=== PATIENT | male | born 1980 | race Hispanic/Latino ===

== ENCOUNTER 2017-02-02 11:21 | Observation (INO) | payer MEDICARE, MEDICAID ==
[2017-02-02] MEDS ORDERED: Fentanyl 100 MCG/2 ML VIAL ONE ×5 (12:06→16:16)
[2017-02-02] MEDS ORDERED: Midazolam HCl 2 mg/2 ml Vial ONE (12:06)
[2017-02-02] MEDS ORDERED: Ropivacaine 0.2% HCl/PF 20 ML ONE (12:06)
[2017-02-02] MEDS ORDERED: traMADol HCl 50 MG TAB PO PRN ×2 (12:30)
[2017-02-02] MEDS ORDERED: Zolpidem Tartrate 5 MG TAB PO PRN (12:30)
[2017-02-02] MEDS ORDERED: Ropivacaine 0.2% 550 ML 550 ML NERVE BLCK SCH (12:30)
[2017-02-02] MEDS ORDERED: HYDROcodone/Acetaminophen 5/325 mg Tablet PO PRN ×2 (12:30)
[2017-02-02] MEDS ORDERED: Ketorolac Tromethamine 30 MG/ML VIAL IVP PRN (12:30)
[2017-02-02] MEDS ORDERED: Glycopyrrolate 0.2 MG/ML 5 ML SYRINGE ONE (13:10)
[2017-02-02] MEDS ORDERED: ePHEDrine/0.9% NaCl/PF SYRINGE 50 mg/10 ml ONE (13:10)
[2017-02-02] MEDS ORDERED: Propofol 200 MG/20 ML VIAL ONE (13:10)
[2017-02-02] MEDS ORDERED: PHENYLEPHRINE-NS 100 MCG/ML 10 ML SYRINGE ONE (13:10)
[2017-02-02] MEDS ORDERED: HYDROcodone/Acetaminophen 10/325 mg Tablet PO PRN (15:12)
--- NOTE | 2017-02-02 15:27 | OP ---
DATE OF PROCEDURE: 02/02/2017 OPERATIONS: 1. Right shoulder rotator cuff repair, arthroscopic. 2. Subacromial decompression. 3. Resection of acromioclavicular joint, Godfrey procedure. 4. Biceps tenotomy. PREOPERATIVE DIAGNOSES: Right shoulder full thickness rotator cuff tear, advanced biceps tendonopat hy, subacromial impingement and acromioclavicular arthritis. POSTOPERATIVE DIAGNOSES: Right shoulder full thickness rotator cuff tear, advanced biceps tendonopa thy, subacromial impingement and acromioclavicular arthritis. COMPLICATIONS: None. ESTIMATED BLOOD LOSS: Minimal. SURGEON: Joni Dowell M.D. ANESTHESIA: General plus regional block. INDICATIONS: Mr. Chandra is a 36-year-old male who has advanced right shoulder pain and has failed conservative treatment. He has been found to have a rotator cuff tear, biceps tendinopathy, subacro mial impingement and AC joint arthritis. He has been indicated for the above procedures to hopefull y restore function and relief pain. Risks have been reviewed in detail. DESCRIPTION OF PROCEDURE: Mr. Chandra was identified in the preoperative holding area. His correct extremity was marked. He was carried to the operating room. He was positioned supine. General an esthesia was induced. A multidisciplinary timeout was performed. The right upper extremity was pre pped and draped in sterile fashion. We began the procedure with diagnostic arthroscopy. A small incision was made posteriorly. We inse rted the arthroscope appropriately into the glenohumeral joint. The patient had severe tearing and fraying of his biceps tendon at the insertion on the scapula. We then inserted a shaver from the an terior portal. We then debrided the biceps tendon. Next, we performed a tenotomy with our cautery device. Next, we inserted the shaver again. We gently debrided the soft tissue structures of the s houlder debriding synovitis, which was extensive in the shoulder. We evaluated the rotator cuff. T he patient had a small full thickness tear as well as thinning of the articular surface of the supra spinatus tendon. At this point, we moved to the subacromial space. We performed a thorough subacromial decompression with bursectomy using our shaver and cautery device. We exposed the underlying rotator cuff. We e xposed the acromial bone. We worked medially back to the acromioclavicular joint. At this point, marisol wills used the high speed shantal to perform an acromioplasty with cutting block technique from anterior to posterior. We then worked medially. We resected 8 mm of distal clavicle bone using a high speed b urr. We worked superiorly through the distal clavicle. We took all overhanging osteophytes away. Finally, we evaluated the rotator cuff from the bursal surface. We debrided the footprint and ident ified the rotator cuff tear. I then placed a medial row anchor and passed to fiber tape sutures thr ough the rotator cuff. These were brought down into a lateral row anchor completing a double row re pair of the rotator cuff. Again, we irrigated and debrided the subacromial space. We then closed t he wounds with 3-0 nylon suture followed by a sterile dressing and a sling. The patient was taken t o recovery room in good condition without complication.
[2017-02-02] MEDS ORDERED: Promethazine HCl 25 MG/ML VIAL ONE (15:46)
[2017-02-02] MEDS ORDERED: [UNRECOGNIZED DRUG - REMARK] PO PRN (15:49)
[2017-02-02] MEDS ORDERED: Promethazine HCl 25 MG/ML VIAL IM/IV PRN (15:49)
[2017-02-02 18:05] VITALS: BMI 29.7
[2017-02-02] MEDS: Fentanyl 100 MCG/2 ML VIAL SLOW IVP PRN (22:26)
[2017-02-02] MEDS: Promethazine HCl 25 MG/ML VIAL IM PRN (23:22)
[2017-02-03] MEDS: Fentanyl 100 MCG/2 ML VIAL SLOW IVP PRN ×4 (01:05→09:26)
[2017-02-03] MEDS: Promethazine HCl 25 MG/ML VIAL IM PRN ×3 (04:12→14:53)
[2017-02-03] MEDS ORDERED: HYDROcodone/Acetaminophen 10/325 mg Tablet PO PRN (09:35)
[2017-02-03] MEDS: HYDROcodone/Acetaminophen 10/325 mg Tablet PO PRN ×2 (10:02→14:35)
[2017-02-03] MEDS ORDERED: Ondansetron HCl/PF 4 MG/2 ML Vial SLOW IVP PRN (12:13)
[2017-02-03] MEDS: clonazePAM 0.5 MG TAB PO SCH ×2 (12:41→14:35)
[2017-02-03] MEDS ORDERED: clonazePAM 0.5 MG TAB PO SCH (12:45)
--- NOTE | 2017-02-03 12:58 | PDOC.EVN ---
Event Note - Event Note Event Note: The Patient's chart was reviewed for the purpose of Utilization Review. The patient's acuity of care does not meet the threshold of acuity to justify inpatient status. Therefore under the Medicare Provision Code 44, the patient's status will be changed to Observation. The patient's Attending Physician has been contacted and agrees.
[2017-02-03] MEDS ORDERED: Baclofen 10 MG TAB PO SCH (14:00)
[2017-02-03 14:20] VITALS: BP 153/103; TEMP 99.1
[2017-02-03] MEDS ORDERED: Gabapentin 300 MG CAP PO SCH (15:00)
--- NOTE | 2017-02-04 12:46 | DIS ---
DATE OF ADMISSION: 02/02/2017 DATE OF DISCHARGE: 02/03/2017 PROCEDURES: 1. The patient underwent a right shoulder rotator cuff repair arthroscopically. 2. Subacromial decompression. 3. Resection of acromioclavicular joint/Godfrey procedure. 4. Biceps tenotomy PREOPERATIVE DIAGNOSES: Right shoulder full thickness rotator cuff tear, advance bicep tendonopathy , subacromial impingement and acromioclavicular arthritis. DISCHARGE DIAGNOSES: Right shoulder full thickness rotator cuff tear, advance bicep tendonopathy, s ubacromial impingement and acromioclavicular arthritis. HOSPITAL COURSE: Hospital stay was unremarkable. The patient did well. He did have some pain post operatively, but this was better with medication and PT. DISCHARGE CONDITION: Stable. DISPOSITION: To swing bed facility. FOLLOWUP: Followup would be in 10-14 days, sooner if there are problems or concerns. DISCHARGE MEDICATIONS: Given with usage instructions. This is Kenny Yañez PA-C dictating for Dr. Joni Dowell.
== END 2017-02-03 17:51 | disposition swing bed (61) ==
LOC: SDC 11:21 → T4-B 15:12 → INTOOBSV 15:12
PROVIDERS: ADMIT Orthopaedic Surgery; ATTEND Orthopaedic Surgery
PROC: 0LQ14ZZ Repair Right Shoulder Tendon, Percutaneous Endoscopic Approach (ICD-10-PCS; principal; 2017-02-02)
PROC: 0LS14ZZ Reposition Right Shoulder Tendon, Percutaneous Endoscopic Approach (ICD-10-PCS; 2017-02-02)
PROC: 0RNJ4ZZ Release Right Shoulder Joint, Percutaneous Endoscopic Approach (ICD-10-PCS; 2017-02-02)
PROC: 0PB94ZZ Excision of Right Clavicle, Percutaneous Endoscopic Approach (ICD-10-PCS; 2017-02-02)
DX: M75.121 Complete rotator cuff tear or rupture of right shoulder, not specified as traumatic (principal); D64.9 Anemia, unspecified; F17.200 Nicotine dependence, unspecified, uncomplicated; I10 Essential (primary) hypertension; Z98.1 Arthrodesis status; N31.9 Neuromuscular dysfunction of bladder, unspecified; E66.9 Obesity, unspecified; Z68.29 Body mass index [BMI] 29.0-29.9, adult; B19.20 Unspecified viral hepatitis C without hepatic coma; Z88.8 Allergy status to other drugs, medicaments and biological substances; Z90.49 Acquired absence of other specified parts of digestive tract; Z90.5 Acquired absence of kidney; Z90.81 Acquired absence of spleen; Z87.440 Personal history of urinary (tract) infections
CPT/HCPCS: 29824; 29826; 29827; 29828; 96374; 96375 ×2; 96376; 97139; A4306; C1713; G0378; G8987; G8988; J2250; J2270; J2550; J2704; J2795; J3010

== ENCOUNTER 2017-11-07 05:13 | Inpatient (IN) | payer MEDICARE, MEDICAID ==
[2017-11-07] MEDS ORDERED: cefTRIAXone\\ROCEPHIN 1 GM VIAL ONE (06:26)
[2017-11-07] MEDS ORDERED: Ondansetron HCl/PF 4 MG/2 ML Vial IVP PRN (09:42)
[2017-11-07] MEDS ORDERED: Ondansetron ODT 4 MG TAB SL PRN (09:42)
[2017-11-07] MEDS ORDERED: Sodium Chloride 0.9% 1,000 ML IV SCH (09:42)
[2017-11-07] MEDS ORDERED: Acetaminophen 325 MG TAB PO PRN (11:07)
[2017-11-07] MEDS ORDERED: Guaifenesin DM 100-10/5 ML UDCUP PO PRN (11:07)
[2017-11-07] MEDS: Sodium Chloride 0.9% 1,000 ML IV SCH (12:07)
[2017-11-07] MEDS: HYDROcodone/Acetaminophen 10/325 mg Tablet PO PRN ×2 (12:09→21:10)
[2017-11-07] MEDS: clonazePAM 0.5 MG TAB PO SCH ×2 (15:56→23:34)
[2017-11-07] MEDS: Gabapentin 300 MG CAP PO SCH ×2 (15:56→21:07)
[2017-11-07] MEDS: Baclofen 10 MG TAB PO SCH ×2 (15:56→21:10)
[2017-11-07 17:22] VITALS: BMI 30.2
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
[2017-11-07] MEDS: Docusate 100 MG CAP PO SCH (21:06)
[2017-11-07] MEDS: TROSPIUM 20 MG TABLET PO SCH (21:07)
[2017-11-07] MEDS: Famotidine 20 MG TAB PO SCH (21:08)
[2017-11-08] MEDS: Sodium Chloride 0.9% 1,000 ML IV SCH (01:30)
[2017-11-08 05:02] LABS: #Basophils 0.1 thou/uL (0.0-0.2); #Eosinphils 0.3 thou/uL (0.0-0.7); #Lymphocytes 3.3 thou/uL (1.20-3.40); #Monocytes 0.4 thou/uL (0.11-0.59); #Neutrophils 3.5 thou/uL (1.40-6.50); %Basophils 0.8 % (0.0-1.0); %Eosinophils 4.2 % (0.0-10.0); %Lymphocytes 43.8 % (21.0-51.0); %Monocytes 5.4 % (0.0-10.0); %Neutrophils 45.8 % (42.0-75.0); Hemoglobin 14.5 g/dL (14.0-18.0); Mean Corpuscular HGB CONC 33.9 g/dL (32.0-36.0); Mean Corpuscular Hemoglobin 32.6 pg (27.0-31.0); Mean Corpuscular Volume 96.1 fL (78.0-98.0); Mean Platelet Volume 6.8 fL (7.4-10.4); Platelet Count 233 thou/uL (130-400); RBC Distribution Width 11.9 % (11.5-14.5); Red Blood Cell (RBC) Count 4.46 mill/uL (4.70-6.10); White Blood Cell (WBC) Count 7.5 thou/uL (4.8-10.8)
[2017-11-08 05:20] LABS: ALT (SGPT) 35 U/L (8-55); AST (SGOT) 40 U/L (5-34); Alkaline Phosphatase 95 U/L (40-150); Anion Gap 10 mmol/L (10-20); BUN (Urea Nitrogen) 14 mg/dL (8.9-20.6); Bilirubin, Total 0.6 mg/dL (0.2-1.2); Calc. Creatinine Clearance 184 mL/min (70-130); Calcium 8.1 mg/dL (7.8-10.44); Carbon Dioxide 25 mmol/L (22-29); Chloride 107 mmol/L (98-107); Estimated GFR-MDRD Greater than 90; Globulin 3.6 g/dL (2.4-3.5); Glucose 119 mg/dL (70-105); Potassium 3.9 mmol/L (3.5-5.1); Protein, Total 6.6 g/dL (6.0-8.3); Sodium 138 mmol/L (136-145)
[2017-11-08] MEDS: cefTRIAXone\\ROCEPHIN 1 GM in Sodium Chloride 0.9% 100 ML IVPB SCH (06:08)
[2017-11-08] MEDS: Baclofen 10 MG TAB PO SCH ×4 (06:11→22:31)
[2017-11-08] MEDS: Gabapentin 300 MG CAP PO SCH ×3 (08:56→22:31)
[2017-11-08] MEDS: Famotidine 20 MG TAB PO SCH ×2 (08:56→22:31)
[2017-11-08] MEDS: clonazePAM 0.5 MG TAB PO SCH ×3 (08:56→22:37)
[2017-11-08] MEDS: Enoxaparin Sodium 40 MG/0.4 ML SYRINGE SC SCH (08:57)
[2017-11-08] MEDS: Polyethylene Glycol 3350 17 GM Packet PO SCH (08:57)
[2017-11-08] MEDS: Docusate 100 MG CAP PO SCH ×2 (08:58→22:32)
[2017-11-08] MEDS: TROSPIUM 20 MG TABLET PO SCH ×2 (08:58→22:31)
[2017-11-08] MEDS ORDERED: hydrALAZINE 20 MG/ML VIAL SLOW IVP PRN (09:01)
[2017-11-08] MEDS ORDERED: Artificial Tears 18 DROP/0.9 ML EA EYE PRN (09:01)
[2017-11-08] MEDS ORDERED: Milk Of Magnesia 30 ML UDCUP PO PRN (09:01)
[2017-11-08] MEDS ORDERED: Temazepam 15 MG CAP PO PRN (09:01)
[2017-11-08] MEDS ORDERED: Sodium Chloride 0.65% Nasal 44 ML BOT EA NARE PRN (09:01)
[2017-11-08] MEDS ORDERED: Loratadine 10 MG TAB PO PRN (09:01)
[2017-11-08] MEDS ORDERED: Chloraseptic Spray 180 ml Bottle PO PRN (09:01)
[2017-11-08] MEDS ORDERED: Mag-Al 1200 mg/1200 mg/30 ML UDCUP PO PRN (09:01)
[2017-11-08] MEDS ORDERED: Loperamide HCl 2 MG CAP PO PRN (09:01)
[2017-11-08] MEDS ORDERED: Eucerin (Mineral Oil/Petrolatum,White) 30 gm Jar TOP PRN (09:01)
[2017-11-08] MEDS ORDERED: Diabetic Tussin 200 MG/10 ML UDCUP PO PRN (09:01)
[2017-11-08] MEDS: HYDROcodone/Acetaminophen 10/325 mg Tablet PO PRN (09:51)
--- NOTE | 2017-11-08 11:58 | PDOC.PN ---
- Subjective Encounter Start Date: 11/08/17 Encounter Start Time: 08:50 -: old records requested/rev Patient seen and examined for UTI. No new complaints. No overnight events - Objective Resuscitation Status: Resuscitation Status FULL:Full Resuscitation MAR Reviewed: Yes Vital Signs & Weight: Vital Signs (12 hours) Temp Pulse Resp BP Pulse Ox 11/08/17 08:00 98.5 F 65 18 135/87 97 I&O: 11/07/17 11/08/17 11/09/17 06:59 06:59 06:59 Intake Total 1700 Output Total 1650 Balance 50 Result Diagrams: 11/08/17 04:33 11/08/17 04:33 Phys Exam - Physical Examination Constitutional: NAD HEENT: PERRLA, moist MMs, sclera anicteric Neck: no JVD, supple Respiratory: no wheezing, no rales, no rhonchi Cardiovascular: RRR, no significant murmur, no rub Gastrointestinal: soft, non-tender, no distention, positive bowel sounds Musculoskeletal: no edema, pulses present paraplegia Lymphatic: no nodes Psychiatric: normal affect, A&O x 3 Skin: no rash, normal turgor Dx/Plan (1) Sepsis Code(s): A41.9 - SEPSIS, UNSPECIFIED ORGANISM Status: Acute (2) UTI (urinary tract infection) due to urinary indwelling catheter Code(s): T83.51XA - ; N39.0 - URINARY TRACT INFECTION, SITE NOT SPECIFIED Status: Acute Comment: intermittent self catheterization (3) Chronic hepatitis C Code(s): B18.2 - CHRONIC VIRAL HEPATITIS C Status: Chronic Qualifiers: (4) Chronic pain syndrome Code(s): G89.4 - CHRONIC PAIN SYNDROME Status: Chronic (5) HTN (hypertension) Code(s): I10 - ESSENTIAL (PRIMARY) HYPERTENSION Status: Chronic Qualifiers: (6) Neurogenic bladder Code(s): N31.9 - NEUROMUSCULAR DYSFUNCTION OF BLADDER, UNSPECIFIED Status: Chronic (7) Obesity (BMI 30.0-34.9) Code(s): E66.9 - OBESITY, UNSPECIFIED Status: Chronic (8) Paraplegia Code(s): G82.20 - PARAPLEGIA, UNSPECIFIED Status: Chronic (9) Rotator cuff tear arthropathy of right shoulder Code(s): M12.811 - OTH SPECIFIC ARTHROPATHIES, NEC, RIGHT SHOULDER Status: Chronic - Plan cont current plan of care, continue antibiotics * continue intermittent self catheterization for neurogenic bladder * ID consulted * continue rocephin * doubt real infection may be colonization * medication reviewed as below * symptomatic treatment * follow culture * continue his home meds. Review of Systems - Review of Systems Eyes: negative: Pain, Vision Change, Conjunctivae Inflammation, Eyelid Inflammation, Redness, Other ENT: negative: Ear Pain, Ear Discharge, Nose Pain, Nose Discharge, Nose Congestion, Mouth Pain, Mouth Swelling, Throat Pain, Throat Swelling, Other Respiratory: negative: Cough, Dry, Shortness of Breath, Hemoptysis, SOB with Excertion, Pleuritic Pain, Sputum, Wheezing Cardiovascular: negative: chest pain, palpitations, orthopnea, paroxysmal nocturnal dyspnea, edema, light headedness, other Gastrointestinal: negative: Nausea, Vomiting, Abdominal Pain, Diarrhea, Constipation, Melena, Hematochezia, Other Genitourinary: negative: Dysuria, Frequency, Incontinence, Hematuria, Retention , Other Musculoskeletal: negative: Neck Pain, Shoulder Pain, Arm Pain, Back Pain, Hand Pain, Leg Pain, Foot Pain, Other Skin: negative: Rash, Lesions, Frederic, Bruising, Other - Medications/Allergies Allergies/Adverse Reactions: Allergies Allergy/AdvReac Type Severity Reaction Status Date / Time ciprofloxacin [From Cipro] Allergy Verified 12/16/16 14:37 ciprofloxacin HCl Allergy Verified 12/16/16 14:37 [From Cipro] fluconazole Allergy Verified 12/16/16 14:37 levofloxacin [From Levaquin] Allergy Verified 12/16/16 14:37 linezolid [From Zyvox] Allergy Verified 12/16/16 14:37 metoclopramide HCl Allergy Verified 12/16/16 14:37 [From Reglan] ondansetron HCl Allergy Short of Verified 12/16/16 14:37 [From Zofran (as Breath hydrochloride)] pregabalin [From Lyrica] Allergy Verified 12/16/16 14:37 Medications: Current Medications Acetaminophen (Tylenol) 650 mg PO Q4H PRN PRN Reason: Headache/Fever or Pain Hydrocodone Bitart/Acetaminophen ([place] 10/325) 1 tab PO Q8H PRN PRN Reason: Severe Pain (7-10) Last Admin: 11/08/17 09:51 Dose: 1 tab Hydrocodone Bitart/Acetaminophen ([place] 5/325) 1 tab PO Q4H PRN PRN Reason: Moderate Pain (4-6) Al Hydroxide/Mg Hydroxide (Maalox) 15 ml PO Q4H PRN PRN Reason: Heartburn or Indigestion Artificial Tears (Tears Naturale) 0 drop EA EYE PRN PRN PRN Reason: Dry Eyes Baclofen (Lioresal) 10 mg PO TID [facility] Last Admin: 11/08/17 09:53 Dose: 10 mg Clonazepam (Klonopin) 0.5 mg PO 0900,1500,2300 [facility] Last Admin: 11/08/17 08:56 Dose: 0.5 mg Docusate Sodium (Colace) 100 mg PO BID [facility] Last Admin: 11/08/17 08:58 Dose: Not Given Enoxaparin Sodium (Lovenox) 40 mg SC 0900 [facility] Last Admin: 11/08/17 08:57 Dose: 40 mg Famotidine (Pepcid) 20 mg PO BID [facility] Last Admin: 11/08/17 08:56 Dose: 20 mg Gabapentin (Neurontin) 300 mg PO TID [facility] Last Admin: 11/08/17 08:56 Dose: 300 mg Guaifenesin (Robitussin Sf) 200 mg PO Q4H PRN PRN Reason: Cough Guaifenesin/Dextromethorphan (Robitussin Dm) 15 ml PO Q4H PRN PRN Reason: Cough Hydralazine HCl (Apresoline) 10 mg SLOW IVP Q4H PRN PRN Reason: Systolic BP > 180 Ceftriaxone Sodium 1 gm/ (Sodium Chloride) 100 mls @ 200 mls/hr IVPB Q24HR [facility] Last Admin: 11/08/17 06:08 Dose: 100 mls Sodium Chloride (Normal Saline 0.9%) 1,000 mls @ 70 mls/hr IV .[id number] [facility] Stop: 11/08/17 15:49 Last Admin: 11/08/17 01:30 Dose: 1,000 mls Loperamide HCl (Imodium) 2 mg PO PRN PRN PRN Reason: Diarrhea/Loose Stools Loratadine (Claritin) 10 mg PO DAILYPRN PRN PRN Reason: Sinus Symptoms Magnesium Hydroxide (Milk Of Magnesium) 30 ml PO DAILYPRN PRN PRN Reason: Constipation Mineral Oil/White Petrolatum (Eucerin Cream) 0 gm TOP BIDPRN PRN PRN Reason: Dry Skin Phenol (Chloraseptic [place] 180 Ml Bot) 0 ml PO PRN PRN PRN Reason: Sore Throat Polyethylene Glycol (Miralax) 17 gm PO DAILY [facility] Last Admin: 11/08/17 08:57 Dose: Not Given Saccharomyces Boulardii (Florastor) 250 mg PO DAILY [facility] Sodium Chloride ([place] Nasal [place] 0.65%) 0 ml EA NARE QIDPRN PRN PRN Reason: Nasal Congestion Temazepam (Restoril) 15 mg PO HSPRN PRN PRN Reason: Insomnia Trospium (Trospium) 20 mg PO BID [facility] Last Admin: 11/08/17 08:58 Dose: Not Given
[2017-11-08] MEDS ORDERED: Baclofen 10 MG TAB PO SCH (16:00)
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
--- NOTE | 2017-11-09 00:02 | ULT ---
ABDOMEN ULTRASOUND: HISTORY: Paraplegia. Fever. Suprapubic pain. COMPARISON: None. CORRELATION: CT abdomen from 09/14/2017. Chest CT from 09/18/2017. TECHNIQUE: Utilizing a Multi-Hertz transducer, sonographic imaging of the right upper quadrant is performed in t he longitudinal and transverse planes. FINDINGS: Limited evaluation of the pancreas due to bowel gas. The left hepatic lobe is obscured. There is increased echogenicity of the right hepatic lobe, which may be due to technical limitations. The possibility of hepatic stenosis or hepatocellular disease i s also raised. Of note, due to the increased echogenicity, evaluation for hepatic masses and intrahe patic biliary dilatation is limited. Increased echogenicity may represent a calculus in the common bile duct, measuring 1.2 cm. The commo n bile duct is prominent, measuring 0.8 cm in dimension. Suboptimal evaluation of the IVC and aorta due to midline bowel gas. A spleen is not appreciated. The gallbladder is reported to be surgically absent. IMPRESSION: Possible choledocholithiasis. Prominence of the common bile duct is noted. Prominence of the common bile duct may be due to reservoir effect from the previous cholecystectomy. If there is concern for choledocholithiasis, consider endoscope retrograde cholangiopancreatography or magnetic resonance ch olangiopancreatography. Correlation made with CT from September 2017 does not demonstrate any obvious chol edocholith. POS: JEANNINE
[2017-11-09] MEDS: cefTRIAXone\\ROCEPHIN 1 GM in Sodium Chloride 0.9% 100 ML IVPB SCH (05:48)
[2017-11-09] MEDS: Famotidine 20 MG TAB PO SCH ×2 (08:38→20:21)
[2017-11-09] MEDS: Saccharomyces boulardii 250 MG CAP PO SCH (08:39)
[2017-11-09] MEDS: Baclofen 10 MG TAB PO SCH ×3 (08:39→20:21)
[2017-11-09] MEDS: clonazePAM 0.5 MG TAB PO SCH ×3 (08:39→23:59)
[2017-11-09] MEDS: Enoxaparin Sodium 40 MG/0.4 ML SYRINGE SC SCH (08:39)
[2017-11-09] MEDS: Polyethylene Glycol 3350 17 GM Packet PO SCH (08:39)
[2017-11-09] MEDS: Docusate 100 MG CAP PO SCH ×2 (08:39→20:20)
[2017-11-09] MEDS: Gabapentin 300 MG CAP PO SCH ×3 (08:39→20:21)
[2017-11-09] MEDS: TROSPIUM 20 MG TABLET PO SCH ×2 (08:40→20:21)
[2017-11-09] MEDS: HYDROcodone/Acetaminophen 10/325 mg Tablet PO PRN (08:49)
--- NOTE | 2017-11-09 10:38 | PDOC.PN ---
- Subjective Encounter Start Date: 11/09/17 Encounter Start Time: 08:40 Patient seen and examined for UTI. No new complaints. No overnight events - Objective Resuscitation Status: Resuscitation Status FULL:Full Resuscitation MAR Reviewed: Yes Vital Signs & Weight: Vital Signs (12 hours) Temp Pulse Resp BP Pulse Ox 11/09/17 07:22 98.5 F 74 18 142/90 H 98 I&O: 11/08/17 11/09/17 11/10/17 06:59 06:59 06:59 Intake Total 1700 980 Output Total 7993 445 8454 Balance 50 600 -1505 Result Diagrams: 11/08/17 04:33 11/08/17 04:33 Radiology Reviewed by me: Yes (US abdomen) Phys Exam - Physical Examination Constitutional: NAD HEENT: PERRLA, moist MMs, sclera anicteric Neck: no JVD, supple Respiratory: no wheezing, no rales, no rhonchi Cardiovascular: RRR, no significant murmur, no rub Gastrointestinal: soft, non-tender, no distention, positive bowel sounds Musculoskeletal: no edema, pulses present paraplegia Lymphatic: no nodes Psychiatric: normal affect Skin: no rash, normal turgor Dx/Plan (1) Sepsis Code(s): A41.9 - SEPSIS, UNSPECIFIED ORGANISM Status: Acute (2) UTI (urinary tract infection) due to urinary indwelling catheter Code(s): T83.51XA - ; N39.0 - URINARY TRACT INFECTION, SITE NOT SPECIFIED Status: Acute Comment: intermittent self catheterization (3) Chronic hepatitis C Code(s): B18.2 - CHRONIC VIRAL HEPATITIS C Status: Chronic Qualifiers: (4) Chronic pain syndrome Code(s): G89.4 - CHRONIC PAIN SYNDROME Status: Chronic (5) HTN (hypertension) Code(s): I10 - ESSENTIAL (PRIMARY) HYPERTENSION Status: Chronic Qualifiers: (6) Neurogenic bladder Code(s): N31.9 - NEUROMUSCULAR DYSFUNCTION OF BLADDER, UNSPECIFIED Status: Chronic (7) Obesity (BMI 30.0-34.9) Code(s): E66.9 - OBESITY, UNSPECIFIED Status: Chronic (8) Paraplegia Code(s): G82.20 - PARAPLEGIA, UNSPECIFIED Status: Chronic (9) Rotator cuff tear arthropathy of right shoulder Code(s): M12.811 - OTH SPECIFIC ARTHROPATHIES, NEC, RIGHT SHOULDER Status: Chronic - Plan cont current plan of care, continue antibiotics * US suspected prominence of bile duct but doubt any clinical significance * medication reviewed as below * symptomatic treatment. * continue follow up on culture result Review of Systems - Review of Systems ENT: negative: Ear Pain, Ear Discharge, Nose Pain, Nose Discharge, Nose Congestion, Mouth Pain, Mouth Swelling, Throat Pain, Throat Swelling, Other Respiratory: negative: Cough, Dry, Shortness of Breath, Hemoptysis, SOB with Excertion, Pleuritic Pain, Sputum, Wheezing Cardiovascular: negative: chest pain, palpitations, orthopnea, paroxysmal nocturnal dyspnea, edema, light headedness, other Gastrointestinal: negative: Nausea, Vomiting, Abdominal Pain, Diarrhea, Constipation, Melena, Hematochezia, Other Genitourinary: negative: Dysuria, Frequency, Incontinence, Hematuria, Retention , Other Musculoskeletal: negative: Neck Pain, Shoulder Pain, Arm Pain, Back Pain, Hand Pain, Leg Pain, Foot Pain, Other - Medications/Allergies Allergies/Adverse Reactions: Allergies Allergy/AdvReac Type Severity Reaction Status Date / Time ciprofloxacin [From Cipro] Allergy Verified 12/16/16 14:37 ciprofloxacin HCl Allergy Verified 12/16/16 14:37 [From Cipro] fluconazole Allergy Verified 12/16/16 14:37 levofloxacin [From Levaquin] Allergy Verified 12/16/16 14:37 linezolid [From Zyvox] Allergy Verified 12/16/16 14:37 metoclopramide HCl Allergy Verified 12/16/16 14:37 [From Reglan] ondansetron HCl Allergy Short of Verified 12/16/16 14:37 [From Zofran (as Breath hydrochloride)] pregabalin [From Lyrica] Allergy Verified 12/16/16 14:37 Medications: Current Medications Acetaminophen (Tylenol) 650 mg PO Q4H PRN PRN Reason: Headache/Fever or Pain Hydrocodone Bitart/Acetaminophen ([place] 10/325) 1 tab PO Q8H PRN PRN Reason: Severe Pain (7-10) Last Admin: 11/09/17 08:49 Dose: 1 tab Hydrocodone Bitart/Acetaminophen ([place] 5/325) 1 tab PO Q4H PRN PRN Reason: Moderate Pain (4-6) Al Hydroxide/Mg Hydroxide (Maalox) 15 ml PO Q4H PRN PRN Reason: Heartburn or Indigestion Artificial Tears (Tears Naturale) 0 drop EA EYE PRN PRN PRN Reason: Dry Eyes Baclofen (Lioresal) 10 mg PO TID [facility] Last Admin: 11/09/17 08:39 Dose: 10 mg Clonazepam (Klonopin) 0.5 mg PO 0900,1500,2300 [facility] Last Admin: 11/09/17 08:39 Dose: 0.5 mg Docusate Sodium (Colace) 100 mg PO BID [facility] Last Admin: 11/09/17 08:39 Dose: Not Given Enoxaparin Sodium (Lovenox) 40 mg SC 0900 [facility] Last Admin: 11/09/17 08:39 Dose: 40 mg Famotidine (Pepcid) 20 mg PO BID [facility] Last Admin: 11/09/17 08:38 Dose: 20 mg Gabapentin (Neurontin) 300 mg PO TID [facility] Last Admin: 11/09/17 08:39 Dose: 300 mg Guaifenesin (Robitussin Sf) 200 mg PO Q4H PRN PRN Reason: Cough Guaifenesin/Dextromethorphan (Robitussin Dm) 15 ml PO Q4H PRN PRN Reason: Cough Hydralazine HCl (Apresoline) 10 mg SLOW IVP Q4H PRN PRN Reason: Systolic BP > 180 Ceftriaxone Sodium 1 gm/ (Sodium Chloride) 100 mls @ 200 mls/hr IVPB Q24HR [facility] Last Admin: 11/09/17 05:48 Dose: 100 mls Loperamide HCl (Imodium) 2 mg PO PRN PRN PRN Reason: Diarrhea/Loose Stools Loratadine (Claritin) 10 mg PO DAILYPRN PRN PRN Reason: Sinus Symptoms Magnesium Hydroxide (Milk Of Magnesium) 30 ml PO DAILYPRN PRN PRN Reason: Constipation Mineral Oil/White Petrolatum (Eucerin Cream) 0 gm TOP BIDPRN PRN PRN Reason: Dry Skin Phenol (Chloraseptic [place] 180 Ml Bot) 0 ml PO PRN PRN PRN Reason: Sore Throat Polyethylene Glycol (Miralax) 17 gm PO DAILY [facility] Last Admin: 11/09/17 08:39 Dose: Not Given Saccharomyces Boulardii (Florastor) 250 mg PO DAILY [facility] Last Admin: 11/09/17 08:39 Dose: 250 mg Sodium Chloride ([place] Nasal [place] 0.65%) 0 ml EA NARE QIDPRN PRN PRN Reason: Nasal Congestion Temazepam (Restoril) 15 mg PO HSPRN PRN PRN Reason: Insomnia Trospium (Trospium) 20 mg PO BID [facility] Last Admin: 11/09/17 08:40 Dose: Not Given
[2017-11-09] MEDS: HYDROcodone/Acetaminophen 5/325 mg Tablet PO PRN ×2 (14:19→20:23)
[2017-11-10] MEDS: cefTRIAXone\\ROCEPHIN 1 GM in Sodium Chloride 0.9% 100 ML IVPB SCH (06:26)
[2017-11-10] MEDS: TROSPIUM 20 MG TABLET PO SCH ×2 (08:24→20:01)
[2017-11-10] MEDS: Polyethylene Glycol 3350 17 GM Packet PO SCH (08:24)
[2017-11-10] MEDS: Docusate 100 MG CAP PO SCH ×2 (08:25→20:02)
[2017-11-10] MEDS: Enoxaparin Sodium 40 MG/0.4 ML SYRINGE SC SCH (08:26)
[2017-11-10] MEDS: Gabapentin 300 MG CAP PO SCH ×3 (08:26→19:59)
[2017-11-10] MEDS: Saccharomyces boulardii 250 MG CAP PO SCH (08:26)
[2017-11-10] MEDS: Famotidine 20 MG TAB PO SCH ×2 (08:26→19:59)
[2017-11-10] MEDS: clonazePAM 0.5 MG TAB PO SCH ×2 (08:26→14:13)
[2017-11-10] MEDS: Baclofen 10 MG TAB PO SCH ×3 (08:26→19:59)
[2017-11-10] MEDS: HYDROcodone/Acetaminophen 5/325 mg Tablet PO PRN ×3 (08:32→16:14)
--- NOTE | 2017-11-10 11:39 | RAD ---
TWO VIEWS LEFT CLAVICLE: DATE: 11/10/17. HISTORY: Left clavicular bone pain. FINDINGS: There is no evidence of a fracture. The coracoclavicular and acromioclavicular distances are within normal limits. A left subclavian MediPort catheter is noted in place. There is a curvilinear calcif ication overlying the region of the aortic arch and descending thoracic aorta that was shown to repre sent a thrombosed sacular-type aneurysm on prior CTA of the chest on 09/18/17. No other findings. IMPRESSION: No acute osseous abnormality involving the left clavicle. POS: [facility]
--- NOTE | 2017-11-10 12:26 | DIS ---
DATE OF ADMISSION: 11/07/2017 DATE OF DISCHARGE: 11/10/2017 PRIMARY CARE PHYSICIAN: Arnold Navarro M.D. DISCHARGE DISPOSITION: Home. PRIMARY DISCHARGE DIAGNOSES: 1. Sepsis. 2. Urinary tract infection due to self-intermittent catheterization. SECONDARY DISCHARGE DIAGNOSES: Chronic hepatitis C, chronic pain disorder, neurogenic bladder, chron ic paraplegia, hypertension, obesity with BMI 30, chronic rotator cuff tear with the right shoulder p ain. PRIMARY PROCEDURE/OPERATION: None. RADIOLOGICAL INVESTIGATION: Abdomen ultrasound showed bile duct prominence, but clinically this corin ent does not have any Taylor sign or no abdominal pain and no abnormal LFT. Chest clavicular x-ray w as normal. SIGNIFICANT LABORATORY DATA: WBC 7.5, hemoglobin 14.5, platelet 233. Sodium 138, potassium 3.9, BUN 14, creatinine 0.68, AST 40, ALT 35, alkaline phosphatase 95, albumin 3.0. Urine culture grew E. co li and Enterococcus, but quantity was insufficient but based on previous culture, he was on Macrobid sensitive. DISCHARGE MEDICATIONS: Baclofen one tablet q.i.d., Klonopin 0.5 mg p.o. daily, gabapentin 300 mg p.o . t.i.d., [place] 10 one tablet q.8 hourly p.r.n., Florastor 250 mg p.o. daily, Macrobid 100 mg p.o. b. i.d. for 10 days. CONTRAINDICATIONS: None. CODE STATUS: FULL CODE. INPATIENT CONSULTANTS: Dr. Edwards. TEST RESULTS PENDING ON DISCHARGE: None. ALLERGIES: CIPROFLOXACIN, FLUCONAZOLE. DISCHARGE PLAN: Post hospital, the patient is instructed to follow with primary care physician and Gerry Edwards as instructed. HOSPITAL COURSE: A 37-year-old male who has chronic paraplegia, neurogenic bladder, and he does self -intermittent catheterization. He was evaluated at [facility] and subsequently he w as transferred to our emergency room. He was having UTI symptoms. He was admitted by Dr. Layne parrish. Please see his H&P for further details. His urinalysis was consistent with UTI. His urine cultu re grew E. coli, Proteus mirabilis, and Enterococcus. Based on culture and sensitivity result, we de cided to change to Macrobid upon discharge. While in hospital, he was treated with Rocephin. He had significant clinical improvement. We are continuing all above-mentioned medication upon discharge. The patient was complaining of left clavicular bone pain and that is why we did x-ray left clavicle w hich was normal. Abdominal ultrasound showed bile duct prominence, but he does not have any right up per quadrant pain and we do not suspect any choledocholithiasis and that is why we did not consult an y GI based on clinical evaluation. Dr. Edwards recommended to continue antibiotic therapy based on cul ture result. Overall, this patient is completely asymptomatic. He is afebrile and hemodynamically s table. As long as Dr. Edwards is okay, then we will consider discharging him home later on today. PHYSICAL EXAMINATION: The patient is seen and examined at bedside today. VITAL SIGNS: Currently, temperature 98.4, pulse 87, respiratory rate 18, saturation 98% on room air, blood pressure 141/92, weight 193 pounds. GENERAL: The patient is currently alert, awake, no obvious acute distress. HEAD: Normocephalic, atraumatic. EYES: Pupils round, reactive to light. Extraocular muscle intact. ENT: Oropharynx within normal limits. Moist mucous membranes, no oral lesion, no pharyngeal erythem a, no exudate. NECK: Supple, no JVD, no thyromegaly, no carotid bruit. LUNGS: Clear to auscultation without any rhonchi or rales. CARDIAC: S1, S2 regular without any murmur. ABDOMEN: Soft and benign without any tenderness. EXTREMITIES: No edema. NEUROLOGIC: Nonfocal examination. This patient was evaluated by Dr. Edwards later on and he recommended to continue Rocephin 2 gram IV da jeimy until 11/17/2017. This patient has MediPort and he will get IV antibiotic therapy at the [facility]. With help of shoe caser, we arranged a swing bed today. [facility] 2 gram IV daily. Paperwork for discharge done. Discharge medication reconciliation done. Total time spent on discharge day 31 minutes.
[2017-11-10] MEDS ORDERED: Promethazine HCl 25 MG/ML VIAL SLOW IVP SCH (17:45)
[2017-11-10 19:54] VITALS: BP 144/90; TEMP 97.6
[2017-11-10] MEDS: HYDROcodone/Acetaminophen 10/325 mg Tablet PO PRN (19:59)
== END 2017-11-10 21:03 | DRG 698 ==
LOC: ERS 05:13 → T4-B 08:00
PROVIDERS: ADMIT Internal Medicine; ATTEND Internal Medicine
DX: T83.518A Infection and inflammatory reaction due to other urinary catheter, initial encounter (principal); A41.51 Sepsis due to Escherichia coli [E. coli]; A41.81 Sepsis due to Enterococcus; N39.0 Urinary tract infection, site not specified; G82.20 Paraplegia, unspecified; B96.4 Proteus (mirabilis) (morganii) as the cause of diseases classified elsewhere; B18.2 Chronic viral hepatitis C; G89.29 Other chronic pain; N31.9 Neuromuscular dysfunction of bladder, unspecified; I10 Essential (primary) hypertension; E66.9 Obesity, unspecified; Z68.30 Body mass index [BMI] 30.0-30.9, adult; M12.811 Other specific arthropathies, not elsewhere classified, right shoulder; F17.210 Nicotine dependence, cigarettes, uncomplicated; Z99.3 Dependence on wheelchair
CPT/HCPCS: 36415; 51701; 76700; 80053; 85025; 87086; 96365; 96367; 96375; J0696; J1580; J1650; J2270; J2550; J7050

== ENCOUNTER 2017-12-29 05:47 | Inpatient (IN) | payer MEDICARE, MEDICAID ==
[2017-12-29] MEDS ORDERED: Morphine 4 MG/ML VIAL ONE (06:28)
[2017-12-29] MEDS ORDERED: Promethazine HCl 25 MG/ML VIAL ONE ×2 (06:28→10:51)
--- NOTE | 2017-12-29 08:02 | CT ---
CT OF THE ABDOMEN AND PELVIS WITHOUT CONTRAST: COMPARISON: 12/12/16. HISTORY: Right flank pain. TECHNIQUE: Multiple contiguous axial images were obtained in a CT of the abdomen and pelvis without contrast. C oronal reformats were performed. FINDINGS: The left kidney is absent. No hydronephrosis or calculi are seen in the right kidney. The liver, ga llbladder, adrenal glands, spleen, and pancreas are unremarkable, although evaluation is limited on t his noncontrast examination. Postsurgical changes are seen in the spine. Shrapnel is seen in the lower retroperitoneum. The larg e and small bowel are unremarkable. There is an artificial urinary sphincter with a reservoir adjace nt to the urinary bladder. No abdominal or pelvic lymphadenopathy are seen. Destructive changes are seen in both femoral heads, unchanged. There is a left hip effusion. The vi sualized inferior thorax and abdominal wall soft tissues are unremarkable. IMPRESSION: 1. No evidence of acute intraabdominal/pelvic abnormality. 2. Chronic changes of the spine and both hips. POS: [facility]
[2017-12-29] MEDS ORDERED: cefTRIAXone\\ROCEPHIN 2 GM VIAL ONE (10:30)
[2017-12-29] MEDS ORDERED: Ketorolac Tromethamine 30 MG/ML VIAL ONE (10:51)
[2017-12-29] MEDS ORDERED: Senokot 8.6 MG TAB PO PRN (13:32)
[2017-12-29] MEDS ORDERED: Acetaminophen 325 MG TAB PO PRN (13:32)
[2017-12-29] MEDS ORDERED: Bisacodyl 5 MG TAB PO PRN (13:32)
[2017-12-29] MEDS: Ketorolac Tromethamine 30 MG/ML VIAL IVP PRN (17:22)
[2017-12-29] MEDS: Promethazine HCl 25 MG/ML VIAL IM/IV PRN (17:23)
[2017-12-29] MEDS: Docusate 100 MG CAP PO SCH (20:59)
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
[2017-12-30] MEDS: Ketorolac Tromethamine 30 MG/ML VIAL IVP PRN ×2 (03:49→10:40)
[2017-12-30] MEDS: Promethazine HCl 25 MG/ML VIAL IM/IV PRN ×3 (03:49→18:33)
[2017-12-30 04:44] LABS: #Basophils 0.1 thou/uL (0.0-0.2); #Eosinphils 0.3 thou/uL (0.0-0.7); #Lymphocytes 2.7 thou/uL (1.20-3.40); #Monocytes 0.6 thou/uL (0.11-0.59); #Neutrophils 4.5 thou/uL (1.40-6.50); %Basophils 1.2 % (0.0-1.0); %Eosinophils 3.4 % (0.0-10.0); %Lymphocytes 33.1 % (21.0-51.0); %Monocytes 7.7 % (0.0-10.0); %Neutrophils 54.6 % (42.0-75.0); Hemoglobin 14.7 g/dL (14.0-18.0); Mean Corpuscular HGB CONC 33.6 g/dL (32.0-36.0); Mean Corpuscular Hemoglobin 32.7 pg (27.0-31.0); Mean Corpuscular Volume 97.2 fL (78.0-98.0); Mean Platelet Volume 6.9 fL (7.4-10.4); Platelet Count 213 thou/uL (130-400); RBC Distribution Width 12.6 % (11.5-14.5); Red Blood Cell (RBC) Count 4.49 mill/uL (4.70-6.10); White Blood Cell (WBC) Count 8.2 thou/uL (4.8-10.8)
[2017-12-30 05:02] LABS: ALT (SGPT) 39 U/L (8-55); AST (SGOT) 45 U/L (5-34); Albumin 3.2 g/dL (3.5-5.0); Alkaline Phosphatase 94 U/L (40-150); Anion Gap 10 mmol/L (10-20); BUN (Urea Nitrogen) 13 mg/dL (8.9-20.6); Bilirubin, Total 0.6 mg/dL (0.2-1.2); Calc. Creatinine Clearance 192 mL/min (70-130); Calcium 8.4 mg/dL (7.8-10.44); Carbon Dioxide 24 mmol/L (22-29); Chloride 110 mmol/L (98-107); Estimated GFR-MDRD Greater than 90; Globulin 3.7 g/dL (2.4-3.5); Glucose 97 mg/dL (70-105); Potassium 4.3 mmol/L (3.5-5.1); Protein, Total 6.9 g/dL (6.0-8.3); Sodium 140 mmol/L (136-145)
[2017-12-30] MEDS: Enoxaparin Sodium 30 MG/0.3 ML SYRINGE SC SCH (07:43)
[2017-12-30] MEDS: Docusate 100 MG CAP PO SCH ×2 (07:44→19:35)
[2017-12-30] MEDS: cefTRIAXone\\ROCEPHIN 2 GM in Sodium Chloride 0.9% 100 ML IVPB SCH (09:22)
--- NOTE | 2017-12-30 12:38 | PDOC.PN ---
- Subjective Encounter Start Date: 12/30/17 Encounter Start Time: 12:37 Patient was seen and examined by me this morning. States that his pain is improving compared to yesterday. States that he has not had any diarrhea. Denies any acute distress at the time. - Objective MAR Reviewed: Yes Vital Signs & Weight: Vital Signs (12 hours) Temp Pulse Resp BP Pulse Ox 12/30/17 11:38 98.3 F 86 18 133/92 H 98 12/30/17 08:00 98.1 F 75 18 120/75 96 12/30/17 04:29 98.4 F 76 18 120/74 97 Weight Weight 207 lb I&O: 12/29/17 12/30/17 12/31/17 06:59 06:59 06:59 Output Total 300 Balance -300 Result Diagrams: 12/30/17 04:07 12/30/17 04:07 Phys Exam - Physical Examination Constitutional: NAD HEENT: PERRLA, moist MMs Neck: no JVD, supple Respiratory: no wheezing, no rales, no rhonchi, wheezing present Cardiovascular: RRR, no significant murmur, no rub Gastrointestinal: soft, non-tender, no distention Musculoskeletal: no edema, pulses present paraplegic; tenderness in the Right flank paraplegic Psychiatric: normal affect, A&O x 3 Dx/Plan (1) Pyelonephritis Code(s): N12 - TUBULO-INTERSTITIAL NEPHRITIS, NOT SPCF ACUTE OR CHRONIC Status: Acute Comment: morphine prn for pain. IV rocephin. Will await culture and sensitive. Likely discharge patient tomorrow on PO antibiotics. (2) UTI (urinary tract infection) due to urinary indwelling catheter Code(s): T83.51XA - ; N39.0 - URINARY TRACT INFECTION, SITE NOT SPECIFIED Status: Acute Comment: intermittent self catheterization. Will continue patient on IV rocephin (3) Chronic hepatitis C Code(s): B18.2 - CHRONIC VIRAL HEPATITIS C Status: Chronic Qualifiers: Qualified Code(s): B18.2 - Chronic viral hepatitis C Comment: patient refused to be treated. Will continue to monitor . (4) Chronic pain syndrome Code(s): G89.4 - CHRONIC PAIN SYNDROME Status: Chronic (5) HTN (hypertension) Code(s): I10 - ESSENTIAL (PRIMARY) HYPERTENSION Status: Chronic Qualifiers: (6) Neurogenic bladder Code(s): N31.9 - NEUROMUSCULAR DYSFUNCTION OF BLADDER, UNSPECIFIED Status: Chronic (7) Paraplegia Code(s): G82.20 - PARAPLEGIA, UNSPECIFIED Status: Chronic - Plan * . Review of Systems - Review of Systems Constitutional: negative: fever, chills, sweats, weakness, malaise, other Eyes: negative: Pain, Vision Change, Conjunctivae Inflammation, Eyelid Inflammation, Redness, Other ENT: negative: Ear Pain, Ear Discharge, Nose Pain, Nose Discharge, Nose Congestion, Mouth Pain, Mouth Swelling, Throat Pain, Throat Swelling, Other Respiratory: negative: Cough, Dry, Shortness of Breath, Hemoptysis, SOB with Excertion, Pleuritic Pain, Sputum, Wheezing Cardiovascular: negative: chest pain, palpitations, orthopnea, paroxysmal nocturnal dyspnea, edema, light headedness, other Gastrointestinal: negative: Nausea, Vomiting, Abdominal Pain, Diarrhea, Constipation, Melena, Hematochezia, Other Genitourinary: negative: Dysuria, Frequency, Incontinence, Hematuria, Retention , Other Musculoskeletal: Back Pain. negative: Neck Pain, Shoulder Pain, Arm Pain, Hand Pain, Leg Pain, Foot Pain, Other Skin: negative: Rash, Lesions, Frederic, Bruising, Other Neurological: negative: Weakness, Numbness, Incoordination, Change in Speech, Confusion, Seizures, Other - Medications/Allergies Allergies/Adverse Reactions: Allergies Allergy/AdvReac Type Severity Reaction Status Date / Time ciprofloxacin [From Cipro] Allergy Verified 12/16/16 14:37 ciprofloxacin HCl Allergy Verified 12/16/16 14:37 [From Cipro] fluconazole Allergy Verified 12/16/16 14:37 levofloxacin [From Levaquin] Allergy Verified 12/16/16 14:37 linezolid [From Zyvox] Allergy Verified 12/16/16 14:37 metoclopramide HCl Allergy Verified 12/16/16 14:37 [From Reglan] ondansetron HCl Allergy Short of Verified 12/16/16 14:37 [From Zofran (as Breath hydrochloride)] pregabalin [From Lyrica] Allergy Verified 12/16/16 14:37 Medications: Current Medications Acetaminophen (Tylenol) 650 mg PO Q4H PRN PRN Reason: Headache/Fever or Pain Bisacodyl (Dulcolax) 10 mg PO DAILYPRN PRN PRN Reason: Constipation Docusate Sodium (Colace) 100 mg PO BID [facility] Last Admin: 12/30/17 07:44 Dose: Not Given Enoxaparin Sodium (Lovenox) 30 mg SC 0900 [facility] Last Admin: 12/30/17 07:43 Dose: 30 mg Ceftriaxone Sodium 2 gm/ (Sodium Chloride) 100 mls @ 200 mls/hr IVPB 1100 [facility] Last Admin: 12/30/17 09:22 Dose: 100 mls Morphine Sulfate (Morphine) 2 mg SLOW IVP Q4H PRN PRN Reason: Moderate Pain (4-6) Promethazine HCl (Phenergan) 25 mg IM/IV Q6H PRN PRN Reason: Nausea/Vomiting Last Admin: 12/30/17 10:39 Dose: 25 mg Senna (Senokot) 2 tab PO HSPRN PRN PRN Reason: Constipation
[2017-12-31] MEDS: Promethazine HCl 25 MG/ML VIAL IM/IV PRN ×3 (01:25→14:28)
[2017-12-31 07:17] VITALS: BP 136/85; TEMP 98.2
--- NOTE | 2017-12-31 07:51 | PDOC.PN ---
- Subjective Encounter Start Date: 12/31/17 Encounter Start Time: 07:48 - Objective MAR Reviewed: Yes Vital Signs & Weight: Vital Signs (12 hours) Temp Pulse Resp BP Pulse Ox 12/31/17 07:15 98.2 F 75 16 136/85 98 12/30/17 20:00 98.4 F 95 18 135/89 97 Weight Weight 207 lb I&O: 12/30/17 12/31/17 01/01/18 06:59 06:59 06:59 Intake Total 2780 Output Total 300 2100 Balance -300 680 Result Diagrams: 12/30/17 04:07 12/30/17 04:07 Dx/Plan (1) Pyelonephritis Code(s): N12 - TUBULO-INTERSTITIAL NEPHRITIS, NOT SPCF ACUTE OR CHRONIC Status: Acute Comment: morphine prn for pain. IV rocephin. Will await culture and sensitive. Likely discharge patient tomorrow on PO antibiotics. (2) UTI (urinary tract infection) due to urinary indwelling catheter Code(s): T83.51XA - ; N39.0 - URINARY TRACT INFECTION, SITE NOT SPECIFIED Status: Acute Comment: intermittent self catheterization. Will continue patient on IV rocephin (3) Chronic hepatitis C Code(s): B18.2 - CHRONIC VIRAL HEPATITIS C Status: Chronic Qualifiers: Qualified Code(s): B18.2 - Chronic viral hepatitis C Comment: patient refused to be treated. Will continue to monitor . (4) Chronic pain syndrome Code(s): G89.4 - CHRONIC PAIN SYNDROME Status: Chronic (5) HTN (hypertension) Code(s): I10 - ESSENTIAL (PRIMARY) HYPERTENSION Status: Chronic Qualifiers: (6) Neurogenic bladder Code(s): N31.9 - NEUROMUSCULAR DYSFUNCTION OF BLADDER, UNSPECIFIED Status: Chronic (7) Paraplegia Code(s): G82.20 - PARAPLEGIA, UNSPECIFIED Status: Chronic - Plan * . Review of Systems - Medications/Allergies Allergies/Adverse Reactions: Allergies Allergy/AdvReac Type Severity Reaction Status Date / Time ciprofloxacin [From Cipro] Allergy Verified 12/16/16 14:37 ciprofloxacin HCl Allergy Verified 12/16/16 14:37 [From Cipro] fluconazole Allergy Verified 12/16/16 14:37 levofloxacin [From Levaquin] Allergy Verified 12/16/16 14:37 linezolid [From Zyvox] Allergy Verified 12/16/16 14:37 metoclopramide HCl Allergy Verified 12/16/16 14:37 [From Reglan] ondansetron HCl Allergy Short of Verified 12/16/16 14:37 [From Zofran (as Breath hydrochloride)] pregabalin [From Lyrica] Allergy Verified 12/16/16 14:37 Medications: Current Medications Acetaminophen (Tylenol) 650 mg PO Q4H PRN PRN Reason: Headache/Fever or Pain Bisacodyl (Dulcolax) 10 mg PO DAILYPRN PRN PRN Reason: Constipation Docusate Sodium (Colace) 100 mg PO BID REPLACED BY [facility] Last Admin: 12/30/17 19:35 Dose: Not Given Enoxaparin Sodium (Lovenox) 30 mg SC 0900 REPLACED BY [facility] Last Admin: 12/30/17 07:43 Dose: 30 mg Ceftriaxone Sodium 2 gm/ (Sodium Chloride) 100 mls @ 200 mls/hr IVPB 1100 REPLACED BY [facility] Last Admin: 12/30/17 09:22 Dose: 100 mls Morphine Sulfate (Morphine) 2 mg SLOW IVP Q4H PRN PRN Reason: Moderate Pain (4-6) Last Admin: 12/31/17 05:59 Dose: 2 mg Promethazine HCl (Phenergan) 25 mg IM/IV Q6H PRN PRN Reason: Nausea/Vomiting Last Admin: 12/31/17 01:25 Dose: 25 mg Senna (Senokot) 2 tab PO HSPRN PRN PRN Reason: Constipation
[2017-12-31] MEDS: Docusate 100 MG CAP PO SCH (08:13)
[2017-12-31] MEDS: Enoxaparin Sodium 30 MG/0.3 ML SYRINGE SC SCH (08:13)
[2017-12-31] MEDS: cefTRIAXone\\ROCEPHIN 2 GM in Sodium Chloride 0.9% 100 ML IVPB SCH (10:19)
--- NOTE | 2017-12-31 18:59 | DIS ---
The patient was seen this morning and examined by me. The patient does not have any issues this morn ing, progressing well. Denies any pain. We are going to discharge the patient in a good and stable condition this morning. The patient was seen face to face and examined by me. DISCHARGE DIAGNOSES: 1. Pyelonephritis. 2. Urinary tract infection secondary to self-catheterization. 3. Chronic hepatitis C. 4. Chronic pain syndrome. 5. Hypertension. HOSPITAL COURSE: This is a 37-year-old male, who came in for pyelonephritis. The patient h as had history of recurrent UTIs and patient states that because he has only one kidney left which is the right kidney, he wanted to come in so that he can be able to receive treatment before it gets wo rse. The patient was started on Rocephin, continue the course of Rocephin. Cultures that were order ed were all negative. The patient did well, tolerated antibiotics very well. The patient is now sta ble and ready to be discharged. Labs and imaging that was done when patient was in the hospital. CT of the abdomen and pelvis showed no acute intra-abdominal process. CBC that was done, WBC was 7.4, hemoglobin was 14.2, hematocrit was 41.7, platelets of 225. Electrolytes: Sodium was 137, potassium 3.3, creatinine was 0.67, glucose 134. Urinalysis showed positive nitrite and moderate leukoesteras e. DISCHARGE MEDICATIONS: Kindly refer to the electronic medical record for discharge medications. DISPOSITION: The patient is being discharged in a good and stable condition. The patient does not h ave any complaints at this time. DISCHARGE ENCOUNTER: This encounter lasted about 31 minutes.
== END 2017-12-31 15:12 | disposition home or self-care (01) | DRG 699 ==
LOC: ERS 05:47 → ERHOLD 09:36 → T4-A 15:19 → OBSVTOIN 12-30 12:35
PROVIDERS: ADMIT Internal Medicine; ATTEND Internal Medicine
DX: T83.511A Infection and inflammatory reaction due to indwelling urethral catheter, initial encounter (principal); G82.20 Paraplegia, unspecified; N12 Tubulo-interstitial nephritis, not specified as acute or chronic; B18.2 Chronic viral hepatitis C; G89.4 Chronic pain syndrome; I10 Essential (primary) hypertension; N31.9 Neuromuscular dysfunction of bladder, unspecified; F41.9 Anxiety disorder, unspecified; F32.9 Major depressive disorder, single episode, unspecified
CPT/HCPCS: 36415; 74176; 80053; 85025; 87040; 96365; 96375; 96376; J0696; J1642; J1650; J1885; J2270; J2550; J7050

== ENCOUNTER 2018-01-14 02:59 | Inpatient (IN) | payer MEDICARE, MEDICAID ==
[2018-01-14] MEDS ORDERED: Promethazine HCl 25 MG/ML VIAL ONE (03:43)
[2018-01-14] MEDS ORDERED: Ketorolac Tromethamine 30 MG/ML VIAL ONE (04:11)
[2018-01-14] MEDS ORDERED: cefTRIAXone\\ROCEPHIN 1 GM VIAL ONE (04:11)
[2018-01-14 07:55] VITALS: BMI 31.6
[2018-01-14] MEDS ORDERED: Acetaminophen 325 MG TAB PO PRN (08:47)
[2018-01-14] MEDS ORDERED: hydrALAZINE 20 MG/ML VIAL SLOW IVP PRN (09:01)
[2018-01-14] MEDS ORDERED: cloNIDine 0.1 MG TAB PO PRN (09:01)
[2018-01-14] MEDS ORDERED: Acetaminophen 500 MG TAB PO PRN (09:01)
[2018-01-14] MEDS: Sodium Chloride 0.9% 1,000 ML IV SCH ×2 (09:57→17:55)
[2018-01-14] MEDS: Promethazine HCl 25 MG/ML VIAL IM/IV PRN ×2 (10:00→16:04)
[2018-01-14] MEDS: Famotidine 20 MG TAB PO SCH ×2 (10:41→20:19)
[2018-01-14] MEDS: Gabapentin 300 MG CAP PO SCH ×3 (10:41→20:19)
[2018-01-14] MEDS: HYDROcodone/Acetaminophen 10/325 mg Tablet PO SCH ×2 (10:41→20:18)
[2018-01-14] MEDS: clonazePAM 0.5 MG TAB PO SCH ×2 (10:41→14:37)
[2018-01-14] MEDS: Baclofen 10 MG TAB PO SCH ×3 (10:41→20:18)
--- NOTE | 2018-01-14 11:06 | HP ---
DATE OF ADMISSION: 01/14/2018 PRIMARY CARE PHYSICIAN: Dr. Arnold Navarro. CHIEF COMPLAINT: Fever and abdominal pain. HISTORY OF PRESENT ILLNESS: This is a 37-year-old male with significant history of T12 para plegia with recurrent urinary tract infections presenting with fever up to 101 degrees Fahrenheit wit h general malaise and body aches. Patient states he took a home remedy of aspirin with some improvem ent in the overall fever; however, noted increased over 102 degrees Fahrenheit, prompting him to seek medical attention. The patient was notably admitted recently to [facility] on 12/29/2017 [facility] 12/31/2017 for suspected urinary tract infection, placed on Bactrim for home therapy after dis charge. The patient does continue intermittent bladder self catheterization through the urethra afte r a spinal cord injury as a child. The patient admits to general body aches, fever, and chills as st ated previously. In the emergency room, patient underwent general evaluation including CT of the abd omen and pelvis showing present right kidney in addition to the previous left nephrectomy. The patie nt received IV Rocephin 2 grams in addition to Toradol, Phenergan, and intravenous normal saline. PAST MEDICAL HISTORY: 1. T12 paraplegia. 2. Recurrent urinary tract infections. 3. Thoracic abdominal aneurysm. 4. Right hip osteomyelitis. 5. Hepatitis C. PAST SURGICAL HISTORY: 1. Status post MediPort placement in 2017. 2. Status post right hip surgery. 3. Status post cholecystectomy. 4. Status post left nephrectomy. 5. Status post splenectomy. 6. Status post bladder augmentation. 7. Artificial sphincter. 8. Amputation of the toes of the right foot and two on the left foot. 9. Status post right shoulder rotator cuff repair. CURRENT MEDICATIONS: 1. Baclofen 25 mg p.o. t.i.d. 2. Neurontin 300 mg p.o. t.i.d. 3. [place] 10/325 mg 1 tab p.o. b.i.d. 4. Klonopin 0.5 mg p.o. t.i.d. ALLERGIES: QUINOLONES, LYRICA, ZOFRAN, REGLAN, ZYVOX. FAMILY HISTORY: No inheritable diseases per patient report. SOCIAL HISTORY: Patient with occasional tobacco use. No alcohol or illicit drug use. Mobilizes wit h use of a motorized wheelchair. REVIEW OF SYSTEMS: The following complete review of systems was negative, unless otherwise mentioned in the HPI or below: Constitutional: Weight loss or gain, ability to conduct usual activities. Skin: Rash, itching. Eyes: Double vision, pain. ENT/Mouth: Nose bleeding, neck stiffness, pain, tenderness. Cardiovascular: Palpitations, dyspnea on exertion, orthopnea. Respiratory: Shortness of breath, wheezing, cough, hemoptysis, fever or night sweats. Gastrointestinal: Poor appetite, abdominal pain, heartburn, nausea, vomiting, constipation, or diarr hea. Genitourinary: Urgency, frequency, dysuria, nocturia. Musculoskeletal: Pain, swelling. Neurologic/Psychiatric: Anxiety, depression. Allergy/Immunologic: Skin rash, bleeding tendency. Otherwise negative except as stated per HPI. PHYSICAL EXAMINATION: VITAL SIGNS: Currently, blood pressure 150/84, pulse 76, respiratory rate 20, temperature 97.7 degre es Fahrenheit, O2 saturation 97% on room air. GENERAL APPEARANCE: This is a 37-year-old male, alert and oriented x3, pleasant, conversant , in no acute distress. HEENT: Pupils are equal, round, and reactive to light and accommodation. Extraocular muscles are in tact. No scleral icterus, no conjunctival injection. Nares patent. OP is clear. Teeth in fair rep air. NECK: Supple, no cervical adenopathy, no thyromegaly, no carotid bruits, no JVD appreciated. Cervic al spine with full active and passive range of motion. No meningeal signs appreciated. CHEST: Lungs are clear to auscultation bilaterally. CARDIOVASCULAR: S1, S2, without noted murmur, rub or gallop. ABDOMEN: Rounded, soft, nontender, nondistended. No rebound or guarding noted. EXTREMITIES: Bilateral lower extremity atrophy noted due to paraplegia. No motor movement in the lo wer extremities. Upper extremities with full active and passive range of motion. No asymmetric flaco a appreciated. Post-surgical changes of the right forefoot and left foot noted. NEUROLOGIC: Cranial nerves II-XII are grossly intact. T12 paraplegia, chronic. PERTINENT LABORATORY AND X-RAY FINDINGS: Basic metabolic profile within normal limits. Lactic acid level 1.3, total bilirubin 1.7, AST 55, ALT of 51, alkaline phosphatase 108. CBC showed white blood cell count of 17.8, hemoglobin 14.7, hematocrit 43, platelet count 226 with 72% neutrophils. Urinaly sis positive for protein, nitrites, trace leukocyte esterase with 11-20 RBCs per high powered field a nd 21-50 WBCs per high powered field. CT of the abdomen and pelvis dated 01/14/2018 showed no inflam matory changes of the bladder. No evidence of bowel obstruction. ASSESSMENT AND PLAN: 1. Recurrent urinary tract infections. Suspect secondarily to intermittent bladder self catheteriza tion. We will continue Rocephin 2 grams IV q.24 hours. Await final urine culture results. Continue intravenous normal saline at 125 mL per hour. 2. T12 paraplegia, chronic. Continue general supportive management. Pain control as clinically ind icated. 3. Febrile episode secondary to #1. We will continue Tylenol 1000 mg q.6 hours. Add Toradol 30 mg IV every 6 hours p.r.n. 4. Chronic pain syndrome. We will resume home regimen to include [place] 10/325 mg p.o. b.i.d. 5. Neurogenic bladder secondary to T12 paraplegia. We will continue intermittent bladder self abdirashid terizations. See treatment as outlined in #1. 6. Prophylaxis. Sequential compression devices while in bed. Pepcid 20 mg p.o. b.i.d. 7. Code status is FULL. Surrogate medical decision maker is the patient's mother.
[2018-01-14] MEDS: Ketorolac Tromethamine 30 MG/ML VIAL IVP SCH ×2 (12:13→17:57)
--- NOTE | 2018-01-14 12:17 | CT ---
PRELIMINARY REPORT/[facility]/EMERGENTY AFTER-HOURS PROCEDURE CT Abdomen and Pelvis Without Intravenous Contrast EXAM DATE/TIME: 01/14/2018 3:26 AM CLINICAL HISTORY: 37 years old, male; Pain; Abdominal pain; Generalized; Patient HX: Additional history obtained from e ms, maria c presents to ed as a transfer from [place] for urosepsis. PT reports that he had a low gr [place] fever yesterday (100.4) and took aspirin, fever broke. He took a nap after the fever broke and wh en he woke up his fever was 102. PT only has 1 kidney. PT is a t12 parapalegic. Ems reports frequent ed visits for sepsis. TECHNIQUE: Axial computed tomography images of the abdomen and pelvis without intravenous contrast. Coronal reformatted images were created and reviewed. COMPARISON: [facility] Protocol 12/29/2017 6:32 AM FINDINGS: Tubes, catheters and devices: Lobulated contour of bladder with catheter and bulb in lumen. Lower thorax: No acute findings. ABDOMEN: Liver: Normal. No mass. Gallbladder and bile ducts: Gallbladder not identified. Pancreas: Normal. No ductal dilation. Spleen: Residual enlarged splenule. Adrenals: Normal. No mass. Kidneys and ureters: Left kidney absent. Stomach and bowel: No evidence of bowel obstruction. Sutures involving bowel in lower pelvis. Appendix: Visualized portions of appendix appear normal. PELVIS: Bladder: Unremarkable as visualized. Reproductive: Unremarkable as visualized. ABDOMEN and PELVIS: Intraperitoneal space: Normal. No free air. No significant fluid collection. Bones/joints: Moderate dextroscoliotic curvature thoracolumbar spine. Metallic hardware and surgical changes involving upper lumbar spine. Chronic appearing resorption of bilateral femoral heads and dys plastic changes of bilateral hips. Dysplastic changes of the pelvic bones. Soft tissues: Unremarkable. Vasculature: Normal. No abdominal aortic aneurysm. Lymph nodes: Normal. No enlarged lymph nodes. IMPRESSION: 1. No definite inflammatory changes surrounding or involving bladder. -- Please correlate with patien ts clinical exam. 2. No evidence of bowel obstruction. Thank you for allowing us to participate in the care of your patient. Dictated and Authenticated by: Rowdy Mederos MD 01/14/2018 4:13 AM Central Time ([place] & [place]) FINAL REPORT CT ABDOMEN AND PELVIS NONCONTRAST: DATE: 01/14/18. TIME: Performed on an emergency basis at 0327 hours. HISTORY: Urosepsis. COMPARISON: 12/29/17. FINDINGS: Agree with the preliminary report by Dr. Mederos from [facility]. No CT evidence of urinary tr act obstruction or calcification. Lack of contrast limits evaluation for other abnormalities. Chron ic-type findings are stable. POS: JEANNINE
[2018-01-15] MEDS: clonazePAM 0.5 MG TAB PO SCH ×4 (00:10→22:16)
[2018-01-15] MEDS: Ketorolac Tromethamine 30 MG/ML VIAL IVP SCH (00:10)
[2018-01-15] MEDS: Promethazine HCl 25 MG/ML VIAL IM/IV PRN ×3 (00:48→20:00)
[2018-01-15] MEDS: Sodium Chloride 0.9% 1,000 ML IV SCH ×4 (02:26→13:50)
[2018-01-15] MEDS: cefTRIAXone\\ROCEPHIN 2 GM in Sodium Chloride 0.9% 100 ML IVPB SCH (04:48)
[2018-01-15] MEDS: Ketorolac Tromethamine 30 MG/ML VIAL IVP PRN ×2 (05:41→12:03)
[2018-01-15 05:42] LABS: ALT (SGPT) 43 U/L (8-55); AST (SGOT) 53 U/L (5-34); Albumin 2.9 g/dL (3.5-5.0); Alkaline Phosphatase 88 U/L (40-150); Anion Gap 10 mmol/L (10-20); BUN (Urea Nitrogen) 12 mg/dL (8.9-20.6); Bilirubin, Total 0.7 mg/dL (0.2-1.2); Calc. Creatinine Clearance 185 mL/min (70-130); Calcium 8.1 mg/dL (7.8-10.44); Carbon Dioxide 22 mmol/L (22-29); Chloride 113 mmol/L (98-107); Estimated GFR-MDRD Greater than 90; Globulin 3.6 g/dL (2.4-3.5); Glucose 135 mg/dL (70-105); Potassium 3.8 mmol/L (3.5-5.1); Protein, Total 6.5 g/dL (6.0-8.3); Sodium 141 mmol/L (136-145)
[2018-01-15 05:44] LABS: Hemoglobin 14.3 g/dL (14.0-18.0); Lymphocytes 28 % (21-51); MDiff Complete? YES; Mean Corpuscular HGB CONC 32.5 g/dL (32.0-36.0); Mean Corpuscular Hemoglobin 32.1 pg (27.0-31.0); Mean Corpuscular Volume 98.7 fL (78.0-98.0); Mean Platelet Volume 7.2 fL (7.4-10.4); Neutrophil 72 % (42-75); PLT Morphology Comment Appears Adequate; Platelet Count 215 thou/uL (130-400); RBC Distribution Width 12.7 % (11.5-14.5); RBC Morphology Normal; Red Blood Cell (RBC) Count 4.44 mill/uL (4.70-6.10); White Blood Cell (WBC) Count 9.1 thou/uL (4.8-10.8)
[2018-01-15] MEDS: Baclofen 10 MG TAB PO SCH ×3 (08:26→22:16)
[2018-01-15] MEDS: Gabapentin 300 MG CAP PO SCH ×3 (08:26→22:16)
[2018-01-15] MEDS: HYDROcodone/Acetaminophen 10/325 mg Tablet PO SCH ×2 (08:26→22:17)
[2018-01-15] MEDS: Famotidine 20 MG TAB PO SCH ×2 (08:27→22:18)
--- NOTE | 2018-01-15 12:43 | PDOC.PN ---
- Subjective Encounter Start Date: 01/15/18 Encounter Start Time: 12:40 Subjective: f/u for recurrent UTI initially showing Enterococcus and Pseudomonas -: spp. Feels weak and sweaty. - Objective Resuscitation Status: Resuscitation Status FULL:Full Resuscitation MAR Reviewed: Yes Vital Signs & Weight: Vital Signs (12 hours) Temp Pulse Resp BP Pulse Ox 01/15/18 12:00 97.6 F 84 16 145/92 H 97 01/15/18 08:16 97.7 F 66 18 99 01/15/18 08:00 97.7 F 66 18 138/76 99 01/15/18 04:00 97.6 F 73 16 158/79 H 99 Weight Weight 202 lb 2 oz I&O: 01/14/18 01/15/18 01/16/18 06:59 06:59 06:59 Intake Total 3713 Output Total 3800 Balance -87 Result Diagrams: 01/15/18 05:12 01/15/18 05:12 Additional Labs: Microbiology 01/14/18 01:00 Urine Straight Catheter Urine Culture - Preliminary Presumptive Pseudo aeruginosa Presumptive Enterococcus sp. 01/14/18 00:50 Venous blood - Left Arm Blood Culture - Preliminary Specimen has been received and culture in progress. No Growth to date. 01/14/18 00:50 Venous blood - Left Arm Blood Culture - Preliminary Specimen has been received and culture in progress. No Growth to date. EKG Reviewed by me: Yes (Tele - Sinus rere) Phys Exam - Physical Examination Constitutional: NAD HEENT: PERRLA, sclera anicteric, oral pharynx no lesions Neck: no nodes, no JVD, supple, full ROM Respiratory: no wheezing, no rales, no rhonchi, clear to auscultation bilateral S1, S2 Cardiovascular: RRR, no significant murmur, no rub, gallop Gastrointestinal: soft, non-tender, no distention, positive bowel sounds Musculoskeletal: no edema, pulses present moves UE's, chronic paraplegia Psychiatric: normal affect, A&O x 3 Skin: no rash, normal turgor, cap refill <2 seconds Dx/Plan (1) UTI (urinary tract infection) due to urinary indwelling catheter Code(s): T83.51XA - ; N39.0 - URINARY TRACT INFECTION, SITE NOT SPECIFIED Status: Acute Comment: intermittent self catheterization. Continue Rocephin and add Zosyn with initial Ucx showing enterococcus and pseudomonas spp (2) Chronic pain syndrome Code(s): G89.4 - CHRONIC PAIN SYNDROME Status: Chronic Comment: Continue home [place] regimen, Toradol prn, continue Baclofen, Gabapentin and Klonopin (3) Neurogenic bladder Code(s): N31.9 - NEUROMUSCULAR DYSFUNCTION OF BLADDER, UNSPECIFIED Status: Chronic Comment: Intermittent bladder catheterizations (4) Paraplegia Code(s): G82.20 - PARAPLEGIA, UNSPECIFIED Status: Chronic Comment: Supportive mgmt - Plan continue antibiotics, social service worker, DVT proph w/SCDs Stable overall -: Continue Rocephin 2gm IV daily -: Add Zosyn 3.375gm IV q6h pending final Ucx sensitivities -: Continue Phenergan and [place] -: Decrease IVF 75ml/h * .
[2018-01-15] MEDS: Piperacillin/Tazobactam 3.375 GM in Sodium Chloride 0.9% 100 ML IVPB SCH ×2 (13:50→19:32)
[2018-01-16] MEDS ORDERED: Sodium Chloride 0.9% 10 ML ONE (01:04)
[2018-01-16] MEDS: Piperacillin/Tazobactam 3.375 GM in Sodium Chloride 0.9% 100 ML IVPB SCH ×4 (01:41→20:24)
[2018-01-16] MEDS: Sodium Chloride 0.9% 1,000 ML IV SCH (03:20)
[2018-01-16] MEDS: Promethazine HCl 25 MG/ML VIAL IM/IV PRN ×3 (03:20→20:25)
[2018-01-16] MEDS: cefTRIAXone\\ROCEPHIN 2 GM in Sodium Chloride 0.9% 100 ML IVPB SCH (05:59)
[2018-01-16] MEDS: HYDROcodone/Acetaminophen 10/325 mg Tablet PO SCH ×2 (09:21→20:24)
[2018-01-16] MEDS: Baclofen 10 MG TAB PO SCH ×3 (09:23→20:25)
[2018-01-16] MEDS: Famotidine 20 MG TAB PO SCH ×2 (09:24→20:25)
[2018-01-16] MEDS: Gabapentin 300 MG CAP PO SCH ×3 (09:24→20:25)
[2018-01-16] MEDS: clonazePAM 0.5 MG TAB PO SCH ×3 (09:24→23:21)
--- NOTE | 2018-01-16 13:34 | PDOC.PN ---
- Subjective Encounter Start Date: 01/16/18 Encounter Start Time: 13:33 Mr. Chandra was seen today in follow-up of UTI. He says he feels about the same today as yesterday, but admits overall he feels better. - Objective Resuscitation Status: Resuscitation Status FULL:Full Resuscitation MAR Reviewed: Yes Vital Signs & Weight: Vital Signs (12 hours) Temp Pulse Resp BP Pulse Ox 01/16/18 11:38 98.4 F 74 20 166/83 H 99 01/16/18 08:05 98.1 F 71 20 98 01/16/18 07:36 98.1 F 71 20 175/88 H 98 01/16/18 03:28 97.6 F 73 16 177/95 H 99 Weight Weight 202 lb 2 oz I&O: 01/15/18 01/16/18 01/17/18 06:59 06:59 06:59 Intake Total 3713 1745 Output Total 3800 2825 800 Balance -87 -1080 -800 Result Diagrams: 01/15/18 05:12 01/15/18 05:12 Phys Exam - Physical Examination HEENT: PERRLA, sclera anicteric Respiratory: no wheezing, no rales, no rhonchi, clear to auscultation bilateral Cardiovascular: RRR, no significant murmur, no rub no gallop Gastrointestinal: soft, non-tender, no distention, positive bowel sounds Musculoskeletal: no edema Dx/Plan (1) UTI (urinary tract infection) due to urinary indwelling catheter Code(s): T83.51XA - ; N39.0 - URINARY TRACT INFECTION, SITE NOT SPECIFIED Status: Acute Comment: intermittent self catheterization. Continue Rocephin and add Zosyn with initial Ucx showing enterococcus and pseudomonas spp (2) HTN (hypertension) Code(s): I10 - ESSENTIAL (PRIMARY) HYPERTENSION Status: Chronic Qualifiers: (3) Chronic hepatitis C Code(s): B18.2 - CHRONIC VIRAL HEPATITIS C Status: Chronic Qualifiers: Qualified Code(s): B18.2 - Chronic viral hepatitis C Comment: patient refused to be treated. Will continue to monitor . (4) Neurogenic bladder Code(s): N31.9 - NEUROMUSCULAR DYSFUNCTION OF BLADDER, UNSPECIFIED Status: Chronic Comment: Intermittent bladder catheterizations - Plan * UTI- complicated due to neurogenic bladder- Urine culture is growing Pseudomonas and Enterococcus- they are sensitive both to Zosyn. * Will consult ID due to the complicated nature of the UTI, and allergies to Quinolones to help with discharge planning * HTN- blood pressure has been elevated- will start Amlodipine * Will consult case management for discharge planning- the patient says he would like to go to a swing bed in [place] if possible.
[2018-01-16] MEDS: Ketorolac Tromethamine 30 MG/ML VIAL IVP PRN (15:51)
[2018-01-17] MEDS: Piperacillin/Tazobactam 3.375 GM in Sodium Chloride 0.9% 100 ML IVPB SCH ×3 (02:13→12:55)
[2018-01-17 05:23] LABS: Anion Gap 12 mmol/L (10-20); BUN (Urea Nitrogen) 8 mg/dL (8.9-20.6); Calc. Creatinine Clearance 185 mL/min (70-130); Calcium 8.5 mg/dL (7.8-10.44); Carbon Dioxide 19 mmol/L (22-29); Chloride 114 mmol/L (98-107); Estimated GFR-MDRD Greater than 90; Glucose 144 mg/dL (70-105); Potassium 3.8 mmol/L (3.5-5.1); Sodium 141 mmol/L (136-145)
[2018-01-17 05:27] LABS: #Basophils 0.1 thou/uL (0.0-0.2); #Eosinphils 0.3 thou/uL (0.0-0.7); #Lymphocytes 3.2 thou/uL (1.20-3.40); #Monocytes 0.5 thou/uL (0.11-0.59); #Neutrophils 3.2 thou/uL (1.40-6.50); %Basophils 1.1 % (0.0-1.0); %Eosinophils 4.1 % (0.0-10.0); %Lymphocytes 43.7 % (21.0-51.0); %Monocytes 7.3 % (0.0-10.0); %Neutrophils 43.7 % (42.0-75.0); Hemoglobin 14.1 g/dL (14.0-18.0); Mean Corpuscular HGB CONC 33.4 g/dL (32.0-36.0); Mean Corpuscular Hemoglobin 32.9 pg (27.0-31.0); Mean Corpuscular Volume 98.7 fL (78.0-98.0); Mean Platelet Volume 6.9 fL (7.4-10.4); Platelet Count 225 thou/uL (130-400); RBC Distribution Width 12.9 % (11.5-14.5); Red Blood Cell (RBC) Count 4.27 mill/uL (4.70-6.10); White Blood Cell (WBC) Count 7.3 thou/uL (4.8-10.8)
[2018-01-17] MEDS: clonazePAM 0.5 MG TAB PO SCH ×3 (08:04→23:56)
[2018-01-17] MEDS: Famotidine 20 MG TAB PO SCH ×2 (08:05→21:07)
[2018-01-17] MEDS: Baclofen 10 MG TAB PO SCH ×3 (08:05→21:08)
[2018-01-17] MEDS: HYDROcodone/Acetaminophen 10/325 mg Tablet PO SCH ×2 (08:06→21:08)
[2018-01-17] MEDS: Gabapentin 300 MG CAP PO SCH ×3 (08:18→21:07)
[2018-01-17] MEDS: Amlodipine 5 MG TAB PO SCH (08:18)
--- NOTE | 2018-01-17 12:16 | PDOC.PN ---
- Subjective Encounter Start Date: 01/17/18 Encounter Start Time: 12:14 Mr. Chandra was seen today in follow-up of UTI. He says he feels about the same. He has some nausea, but it is controlled with phenergan. - Objective Resuscitation Status: Resuscitation Status FULL:Full Resuscitation MAR Reviewed: Yes Vital Signs & Weight: Vital Signs (12 hours) Temp Pulse Resp BP BP Pulse Ox 01/17/18 11:30 98 F 98 18 176/98 H 95 01/17/18 08:18 69 170/84 H 01/17/18 07:59 98.5 F 69 18 100 01/17/18 07:15 98.5 F 69 18 170/84 H 100 01/17/18 04:00 97.3 F L 78 18 161/92 H 97 Weight Weight 202 lb 2 oz I&O: 01/16/18 01/17/18 01/18/18 06:59 06:59 06:59 Intake Total 1745 1708 Output Total 2825 3144 700 Balance -1080 -1002 -700 Result Diagrams: 01/17/18 04:58 01/17/18 04:58 Phys Exam - Physical Examination HEENT: PERRLA Respiratory: no wheezing, no rales, no rhonchi, clear to auscultation bilateral Cardiovascular: RRR, no significant murmur, no rub Gastrointestinal: soft, non-tender, no distention, positive bowel sounds Musculoskeletal: no edema + muscle atrophy in both lower extremities Dx/Plan (1) UTI (urinary tract infection) due to urinary indwelling catheter Code(s): T83.51XA - ; N39.0 - URINARY TRACT INFECTION, SITE NOT SPECIFIED Status: Acute Comment: intermittent self catheterization. Continue Rocephin and add Zosyn with initial Ucx showing enterococcus and pseudomonas spp (2) HTN (hypertension) Code(s): I10 - ESSENTIAL (PRIMARY) HYPERTENSION Status: Chronic Qualifiers: (3) Chronic hepatitis C Code(s): B18.2 - CHRONIC VIRAL HEPATITIS C Status: Chronic Qualifiers: Qualified Code(s): B18.2 - Chronic viral hepatitis C Comment: patient refused to be treated. Will continue to monitor . (4) Neurogenic bladder Code(s): N31.9 - NEUROMUSCULAR DYSFUNCTION OF BLADDER, UNSPECIFIED Status: Chronic Comment: Intermittent bladder catheterizations - Plan * Complicated UTI- he is growing E. Coli and Enterococcus- both sensitive to Zosyn and Levaquin, but he has a quinolone allergy * Awaiting recommendation from ID * HTN- blood pressure us elevated- Amlodipine was just started today * Neurogenic bladder- discussed with his nurse- she noted, that he does not follow a very aseptic approach to his in and out self catheterization. She has attempted to instruct him on a better method .
[2018-01-17] MEDS: Promethazine HCl 25 MG/ML VIAL IM/IV PRN ×2 (12:32→21:07)
[2018-01-17] MEDS ORDERED: Meropenem 1 GM in Sodium Chloride 0.9% 100 ML IVPB SCH (14:00)
[2018-01-17] MEDS: MEROPENEM 1 GM/50 ML 1 GM in Premix Bag 1 BAG IVPB SCH ×2 (14:44→23:51)
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
[2018-01-18] MEDS: Promethazine HCl 25 MG/ML VIAL IM/IV PRN ×3 (04:58→15:56)
[2018-01-18] MEDS: MEROPENEM 1 GM/50 ML 1 GM in Premix Bag 1 BAG IVPB SCH ×2 (06:24→14:17)
[2018-01-18] MEDS: Ketorolac Tromethamine 30 MG/ML VIAL IVP PRN ×2 (06:29→13:55)
[2018-01-18] MEDS: Baclofen 10 MG TAB PO SCH ×2 (10:03→13:54)
[2018-01-18] MEDS: Amlodipine 5 MG TAB PO SCH (10:04)
[2018-01-18] MEDS: HYDROcodone/Acetaminophen 10/325 mg Tablet PO SCH (10:07)
[2018-01-18] MEDS: Gabapentin 300 MG CAP PO SCH ×2 (10:07→13:55)
[2018-01-18] MEDS: Famotidine 20 MG TAB PO SCH (10:09)
[2018-01-18] MEDS: clonazePAM 0.5 MG TAB PO SCH ×2 (10:09→13:54)
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
--- NOTE | 2018-01-18 14:05 | PDOC.PN ---
- Subjective Encounter Start Date: 01/18/18 Encounter Start Time: 14:03 Mr. Chandra was seen today in follow-up of UTI with sepsis. He does not have any complaints. - Objective Resuscitation Status: Resuscitation Status FULL:Full Resuscitation MAR Reviewed: Yes Vital Signs & Weight: Vital Signs (12 hours) Temp Pulse Resp BP BP Pulse Ox 01/18/18 12:00 99.0 F 98 14 131/82 97 01/18/18 10:04 105 H 139/88 01/18/18 08:10 99.0 F 99 18 97 01/18/18 08:00 99.0 F 99 18 162/95 H 99 01/18/18 04:51 99.3 F 92 20 158/91 H 98 Weight Weight 202 lb 2 oz I&O: 01/17/18 01/18/18 01/19/18 06:59 06:59 06:59 Intake Total 1708 780 600 Output Total 2710 1890 Balance -1002 -1110 600 Result Diagrams: 01/17/18 04:58 01/17/18 04:58 Phys Exam - Physical Examination HEENT: PERRLA Respiratory: no wheezing, no rales, no rhonchi, clear to auscultation bilateral Cardiovascular: RRR, no significant murmur, no rub Gastrointestinal: soft, non-tender, no distention, positive bowel sounds Musculoskeletal: no edema Dx/Plan (1) UTI (urinary tract infection) due to urinary indwelling catheter Code(s): T83.51XA - ; N39.0 - URINARY TRACT INFECTION, SITE NOT SPECIFIED Status: Acute Comment: intermittent self catheterization. Continue Rocephin and add Zosyn with initial Ucx showing enterococcus and pseudomonas spp (2) HTN (hypertension) Code(s): I10 - ESSENTIAL (PRIMARY) HYPERTENSION Status: Chronic Qualifiers: (3) Chronic hepatitis C Code(s): B18.2 - CHRONIC VIRAL HEPATITIS C Status: Chronic Qualifiers: Qualified Code(s): B18.2 - Chronic viral hepatitis C Comment: patient refused to be treated. Will continue to monitor . (4) Neurogenic bladder Code(s): N31.9 - NEUROMUSCULAR DYSFUNCTION OF BLADDER, UNSPECIFIED Status: Chronic Comment: Intermittent bladder catheterizations - Plan * UTI with sepsis- improved * Recommendations from ID are noted, and he has been approved for transfer to the alf facility * He is stable for discharge.
[2018-01-18 15:54] VITALS: BP 152/88; TEMP 98.1
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
== END 2018-01-18 16:39 | DRG 698 ==
LOC: ERS 02:59 → 2SE 07:41
PROVIDERS: ADMIT Internal Medicine; ATTEND Internal Medicine
DX: T83.511A Infection and inflammatory reaction due to indwelling urethral catheter, initial encounter (principal); A41.9 Sepsis, unspecified organism; G82.20 Paraplegia, unspecified; N39.0 Urinary tract infection, site not specified; G89.4 Chronic pain syndrome; N31.9 Neuromuscular dysfunction of bladder, unspecified; B96.20 Unspecified Escherichia coli [E. coli] as the cause of diseases classified elsewhere; I10 Essential (primary) hypertension; B18.2 Chronic viral hepatitis C
CPT/HCPCS: 36415; 74176; 80048; 80053; 85007; 85025; 85027; 96365; 96368; 96375; A4216; J0696; J1885; J2185; J2543; J2550; J7050

== ENCOUNTER 2018-02-21 17:38 | Inpatient (IN) | payer MEDICARE, MEDICAID ==
[2018-02-21 18:58] LABS: Bilirubin Negative (Negative); Blood, Urine Negative (Negative); Clarity CLEAR (Clear); Glucose, Urine (Dipstick) Negative (Negative); Leukocyte Negative (Negative); Nitrite Negative (Negative); Protein, Urine (Dipstick) Negative (Neg-Trace); Specific Gravity, Urine 1.008 (1.002-1.036)
[2018-02-21 19:11] LABS: Amphetamine Not Detected (NotDetected); Barbiturates Screen Not Detected (NotDetected); Benzodiazepine Screen Not Detected (NotDetected); Cocaine Metabolite Screen Not Detected (NotDetected); Medtox Control Line Valid? VALID (VALID); Medtox Reader # READER 4; Methadone Not Detected (NotDetected); Methamphetamine Not Detected (NotDetected); Opiate Screen Detected (NotDetected); Oxycodone Screen Not Detected (NotDetected); Phencyclidine (PCP) Not Detected (NotDetected); THC/Cannabinoid Screen Not Detected (NotDetected); Tricyclic Screen Not Detected (NotDetected)
[2018-02-21] MEDS ORDERED: Cefepime 2 GM in Sodium Chloride 0.9% 100 ML IVPB SCH (22:00)
[2018-02-21] MEDS: Morphine 2 MG/ML SYRINGE SLOW IVP PRN (22:19)
[2018-02-21] MEDS ORDERED: Acetaminophen 325 MG TAB PO PRN (23:14)
[2018-02-22] MEDS: Promethazine HCl 12.5 MG in Sodium Chloride 0.9% 50 ML IVPB PRN ×4 (00:18→21:51)
[2018-02-22] MEDS: Piperacillin/Tazobactam 3.375 GM in Sodium Chloride 0.9% 100 ML IVPB SCH ×5 (00:45→23:54)
[2018-02-22] MEDS: Morphine 2 MG/ML SYRINGE SLOW IVP PRN ×4 (02:46→20:15)
[2018-02-22] MEDS: Sodium Chloride 0.9% 1,000 ML IV SCH ×3 (05:11→22:30)
[2018-02-22 05:43] LABS: #Eosinphils 0.3 thou/uL (0.0-0.7); #Lymphocytes 2.6 thou/uL (1.20-3.40); #Monocytes 0.7 thou/uL (0.11-0.59); #Neutrophils 3.3 thou/uL (1.40-6.50); %Basophils 0.7 % (0.0-1.0); %Eosinophils 4.6 % (0.0-10.0); %Monocytes 9.5 % (0.0-10.0); %Neutrophils 47.3 % (42.0-75.0); Hemoglobin 13.2 g/dL (14.0-18.0); Mean Corpuscular HGB CONC 32.9 g/dL (32.0-36.0); Mean Corpuscular Hemoglobin 32.1 pg (27.0-31.0); Mean Corpuscular Volume 97.4 fL (78.0-98.0); Mean Platelet Volume 6.7 fL (7.4-10.4); Platelet Count 203 thou/uL (130-400); RBC Distribution Width 11.9 % (11.5-14.5); Red Blood Cell (RBC) Count 4.12 mill/uL (4.70-6.10); White Blood Cell (WBC) Count 6.9 thou/uL (4.8-10.8)
[2018-02-22 05:58] LABS: Anion Gap 10 mmol/L (10-20); BUN (Urea Nitrogen) 11 mg/dL (8.9-20.6); Calc. Creatinine Clearance 185 mL/min (70-130); Calcium 8.3 mg/dL (7.8-10.44); Carbon Dioxide 24 mmol/L (22-29); Chloride 108 mmol/L (98-107); Estimated GFR-MDRD Greater than 90; Glucose 131 mg/dL (70-105); Potassium 3.5 mmol/L (3.5-5.1); Sodium 138 mmol/L (136-145)
[2018-02-22] MEDS: Enoxaparin Sodium 40 MG/0.4 ML SYRINGE SC SCH (09:24)
[2018-02-22] MEDS: Gabapentin 300 MG CAP PO SCH ×3 (09:25→20:29)
[2018-02-22] MEDS: clonazePAM 0.5 MG TAB PO SCH ×3 (09:25→23:54)
[2018-02-22] MEDS: HYDROcodone/Acetaminophen 10/325 mg Tablet PO SCH ×2 (09:25→20:29)
[2018-02-22] MEDS: Baclofen 10 MG TAB PO SCH ×3 (09:25→20:29)
--- NOTE | 2018-02-22 13:47 | PDOC.PN ---
- Subjective Encounter Start Date: 02/22/18 Encounter Start Time: 13:45 Subjective: flank pain persists - Objective Resuscitation Status: Resuscitation Status FULL:Full Resuscitation MAR Reviewed: Yes Vital Signs & Weight: Vital Signs (12 hours) Temp Pulse Resp BP Pulse Ox 02/22/18 11:52 98.2 F 72 16 146/92 H 98 02/22/18 07:49 97.5 F L 77 16 121/82 97 02/22/18 04:00 98.1 F 81 20 129/82 98 Weight Weight 205 lb 0.478 oz I&O: 02/21/18 02/22/18 02/23/18 06:59 06:59 06:59 Intake Total 1820 Output Total 1375 1675 Balance 445 -1675 Result Diagrams: 02/22/18 05:31 02/22/18 05:31 Phys Exam - Physical Examination Neck: no JVD Respiratory: clear to auscultation bilateral Cardiovascular: RRR, no significant murmur Gastrointestinal: soft, positive bowel sounds Musculoskeletal: edema present Dx/Plan (1) Pyelonephritis Code(s): N12 - TUBULO-INTERSTITIAL NEPHRITIS, NOT SPCF ACUTE OR CHRONIC Status: Acute Comment: morphine prn for pain. IV rocephin. Will await culture and sensitive. Likely discharge patient tomorrow on PO antibiotics. (2) Chronic hepatitis C Code(s): B18.2 - CHRONIC VIRAL HEPATITIS C Status: Chronic Qualifiers: Comment: patient refused to be treated. Will continue to monitor . (3) HTN (hypertension) Code(s): I10 - ESSENTIAL (PRIMARY) HYPERTENSION Status: Chronic Qualifiers: (4) Neurogenic bladder Code(s): N31.9 - NEUROMUSCULAR DYSFUNCTION OF BLADDER, UNSPECIFIED Status: Chronic Comment: Intermittent bladder catheterizations (5) Paraplegia Code(s): G82.20 - PARAPLEGIA, UNSPECIFIED Status: Chronic Comment: Supportive mgmt - Plan await C&S, cont iv antibx -: MS for pain * .
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
[2018-02-23] MEDS: Morphine 2 MG/ML SYRINGE SLOW IVP PRN ×2 (02:11→08:50)
[2018-02-23] MEDS: Piperacillin/Tazobactam 3.375 GM in Sodium Chloride 0.9% 100 ML IVPB SCH ×4 (06:09→23:57)
[2018-02-23] MEDS: clonazePAM 0.5 MG TAB PO SCH ×3 (08:34→23:56)
[2018-02-23] MEDS: HYDROcodone/Acetaminophen 10/325 mg Tablet PO SCH ×2 (08:34→20:16)
[2018-02-23] MEDS: Baclofen 10 MG TAB PO SCH ×3 (08:34→20:15)
[2018-02-23] MEDS: Gabapentin 300 MG CAP PO SCH ×3 (08:35→20:15)
[2018-02-23] MEDS: Enoxaparin Sodium 40 MG/0.4 ML SYRINGE SC SCH (08:35)
[2018-02-23] MEDS: Promethazine HCl 12.5 MG in Sodium Chloride 0.9% 50 ML IVPB PRN ×2 (09:23→17:36)
--- NOTE | 2018-02-23 11:25 | PDOC.PN ---
- Subjective Encounter Start Date: 02/23/18 Encounter Start Time: 11:23 Subjective: cont to CO back/flank pain - Objective Resuscitation Status: Resuscitation Status FULL:Full Resuscitation MAR Reviewed: Yes Vital Signs & Weight: Vital Signs (12 hours) Temp Pulse Resp BP Pulse Ox 02/23/18 08:34 99 02/23/18 08:00 97.5 F L 65 12 116/77 99 02/23/18 05:07 97.7 F 78 19 103/68 96 02/23/18 01:04 97.7 F 80 18 148/89 H 98 Weight Weight 205 lb 0.478 oz I&O: 02/22/18 02/23/18 02/24/18 06:59 06:59 06:59 Intake Total 1820 1620 Output Total 1375 3325 Balance 445 -1705 Result Diagrams: 02/22/18 05:31 02/22/18 05:31 Phys Exam - Physical Examination Neck: no JVD Respiratory: clear to auscultation bilateral Cardiovascular: RRR, no significant murmur Gastrointestinal: soft, non-tender, positive bowel sounds Musculoskeletal: no edema Dx/Plan (1) Pyelonephritis Code(s): N12 - TUBULO-INTERSTITIAL NEPHRITIS, NOT SPCF ACUTE OR CHRONIC Status: Acute Comment: morphine prn for pain. IV rocephin. Will await culture and sensitive. Likely discharge patient tomorrow on PO antibiotics. (2) Chronic hepatitis C Code(s): B18.2 - CHRONIC VIRAL HEPATITIS C Status: Chronic Qualifiers: Comment: patient refused to be treated. Will continue to monitor . (3) HTN (hypertension) Code(s): I10 - ESSENTIAL (PRIMARY) HYPERTENSION Status: Chronic Qualifiers: (4) Neurogenic bladder Code(s): N31.9 - NEUROMUSCULAR DYSFUNCTION OF BLADDER, UNSPECIFIED Status: Chronic Comment: Intermittent bladder catheterizations (5) Paraplegia Code(s): G82.20 - PARAPLEGIA, UNSPECIFIED Status: Chronic Comment: Supportive mgmt - Plan no Urine C7s obtained at either ED on 02/21. C&S obtained on 02/19 -: to contaminated, 3 micobes. UA done on 02/21 revealed no evidense of -: infection. at this point consider pain to be musculo-skeletal. will give 1 -: more day of iv antibx and DC on omnicef * .
[2018-02-23] MEDS: Sodium Chloride 0.9% 1,000 ML IV SCH (14:36)
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
[2018-02-23] MEDS ORDERED: HYDROcodone/Acetaminophen 10/325 mg Tablet PO PRN (18:43)
[2018-02-24] MEDS: Promethazine HCl 12.5 MG in Sodium Chloride 0.9% 50 ML IVPB PRN ×2 (00:40→10:21)
[2018-02-24] MEDS: Sodium Chloride 0.9% 1,000 ML IV SCH ×2 (02:17→02:56)
[2018-02-24] MEDS: Piperacillin/Tazobactam 3.375 GM in Sodium Chloride 0.9% 100 ML IVPB SCH (06:17)
[2018-02-24] MEDS: Baclofen 10 MG TAB PO SCH (08:33)
[2018-02-24] MEDS: clonazePAM 0.5 MG TAB PO SCH (08:33)
[2018-02-24] MEDS: HYDROcodone/Acetaminophen 10/325 mg Tablet PO SCH (08:33)
[2018-02-24] MEDS: Gabapentin 300 MG CAP PO SCH (08:34)
[2018-02-24] MEDS: Enoxaparin Sodium 40 MG/0.4 ML SYRINGE SC SCH (08:34)
--- NOTE | 2018-02-24 08:47 | DIS ---
TRANSFER OF CARE NOTE DATE OF ADMISSION: 02/21/2018 DATE OF DISCHARGE: 02/24/2018 DISPOSITION: Discharged home. PRIMARY CARE PROVIDER: Dr. Arnold Navarro FINAL DIAGNOSES: 1. Recurrent urinary tract infections. 2. Paraplegia. 3. Hepatitis C. 4. Chronic pain syndrome. DISCHARGE MEDICATIONS: Omnicef 300 mg p.o. b.i.d. for 7 days, clonazepam 0.5 mg p.o. t.i.d., hydroco done 1 p.o. b.i.d., Neurontin 300 mg p.o. t.i.d., Baclofen 10 mg p.o. t.i.d., Omnicef 300 mg p .o. b.i.d. for 7 days. ALLERGIES: CIPROFLOXACIN, FLUCONAZOLE, LEVOFLOXACIN, ZYVOX, REGLAN, ZOFRAN, PREGABALIN. DIET: Regular. CODE STATUS: FULL. PENDING AT THE TIME OF DISCHARGE: Nothing. HOSPITAL COURSE: The patient referred from [facility] to [place] [facility], [facility]. He was placed in the hospital on Zosyn due to previous frequent urinary tract infections. He has been afebrile during his stay. He has complaine d of flank pain which has not changed. His CBC done here on 02/22/2018 shows 6.9 white count, hemogl obin 13.2, platelet count 203,000. Basic metabolic profile was normal except for a minimally elevate d chloride of 108 and a blood sugar 131. His urine was actually clear. In review of his studies [facility] in [place] on 02/19/2018 he had a normal CBC. On 02/21/2018 he had a normal CBC. On 02/20/20 18 basic metabolic profile is similar to the one done here. His urine did show negative nitrite, tra ce esterase and some white counts. The patient does self-cath. The only culture done was on 018 which showed 25-50,000 presumptive Proteus, less than 5000 presumptive Enterococcus, less than 10 ,000 Pseudomonas species and was considered contaminated and recommended a follow up which was not do ne either in the [facility] emergency room or ours. The patient has been on afebrile. His physical ex am has been unremarkable with reference to fever, evidence of infection, flank tenderness. This has been discussed with the patient. He is being discharged on Omnicef because I cannot be sure he did n ot have some infection; however, he is afebrile. White cell count normal all the time. It is appare nt that he does not have a resistant infection if he has an infection at all and so he has been disch arged on Omnicef for 7 days to follow up with his PCP, Dr. Anrold Navarro. CONSULTATION: No consultations were obtained. PROCEDURES: No procedures were done.
[2018-02-24 11:36] VITALS: BP 130/85; TEMP 97.6
== END 2018-02-24 12:04 | disposition home or self-care (01) | DRG 556 ==
LOC: ERS 17:38 → SURG A 18:25
PROVIDERS: ADMIT Internal Medicine; ATTEND Internal Medicine
DX: M79.18 Myalgia, other site (principal); G82.20 Paraplegia, unspecified; Z74.01 Bed confinement status; E66.9 Obesity, unspecified; Z68.32 Body mass index [BMI] 32.0-32.9, adult; F41.9 Anxiety disorder, unspecified; F32.9 Major depressive disorder, single episode, unspecified; F17.210 Nicotine dependence, cigarettes, uncomplicated; E87.6 Hypokalemia; G89.4 Chronic pain syndrome; L89.319 Pressure ulcer of right buttock, unspecified stage; B18.2 Chronic viral hepatitis C; N31.9 Neuromuscular dysfunction of bladder, unspecified
CPT/HCPCS: 36415; 80048; 80306; 81003; 85025; 96365; J0692; J1642; J1650; J2270; J2543; J2550; J3370; J7050

== ENCOUNTER 2018-04-20 02:04 | Inpatient (IN) | payer MEDICARE, MEDICAID ==
[2018-04-20] MEDS ORDERED: Promethazine 25 MG TAB ONE ×2 (03:36→04:16)
[2018-04-20] MEDS ORDERED: Acetaminophen 500 MG TAB ONE ×2 (03:36→04:16)
[2018-04-20] MEDS ORDERED: Morphine 4 MG/ML VIAL ONE (04:51)
[2018-04-20] MEDS ORDERED: Acetaminophen 325 MG TAB PO PRN (05:26)
[2018-04-20] MEDS ORDERED: Sodium Chloride 0.9% 1,000 ML IV SCH (05:30)
[2018-04-20 06:10] VITALS: BMI 31.2
[2018-04-20] MEDS ORDERED: Acetaminophen 650 MG Suppository PR PRN (07:29)
[2018-04-20] MEDS ORDERED: Zolpidem Tartrate 5 MG TAB PO PRN (07:29)
[2018-04-20] MEDS ORDERED: Promethazine HCl 25 MG/ML VIAL IM/IV PRN (07:31)
[2018-04-20] MEDS: Promethazine HCl 25 MG in Sodium Chloride 0.9% 50 ML IVPB PRN ×2 (08:41→17:18)
[2018-04-20] MEDS: Ketorolac Tromethamine 30 MG/ML VIAL IVP PRN ×2 (08:43→20:51)
[2018-04-20] MEDS: Sodium Chloride 0.9% 1,000 ML IV SCH ×2 (08:46→16:10)
[2018-04-20] MEDS: Cefepime 1 GM in Sodium Chloride 0.9% 100 ML IVPB SCH ×2 (08:46→20:48)
[2018-04-20] MEDS: Enoxaparin Sodium 40 MG/0.4 ML SYRINGE SC SCH (08:47)
--- NOTE | 2018-04-20 09:53 | HP ---
PRIMARY CARE PROVIDER: Dr. Arnodl Navarro. [facility] after transferred from [place] [facility]. HISTORY OF PRESENT ILLNESS: Yesterday developed nausea and vomiting, which is persisted. The patient is paraplegic, self-cath. He noticed his urine had become dark with a foul odor and cloudy. He felt bladder pain. He felt fevers and had some night sweats. He presented to the emergency room, was referred here and accepted by [facility]. PAST MEDICAL HISTORY: 1. Recurrent urinary tract infections. 2. T12 paraplegia. 3. Obesity. 4. Right hip osteomyelitis. 5. Chronic pain syndrome. PAST SURGICAL HISTORY: 1. Right hip surgery. 2. Cholecystectomy. 3. Laparotomy. 4. Nephrectomy. 5. Splenectomy. 6. Right shoulder rotator cuff repair. FAMILY HISTORY: No inheritable diseases. SOCIAL HISTORY: Lives at home. Very occasional alcohol. No drugs. Smokes 1 pack cigarettes a day. Full code status. No surrogate decision maker. ALLERGIES: CIPRO, LEVAQUIN, LYRICA, REGLAN, ZOFRAN, AND ZYVOX. CURRENT MEDICATIONS: 1. Baclofen 20 mg t.i.d. 2. Clonazepam 0.5 mg t.i.d. 3. Gabapentin 300 mg t.i.d. 4. Hydrocodone 10/325 one t.i.d. REVIEW OF SYSTEMS: HEAD: Occasional dizziness. No fainting. No headaches. EYES: No double vision, blurred vision, or flashing lights. EARS, NOSE, AND THROAT: No ear pain or drainage. No nasal bleeding. No trouble swallowing. CARDIAC: No chest pain, orthopnea, or paroxysmal nocturnal dyspnea. RESPIRATION: No cough, wheezing, or asthma. GASTROINTESTINAL: Nausea and vomiting with present illness. No abdominal pain. No constipation or diarrhea. GENITOURINARY: See present illness. Self-cath. MUSCULOSKELETAL: Generalized pain, chronic, some worsening right flank pain at the present time. NEUROLOGIC: Paraplegic. No history of strokes or seizures. PSYCHIATRIC: Chronic pain syndrome. No anxiety or depression noted. SKIN: No bruising, bleeding, or rash. HEME/LYMPH: No tender or swollen lymph nodes in axilla, inguinal, or cervical area. PHYSICAL EXAMINATION: GENERAL: He is alert, appropriate and cooperative. VITAL SIGNS: Blood pressure 138/84, pulse 70, respirations 16, and temperature 98.3. HEAD, EYES, EARS, NOSE, AND THROAT: Revealed pupils equal, round, reactive to light. Extraocular movements are intact. Sclerae are white. Tympanic membranes clear. Nose is clear. Oral mucous membranes are wet. Dental hygiene is good. NECK: Supple without jugular venous distention, adenopathy, or thyromegaly. CHEST: Clear to auscultation and percussion. HEART: Regular rate and rhythm. First and second heart sounds are clear. There are no murmurs or gallops. ABDOMEN: He had some very minimal right lower quadrant tenderness. No guarding. No rebound. Bowel sounds normal. No bruits. EXTREMITIES: Lower extremities, flaccid. No sensation below the T12 level. SKIN: Warm and dry without bruises or rash. HEME/LYMPH: No tender or swollen lymph nodes in axilla, inguinal, or cervical area. PULSES: Carotid, radial, femoral, and dorsalis pedis pulses intact and symmetric. NEUROLOGIC: Cranial nerves 2 through 12 are intact. Flaccid lower extremities, absence of sensation below T12. LABORATORY DATA: Done in [place]. White count 7.8, hemoglobin 15.6, and platelet count 199,000. Comprehensive metabolic profile, he has a mildly abnormal bilirubin 1.3, AST and ALT 72 and 61, and CO2 of 21, remainder of his comprehensive metabolic profile is normal. Lactic acid is normal. Urinalysis; positive nitrite, positive leukocyte esterase, and too many to count white cells and red cells. ADMITTING DIAGNOSES: 1. Nausea and vomiting. 2. Complicated urinary tract infection. 3. Elevated liver function tests. 4. Paraplegia T12 level. 5. Tobacco abuse. PLAN: Phenergan for nausea and vomiting IV. IV fluids. Ceftin IV. Pending urine culture which has been drawn. Selected home medicines. Job ID: [id number]
[2018-04-20] MEDS: clonazePAM 0.5 MG TAB PO SCH ×3 (11:18→20:49)
[2018-04-20] MEDS: Baclofen 10 MG TAB PO SCH ×3 (11:19→20:48)
[2018-04-20] MEDS: Gabapentin 300 MG CAP PO SCH ×3 (11:19→20:48)
[2018-04-20] MEDS: HYDROcodone/Acetaminophen 10/325 mg Tablet PO PRN (14:41)
[2018-04-21] MEDS: Sodium Chloride 0.9% 1,000 ML IV SCH ×4 (02:00→19:47)
[2018-04-21 05:27] LABS: #Eosinphils 0.3 thou/uL (0.0-0.7); #Lymphocytes 2.4 thou/uL (1.20-3.40); #Monocytes 0.6 thou/uL (0.11-0.59); #Neutrophils 2.5 thou/uL (1.40-6.50); %Basophils 0.6 % (0.0-1.0); %Eosinophils 5.4 % (0.0-10.0); %Lymphocytes 40.8 % (21.0-51.0); %Monocytes 10.2 % (0.0-10.0); Hemoglobin 14.2 g/dL (14.0-18.0); Mean Corpuscular HGB CONC 32.7 g/dL (32.0-36.0); Mean Corpuscular Hemoglobin 32.8 pg (27.0-31.0); Mean Platelet Volume 7.5 fL (7.4-10.4); Platelet Count 197 thou/uL (130-400); RBC Distribution Width 12.2 % (11.5-14.5); Red Blood Cell (RBC) Count 4.33 mill/uL (4.70-6.10); White Blood Cell (WBC) Count 5.8 thou/uL (4.8-10.8)
[2018-04-21 05:38] LABS: Anion Gap 10 mmol/L (10-20); BUN (Urea Nitrogen) 18 mg/dL (8.9-20.6); Calc. Creatinine Clearance 212 mL/min (70-130); Calcium 8.1 mg/dL (7.8-10.44); Carbon Dioxide 20 mmol/L (22-29); Chloride 115 mmol/L (98-107); Estimated GFR-MDRD Greater than 90; Glucose 105 mg/dL (70-105); Potassium 4.8 mmol/L (3.5-5.1); Sodium 140 mmol/L (136-145)
[2018-04-21] MEDS: Cefepime 1 GM in Sodium Chloride 0.9% 100 ML IVPB SCH ×2 (09:09→20:02)
[2018-04-21] MEDS: Ketorolac Tromethamine 30 MG/ML VIAL IVP PRN ×2 (09:11→17:13)
[2018-04-21] MEDS: Enoxaparin Sodium 40 MG/0.4 ML SYRINGE SC SCH (09:14)
[2018-04-21] MEDS: Promethazine HCl 25 MG in Sodium Chloride 0.9% 50 ML IVPB PRN ×2 (10:45→17:59)
[2018-04-21] MEDS: Baclofen 10 MG TAB PO SCH ×3 (11:21→20:02)
[2018-04-21] MEDS: Gabapentin 300 MG CAP PO SCH ×3 (11:21→20:02)
[2018-04-21] MEDS: clonazePAM 0.5 MG TAB PO SCH ×3 (11:21→20:02)
--- NOTE | 2018-04-21 12:16 | PDOC.PN ---
- Subjective Encounter Start Date: 04/21/18 Encounter Start Time: 12:15 Subjective: no fever, chills, etc - Objective Resuscitation Status - Order Detail: 04/20/18 07:26 Resuscitation Status Routine Resuscitation Status: FULL: Full Resuscitation MAR Reviewed: Yes Vital Signs & Weight: Vital Signs (12 hours) Temp Pulse Resp BP Pulse Ox 04/21/18 08:00 98 04/21/18 07:26 97.5 F L 75 18 122/80 98 04/21/18 04:46 97.2 F L 62 16 122/80 96 Weight Admit Weight 199 lb 11.821 oz Weight 199 lb 11.821 oz I&O: 04/20/18 04/21/18 04/22/18 06:59 06:59 06:59 Intake Total 3503 Output Total 550 650 Balance -550 2853 Result Diagrams: 04/21/18 04:58 04/21/18 04:58 Phys Exam - Physical Examination Neck: no JVD Respiratory: clear to auscultation bilateral Cardiovascular: RRR, no significant murmur Gastrointestinal: soft, non-tender, positive bowel sounds Musculoskeletal: edema present Dx/Plan (1) Complicated UTI (urinary tract infection) Code(s): N39.0 - URINARY TRACT INFECTION, SITE NOT SPECIFIED Status: Acute (2) Chronic hepatitis C Code(s): B18.2 - CHRONIC VIRAL HEPATITIS C Status: Chronic Qualifiers: Comment: patient refused to be treated. Will continue to monitor . (3) Chronic pain syndrome Code(s): G89.4 - CHRONIC PAIN SYNDROME Status: Chronic Comment: Continue home [place] regimen, Toradol prn, continue Baclofen, Gabapentin and Klonopin (4) HTN (hypertension) Code(s): I10 - ESSENTIAL (PRIMARY) HYPERTENSION Status: Chronic Qualifiers: (5) Neurogenic bladder Code(s): N31.9 - NEUROMUSCULAR DYSFUNCTION OF BLADDER, UNSPECIFIED Status: Chronic Comment: Intermittent bladder catheterizations (6) Paraplegia Code(s): G82.20 - PARAPLEGIA, UNSPECIFIED Status: Chronic Comment: Supportive mgmt - Plan apparently no urine C&S obtained at either ER yesterday -: iv antibx started in outlying ER -: urine C&S ordered, cont antibx * .
--- NOTE | 2018-04-21 12:41 | PQF ---
VERO PEREZ, ROXY Montoya MD [id number] CLINICAL DOCUMENTATION IMPROVEMENT CLARIFICATION FORM: ICD-10 Updated PLEASE DO AN ADDENDUM TO THE PROGRESS NOTE WITH ANY DOCUMENTATION UPDATES OR ADDITIONS AND CARRY THROUGH TO DC SUMMARY. THANK YOU. DATE: 04/21 ATTN: DR. ROXY AGUILAR Please exercise your independent, professional judgment in responding to the clarification form. Clinical indicators are provided on the bottom of this form for your review. Please check appropriate box(s): [ x ] UTI please specify if due to or related to (as applicable): [x ] Self-catheterization [ ] Not D/T self- catheterization [ ] Contaminated urine specimen without UTI [ ] Other diagnosis [ ] Unable to determine For continuity of documentation, please document condition throughout progress notes and discharge summary. Thank You. CLINICAL INDICATORS - SIGNS / SYMPTOMS / LABS ER PRESENTATION 04/20 - TRANSFER FROM [place] FOR UTI; SELF-CATHS AT HOME H&P 04/20: HX OF PRESENT ILLNESS: THE PATIENT IS PARAPLEGIC, SELF-CATHS. HE NOTICED HIS URINE HAD BECOME DARK W/A FOUL ODOR & CLOUDY. LAB DATA: DONE IN [place]: URINALYSIS: POSITIVE NITRITE, POSITIVE LEUKOCYTE ESTERASE, AND TNTC WBC & RBC'S DIAGNOSES: 2) COMPLICATED UTI PN 04/21: DX/PLAN: 1) COMPLICATED UTI; 5) NEUROGENIC BLADDER, INTERMITTENT BLADDER CATHETERIZATIONS RISK FACTORS: T12 PARAPLEGIA NEUROGENIC BLADDER SELF-CATHS TREATMENT: IV ANTIBIOTIC (CEFEPIME 04/20 - PRESENT) IVF (NS 04/20 - PRESENT) THANK YOU! Vivian (This form is maintained as a part of the permanent medical record) 2014 [employer]. All Rights Reserved Vivian Pulido RN, BSN [email or web address] Office: [phone] [facility]
[2018-04-22] MEDS: Ketorolac Tromethamine 30 MG/ML VIAL IVP PRN ×2 (05:00→18:03)
[2018-04-22] MEDS: Promethazine HCl 25 MG in Sodium Chloride 0.9% 50 ML IVPB PRN ×2 (05:00→17:48)
[2018-04-22] MEDS: Sodium Chloride 0.9% 1,000 ML IV SCH ×3 (05:04→19:55)
[2018-04-22] MEDS: Baclofen 10 MG TAB PO SCH ×3 (08:57→19:57)
[2018-04-22] MEDS: clonazePAM 0.5 MG TAB PO SCH ×3 (08:57→19:59)
[2018-04-22] MEDS: Gabapentin 300 MG CAP PO SCH ×3 (08:57→19:59)
[2018-04-22] MEDS: Cefepime 1 GM in Sodium Chloride 0.9% 100 ML IVPB SCH ×2 (08:57→19:57)
[2018-04-22] MEDS: Enoxaparin Sodium 40 MG/0.4 ML SYRINGE SC SCH (08:57)
--- NOTE | 2018-04-22 09:58 | PDOC.PN ---
- Subjective Encounter Start Date: 04/22/18 Encounter Start Time: 09:56 Subjective: chronic edwige is only complaint - Objective Resuscitation Status - Order Detail: 04/20/18 07:26 Resuscitation Status Routine Resuscitation Status: FULL: Full Resuscitation MAR Reviewed: Yes Vital Signs & Weight: Vital Signs (12 hours) Temp Pulse Resp BP Pulse Ox 04/22/18 08:00 98.3 F 75 18 137/82 96 04/22/18 04:00 98.8 F 81 18 138/87 98 Weight Admit Weight 199 lb 11.821 oz Weight 199 lb 11.821 oz I&O: 04/21/18 04/22/18 04/23/18 06:59 06:59 06:59 Intake Total 3503 4068 Output Total 650 2075 Balance 2853 1992 Result Diagrams: 04/21/18 04:58 04/21/18 04:58 Phys Exam - Physical Examination Neck: no JVD Respiratory: clear to auscultation bilateral Cardiovascular: RRR, no significant murmur Gastrointestinal: soft, positive bowel sounds Musculoskeletal: edema present Dx/Plan (1) Complicated UTI (urinary tract infection) Code(s): N39.0 - URINARY TRACT INFECTION, SITE NOT SPECIFIED Status: Acute (2) Chronic hepatitis C Code(s): B18.2 - CHRONIC VIRAL HEPATITIS C Status: Chronic Qualifiers: Comment: patient refused to be treated. Will continue to monitor . (3) Chronic pain syndrome Code(s): G89.4 - CHRONIC PAIN SYNDROME Status: Chronic Comment: Continue home [place] regimen, Toradol prn, continue Baclofen, Gabapentin and Klonopin (4) HTN (hypertension) Code(s): I10 - ESSENTIAL (PRIMARY) HYPERTENSION Status: Chronic Qualifiers: (5) Neurogenic bladder Code(s): N31.9 - NEUROMUSCULAR DYSFUNCTION OF BLADDER, UNSPECIFIED Status: Chronic Comment: Intermittent bladder catheterizations (6) Paraplegia Code(s): G82.20 - PARAPLEGIA, UNSPECIFIED Status: Chronic Comment: Supportive mgmt - Plan DVT proph w/heparin awaiting urine C&S, cont iv antibx * .
[2018-04-23] MEDS: Ketorolac Tromethamine 30 MG/ML VIAL IVP PRN ×2 (01:26→23:55)
[2018-04-23] MEDS: Promethazine HCl 25 MG in Sodium Chloride 0.9% 50 ML IVPB PRN ×2 (03:29→20:06)
[2018-04-23] MEDS: Cefepime 1 GM in Sodium Chloride 0.9% 100 ML IVPB SCH ×2 (08:48→20:58)
[2018-04-23] MEDS: Gabapentin 300 MG CAP PO SCH ×3 (08:49→20:58)
[2018-04-23] MEDS: Baclofen 10 MG TAB PO SCH ×3 (08:49→20:58)
[2018-04-23] MEDS: Enoxaparin Sodium 40 MG/0.4 ML SYRINGE SC SCH (08:49)
[2018-04-23] MEDS: clonazePAM 0.5 MG TAB PO SCH ×3 (08:49→20:58)
--- NOTE | 2018-04-23 14:25 | PDOC.PN ---
- Subjective Encounter Start Date: 04/23/18 Encounter Start Time: 09:20 Pt seen for followup re: UTI. Denies chets pain, shortness of breath, fevers or chills. Did not sleep well. - Objective Resuscitation Status - Order Detail: 04/20/18 07:26 Resuscitation Status Routine Resuscitation Status: FULL: Full Resuscitation Vital Signs & Weight: Vital Signs (12 hours) Temp Pulse Resp BP Pulse Ox 04/23/18 11:10 98.1 F 80 18 135/83 97 04/23/18 08:00 94 L 04/23/18 07:37 98.2 F 80 16 130/84 94 L 04/23/18 04:00 98.6 F 85 16 136/86 96 Weight Admit Weight 199 lb 11.821 oz Weight 199 lb 11.821 oz I&O: 04/22/18 04/23/18 04/24/18 06:59 06:59 06:59 Intake Total 4068 1218 Output Total 2075 1250 Balance 1992 Result Diagrams: 04/21/18 04:58 04/21/18 04:58 Phys Exam - Physical Examination Obese HEENT: moist MMs Neck: supple Respiratory: clear to auscultation bilateral Cardiovascular: RRR Gastrointestinal: soft paraplegia Psychiatric: normal affect Dx/Plan (1) UTI (urinary tract infection) Status: Acute Comment: secondary to self-catheterization. Continue antibiotics as below, await urine culture. (2) HTN (hypertension) Code(s): I10 - ESSENTIAL (PRIMARY) HYPERTENSION Status: Chronic Qualifiers: Comment: controlled - Plan * . Review of Systems - Review of Systems Cardiovascular: negative: chest pain, palpitations, orthopnea, paroxysmal nocturnal dyspnea, edema, light headedness Gastrointestinal: negative: Nausea, Vomiting, Abdominal Pain, Diarrhea, Constipation, Melena, Hematochezia - Medications/Allergies Allergies/Adverse Reactions: Allergies Allergy/AdvReac Type Severity Reaction Status Date / Time ciprofloxacin [From Cipro] Allergy Severe Anaphylaxis Verified 04/20/18 06:28 levofloxacin [From Levaquin] Allergy Severe Anaphylaxis Verified 04/20/18 06:28 ondansetron HCl Allergy Severe Short of Verified 04/20/18 06:28 [From Zofran (as Breath hydrochloride)] fluconazole Allergy Rash Verified 04/20/18 06:28 linezolid [From Zyvox] Allergy Verified 04/20/18 06:28 metoclopramide HCl Allergy Hives Verified 04/20/18 06:28 [From Reglan] pregabalin [From Lyrica] Allergy Verified 04/20/18 06:28 Medications: Current Medications Acetaminophen (Tylenol) 650 mg NM Q4H PRN PRN Reason: Headache/Fever/Mild Pain (1-3) Hydrocodone Bitart/Acetaminophen ([place] 10/325) 1 tab PO TID PRN PRN Reason: Moderate to Severe Pain (6-10) Last Admin: 04/20/18 14:41 Dose: 1 tab Baclofen (Lioresal) 20 mg PO TID [facility] Last Admin: 04/23/18 08:49 Dose: 20 mg Clonazepam (Klonopin) 0.5 mg PO TID [facility] Last Admin: 04/23/18 08:49 Dose: 0.5 mg Enoxaparin Sodium (Lovenox) 40 mg SC 0900 [facility] Last Admin: 04/23/18 08:49 Dose: 40 mg Gabapentin (Neurontin) 300 mg PO TID [facility] Last Admin: 04/23/18 08:49 Dose: 300 mg Sodium Chloride (Normal Saline 0.9%) 1,000 mls @ 120 mls/hr IV .Q8H20M [facility] Last Admin: 04/22/18 19:55 Dose: 1,000 mls Cefepime HCl 1 gm/ Sodium (Chloride) 100 mls @ 200 mls/hr IVPB Q12HR [facility] Last Admin: 04/23/18 08:48 Dose: 100 mls Promethazine HCl 25 mg/ Sodium (Chloride) 51 mls @ 153 mls/hr IVPB Q6H PRN PRN Reason: Nausea/Vomiting Last Admin: 04/23/18 03:29 Dose: 51 mls Ketorolac Tromethamine (Toradol) 15 mg IVP Q6H PRN PRN Reason: Mild-Moderate Pain (1-5) Stop: 04/25/18 08:25 Last Admin: 04/23/18 01:26 Dose: 15 mg Promethazine HCl (Phenergan) 25 mg IM/IV Q6H PRN PRN Reason: Nausea/Vomiting Zolpidem Tartrate (Ambien) 5 mg PO HSPRN PRN PRN Reason: Insomnia
[2018-04-23] MEDS: Sodium Chloride 0.9% 1,000 ML IV SCH ×2 (15:16→23:58)
[2018-04-23] MEDS: HYDROcodone/Acetaminophen 10/325 mg Tablet PO PRN (19:38)
[2018-04-24] MEDS: Promethazine HCl 25 MG in Sodium Chloride 0.9% 50 ML IVPB PRN ×3 (02:08→18:59)
[2018-04-24] MEDS: Sodium Chloride 0.9% 1,000 ML IV SCH ×3 (02:13→18:28)
[2018-04-24] MEDS: Baclofen 10 MG TAB PO SCH ×3 (09:00→20:47)
[2018-04-24] MEDS: clonazePAM 0.5 MG TAB PO SCH ×3 (09:00→20:47)
[2018-04-24] MEDS: Gabapentin 300 MG CAP PO SCH ×3 (09:00→20:47)
[2018-04-24] MEDS: Enoxaparin Sodium 40 MG/0.4 ML SYRINGE SC SCH (09:01)
[2018-04-24] MEDS: Cefepime 1 GM in Sodium Chloride 0.9% 100 ML IVPB SCH (09:01)
[2018-04-24] MEDS ORDERED: Sulfameth/Trimethoprim DS 800-160mg TAB PO SCH ×2 (09:30→21:00)
[2018-04-24 10:05] LABS: #Basophils 0.1 thou/uL (0.0-0.2); #Eosinphils 0.4 thou/uL (0.0-0.7); #Lymphocytes 3.7 thou/uL (1.20-3.40); #Monocytes 0.6 thou/uL (0.11-0.59); #Neutrophils 2.9 thou/uL (1.40-6.50); %Basophils 0.8 % (0.0-1.0); %Eosinophils 5.4 % (0.0-10.0); %Lymphocytes 48.4 % (21.0-51.0); %Monocytes 7.4 % (0.0-10.0); %Neutrophils 37.9 % (42.0-75.0); Hemoglobin 13.9 g/dL (14.0-18.0); Mean Corpuscular HGB CONC 33.1 g/dL (32.0-36.0); Mean Corpuscular Hemoglobin 32.7 pg (27.0-31.0); Mean Corpuscular Volume 98.7 fL (78.0-98.0); Mean Platelet Volume 7.1 fL (7.4-10.4); Platelet Count 194 thou/uL (130-400); RBC Distribution Width 12.1 % (11.5-14.5); Red Blood Cell (RBC) Count 4.24 mill/uL (4.70-6.10); White Blood Cell (WBC) Count 7.6 thou/uL (4.8-10.8)
[2018-04-24 10:22] LABS: Anion Gap 8 mmol/L (10-20); BUN (Urea Nitrogen) 10 mg/dL (8.9-20.6); Calc. Creatinine Clearance 209 mL/min (70-130); Calcium 8.4 mg/dL (7.8-10.44); Carbon Dioxide 27 mmol/L (22-29); Chloride 110 mmol/L (98-107); Estimated GFR-MDRD Greater than 90; Glucose 120 mg/dL (70-105); Potassium 3.6 mmol/L (3.5-5.1); Sodium 141 mmol/L (136-145)
[2018-04-24] MEDS ORDERED: cefTRIAXone\\ROCEPHIN 1 GM in Sodium Chloride 0.9% 100 ML IVPB SCH ×2 (10:30→21:00)
--- NOTE | 2018-04-24 16:53 | PDOC.PN ---
- Subjective Encounter Start Date: 04/24/18 Encounter Start Time: 10:00 Pt seen for followup re: UTI. Denies chest pain, shortness of breath, fevers or chills. - Objective Resuscitation Status - Order Detail: 04/20/18 07:26 Resuscitation Status Routine Resuscitation Status: FULL: Full Resuscitation Vital Signs & Weight: Vital Signs (12 hours) Temp Pulse Resp BP Pulse Ox 04/24/18 16:02 97.4 F L 91 18 146/84 H 97 04/24/18 11:24 97.8 F 89 16 140/86 93 L 04/24/18 09:10 96 04/24/18 07:39 97.7 F 81 16 130/85 96 Weight Admit Weight 199 lb 11.821 oz Weight 199 lb 11.821 oz I&O: 04/23/18 04/24/18 04/25/18 06:59 06:59 06:59 Intake Total 1218 4422 Output Total 1250 4050 Balance -32 372 Result Diagrams: 04/24/18 09:54 04/24/18 09:54 Phys Exam - Physical Examination Obese HEENT: moist MMs Neck: supple Respiratory: clear to auscultation bilateral Cardiovascular: RRR Gastrointestinal: soft paraplegia Psychiatric: normal affect Dx/Plan (1) UTI (urinary tract infection) Status: Acute Comment: continue IV ceftriaxone (2) HTN (hypertension) Code(s): I10 - ESSENTIAL (PRIMARY) HYPERTENSION Status: Chronic Qualifiers: Comment: controlled - Plan continue antibiotics * . Review of Systems - Review of Systems Respiratory: negative: Cough, Shortness of Breath, SOB with Excertion, Pleuritic Pain, Wheezing Cardiovascular: negative: chest pain, palpitations, orthopnea, paroxysmal nocturnal dyspnea, edema, light headedness - Medications/Allergies Allergies/Adverse Reactions: Allergies Allergy/AdvReac Type Severity Reaction Status Date / Time ciprofloxacin [From Cipro] Allergy Severe Anaphylaxis Verified 04/20/18 06:28 levofloxacin [From Levaquin] Allergy Severe Anaphylaxis Verified 04/20/18 06:28 ondansetron HCl Allergy Severe Short of Verified 04/20/18 06:28 [From Zofran (as Breath hydrochloride)] fluconazole Allergy Rash Verified 04/20/18 06:28 linezolid [From Zyvox] Allergy Verified 04/20/18 06:28 metoclopramide HCl Allergy Hives Verified 04/20/18 06:28 [From Reglan] pregabalin [From Lyrica] Allergy Verified 04/20/18 06:28 Medications: Current Medications Acetaminophen (Tylenol) 650 mg LA Q4H PRN PRN Reason: Headache/Fever/Mild Pain (1-3) Hydrocodone Bitart/Acetaminophen ([place] 10/325) 1 tab PO TID PRN PRN Reason: Moderate to Severe Pain (6-10) Last Admin: 04/23/18 19:38 Dose: 1 tab Baclofen (Lioresal) 20 mg PO TID [facility] Last Admin: 04/24/18 15:00 Dose: 20 mg Clonazepam (Klonopin) 0.5 mg PO TID [facility] Last Admin: 04/24/18 15:00 Dose: 0.5 mg Enoxaparin Sodium (Lovenox) 40 mg SC 0900 [facility] Last Admin: 04/24/18 09:01 Dose: 40 mg Gabapentin (Neurontin) 300 mg PO TID [facility] Last Admin: 04/24/18 15:00 Dose: 300 mg Sodium Chloride (Normal Saline 0.9%) 1,000 mls @ 120 mls/hr IV .Q8H20M [facility] Last Admin: 04/24/18 09:07 Dose: 1,000 mls Promethazine HCl 25 mg/ Sodium (Chloride) 51 mls @ 153 mls/hr IVPB Q6H PRN PRN Reason: Nausea/Vomiting Last Admin: 04/24/18 09:01 Dose: 51 mls Ceftriaxone Sodium 1 gm/ (Sodium Chloride) 100 mls @ 200 mls/hr IVPB 2100 [facility] Ketorolac Tromethamine (Toradol) 15 mg IVP Q6H PRN PRN Reason: Mild-Moderate Pain (1-5) Stop: 04/25/18 08:25 Last Admin: 04/23/18 23:55 Dose: 15 mg Promethazine HCl (Phenergan) 25 mg IM/IV Q6H PRN PRN Reason: Nausea/Vomiting Sodium Chloride (Flush - Normal Saline) 10 ml IVF PRN PRN PRN Reason: Saline Flush Zolpidem Tartrate (Ambien) 5 mg PO HSPRN PRN PRN Reason: Insomnia
[2018-04-24] MEDS: Ketorolac Tromethamine 30 MG/ML VIAL IVP PRN (18:28)
[2018-04-25] MEDS: Promethazine HCl 25 MG in Sodium Chloride 0.9% 50 ML IVPB PRN ×4 (03:31→20:55)
[2018-04-25] MEDS: Sodium Chloride 0.9% 1,000 ML IV SCH ×3 (03:31→20:54)
[2018-04-25] MEDS: Ketorolac Tromethamine 30 MG/ML VIAL IVP PRN (03:31)
[2018-04-25 06:52] LABS: #Basophils 0.1 thou/uL (0.0-0.2); #Eosinphils 0.3 thou/uL (0.0-0.7); #Lymphocytes 2.9 thou/uL (1.20-3.40); #Monocytes 0.7 thou/uL (0.11-0.59); #Neutrophils 4.3 thou/uL (1.40-6.50); %Eosinophils 4.2 % (0.0-10.0); %Lymphocytes 34.8 % (21.0-51.0); %Monocytes 8.5 % (0.0-10.0); %Neutrophils 51.5 % (42.0-75.0); Hemoglobin 13.9 g/dL (14.0-18.0); Mean Corpuscular HGB CONC 33.7 g/dL (32.0-36.0); Mean Corpuscular Hemoglobin 33.1 pg (27.0-31.0); Mean Corpuscular Volume 98.3 fL (78.0-98.0); Mean Platelet Volume 7.2 fL (7.4-10.4); Platelet Count 207 thou/uL (130-400); RBC Distribution Width 12.1 % (11.5-14.5); Red Blood Cell (RBC) Count 4.21 mill/uL (4.70-6.10); White Blood Cell (WBC) Count 8.3 thou/uL (4.8-10.8)
[2018-04-25 07:02] LABS: Anion Gap 9 mmol/L (10-20); BUN (Urea Nitrogen) 10 mg/dL (8.9-20.6); Calc. Creatinine Clearance 199 mL/min (70-130); Calcium 8.6 mg/dL (7.8-10.44); Carbon Dioxide 25 mmol/L (22-29); Chloride 111 mmol/L (98-107); Estimated GFR-MDRD Greater than 90; Glucose 111 mg/dL (70-105); Potassium 3.9 mmol/L (3.5-5.1); Sodium 141 mmol/L (136-145)
[2018-04-25] MEDS: Baclofen 10 MG TAB PO SCH ×3 (08:29→19:58)
[2018-04-25] MEDS: Gabapentin 300 MG CAP PO SCH ×3 (08:29→19:58)
[2018-04-25] MEDS: Enoxaparin Sodium 40 MG/0.4 ML SYRINGE SC SCH (08:29)
[2018-04-25] MEDS: clonazePAM 0.5 MG TAB PO SCH ×3 (08:29→19:58)
[2018-04-25] MEDS: HYDROcodone/Acetaminophen 10/325 mg Tablet PO PRN ×3 (08:36→20:53)
[2018-04-25] MEDS ORDERED: Sulfameth/Trimethoprim DS 800-160mg TAB PO SCH (10:15)
--- NOTE | 2018-04-25 17:34 | PDOC.PN ---
- Subjective Encounter Start Date: 04/25/18 Encounter Start Time: 10:20 Pt seen for followup re: UTI. Feels better. - Objective Resuscitation Status - Order Detail: 04/20/18 07:26 Resuscitation Status Routine Resuscitation Status: FULL: Full Resuscitation MAR Reviewed: Yes Vital Signs & Weight: Vital Signs (12 hours) Temp Pulse Resp BP Pulse Ox 04/25/18 11:00 98.2 F 92 18 145/90 H 97 04/25/18 08:40 97 04/25/18 07:41 98.0 F 77 16 155/95 H 97 Weight Admit Weight 199 lb 11.821 oz Weight 199 lb 11.821 oz I&O: 04/24/18 04/25/18 04/26/18 06:59 06:59 06:59 Intake Total 4422 3644.5 Output Total 4050 3710 Balance 372 -65.5 Result Diagrams: 04/26/18 07:25 04/26/18 07:25 Additional Labs: Labs reviewed by me Phys Exam - Physical Examination Constitutional: NAD HEENT: moist MMs Neck: supple Cardiovascular: RRR Gastrointestinal: soft Psychiatric: normal affect Dx/Plan (1) UTI (urinary tract infection) Status: Acute Comment: change antibiotic to oral, observe overnight (2) HTN (hypertension) Code(s): I10 - ESSENTIAL (PRIMARY) HYPERTENSION Status: Chronic Qualifiers: Comment: controlled - Plan * . Review of Systems - Review of Systems Cardiovascular: negative: chest pain, palpitations, orthopnea, paroxysmal nocturnal dyspnea, edema, light headedness Gastrointestinal: negative: Nausea, Vomiting, Abdominal Pain, Diarrhea, Constipation, Melena, Hematochezia - Medications/Allergies Allergies/Adverse Reactions: Allergies Allergy/AdvReac Type Severity Reaction Status Date / Time ciprofloxacin [From Cipro] Allergy Severe Anaphylaxis Verified 04/20/18 06:28 levofloxacin [From Levaquin] Allergy Severe Anaphylaxis Verified 04/20/18 06:28 ondansetron HCl Allergy Severe Short of Verified 04/20/18 06:28 [From Zofran (as Breath hydrochloride)] fluconazole Allergy Rash Verified 04/20/18 06:28 linezolid [From Zyvox] Allergy Verified 04/20/18 06:28 metoclopramide HCl Allergy Hives Verified 04/20/18 06:28 [From Reglan] pregabalin [From Lyrica] Allergy Verified 04/20/18 06:28 Medications: Current Medications Acetaminophen (Tylenol) 650 mg [place] Q4H PRN PRN Reason: Headache/Fever/Mild Pain (1-3) Hydrocodone Bitart/Acetaminophen ([place] 10/325) 1 tab PO TID PRN PRN Reason: Moderate to Severe Pain (6-10) Last Admin: 04/25/18 14:44 Dose: 1 tab Baclofen (Lioresal) 20 mg PO TID [facility] Last Admin: 04/25/18 14:44 Dose: 20 mg Clonazepam (Klonopin) 0.5 mg PO TID [facility] Last Admin: 04/25/18 14:44 Dose: 0.5 mg Enoxaparin Sodium (Lovenox) 40 mg SC 0900 [facility] Last Admin: 04/25/18 08:29 Dose: 40 mg Gabapentin (Neurontin) 300 mg PO TID [facility] Last Admin: 04/25/18 14:44 Dose: 300 mg Sodium Chloride (Normal Saline 0.9%) 1,000 mls @ 120 mls/hr IV .Q8H20M [facility] Last Admin: 04/25/18 12:00 Dose: 1,000 mls Promethazine HCl 25 mg/ Sodium (Chloride) 51 mls @ 153 mls/hr IVPB Q6H PRN PRN Reason: Nausea/Vomiting Last Admin: 04/25/18 15:18 Dose: 51 mls Promethazine HCl (Phenergan) 25 mg IM/IV Q6H PRN PRN Reason: Nausea/Vomiting Sodium Chloride (Flush - Normal Saline) 10 ml IVF PRN PRN PRN Reason: Saline Flush Trimethoprim/Sulfamethoxazole (Bactrim Ds) 1 tab PO BID [facility] Zolpidem Tartrate (Ambien) 5 mg PO HSPRN PRN PRN Reason: Insomnia
[2018-04-25] MEDS: Sulfameth/Trimethoprim DS 800-160mg TAB PO SCH (19:58)
[2018-04-26] MEDS: HYDROcodone/Acetaminophen 10/325 mg Tablet PO PRN (03:51)
[2018-04-26] MEDS: Promethazine HCl 25 MG in Sodium Chloride 0.9% 50 ML IVPB PRN ×3 (03:53→17:50)
[2018-04-26] MEDS: Sodium Chloride 0.9% 1,000 ML IV SCH ×3 (03:54→14:57)
[2018-04-26 07:40] LABS: #Basophils 0.1 thou/uL (0.0-0.2); #Eosinphils 0.4 thou/uL (0.0-0.7); #Lymphocytes 3.5 thou/uL (1.20-3.40); #Monocytes 0.8 thou/uL (0.11-0.59); #Neutrophils 2.8 thou/uL (1.40-6.50); %Basophils 1.1 % (0.0-1.0); %Eosinophils 5.4 % (0.0-10.0); %Lymphocytes 46.3 % (21.0-51.0); %Monocytes 10.1 % (0.0-10.0); %Neutrophils 37.1 % (42.0-75.0); Hemoglobin 13.9 g/dL (14.0-18.0); Mean Corpuscular HGB CONC 33.7 g/dL (32.0-36.0); Mean Corpuscular Hemoglobin 33.3 pg (27.0-31.0); Mean Corpuscular Volume 98.7 fL (78.0-98.0); Mean Platelet Volume 7.6 fL (7.4-10.4); Platelet Count 180 thou/uL (130-400); RBC Distribution Width 12.2 % (11.5-14.5); Red Blood Cell (RBC) Count 4.17 mill/uL (4.70-6.10); White Blood Cell (WBC) Count 7.6 thou/uL (4.8-10.8)
[2018-04-26 07:55] LABS: Anion Gap 8 mmol/L (10-20); BUN (Urea Nitrogen) 10 mg/dL (8.9-20.6); Calc. Creatinine Clearance 193 mL/min (70-130); Calcium 8.5 mg/dL (7.8-10.44); Carbon Dioxide 23 mmol/L (22-29); Chloride 111 mmol/L (98-107); Estimated GFR-MDRD Greater than 90; Glucose 94 mg/dL (70-105); Potassium 4.3 mmol/L (3.5-5.1); Sodium 138 mmol/L (136-145)
[2018-04-26] MEDS: Enoxaparin Sodium 40 MG/0.4 ML SYRINGE SC SCH (09:37)
[2018-04-26] MEDS: Sulfameth/Trimethoprim DS 800-160mg TAB PO SCH ×2 (09:38→20:08)
[2018-04-26] MEDS: Baclofen 10 MG TAB PO SCH ×3 (09:38→20:08)
[2018-04-26] MEDS: clonazePAM 0.5 MG TAB PO SCH ×3 (09:38→20:08)
[2018-04-26] MEDS: Gabapentin 300 MG CAP PO SCH ×3 (09:40→20:08)
--- NOTE | 2018-04-26 13:42 | DIS ---
DATE OF ADMISSION: 04/20/2018 DATE OF DISCHARGE: 04/26/2018 PRIMARY CARE PROVIDER: Arnold Navarro MD DISCHARGE DIAGNOSIS: Urinary tract infection secondary to self-catheterization. COMORBIDITIES: 1. T12 paraplegia. 2. Chronic pain syndrome. CONDITION: Condition of the patient on the day of discharge: Stable. I assessed Mr. Chandra on the day of discharge. He denies any chest pain or shortness of breath. Vital signs are stable. S1 and S2 are heard, regular. Lungs are clear to auscultation bilaterally. HOSPITAL COURSE: Mr. Chandra is a pleasant 37-year-old gentleman, who was admitted to [facility] on April 20, 2018, for complicated urinary tract infection in the context of self-catheterization. Please refer to Dr. Mchugh' history and physical note dated April 20, 2018, for further details. Urine cultures were unfortunately not sent until April 21, 2018, after he had received antibiotics. Final urine cultures did not grow any organism. He was treated with cefepime and ceftriaxone in the hospital and was transitioned to Bactrim DS prior to discharge. DISCHARGE MEDICATIONS: Bactrim DS 1 tablet p.o. b.i.d. for 4 more days. Otherwise, no change was made to his preadmission home medications as dictated in the history and physical note dated April 20, 2018, by Dr. Mchugh. On the day of discharge, he has white count of 7600, hemoglobin 13.9, and platelet count 180,000. Sodium 138, potassium 4.3, carbon dioxide 23, and creatinine 0.67. DISCHARGE DESTINATION: Home. TIME SPENT: Total amount of time spent in coordinating this discharge: 32 minutes. Job ID: [id number]
[2018-04-27] MEDS: Sodium Chloride 0.9% 1,000 ML IV SCH ×5 (00:01→21:14)
[2018-04-27] MEDS: Promethazine HCl 25 MG in Sodium Chloride 0.9% 50 ML IVPB PRN ×3 (06:01→21:13)
[2018-04-27] MEDS: Baclofen 10 MG TAB PO SCH ×3 (09:40→21:13)
[2018-04-27] MEDS: Enoxaparin Sodium 40 MG/0.4 ML SYRINGE SC SCH (09:40)
[2018-04-27] MEDS: Gabapentin 300 MG CAP PO SCH ×3 (09:40→21:13)
[2018-04-27] MEDS: clonazePAM 0.5 MG TAB PO SCH ×3 (09:40→21:13)
[2018-04-27] MEDS: Sulfameth/Trimethoprim DS 800-160mg TAB PO SCH ×2 (09:40→21:13)
[2018-04-27 09:46] LABS: #Basophils 0.1 thou/uL (0.0-0.2); #Eosinphils 0.4 thou/uL (0.0-0.7); #Lymphocytes 3.8 thou/uL (1.20-3.40); #Monocytes 0.8 thou/uL (0.11-0.59); #Neutrophils 4.6 thou/uL (1.40-6.50); %Eosinophils 3.8 % (0.0-10.0); %Lymphocytes 39.3 % (21.0-51.0); %Neutrophils 47.8 % (42.0-75.0); Hemoglobin 13.3 g/dL (14.0-18.0); Mean Corpuscular HGB CONC 32.3 g/dL (32.0-36.0); Mean Corpuscular Hemoglobin 31.9 pg (27.0-31.0); Mean Corpuscular Volume 98.7 fL (78.0-98.0); Platelet Count 204 thou/uL (130-400); RBC Distribution Width 12.2 % (11.5-14.5); Red Blood Cell (RBC) Count 4.18 mill/uL (4.70-6.10); White Blood Cell (WBC) Count 9.6 thou/uL (4.8-10.8)
[2018-04-27 10:15] LABS: Anion Gap 9 mmol/L (10-20); BUN (Urea Nitrogen) 9 mg/dL (8.9-20.6); Calc. Creatinine Clearance 199 mL/min (70-130); Calcium 8.6 mg/dL (7.8-10.44); Carbon Dioxide 24 mmol/L (22-29); Chloride 110 mmol/L (98-107); Estimated GFR-MDRD Greater than 90; Glucose 79 mg/dL (70-105); Potassium 4.5 mmol/L (3.5-5.1); Sodium 138 mmol/L (136-145)
[2018-04-27] MEDS: HYDROcodone/Acetaminophen 10/325 mg Tablet PO PRN (12:27)
--- NOTE | 2018-04-27 17:46 | PDOC.PN ---
- Subjective Encounter Start Date: 04/26/18 (Late entry) Encounter Start Time: 12:00 Pt seen for followup re: UTI. Feels better. - Objective Resuscitation Status - Order Detail: 04/20/18 07:26 Resuscitation Status Routine Resuscitation Status: FULL: Full Resuscitation Vital Signs & Weight: Vital Signs (12 hours) Temp Pulse Resp BP Pulse Ox 04/27/18 17:03 98.6 F 113 H 18 126/85 95 04/27/18 11:53 98.2 F 104 H 18 127/87 97 04/27/18 08:00 99.1 F 97 20 138/91 H 97 Weight Admit Weight 199 lb 11.821 oz Weight 199 lb 11.821 oz I&O: 04/26/18 04/27/18 04/28/18 06:59 06:59 06:59 Intake Total 3715 2390 240 Output Total 2530 3600 Balance 1185 -1210 240 Result Diagrams: 04/27/18 09:19 04/27/18 09:19 Phys Exam - Physical Examination Obese HEENT: moist MMs Neck: supple Respiratory: clear to auscultation bilateral Cardiovascular: RRR Gastrointestinal: soft Neurological: moves all 4 limbs Psychiatric: normal affect Dx/Plan (1) UTI (urinary tract infection) Status: Acute Comment: on oral antibiotics (2) HTN (hypertension) Code(s): I10 - ESSENTIAL (PRIMARY) HYPERTENSION Status: Chronic Qualifiers: Comment: controlled - Plan * . Review of Systems - Review of Systems Respiratory: negative: Cough, Shortness of Breath, SOB with Excertion, Pleuritic Pain, Wheezing Cardiovascular: negative: chest pain, palpitations, orthopnea, paroxysmal nocturnal dyspnea, edema, light headedness - Medications/Allergies Allergies/Adverse Reactions: Allergies Allergy/AdvReac Type Severity Reaction Status Date / Time ciprofloxacin [From Cipro] Allergy Severe Anaphylaxis Verified 04/20/18 06:28 levofloxacin [From Levaquin] Allergy Severe Anaphylaxis Verified 04/20/18 06:28 ondansetron HCl Allergy Severe Short of Verified 04/20/18 06:28 [From Zofran (as Breath hydrochloride)] fluconazole Allergy Rash Verified 04/20/18 06:28 linezolid [From Zyvox] Allergy Verified 04/20/18 06:28 metoclopramide HCl Allergy Hives Verified 04/20/18 06:28 [From Reglan] pregabalin [From Lyrica] Allergy Verified 04/20/18 06:28 Medications: Current Medications Acetaminophen (Tylenol) 650 mg [place] Q4H PRN PRN Reason: Headache/Fever/Mild Pain (1-3) Hydrocodone Bitart/Acetaminophen ([place] 10/325) 1 tab PO TID PRN PRN Reason: Moderate to Severe Pain (6-10) Last Admin: 04/27/18 12:27 Dose: 1 tab Baclofen (Lioresal) 20 mg PO TID [facility] Last Admin: 04/27/18 14:37 Dose: 20 mg Clonazepam (Klonopin) 0.5 mg PO TID [facility] Last Admin: 04/27/18 14:37 Dose: 0.5 mg Enoxaparin Sodium (Lovenox) 40 mg SC 0900 [facility] Last Admin: 04/27/18 09:40 Dose: 40 mg Gabapentin (Neurontin) 300 mg PO TID [facility] Last Admin: 04/27/18 14:38 Dose: 300 mg Sodium Chloride (Normal Saline 0.9%) 1,000 mls @ 120 mls/hr IV .Q8H20M [facility] Last Admin: 04/27/18 15:35 Dose: Not Given Promethazine HCl 25 mg/ Sodium (Chloride) 51 mls @ 153 mls/hr IVPB Q6H PRN PRN Reason: Nausea/Vomiting Last Admin: 04/27/18 14:37 Dose: 51 mls Promethazine HCl (Phenergan) 25 mg IM/IV Q6H PRN PRN Reason: Nausea/Vomiting Sodium Chloride (Flush - Normal Saline) 10 ml IVF PRN PRN PRN Reason: Saline Flush Trimethoprim/Sulfamethoxazole (Bactrim Ds) 1 tab PO BID [facility] Last Admin: 04/27/18 09:40 Dose: 1 tab Zolpidem Tartrate (Ambien) 5 mg PO HSPRN PRN PRN Reason: Insomnia
--- NOTE | 2018-04-27 17:51 | PDOC.PN ---
- Subjective Encounter Start Date: 04/27/18 Encounter Start Time: 11:20 Pt seen for followup re: UTI. Had a restless night, spiked low-grade fever. - Objective Resuscitation Status - Order Detail: 04/20/18 07:26 Resuscitation Status Routine Resuscitation Status: FULL: Full Resuscitation MAR Reviewed: Yes Vital Signs & Weight: Vital Signs (12 hours) Temp Pulse Resp BP Pulse Ox 04/27/18 17:03 98.6 F 113 H 18 126/85 95 04/27/18 11:53 98.2 F 104 H 18 127/87 97 04/27/18 08:00 99.1 F 97 20 138/91 H 97 Weight Admit Weight 199 lb 11.821 oz Weight 199 lb 11.821 oz I&O: 04/26/18 04/27/18 04/28/18 06:59 06:59 06:59 Intake Total 3715 2390 240 Output Total 2530 3600 Balance 1185 -1210 240 Result Diagrams: 04/27/18 09:19 04/27/18 09:19 Phys Exam - Physical Examination Obese HEENT: moist MMs Neck: supple Respiratory: clear to auscultation bilateral Cardiovascular: RRR Gastrointestinal: non-tender Musculoskeletal: no edema paraplegia Psychiatric: normal affect Dx/Plan (1) UTI (urinary tract infection) Status: Acute Comment: will continue oral antibiotics. Will also add nitrofurantoin based on old urine culture reports. (2) HTN (hypertension) Code(s): I10 - ESSENTIAL (PRIMARY) HYPERTENSION Status: Chronic Qualifiers: Comment: controlled - Plan * . Review of Systems - Review of Systems Constitutional: fever, weakness. negative: chills, sweats, malaise Cardiovascular: negative: chest pain, palpitations, orthopnea, paroxysmal nocturnal dyspnea, edema, light headedness - Medications/Allergies Allergies/Adverse Reactions: Allergies Allergy/AdvReac Type Severity Reaction Status Date / Time ciprofloxacin [From Cipro] Allergy Severe Anaphylaxis Verified 04/20/18 06:28 levofloxacin [From Levaquin] Allergy Severe Anaphylaxis Verified 04/20/18 06:28 ondansetron HCl Allergy Severe Short of Verified 04/20/18 06:28 [From Zofran (as Breath hydrochloride)] fluconazole Allergy Rash Verified 04/20/18 06:28 linezolid [From Zyvox] Allergy Verified 04/20/18 06:28 metoclopramide HCl Allergy Hives Verified 04/20/18 06:28 [From Reglan] pregabalin [From Lyrica] Allergy Verified 04/20/18 06:28 Medications: Current Medications Acetaminophen (Tylenol) 650 mg [place] Q4H PRN PRN Reason: Headache/Fever/Mild Pain (1-3) Hydrocodone Bitart/Acetaminophen ([place] 10/325) 1 tab PO TID PRN PRN Reason: Moderate to Severe Pain (6-10) Last Admin: 04/27/18 12:27 Dose: 1 tab Baclofen (Lioresal) 20 mg PO TID [facility] Last Admin: 04/27/18 14:37 Dose: 20 mg Clonazepam (Klonopin) 0.5 mg PO TID [facility] Last Admin: 04/27/18 14:37 Dose: 0.5 mg Enoxaparin Sodium (Lovenox) 40 mg SC 0900 [facility] Last Admin: 04/27/18 09:40 Dose: 40 mg Gabapentin (Neurontin) 300 mg PO TID [facility] Last Admin: 04/27/18 14:38 Dose: 300 mg Sodium Chloride (Normal Saline 0.9%) 1,000 mls @ 120 mls/hr IV .Q8H20M [facility] Last Admin: 04/27/18 15:35 Dose: Not Given Promethazine HCl 25 mg/ Sodium (Chloride) 51 mls @ 153 mls/hr IVPB Q6H PRN PRN Reason: Nausea/Vomiting Last Admin: 04/27/18 14:37 Dose: 51 mls Promethazine HCl (Phenergan) 25 mg IM/IV Q6H PRN PRN Reason: Nausea/Vomiting Sodium Chloride (Flush - Normal Saline) 10 ml IVF PRN PRN PRN Reason: Saline Flush Trimethoprim/Sulfamethoxazole (Bactrim Ds) 1 tab PO BID [facility] Last Admin: 04/27/18 09:40 Dose: 1 tab Zolpidem Tartrate (Ambien) 5 mg PO HSPRN PRN PRN Reason: Insomnia
[2018-04-27] MEDS: Nitrofurantoin Monohyd/M-Cryst 100 MG CAP PO SCH (21:13)
[2018-04-28] MEDS: HYDROcodone/Acetaminophen 10/325 mg Tablet PO PRN (03:43)
[2018-04-28] MEDS: Promethazine HCl 25 MG in Sodium Chloride 0.9% 50 ML IVPB PRN ×2 (04:34→10:51)
[2018-04-28] MEDS: Sodium Chloride 0.9% 1,000 ML IV SCH (07:39)
[2018-04-28] MEDS: clonazePAM 0.5 MG TAB PO SCH (08:28)
[2018-04-28] MEDS: Baclofen 10 MG TAB PO SCH (08:28)
[2018-04-28] MEDS: Gabapentin 300 MG CAP PO SCH (08:28)
[2018-04-28] MEDS: Sulfameth/Trimethoprim DS 800-160mg TAB PO SCH (08:28)
[2018-04-28] MEDS: Nitrofurantoin Monohyd/M-Cryst 100 MG CAP PO SCH (08:29)
[2018-04-28] MEDS: Enoxaparin Sodium 40 MG/0.4 ML SYRINGE SC SCH (08:29)
--- NOTE | 2018-04-28 13:59 | DIS ---
DATE OF ADMISSION: 04/20/2018 DATE OF DISCHARGE: 04/28/2018 PRIMARY CARE PROVIDER: Arnold Navarro MD Please note, I dictated a discharge summary on April 26, 2018. The patient could not go home that day. He is being discharged home on April 28, 2018. DISCHARGE DIAGNOSIS: Urinary tract infection, secondary to self-catheterization. COMORBIDITIES: T12 paraplegia and chronic pain syndrome. CONDITION: Condition of the patient on the day of discharge: Stable. I saw Mr. Chandra on the day of discharge. He denied any chest pain or shortness of breath. Vital signs are stable. Lungs are clear to auscultation bilaterally. HOSPITAL COURSE: As dictated on the previous discharge summary dated April 26, 2018, Mr. Chandra was not discharged home that day and he spiked a low-grade fever. He did not have any further fevers and is being discharged home on April 28, 2018. DISCHARGE MEDICATIONS: As dictated on discharge summary dated April 26, 2018. DISCHARGE DESTINATION: Home. TIME SPENT: Total amount of time spent in coordinating this discharge: 18 minutes. Job ID: [id number]
[2018-04-28 14:05] VITALS: BP 142/90; TEMP 98.4
== END 2018-04-28 14:14 | disposition home or self-care (01) | DRG 699 ==
LOC: ERS 02:04 → T4-B 03:51
PROVIDERS: ADMIT Internal Medicine; ATTEND Internal Medicine
DX: T83.511A Infection and inflammatory reaction due to indwelling urethral catheter, initial encounter (principal); G82.20 Paraplegia, unspecified; N39.0 Urinary tract infection, site not specified; E66.9 Obesity, unspecified; Z68.31 Body mass index [BMI] 31.0-31.9, adult; G89.4 Chronic pain syndrome; F17.210 Nicotine dependence, cigarettes, uncomplicated; B18.2 Chronic viral hepatitis C; I10 Essential (primary) hypertension; N31.9 Neuromuscular dysfunction of bladder, unspecified; Z90.49 Acquired absence of other specified parts of digestive tract
CPT/HCPCS: 36415; 80048; 85025; 87086; 96374; J0692; J0696; J1642; J1650; J1885; J2270; J2550; J7050

== ENCOUNTER 2018-06-05 23:50 | Inpatient (IN) | payer MEDICARE, MEDICAID ==
[2018-06-06 00:16] LABS: Actual Bicarbonate (HCO3a) 23.1 mEq/L (22-28); Analyzer IN Cardio ER; Base Excess (BEa) -0.1 mEq/L (-2.0 to +3.0); CO2 Tension 33.6 mmHg (35.0-45.0); Calcium, Ionized 1.12 mmol/L (1.12-1.30); Carboxyhemoglobin (COHb) 1.8 gm% (0.0-3.0); Hemoglobin (Hb) 15.4 g/dL (14.0-18.0); O2 Tension (PaO2) 69.5 mmHg (80.0-100.0); Potassium - ABG Lab 4.12 mmol/L (3.70-5.30); pH, Arterial 7.46 (7.35-7.45)
[2018-06-06 00:18] LABS: Puncture Site LRA
[2018-06-06 00:22] LABS: #Basophils 0.1 thou/uL (0.0-0.2); #Lymphocytes 2.2 thou/uL (1.20-3.40); #Monocytes 1.2 thou/uL (0.11-0.59); #Neutrophils 7.9 thou/uL (1.40-6.50); %Basophils 0.9 % (0.0-1.0); %Eosinophils 0.2 % (0.0-10.0); %Lymphocytes 19.2 % (21.0-51.0); %Monocytes 10.4 % (0.0-10.0); %Neutrophils 69.4 % (42.0-75.0); Hemoglobin 14.8 g/dL (14.0-18.0); Mean Corpuscular HGB CONC 31.8 g/dL (32.0-36.0); Mean Platelet Volume 7.5 fL (7.4-10.4); Platelet Count 201 thou/uL (130-400); RBC Distribution Width 12.1 % (11.5-14.5); Red Blood Cell (RBC) Count 4.62 mill/uL (4.70-6.10); White Blood Cell (WBC) Count 11.4 thou/uL (4.8-10.8)
[2018-06-06] MEDS ORDERED: Ketorolac Tromethamine 30 MG/ML VIAL ONE (00:24)
[2018-06-06] MEDS ORDERED: Promethazine HCl 25 MG/ML VIAL ONE ×2 (00:24→03:01)
[2018-06-06] MEDS ORDERED: Piperacillin/Tazobactam 4.5 GM VIAL ONE (00:42)
[2018-06-06 00:47] LABS: ALT (SGPT) 50 U/L (8-55); AST (SGOT) 64 U/L (5-34); Albumin 3.6 g/dL (3.5-5.0); Alkaline Phosphatase 105 U/L (40-150); Anion Gap 16 mmol/L (10-20); BUN (Urea Nitrogen) 14 mg/dL (8.9-20.6); Bilirubin, Total 0.8 mg/dL (0.2-1.2); Calc. Creatinine Clearance 0 mL/min (70-130); Calcium 8.8 mg/dL (7.8-10.44); Carbon Dioxide 19 mmol/L (22-29); Chloride 107 mmol/L (98-107); Estimated GFR-MDRD Greater than 90; Glucose 97 mg/dL (70-105); Potassium 4.3 mmol/L (3.5-5.1); Protein, Total 7.6 g/dL (6.0-8.3); Sodium 138 mmol/L (136-145)
[2018-06-06 01:14] LABS: Bilirubin Negative (Negative); Blood, Urine Moderate (Negative); Clarity CLOUDY (Clear); Glucose, Urine (Dipstick) Negative (Negative); Leukocyte Moderate (Negative); Nitrite Positive (Negative); Protein, Urine (Dipstick) Trace mg/dL (Neg-Trace); Specific Gravity, Urine 1.015 (1.002-1.036)
[2018-06-06 01:17] LABS: Bacteria/HPF 4+ HPF (None Seen); RBC/HPF 0-3 HPF (0-3); Squamous Epithelial None Seen HPF (0-3)
[2018-06-06 01:26] LABS: Pathc Cast-AUWi Flag 9.44 (0-2.49)
[2018-06-06] MEDS ORDERED: Morphine 4 MG/ML VIAL ONE ×2 (01:28→07:34)
[2018-06-06 01:36] LABS: Hyaline Casts/LPF 0-3 HYALINE CAST LPF (0-3 Hyaline); Other Casts/LPF None Seen LPF (0-3 Hyaline)
[2018-06-06] MEDS ORDERED: Morphine 4 MG/ML VIAL SLOW IVP SCH (04:30)
[2018-06-06] MEDS ORDERED: Acetaminophen 325 MG TAB PO PRN (08:00)
--- NOTE | 2018-06-06 08:22 | RAD ---
RADIOGRAPH CHEST 1 VIEW: HISTORY: A 37-year-old male with tachycardia, chest pain. FINDINGS: There are no air space densities, pulmonary edema, pneumothorax, or cardiomegaly. The lateral costop hrenic angles are sharp. IMPRESSION: 1. No acute cardiopulmonary findings. 2. Left-sided implantable vascular access port. 3. Deviation of the proximal descending thoracic aorta. See CT report. nico [] POS: [facility]
[2018-06-06] MEDS ORDERED: Vancomycin HCl 500 MG in Sodium Chloride 0.9% 100 ML IVPB SCH (09:15)
[2018-06-06] MEDS ORDERED: Enoxaparin Sodium 40 MG/0.4 ML SYRINGE ONE (09:31)
[2018-06-06] MEDS: Enoxaparin Sodium 40 MG/0.4 ML SYRINGE SC SCH (09:37)
[2018-06-06] MEDS: Piperacillin/Tazobactam 3.375 GM in Sodium Chloride 0.9% 100 ML IVPB SCH ×3 (09:37→20:58)
[2018-06-06] MEDS: Ibuprofen 600 MG TAB PO PRN ×2 (09:44→21:55)
[2018-06-06] MEDS: Sodium Chloride 0.9% 1,000 ML IV SCH ×2 (10:42→18:18)
[2018-06-06] MEDS ORDERED: Vancomycin HCl 1 GM in Premix Bag 1 BAG IVPB SCH (13:00)
[2018-06-06] MEDS ORDERED: ISOVUE-370 76%-LOCM 1 ML ONE (13:17)
[2018-06-06] MEDS: Morphine 4 MG/ML VIAL SLOW IVP PRN ×3 (13:26→21:54)
[2018-06-06] MEDS ORDERED: Gadobenate Dimeglumine 529 MG/1 ML (20ML VIAL) ONE (13:26)
--- NOTE | 2018-06-06 16:29 | CT ---
PRELIMINARY REPORT/[facility]/EMERGENTY AFTER-HOURS PROCEDURE CT Abdomen and Pelvis With Contrast EXAM DATE/TIME: 06/06/2018 1:15 AM CLINICAL HISTORY: 37 years old, male; Signs and symptoms; Nausea and vomiting; Prior surgery; Patient HX: Er 8; M37 w/ pmh of t12 paraplegia, chronic uti, MRSA, right hip osteomyelitis, chronic tachycardia, chronic pain, comes in by ems w/ acute onset of vomiting this evening. Associated with fever 102.5. 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 Surgical history of cholecystectomy, laparotomy, nephrectomy, on the left, surgical history of splenectomy, bladder augmentation, artificial sphincter. Small bowel r esection. Debridement of pressure sore on sacrum TECHNIQUE: Axial computed tomography images of the abdomen and pelvis with intravenous contrast. Coronal reformatted images were created and reviewed. COMPARISON: No relevant prior studies available. FINDINGS: Lower thorax: No acute findings. ABDOMEN: Liver: Normal. Gallbladder and bile ducts: Normal. Pancreas: Normal. Spleen: Normal. Adrenals: Normal. Kidneys and ureters: Left kidney is surgically absent. Stomach and bowel: Moderate amount of stool throughout the colon, without obstruction. Appendix: No evidence of appendicitis. PELVIS: Bladder: Artificial urinary bladder sphincter device. Reproductive: Unremarkable as visualized. ABDOMEN and PELVIS: Intraperitoneal space: Normal. No free air. No significant fluid collection. Bones/joints: Severe scoliosis of the lumbar spine. Surgical changes of prior upper lumbar spine post erior fusion. Soft tissues: Right posterior gluteal cellulitis or scarring. Abnormal soft tissue stranding and flui d within the regions of the hips bilaterally. Septic arthritis possible. Vasculature: Normal. No abdominal aortic aneurysm. Lymph nodes: Normal. No enlarged lymph nodes. IMPRESSION: 1. No acute intra-abdominal or intrapelvic abnormality. 2. Abnormal soft tissue stranding and fluid within the regions of the hips bilaterally. Septic arthri tis possible. Recommend further evaluation. Thank you for allowing us to participate in the care of your patient. Dictated and Authenticated by: Alfredo Angeles MD 06/06/2018 2:06 AM Central Time ([place] & [place]) FINAL REPORT CT ABDOMEN AND PELVIS WITH IV CONTRAST: I agree with the preliminary report given by Dr. Alfredo Angeles of [facility]. POS: [facility]
--- NOTE | 2018-06-06 17:50 | MRI ---
MRI PELVIS WITH AND WITHOUT GADOLINIUM CONTRAST: History: Fever. Paraplegia. MRSA. Right hip osteomyelitis. Abnormal CT scan with bilateral hip fluid. FINDINGS: Correlated with CT performed earlier on the same date. Absence of the right femoral head and distorti on of the acetabulum appear to be post-operative in nature. A pocket of fluid at the expected locatio n of the right hip joint capsule measures up to 4.6 cm. There is some thickened enhancement of the pe riphery of the fluid collection and edematous stranding and enhancement in the adjacent soft tissues. Adjacent bone marrow is preserved at this location. At the left hip, fluid distends the joint capsule with mildly thickened, enhancing synovium and mild to moderate stranding and enhancement in the adjacent soft tissues. Severe degenerative changes of th e left hip with lateral subluxation. There is extensive loss of T1 signal on the pre contrast images within the left femoral head and neck without significant enhancement or edema with the exception of a small focus at the base of the left femoral neck. IMPRESSION: Bilateral hip joint fluid with evidence of significant inflammation. IN the setting of a clinical his tory of fever and leukocytosis, septic arthritis is apparent. There are post-operative changes of the right hip without evidence of bone marrow involvement. Bone marrow abnormalities of the left hip sug gest early osteomyelitis involvement. POS: [facility]
[2018-06-06] MEDS: Vancomycin HCl 1.5 GM in Sodium Chloride 0.9% 250 ML 300 ML IVPB SCH (18:17)
[2018-06-06] MEDS: Promethazine HCl 6.25 MG/5 ML Syrup PO PRN (18:21)
[2018-06-07] MEDS: Piperacillin/Tazobactam 3.375 GM in Sodium Chloride 0.9% 100 ML IVPB SCH ×4 (02:44→21:14)
[2018-06-07] MEDS: Morphine 4 MG/ML VIAL SLOW IVP PRN ×5 (02:44→22:39)
[2018-06-07] MEDS: Sodium Chloride 0.9% 1,000 ML IV SCH (03:59)
[2018-06-07] MEDS: Vancomycin HCl 1.5 GM in Sodium Chloride 0.9% 250 ML 300 ML IVPB SCH ×2 (03:59→15:58)
[2018-06-07] MEDS: Promethazine HCl 6.25 MG/5 ML Syrup PO PRN (04:00)
[2018-06-07] MEDS ORDERED: Sodium Chloride 0.45% 1,000 ML IV SCH (07:15)
[2018-06-07 07:38] LABS: #Eosinphils 0.4 thou/uL (0.0-0.7); #Lymphocytes 2.9 thou/uL (1.20-3.40); #Monocytes 1.2 thou/uL (0.11-0.59); #Neutrophils 3.5 thou/uL (1.40-6.50); %Basophils 0.4 % (0.0-1.0); %Eosinophils 4.5 % (0.0-10.0); %Lymphocytes 36.5 % (21.0-51.0); %Monocytes 14.6 % (0.0-10.0); %Neutrophils 43.9 % (42.0-75.0); Hemoglobin 13.3 g/dL (14.0-18.0); Mean Corpuscular HGB CONC 32.1 g/dL (32.0-36.0); Mean Corpuscular Hemoglobin 31.9 pg (27.0-31.0); Mean Corpuscular Volume 99.5 fL (78.0-98.0); Mean Platelet Volume 8.2 fL (7.4-10.4); Platelet Count 181 thou/uL (130-400); RBC Distribution Width 12.2 % (11.5-14.5); Red Blood Cell (RBC) Count 4.16 mill/uL (4.70-6.10)
[2018-06-07 07:57] LABS: Anion Gap 12 mmol/L (10-20); BUN (Urea Nitrogen) 9 mg/dL (8.9-20.6); Calc. Creatinine Clearance 218 mL/min (70-130); Carbon Dioxide 20 mmol/L (22-29); Chloride 110 mmol/L (98-107); Estimated GFR-MDRD Greater than 90; Glucose 94 mg/dL (70-105); Potassium 3.8 mmol/L (3.5-5.1); Sodium 138 mmol/L (136-145)
[2018-06-07] MEDS: Enoxaparin Sodium 40 MG/0.4 ML SYRINGE SC SCH (08:04)
--- NOTE | 2018-06-07 09:06 | HP ---
CHIEF COMPLAINT: Fever and back pain. HISTORY OF PRESENT ILLNESS: The patient is a 37-year-old paraplegic, who was in his normal state of health until last night when he started having some vomiting. He vomited five times. He had some abdominal pain in the lower parts of the abdomen and pelvis in the center. He denied any diarrhea. He stated that he had fever, they checked, it was 101. He was brought to the emergency room for further evaluation by EMS and was found to have fever of 102.6. He had similar admissions before for urosepsis. He denied any shortness of breath, chest pain, or headache. No any other symptoms. PAST MEDICAL HISTORY: Positive for: 1. Recurrent urinary tract infection. 2. T12 paraplegia. 3. Obesity. 4. Right hip osteomyelitis. 5. Chronic pain syndrome. PAST SURGICAL HISTORY: 1. Right hip surgery. 2. Cholecystectomy. 3. Laparotomy. 4. Nephrectomy. 5. Splenectomy. 6. Right shoulder rotator cuff repair. FAMILY HISTORY: Both parents are alive and doing well, they do not have any medical problems. SOCIAL HISTORY: The patient lives alone. He does not take any illicit drugs. He drinks alcohol from time to time and smokes up to one pack of cigarettes per day. ALLERGIES: CIPRO, LEVAQUIN, LYRICA, REGLAN, ZOFRAN, AND ZYVOX. CURRENT MEDICATIONS: 1. Baclofen 10 mg three times a day. 2. [place] 10/325 mg one tablet three times a day. 3. Klonopin 0.5 mg three times a day. 4. Neurontin 300 mg three times a day. REVIEW OF SYSTEMS: CONSTITUTIONAL: Positive for fever and some chills. EYES: Negative for eye pain and eye discharge. ENT: Negative for nasal congestion or epistaxis. CARDIOVASCULAR: Negative for chest pain or palpitations. RESPIRATORY: Negative for shortness of breath or cough. GI: Positive for vomiting and abdominal/pelvic pain. : Negative for dysuria, but the patient has no feeling from T12 down. The patient does self catheterization. MUSCULOSKELETAL: Positive for pain in his both hips. HEMOLYMPHATIC: Negative for easy bruising or clotting abnormalities. PSYCHIATRIC: Negative for suicidal or homicidal ideations. PHYSICAL EXAMINATION: VITAL SIGNS: His blood pressure is , pulse is 100, respiratory rate is 20, his last temperature was 102.6, pulse oximetry is 100% on room air. HEENT: His head is atraumatic and normocephalic. Eyes, pupils are responding to light properly. Sclerae are nonicteric. Conjunctivae pinkish. Oral mucosa is somewhat dry. NECK: Supple, obese. Thyroid is not palpable. LUNGS: Clear. HEART: S1, S2 normal. No S3. No S4. ABDOMEN: Soft, somewhat tender in the midportion of the pelvic area. No guarding. No masses. EXTREMITIES: No clubbing, cyanosis, or edema. He has status post partial amputation of the right foot and partial amputation of the left foot. His pulses present on both tibialis posterior and dorsalis pedis arteries. They are somewhat diminished. NEUROLOGICAL: He is alert and oriented x4. There is no any cerebellar dysfunction. He has paralysis in both lower extremities. There is no any sensation below T12 and there is no motor function below T12. SKIN: No rash or erythema. LABORATORY DATA: Labs showed white count of 11.4, hemoglobin 14.8, hematocrit 46.4, platelet count is 201. ABGs showed pH of 7.46, pCO2 of 33.6, PO2 of 69.5, base excess -0.1. A-a gradient 38.2. Sodium of 138, potassium 4.3, chloride 106, CO2 of 19, BUN 14, and creatinine 0.69. AST 64. Urinalysis showed moderate of blood; positive nitrites; 2+ urobilinogen; moderate leukocyte esterases; WBCs greater than 52, too numerous to count; bacteria 4+; and 0-3 hyaline casts. Chest x-ray personally reviewed by me did not show any acute abnormalities. CT of the abdomen did not show any acute abnormalities. There is one kidney on the right side and there is some suspicion that he might have some osteomyelitis in both hips. There is some fat straining per radiologist. IMPRESSION: 1. Sepsis, most likely urinary tract infection is the source. This is recurrent problem since he has been a self-catheterizing himself. He is being at much higher risk for UTIs. 2. based on ABGs. Chest x-ray looks normal to me. This could be related to sepsis. 3. Chronic paraplegia at T12. 4. History of right hip osteomyelitis. 5. Suspicion of osteomyelitis of both hips based on the CT findings. 6. Recurrent urinary tract infections. 7. Obesity. PLAN: Full admission to the medical floor. Condition is fair. Activity is bedrest. IV fluids normal saline at 125 mL/h. Blood cultures, urine cultures. The patient was started on Zosyn and vancomycin. We will continue both of those antibiotics. Dr. Edwards was consulted per emergency room physician. We will use Tylenol and ibuprofen p.r.n. to control the temperature and morphine p.r.n. 4 mg every 4 hours as needed for the pain control and we will obtain MRI of both right and left hips. Job ID: [id number]
--- NOTE | 2018-06-07 12:14 | PDOC.PN ---
- Subjective Encounter Start Date: 06/07/18 Encounter Start Time: 10:20 Subjective: c/o pain right hip more than left -: no sob -: stays alone and mobilizes in wheel chair - Objective Resuscitation Status - Order Detail: 06/06/18 07:37 Resuscitation Status Routine Resuscitation Status: FULL: Full Resuscitation MAR Reviewed: Yes Vital Signs & Weight: Vital Signs (12 hours) Temp Pulse Resp BP Pulse Ox 06/07/18 10:41 98.5 F 88 18 144/72 H 96 06/07/18 08:00 97 06/07/18 07:09 98.4 F 76 18 145/87 H 97 06/07/18 04:00 99.6 F 98 18 155/89 H 97 Weight Weight 215 lb 2.738 oz I&O: 06/06/18 06/07/18 06/08/18 06:59 06:59 06:59 Intake Total 1450 2680 Output Total 1100 2675 Balance 350 5 Result Diagrams: 06/07/18 06:55 06/07/18 06:55 Phys Exam - Physical Examination HEENT: PERRLA, moist MMs Neck: no JVD, supple Respiratory: no wheezing, no rales Cardiovascular: RRR, no significant murmur Gastrointestinal: soft, non-tender, positive bowel sounds Musculoskeletal: pulses present, edema present left thigh bigger than right (chronic) Neurological: non-focal paraplegic, moves upper extr freely Psychiatric: A&O x 3 Dx/Plan (1) Osteomyelitis Code(s): M86.9 - OSTEOMYELITIS, UNSPECIFIED Status: Suspected Qualifiers: Osteomyelitis location: femur Laterality: left (2) Obesity Code(s): E66.9 - OBESITY, UNSPECIFIED Status: Chronic (3) Chronic pain syndrome Code(s): G89.4 - CHRONIC PAIN SYNDROME Status: Chronic Comment: Continue home [place] regimen, Baclofen, Gabapentin and Klonopin (4) HTN (hypertension) Code(s): I10 - ESSENTIAL (PRIMARY) HYPERTENSION Status: Chronic Qualifiers: Comment: controlled (5) Neurogenic bladder Code(s): N31.9 - NEUROMUSCULAR DYSFUNCTION OF BLADDER, UNSPECIFIED Status: Chronic Comment: Intermittent bladder catheterizations (6) Paraplegia Code(s): G82.20 - PARAPLEGIA, UNSPECIFIED Status: Chronic Comment: Supportive mgmt - Plan ?septic arthritis left hip, he has more pain in right hip -: ortho opinion -: is on vanc and zosyn -: watch for resp depression, pt on multiple meds which could potentially do * . Review of Systems - Medications/Allergies Allergies/Adverse Reactions: Allergies Allergy/AdvReac Type Severity Reaction Status Date / Time ciprofloxacin [From Cipro] Allergy Severe Anaphylaxis Verified 04/20/18 06:28 levofloxacin [From Levaquin] Allergy Severe Anaphylaxis Verified 04/20/18 06:28 ondansetron HCl Allergy Severe Short of Verified 04/20/18 06:28 [From Zofran (as Breath hydrochloride)] fluconazole Allergy Rash Verified 04/20/18 06:28 linezolid [From Zyvox] Allergy Verified 04/20/18 06:28 metoclopramide HCl Allergy Hives Verified 04/20/18 06:28 [From Reglan] pregabalin [From Lyrica] Allergy Verified 04/20/18 06:28 Medications: Current Medications Acetaminophen (Tylenol) 650 mg PO Q6H PRN PRN Reason: Fever > 101 Last Admin: 06/07/18 02:44 Dose: 650 mg Enoxaparin Sodium (Lovenox) 40 mg SC 0900 [facility] Last Admin: 06/07/18 08:04 Dose: 40 mg Piperacillin Sod/Tazobactam (Sod 3.375 gm/ Sodium Chloride) 100 mls @ 200 mls/ hr IVPB 0200,0800,1400,2000 [facility] Last Admin: 06/07/18 08:04 Dose: 100 mls Vancomycin HCl 1.5 gm/ Sodium (Chloride) 300 mls @ 200 mls/hr IVPB 0300,1500 [facility] Last Admin: 06/07/18 03:59 Dose: 300 mls Sodium Chloride (1/2 Normal Saline) 1,000 mls @ 125 mls/hr IV .Q8H [facility] Ibuprofen (Motrin) 600 mg PO Q6H PRN PRN Reason: Fever > 101 Last Admin: 06/06/18 21:55 Dose: 600 mg Morphine Sulfate (Morphine) 4 mg SLOW IVP Q4H PRN PRN Reason: Pain Last Admin: 06/07/18 08:01 Dose: 4 mg Promethazine HCl (Phenergan 6.25 Mg/5ml Syrup) 6.25 mg PO Q6H PRN PRN Reason: Nausea/Vomiting Last Admin: 06/07/18 04:00 Dose: 6.25 mg
[2018-06-07] MEDS: Baclofen 10 MG TAB PO SCH ×2 (14:25→21:14)
[2018-06-07] MEDS: Gabapentin 300 MG CAP PO SCH ×2 (14:25→21:14)
[2018-06-07] MEDS: clonazePAM 0.5 MG TAB PO PRN ×2 (14:35→22:41)
[2018-06-07 15:14] LABS: Vancomycin, Trough 21.8 ug/mL
[2018-06-07] MEDS: HYDROcodone/Acetaminophen 10/325 mg Tablet PO PRN (16:05)
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
[2018-06-07] MEDS: Ibuprofen 600 MG TAB PO PRN (22:41)
[2018-06-08] MEDS: Piperacillin/Tazobactam 3.375 GM in Sodium Chloride 0.9% 100 ML IVPB SCH ×4 (03:21→20:31)
[2018-06-08] MEDS: Vancomycin HCl 1.5 GM in Sodium Chloride 0.9% 250 ML 300 ML IVPB SCH ×2 (03:21→16:45)
[2018-06-08] MEDS: Morphine 4 MG/ML VIAL SLOW IVP PRN ×4 (03:26→20:33)
[2018-06-08 06:12] LABS: Anion Gap 11 mmol/L (10-20); BUN (Urea Nitrogen) 10 mg/dL (8.9-20.6); Calc. Creatinine Clearance 191 mL/min (70-130); Calcium 8.3 mg/dL (7.8-10.44); Carbon Dioxide 22 mmol/L (22-29); Chloride 109 mmol/L (98-107); Estimated GFR-MDRD Greater than 90; Glucose 126 mg/dL (70-105); Potassium 3.7 mmol/L (3.5-5.1); Sodium 138 mmol/L (136-145)
[2018-06-08 06:13] LABS: Hemoglobin 13.1 g/dL (14.0-18.0); Hypochromia SLIGHT = 6-15 cells (100X) (0-5/hpf); Lymphocytes 18 % (21-51); MDiff Complete? YES; Mean Corpuscular HGB CONC 32.6 g/dL (32.0-36.0); Mean Corpuscular Hemoglobin 32.5 pg (27.0-31.0); Mean Corpuscular Volume 99.7 fL (78.0-98.0); Mean Platelet Volume 7.5 fL (7.4-10.4); Monocytes 6 % (0-10); Neutrophil 70 % (42-75); Platelet Count 191 thou/uL (130-400); Platelet Morphology Comment Appears Adequate; Polychromasia SLIGHT = 2-3 cells (100X) (0-2/hpf); Reactive Lymphocytes 6 % (0-10); Red Blood Cell (RBC) Count 4.02 mill/uL (4.70-6.10); White Blood Cell (WBC) Count 9.2 thou/uL (4.8-10.8)
[2018-06-08] MEDS: Baclofen 10 MG TAB PO SCH ×3 (08:34→20:32)
[2018-06-08] MEDS: Gabapentin 300 MG CAP PO SCH ×3 (08:34→20:32)
[2018-06-08] MEDS: Enoxaparin Sodium 40 MG/0.4 ML SYRINGE SC SCH (08:37)
--- NOTE | 2018-06-08 10:51 | PDOC.PN ---
- Subjective Encounter Start Date: 06/08/18 Encounter Start Time: 07:45 Subjective: has pain in his hips but slightly better -: no sob - Objective Resuscitation Status - Order Detail: 06/06/18 07:37 Resuscitation Status Routine Resuscitation Status: FULL: Full Resuscitation MAR Reviewed: Yes Vital Signs & Weight: Vital Signs (12 hours) Temp Pulse Resp BP Pulse Ox 06/08/18 07:20 98.4 F 80 18 132/81 96 06/08/18 03:27 99.3 F 88 18 116/75 98 06/07/18 23:45 101 F H 100 20 136/85 99 Weight Weight 215 lb 2.738 oz I&O: 06/07/18 06/08/18 06/09/18 06:59 06:59 06:59 Intake Total 1450 5915 Output Total 1100 6325 Balance 350 -410 Result Diagrams: 06/08/18 05:36 06/08/18 05:36 Phys Exam - Physical Examination HEENT: PERRLA, moist MMs Neck: no JVD, supple Respiratory: no wheezing, no rales Cardiovascular: RRR, no significant murmur Gastrointestinal: soft, non-tender, positive bowel sounds Musculoskeletal: pulses present, edema present Neurological: non-focal paraplegia+ Psychiatric: normal affect, A&O x 3 Dx/Plan (1) Osteomyelitis Code(s): M86.9 - OSTEOMYELITIS, UNSPECIFIED Status: Suspected Qualifiers: Osteomyelitis location: femur Laterality: left (2) Obesity Code(s): E66.9 - OBESITY, UNSPECIFIED Status: Chronic (3) Chronic pain syndrome Code(s): G89.4 - CHRONIC PAIN SYNDROME Status: Chronic Comment: Continue home [place] regimen, Baclofen, Gabapentin and Klonopin (4) HTN (hypertension) Code(s): I10 - ESSENTIAL (PRIMARY) HYPERTENSION Status: Chronic Qualifiers: Comment: controlled (5) Neurogenic bladder Code(s): N31.9 - NEUROMUSCULAR DYSFUNCTION OF BLADDER, UNSPECIFIED Status: Chronic Comment: Intermittent bladder catheterizations (6) Paraplegia Code(s): G82.20 - PARAPLEGIA, UNSPECIFIED Status: Chronic Comment: Supportive mgmt (7) UTI (urinary tract infection) Status: Acute Qualifiers: Urinary tract infection type: acute cystitis Hematuria presence: without hematuria Qualified Code(s): N30.00 - Acute cystitis without hematuria - Plan is on vanc and zosyn -: for IR asp of hips for culture and microscopy -: is on baclofen, klonopin, gabapentin and morphine prn -: watch for resp depression * . Review of Systems - Medications/Allergies Allergies/Adverse Reactions: Allergies Allergy/AdvReac Type Severity Reaction Status Date / Time ciprofloxacin [From Cipro] Allergy Severe Anaphylaxis Verified 04/20/18 06:28 levofloxacin [From Levaquin] Allergy Severe Anaphylaxis Verified 04/20/18 06:28 ondansetron HCl Allergy Severe Short of Verified 04/20/18 06:28 [From Zofran (as Breath hydrochloride)] fluconazole Allergy Rash Verified 04/20/18 06:28 linezolid [From Zyvox] Allergy Verified 04/20/18 06:28 metoclopramide HCl Allergy Hives Verified 04/20/18 06:28 [From Reglan] pregabalin [From Lyrica] Allergy Verified 04/20/18 06:28 Medications: Current Medications Acetaminophen (Tylenol) 650 mg PO Q6H PRN PRN Reason: Fever > 101 Last Admin: 06/07/18 02:44 Dose: 650 mg Hydrocodone Bitart/Acetaminophen ([place] 10/325) 1 tab PO TID PRN PRN Reason: Pain Last Admin: 06/07/18 16:05 Dose: 1 tab Baclofen (Lioresal) 10 mg PO TID [facility] Last Admin: 06/08/18 08:34 Dose: 10 mg Clonazepam (Klonopin) 0.5 mg PO TID PRN PRN Reason: Anxiety/Agitation Last Admin: 06/07/18 22:41 Dose: 0.5 mg Enoxaparin Sodium (Lovenox) 40 mg SC 0900 [facility] Last Admin: 06/08/18 08:37 Dose: 40 mg Gabapentin (Neurontin) 300 mg PO TID [facility] Last Admin: 06/08/18 08:34 Dose: 300 mg Piperacillin Sod/Tazobactam (Sod 3.375 gm/ Sodium Chloride) 100 mls @ 200 mls/ hr IVPB 0200,0800,1400,2000 [facility] Last Admin: 06/08/18 08:35 Dose: 100 mls Vancomycin HCl 1.5 gm/ Sodium (Chloride) 300 mls @ 200 mls/hr IVPB 0300,1500 [facility] Last Admin: 06/08/18 03:21 Dose: 300 mls Ibuprofen (Motrin) 600 mg PO Q6H PRN PRN Reason: Fever > 101 Last Admin: 06/07/18 22:41 Dose: 600 mg Morphine Sulfate (Morphine) 2 mg SLOW IVP Q4H PRN PRN Reason: Pain Last Admin: 06/08/18 08:42 Dose: 2 mg
--- NOTE | 2018-06-08 13:59 | CT ---
CT GUIDED LEFT HIP ASPIRATION: Date: 06/08/18 HISTORY: Concern for septic hip. Large joint effusion noted on recent CT. FINDINGS: After informed consent was obtained, the patient was prepped and draped in the normal sterile fashion . Local anesthesia obtained with 1% Xylocaine. A 20 gauge spinal needle was used for the hip aspirati on. A total of 30 mL of blood-tinged fluid was obtained. The patient tolerated the procedure well. Th ere were no immediate complications. IMPRESSION: CT directed aspiration of 30 mL of mildly blood-tinged fluid obtained from the left hip. No immediate complications of the procedure. Specimen sent to lab for assessment. POS: JEANNINE
[2018-06-08] MEDS: Ibuprofen 600 MG TAB PO PRN (20:32)
[2018-06-08] MEDS: clonazePAM 0.5 MG TAB PO PRN (20:32)
[2018-06-09] MEDS: Vancomycin HCl 1.5 GM in Sodium Chloride 0.9% 250 ML 300 ML IVPB SCH (02:58)
[2018-06-09] MEDS: Piperacillin/Tazobactam 3.375 GM in Sodium Chloride 0.9% 100 ML IVPB SCH ×4 (02:58→20:34)
[2018-06-09] MEDS: Morphine 4 MG/ML VIAL SLOW IVP PRN ×3 (03:01→14:50)
[2018-06-09] MEDS: Enoxaparin Sodium 40 MG/0.4 ML SYRINGE SC SCH (09:21)
[2018-06-09] MEDS: Baclofen 10 MG TAB PO SCH ×3 (09:21→20:36)
[2018-06-09] MEDS: Gabapentin 300 MG CAP PO SCH ×3 (09:22→20:36)
--- NOTE | 2018-06-09 09:34 | CON ---
DATE OF CONSULTATION: 06/09/2018 CHIEF COMPLAINT: Right flank pain. HISTORY OF PRESENT ILLNESS: Mr. Chandra is a paraplegic male. He has a history of recurrent urinary tract infections. He has also had previous right hip infection. Ten years ago, he had resection of his right hip. Dr. Edwards knows the patient well and is seeing him. He presented two days ago with evidence of sepsis. He was having fevers and chills as well. He has been found to have a urinary tract infection with Citrobacter. MRI of the pelvis was obtained, which showed fluid on the left hip. This was aspirated yesterday. Serous fluid was obtained and sent for Gram stain and culture. The patient has been on intravenous antibiotics, broad spectrum. I know the patient from previous treatment as well. I repaired his rotator cuff several years ago. PAST MEDICAL HISTORY: Includes paraplegia from the age of [age], previous bladder surgery for neurogenic bladder. PAST SURGICAL HISTORY: Splenectomy, previous C2 fusion, previous bladder surgery, and port placement. FAMILY MEDICAL HISTORY: Negative. ALLERGIES: CIPRO, LEVOFLOXACIN, AND DIFLUCAN. SOCIAL HISTORY: The patient smokes cigarettes occasionally. He lives independently. PHYSICAL EXAMINATION: VITAL SIGNS: Temperature is 98.8, respiratory rate 18, pulse 90, 97% on room air, and blood pressure is 139/91. GENERAL: He is a lying supine. He is alert, no apparent distress. Breathing comfortably. ABDOMEN: Soft, nontender, and nondistended. MUSCULOSKELETAL: The patient's bilateral hips have no significant erythema. No obvious swelling or effusion. There is no significant increased warmth. Gentle hip motion bilaterally is intact passively. He has atrophy of bilateral lower extremities. Upper extremities are well developed. DIAGNOSTIC DATA: Pelvic MRI demonstrates previous resection of right hip with chronic destructive changes. Left hip demonstrates fluid collection, possible underlying osteomyelitis. IMPRESSION: A 37-year-old paraplegic male with urinary tract infection and longstanding destructive changes of hip. PLAN: At this point, the patient has had aspirate of the left hip fluid. This appears to be fairly benign. There is no organisms and no white blood cells on Gram-stain. We will follow cultures on this. Hopefully, this is an inflammatory fluid collection, but does not represent infection. His symptoms could be explained by his urinary tract infection. If the fluid does grow bacteria, we may need to consider irrigation of the left hip, although I think this would be unlikely. Hopefully, he can be treated with intravenous antibiotics. We will continue to follow until cultures are final. No plans for surgery for now. Job ID: [id number]
--- NOTE | 2018-06-09 10:33 | PDOC.PN ---
- Subjective Encounter Start Date: 06/09/18 Encounter Start Time: 09:00 Subjective: c/o off and on fever -: has right loin pain, no hip pain today - Objective Resuscitation Status - Order Detail: 06/06/18 07:37 Resuscitation Status Routine Resuscitation Status: FULL: Full Resuscitation MAR Reviewed: Yes Vital Signs & Weight: Vital Signs (12 hours) Temp Pulse Resp BP Pulse Ox 06/09/18 07:40 98.1 F 74 18 119/77 96 06/09/18 03:17 98.8 F 90 18 139/91 H 97 06/09/18 00:00 98.8 F 99 19 142/87 H 97 Weight Weight 215 lb 2.738 oz I&O: 06/08/18 06/09/18 06/10/18 06:59 06:59 06:59 Intake Total 5915 1260 Output Total 6325 1950 Balance -410 -690 Result Diagrams: 06/08/18 05:36 06/08/18 05:36 Phys Exam - Physical Examination HEENT: PERRLA, moist MMs Neck: no JVD, supple Respiratory: no wheezing, no rales Cardiovascular: RRR, no significant murmur Gastrointestinal: soft, non-tender, positive bowel sounds Musculoskeletal: no edema, pulses present Neurological: non-focal chronic paraplegia Psychiatric: normal affect, A&O x 3 Dx/Plan (1) Osteomyelitis Code(s): M86.9 - OSTEOMYELITIS, UNSPECIFIED Status: Suspected Qualifiers: Osteomyelitis location: femur Laterality: left Comment: await cultures, prelim gm stain from left hip asp is -ve (2) Obesity Code(s): E66.9 - OBESITY, UNSPECIFIED Status: Chronic (3) Chronic pain syndrome Code(s): G89.4 - CHRONIC PAIN SYNDROME Status: Chronic Comment: Continue home [place] regimen, Baclofen, Gabapentin and Klonopin (4) HTN (hypertension) Code(s): I10 - ESSENTIAL (PRIMARY) HYPERTENSION Status: Chronic Qualifiers: Comment: controlled (5) Neurogenic bladder Code(s): N31.9 - NEUROMUSCULAR DYSFUNCTION OF BLADDER, UNSPECIFIED Status: Chronic Comment: Intermittent bladder catheterizations (6) Paraplegia Code(s): G82.20 - PARAPLEGIA, UNSPECIFIED Status: Chronic Comment: Supportive mgmt (7) UTI (urinary tract infection) Status: Acute Qualifiers: Urinary tract infection type: acute cystitis Hematuria presence: without hematuria Qualified Code(s): N30.00 - Acute cystitis without hematuria - Plan is on vanc and zosyn -: baclofen, motrin and gabapentin -: straight cath by patient as before -: hemostable -: tmax 98 last 24hrs, although pt mentions he had 101 last night * . Review of Systems - Medications/Allergies Allergies/Adverse Reactions: Allergies Allergy/AdvReac Type Severity Reaction Status Date / Time ciprofloxacin [From Cipro] Allergy Severe Anaphylaxis Verified 04/20/18 06:28 levofloxacin [From Levaquin] Allergy Severe Anaphylaxis Verified 04/20/18 06:28 ondansetron HCl Allergy Severe Short of Verified 04/20/18 06:28 [From Zofran (as Breath hydrochloride)] fluconazole Allergy Rash Verified 04/20/18 06:28 linezolid [From Zyvox] Allergy Verified 04/20/18 06:28 metoclopramide HCl Allergy Hives Verified 04/20/18 06:28 [From Reglan] pregabalin [From Lyrica] Allergy Verified 04/20/18 06:28 Medications: Current Medications Acetaminophen (Tylenol) 650 mg PO Q6H PRN PRN Reason: Fever > 101 Last Admin: 06/07/18 02:44 Dose: 650 mg Hydrocodone Bitart/Acetaminophen ([place] 10/325) 1 tab PO TID PRN PRN Reason: Pain Last Admin: 06/07/18 16:05 Dose: 1 tab Baclofen (Lioresal) 10 mg PO TID [facility] Last Admin: 06/09/18 09:21 Dose: 10 mg Clonazepam (Klonopin) 0.5 mg PO TID PRN PRN Reason: Anxiety/Agitation Last Admin: 06/08/18 20:32 Dose: 0.5 mg Enoxaparin Sodium (Lovenox) 40 mg SC 0900 [facility] Last Admin: 06/09/18 09:21 Dose: 40 mg Gabapentin (Neurontin) 300 mg PO TID [facility] Last Admin: 06/09/18 09:22 Dose: 300 mg Piperacillin Sod/Tazobactam (Sod 3.375 gm/ Sodium Chloride) 100 mls @ 200 mls/ hr IVPB 0200,0800,1400,2000 [facility] Last Admin: 06/09/18 09:21 Dose: 100 mls Vancomycin HCl 1.5 gm/ Sodium (Chloride) 300 mls @ 200 mls/hr IVPB 0300,1500 [facility] Last Admin: 06/09/18 02:58 Dose: 300 mls Ibuprofen (Motrin) 600 mg PO Q6H PRN PRN Reason: Fever > 101 Last Admin: 06/08/18 20:32 Dose: 600 mg Morphine Sulfate (Morphine) 2 mg SLOW IVP Q4H PRN PRN Reason: Pain Last Admin: 06/09/18 09:24 Dose: 2 mg
[2018-06-09] MEDS ORDERED: Vancomycin HCl 1.5 GM in Sodium Chloride 0.9% 250 ML 300 ML IVPB SCH (15:00)
[2018-06-09 15:24] LABS: Vancomycin, Trough 30.8 ug/mL
[2018-06-09] MEDS ORDERED: Promethazine HCl 25 MG/ML VIAL IM SCH (19:45)
[2018-06-09] MEDS: clonazePAM 0.5 MG TAB PO PRN (20:36)
[2018-06-09] MEDS ORDERED: Promethazine 25 MG TAB PO PRN (20:36)
[2018-06-09] MEDS ORDERED: Morphine 4 MG/ML VIAL SLOW IVP SCH (21:00)
[2018-06-09] MEDS: HYDROcodone/Acetaminophen 10/325 mg Tablet PO PRN (22:00)
[2018-06-10] MEDS: Piperacillin/Tazobactam 3.375 GM in Sodium Chloride 0.9% 100 ML IVPB SCH ×4 (03:05→20:55)
[2018-06-10] MEDS: HYDROcodone/Acetaminophen 10/325 mg Tablet PO PRN (06:58)
[2018-06-10] MEDS: Gabapentin 300 MG CAP PO SCH ×3 (10:21→21:33)
[2018-06-10] MEDS: Promethazine HCl 25 MG/ML VIAL IM/IV PRN ×2 (10:22→16:08)
[2018-06-10] MEDS: Baclofen 10 MG TAB PO SCH ×3 (10:22→21:33)
[2018-06-10] MEDS: Enoxaparin Sodium 40 MG/0.4 ML SYRINGE SC SCH (10:22)
[2018-06-10] MEDS: Morphine 4 MG/ML VIAL SLOW IVP PRN ×2 (10:24→21:31)
--- NOTE | 2018-06-10 11:33 | PDOC.PN ---
- Subjective Encounter Start Date: 06/10/18 Encounter Start Time: 10:00 Subjective: c/o right lower back pain and wants morphine for relief -: has nausea and is allergic to zofran, wants phenergan - Objective Resuscitation Status - Order Detail: 06/06/18 07:37 Resuscitation Status Routine Resuscitation Status: FULL: Full Resuscitation MAR Reviewed: Yes Vital Signs & Weight: Vital Signs (12 hours) Temp Pulse Resp BP Pulse Ox 06/10/18 11:07 98 F 90 18 149/94 H 96 06/10/18 08:08 99.1 F 91 20 151/113 H 98 06/10/18 04:18 99.2 F 84 19 152/90 H 97 06/10/18 00:00 99.5 F 83 19 145/91 H 98 Weight Weight 215 lb 2.738 oz I&O: 06/09/18 06/10/18 06/11/18 06:59 06:59 06:59 Intake Total 1260 2160 Output Total 1950 0 Balance -690 110 Result Diagrams: 06/08/18 05:36 06/08/18 05:36 Phys Exam - Physical Examination HEENT: PERRLA, moist MMs Neck: no JVD, supple Respiratory: no wheezing, no rales Cardiovascular: RRR, no significant murmur Gastrointestinal: soft, non-tender, no distention, positive bowel sounds Musculoskeletal: no edema, pulses present Neurological: non-focal chronic paraplegia Psychiatric: A&O x 3 Dx/Plan (1) Osteomyelitis Code(s): M86.9 - OSTEOMYELITIS, UNSPECIFIED Status: Suspected Qualifiers: Osteomyelitis location: femur Laterality: left Comment: await cultures, prelim gm stain from left hip asp is -ve (2) Obesity Code(s): E66.9 - OBESITY, UNSPECIFIED Status: Chronic (3) Chronic pain syndrome Code(s): G89.4 - CHRONIC PAIN SYNDROME Status: Chronic Comment: Continue home [place] regimen, Baclofen, Gabapentin and Klonopin (4) HTN (hypertension) Code(s): I10 - ESSENTIAL (PRIMARY) HYPERTENSION Status: Chronic Qualifiers: Comment: controlled (5) Neurogenic bladder Code(s): N31.9 - NEUROMUSCULAR DYSFUNCTION OF BLADDER, UNSPECIFIED Status: Chronic Comment: Intermittent bladder catheterizations (6) Paraplegia Code(s): G82.20 - PARAPLEGIA, UNSPECIFIED Status: Chronic Comment: Supportive mgmt (7) UTI (urinary tract infection) Status: Acute Qualifiers: Urinary tract infection type: acute cystitis Hematuria presence: without hematuria Qualified Code(s): N30.00 - Acute cystitis without hematuria - Plan is on zosyn, off vanc -: dc plan likely in am -: home antibiotic per adv -: is on baclofen, gabapentin and norco * . Review of Systems - Medications/Allergies Allergies/Adverse Reactions: Allergies Allergy/AdvReac Type Severity Reaction Status Date / Time ciprofloxacin [From Cipro] Allergy Severe Anaphylaxis Verified 04/20/18 06:28 levofloxacin [From Levaquin] Allergy Severe Anaphylaxis Verified 04/20/18 06:28 ondansetron HCl Allergy Severe Short of Verified 04/20/18 06:28 [From Zofran (as Breath hydrochloride)] fluconazole Allergy Rash Verified 04/20/18 06:28 linezolid [From Zyvox] Allergy Verified 04/20/18 06:28 metoclopramide HCl Allergy Hives Verified 04/20/18 06:28 [From Reglan] pregabalin [From Lyrica] Allergy Verified 04/20/18 06:28 Medications: Current Medications Acetaminophen (Tylenol) 650 mg PO Q6H PRN PRN Reason: Fever > 101 Last Admin: 06/07/18 02:44 Dose: 650 mg Hydrocodone Bitart/Acetaminophen ([place] 10/325) 1 tab PO TID PRN PRN Reason: Pain Last Admin: 06/10/18 06:58 Dose: 1 tab Baclofen (Lioresal) 10 mg PO TID [facility] Last Admin: 06/10/18 10:22 Dose: 10 mg Clonazepam (Klonopin) 0.5 mg PO TID PRN PRN Reason: Anxiety/Agitation Last Admin: 06/09/18 20:36 Dose: 0.5 mg Enoxaparin Sodium (Lovenox) 40 mg SC 0900 [facility] Last Admin: 06/10/18 10:22 Dose: 40 mg Gabapentin (Neurontin) 300 mg PO TID [facility] Last Admin: 06/10/18 10:21 Dose: 300 mg Piperacillin Sod/Tazobactam (Sod 3.375 gm/ Sodium Chloride) 100 mls @ 200 mls/ hr IVPB 0200,0800,1400,2000 [facility] Last Admin: 06/10/18 10:21 Dose: 100 mls Vancomycin HCl 1.5 gm/ Sodium (Chloride) 300 mls @ 200 mls/hr IVPB 0300,1500 [facility] Ibuprofen (Motrin) 600 mg PO Q6H PRN PRN Reason: Fever > 101 Last Admin: 06/08/18 20:32 Dose: 600 mg Morphine Sulfate (Morphine) 2 mg SLOW IVP Q4H PRN PRN Reason: CP/BP Last Admin: 06/10/18 10:24 Dose: 2 mg Promethazine HCl (Phenergan) 25 mg IM/IV Q6H PRN PRN Reason: Nausea/Vomiting Last Admin: 06/10/18 10:22 Dose: 25 mg Sodium Chloride (Flush - Normal Saline) 10 ml IVF Q12HR [facility] Sodium Chloride (Flush - Normal Saline) 10 ml IVF PRN PRN PRN Reason: Saline Flush
--- NOTE | 2018-06-10 15:24 | PQF ---
CLINICAL DOCUMENTATION IMPROVEMENT CLARIFICATION FORM: ICD-10 Updated PLEASE DO AN ADDENDUM TO THE PROGRESS NOTE WITH ANY DOCUMENTATION UPDATES OR ADDITIONS AND CARRY THROUGH TO DC SUMMARY. THANK YOU. DATE: 06/10/2018 ATTN: Dr. Shine Please exercise your independent, professional judgment in responding to the clarification form. Clinical indicators are provided on the bottom of this form for your review Please check appropriate box(es): [ x ] Sepsis due to UTI due to self-catheterization. [ ] Sepsis due to UTI not due to self-catheterization. [ ] Sepsis due to [ ] Localized infection without sepsis [ ] Other diagnosis [ ] Unable to determine In addition, please specify: Present on Admission (POA): [x ] Yes [ ] No [ ] Unable to determine For continuity of documentation, please document condition throughout progress notes and discharge summary. Thank You. CLINICAL INDICATORS - SIGNS / SYMPTOMS / LABS H&P 06/06: Found to have fever of 102.6 pulse 100 Sepsis, most likely urinary tract infection is the source PN 06/09: Osteomyelitis. Suspected Await cultures, prelim gm stain from l hip asp is -ve UTI. Acute cystitis without hematuria. 06/09: (Del[place]) He has been found to have a urinary tract infection with Citrobacter. RISKS: H&P 06/06: Hx positive for: Recurrent urinary tract infection. T12 Paraplegia. Obesity. Right hip osteomyelitis. The pt does self catheterizations. PN 06/10: Neurogenic bladder, chronic. Intermittent bladder catheterizations TREATMENT: ID Consult Order 06/06: IV Zosyn 3.375gm Thank you, Beatriz (This form is maintained as a part of the permanent medical record) 2014 [employer]. All Rights Reserved Beatriz Christie RN, BSN [email or web address] Office: [phone] [facility]
[2018-06-10] MEDS ORDERED: Promethazine HCl 25 MG in Sodium Chloride 0.9% 50 ML IVPB PRN (20:58)
[2018-06-10] MEDS: Ibuprofen 600 MG TAB PO PRN (21:31)
[2018-06-11] MEDS: Piperacillin/Tazobactam 3.375 GM in Sodium Chloride 0.9% 100 ML IVPB SCH ×4 (02:26→20:18)
[2018-06-11] MEDS: Morphine 4 MG/ML VIAL SLOW IVP PRN ×3 (07:09→20:27)
[2018-06-11] MEDS: Promethazine HCl 25 MG/ML VIAL IM/IV PRN ×2 (07:40→20:19)
[2018-06-11] MEDS: Baclofen 10 MG TAB PO SCH ×3 (07:41→20:18)
[2018-06-11] MEDS: Gabapentin 300 MG CAP PO SCH ×3 (07:41→20:18)
[2018-06-11] MEDS: Enoxaparin Sodium 40 MG/0.4 ML SYRINGE SC SCH (07:41)
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
[2018-06-12] MEDS: Morphine 4 MG/ML VIAL SLOW IVP PRN ×4 (01:31→20:41)
[2018-06-12] MEDS: Vancomycin HCl 1.5 GM in Sodium Chloride 0.9% 250 ML 300 ML IVPB SCH ×2 (01:37→01:38)
[2018-06-12] MEDS: Promethazine HCl 25 MG/ML VIAL IM/IV PRN ×4 (02:55→20:41)
[2018-06-12] MEDS: Piperacillin/Tazobactam 3.375 GM in Sodium Chloride 0.9% 100 ML IVPB SCH ×4 (02:55→20:37)
[2018-06-12] MEDS: clonazePAM 0.5 MG TAB PO PRN (03:42)
[2018-06-12] MEDS: Ibuprofen 600 MG TAB PO PRN (03:42)
[2018-06-12] MEDS: Gabapentin 300 MG CAP PO SCH ×3 (09:26→20:37)
[2018-06-12] MEDS: Baclofen 10 MG TAB PO SCH ×3 (09:26→20:37)
[2018-06-12] MEDS: Enoxaparin Sodium 40 MG/0.4 ML SYRINGE SC SCH (09:26)
--- NOTE | 2018-06-12 14:55 | PDOC.PN ---
- Subjective Encounter Start Date: 06/12/18 Encounter Start Time: 13:53 Subjective: No new problem. Still complaining of right flank pain. -: No fever, SOB or change in bowel habit - Objective Resuscitation Status - Order Detail: 06/06/18 07:37 Resuscitation Status Routine Resuscitation Status: FULL: Full Resuscitation MAR Reviewed: Yes Vital Signs & Weight: Vital Signs (12 hours) Temp Pulse Resp BP Pulse Ox 06/12/18 12:15 97.7 F 81 20 134/85 96 06/12/18 08:00 96 06/12/18 07:49 98.7 F 85 18 114/75 96 06/12/18 04:29 99.5 F 75 20 160/103 H 98 Weight Weight 215 lb 2.738 oz I&O: 06/11/18 06/12/18 06/13/18 06:59 06:59 06:59 Intake Total 2880 2860 Output Total 1750 2600 Balance 1130 260 Result Diagrams: 06/08/18 05:36 06/08/18 05:36 Phys Exam - Physical Examination HEENT: PERRLA, moist MMs, sclera anicteric Neck: supple Respiratory: no wheezing, no rhonchi Cardiovascular: RRR, no significant murmur, no rub Gastrointestinal: soft, non-tender, no distention, positive bowel sounds Musculoskeletal: no edema disuse atrophy of lower extemities with deformity noted Psychiatric: normal affect, A&O x 3 Deviation from normal: Paraplegic. Dx/Plan (1) Sepsis Code(s): A41.9 - SEPSIS, UNSPECIFIED ORGANISM Status: Acute Comment: Due to citrobacter UTI/pyelonephritis (2) Pyelonephritis Code(s): N12 - TUBULO-INTERSTITIAL NEPHRITIS, NOT SPCF ACUTE OR CHRONIC Status: Acute Comment: morphine prn for pain. IV rocephin. Will await culture and sensitive. Likely discharge patient tomorrow on PO antibiotics. (3) Complicated UTI (urinary tract infection) Code(s): N39.0 - URINARY TRACT INFECTION, SITE NOT SPECIFIED Status: Acute Comment: Urine culture grew citrobacter. Complicated UTI related to catheter (4) Joint effusion of lower extremity Code(s): M25.40 - EFFUSION, UNSPECIFIED JOINT Status: Acute Comment: Concerning for septic arthritis. s/p left hip aspiration which is no growth so far. ID following. (5) Chronic hepatitis C Code(s): B18.2 - CHRONIC VIRAL HEPATITIS C Status: Chronic Qualifiers: Comment: patient refused to be treated. Will continue to monitor . (6) Paraplegia following spinal cord injury Code(s): G82.20 - PARAPLEGIA, UNSPECIFIED Status: Acute (7) Chronic pain after traumatic injury Code(s): G89.29 - OTHER CHRONIC PAIN Status: Acute (8) Neurogenic bladder Code(s): N31.9 - NEUROMUSCULAR DYSFUNCTION OF BLADDER, UNSPECIFIED Status: Chronic Comment: Intermittent bladder catheterizations - Plan Continue current antibiotics. -: Defer antibiotic choice and duration to ID -: For discharge once cleared by ID -: Follow joint aspirate culture * .
[2018-06-13] MEDS: Morphine 4 MG/ML VIAL SLOW IVP PRN ×4 (03:25→20:30)
[2018-06-13] MEDS: Promethazine HCl 25 MG/ML VIAL IM/IV PRN ×4 (03:25→22:43)
[2018-06-13] MEDS: Piperacillin/Tazobactam 3.375 GM in Sodium Chloride 0.9% 100 ML IVPB SCH ×4 (03:26→20:27)
[2018-06-13] MEDS: Gabapentin 300 MG CAP PO SCH ×3 (08:44→20:28)
[2018-06-13] MEDS: Baclofen 10 MG TAB PO SCH ×3 (08:45→20:28)
[2018-06-13] MEDS: Enoxaparin Sodium 40 MG/0.4 ML SYRINGE SC SCH (08:45)
--- NOTE | 2018-06-13 14:17 | PDOC.PN ---
- Subjective Encounter Start Date: 06/13/18 Encounter Start Time: 14:15 Mr. Chandra was seen today in follow-up of complicated UTI. He says he still notes a low grade temperature, and doesn't feel quite himself. - Objective Resuscitation Status - Order Detail: 06/06/18 07:37 Resuscitation Status Routine Resuscitation Status: FULL: Full Resuscitation MAR Reviewed: Yes Vital Signs & Weight: Vital Signs (12 hours) Temp Pulse Resp BP Pulse Ox 06/13/18 12:00 98.7 F 84 16 137/87 95 06/13/18 08:45 98 06/13/18 07:38 99.8 F H 91 22 H 138/83 98 Weight Weight 215 lb 2.738 oz I&O: 06/12/18 06/13/18 06/14/18 06:59 06:59 06:59 Intake Total 2860 2550 Output Total 2600 2000 Balance 260 550 Result Diagrams: 06/08/18 05:36 06/08/18 05:36 Phys Exam - Physical Examination HEENT: PERRLA Respiratory: no wheezing, no rales, no rhonchi, clear to auscultation bilateral Cardiovascular: RRR, no significant murmur, no rub Gastrointestinal: soft, non-tender, positive bowel sounds Musculoskeletal: no edema, pulses present Dx/Plan (1) Paraplegia following spinal cord injury Code(s): G82.20 - PARAPLEGIA, UNSPECIFIED Status: Acute (2) Obesity Code(s): E66.9 - OBESITY, UNSPECIFIED Status: Chronic (3) Complicated UTI (urinary tract infection) Code(s): N39.0 - URINARY TRACT INFECTION, SITE NOT SPECIFIED Status: Acute Comment: Urine culture grew citrobacter. Complicated UTI related to catheter - Plan * Complicated UTI- urine culture is growing Citrobacter Freundii- this is sensitive to Bactrim * Joint aspirate culture has been negative so far * Likely home tomorrow on Bactrim- length of therpay to be determined by Dr. Edwards.
[2018-06-14] MEDS: Piperacillin/Tazobactam 3.375 GM in Sodium Chloride 0.9% 100 ML IVPB SCH ×4 (01:57→21:01)
[2018-06-14] MEDS: Morphine 4 MG/ML VIAL SLOW IVP PRN ×5 (01:58→21:02)
[2018-06-14] MEDS: Promethazine HCl 25 MG/ML VIAL IM/IV PRN ×3 (05:28→21:01)
[2018-06-14] MEDS: Baclofen 10 MG TAB PO SCH ×3 (08:28→21:00)
[2018-06-14] MEDS: Gabapentin 300 MG CAP PO SCH ×3 (08:28→21:01)
[2018-06-14] MEDS: Enoxaparin Sodium 40 MG/0.4 ML SYRINGE SC SCH (08:28)
--- NOTE | 2018-06-14 10:19 | PDOC.PN ---
- Subjective Encounter Start Date: 06/14/18 Encounter Start Time: 10:17 Mr. Chandra was seen in follow-up of UTI . He says he continues to have some pain on the right side. He also noted some swelling in his left thigh, he says it feels royal, and harder. Patient says he feels weak, and is not sure if he can transfer himself the wasy he was prior to being admitted to the hospital. - Objective Resuscitation Status - Order Detail: 06/06/18 07:37 Resuscitation Status Routine Resuscitation Status: FULL: Full Resuscitation MAR Reviewed: Yes Vital Signs & Weight: Vital Signs (12 hours) Temp Pulse Resp BP Pulse Ox 06/14/18 08:37 93 152/94 H 06/14/18 07:53 99.1 F 90 16 162/109 H 97 06/14/18 04:00 99.6 F 102 H 18 162/92 H 96 06/14/18 00:00 98.6 F 89 18 144/87 H 97 Weight Weight 215 lb 2.738 oz I&O: 06/13/18 06/14/18 06/15/18 06:59 06:59 06:59 Intake Total 2550 2470 Output Total 2000 2300 Balance 550 170 Result Diagrams: 06/08/18 05:36 06/08/18 05:36 Phys Exam - Physical Examination Respiratory: no wheezing, no rales, no rhonchi, clear to auscultation bilateral Cardiovascular: RRR, no significant murmur, no rub Gastrointestinal: soft, non-tender, positive bowel sounds Musculoskeletal: edema present Left thigh is larger than right, no erythema no warmth Dx/Plan (1) Paraplegia following spinal cord injury Code(s): G82.20 - PARAPLEGIA, UNSPECIFIED Status: Acute (2) Obesity Code(s): E66.9 - OBESITY, UNSPECIFIED Status: Chronic (3) Complicated UTI (urinary tract infection) Code(s): N39.0 - URINARY TRACT INFECTION, SITE NOT SPECIFIED Status: Acute Comment: Urine culture grew citrobacter. Complicated UTI related to catheter - Plan * Left lower extremity swelling- will check a venous ultrasound * UTI- will continue Zosyn, and await further recommendations from ID. * Possible Deconditioning- will consult PT for assessment
--- NOTE | 2018-06-14 12:20 | ULT ---
VENOUS DOPPLER ULTRASOUND OF THE LEFT LOWER EXTREMITY: Date: 06/14/18 HISTORY: Left lower extremity edema. TECHNIQUE: Garcia scale ultrasound with color flow and spectral Doppler imaging of the deep venous system of the l eft lower extremity was performed. FINDINGS: There is good flow, compression, and augmentation noted in the left common femoral, femoral, deep fem oral, popliteal, posterior tibial, and greater saphenous veins. IMPRESSION: No evidence of deep venous thrombosis in the left lower extremity. POS: C
--- NOTE | 2018-06-14 18:49 | DIS ---
DATE OF ADMISSION: 06/06/2018 DATE OF DISCHARGE: 06/14/2018 PRIMARY CARE PHYSICIAN: Dr. Arnold Navarro. DISCHARGE DISPOSITION: Home. PRIMARY DISCHARGE DIAGNOSES: 1. Urinary tract infection with sepsis. 2. T12 paraplegia. 3. Obesity. 4. History of chronic right hip osteomyelitis. 5. Chronic pain syndrome. DISCHARGE MEDICATIONS: Include; 1. Bactrim DS one tablet twice a day for two weeks. 2. [place] 10/325 one tablet three times a day as needed. 3. Neurontin 300 mg t.i.d. 4. Klonopin 0.5 mg t.i.d. 5. Baclofen 10 mg t.i.d. PROCEDURES: Procedures done during the admission: The patient had a CT scan of the abdomen and pelvis, in which there was no acute intraabdominal or pelvic abnormality. There was some abnormal soft tissue stranding and fluid within the regions of the hip bilaterally. The patient had a CT-guided needle aspiration of the hip. The patient also had a lower extremity venous Doppler, which was negative for DVT. CODE STATUS: Full code. ALLERGIES: TO CIPROFLOXACIN, LEVOFLOXACIN, ONDANSETRON, FLUCONAZOLE, REGLAN, ZYVOX, AND PREGABALIN. HOSPITAL COURSE: Mr. Chandra is a pleasant 37-year-old gentleman, who was admitted to the hospital after he noted fever and back pain. Given his complicated history of recurrent urinary tract infections due to neurogenic bladder from paraplegia as well as he has a history of chronic osteomyelitis in the hips, a CT scan of the abdomen and pelvis was done to help to address the fever. There were some findings concerning for possible osteomyelitis in the hips, and for this reason, Dr. Edwards was consulted. The patient is well known to Dr. Edwards and he has seen him regularly in the past, and it was felt that a lot of these changes were chronic changes that were well documented and treated in the past. However, an aspirate of the hip was recommended to make sure that there was no evidence of active septic arthritis. The results of this were sent for culture, which were negative after at least 4 to 5 days of growth. Urinalysis did grow bacteria called Citrobacter freundii, which was sensitive to Bactrim, and Dr. Edwards recommended discharging him home on this antibiotic and close outpatient followup. Job ID: [id number]
[2018-06-15] MEDS: Piperacillin/Tazobactam 3.375 GM in Sodium Chloride 0.9% 100 ML IVPB SCH ×3 (02:00→14:04)
[2018-06-15] MEDS: Morphine 4 MG/ML VIAL SLOW IVP PRN ×2 (02:01→12:23)
[2018-06-15] MEDS: Promethazine HCl 25 MG/ML VIAL IM/IV PRN ×2 (02:01→08:22)
--- NOTE | 2018-06-15 07:37 | PDOC.EVN ---
Event Note - Event Note Event Note: Patient's discharge was held as patient will be screened for long-term due to upper extremity deconditioning.
[2018-06-15] MEDS: Enoxaparin Sodium 40 MG/0.4 ML SYRINGE SC SCH (08:21)
[2018-06-15] MEDS: Gabapentin 300 MG CAP PO SCH (08:22)
[2018-06-15] MEDS: HYDROcodone/Acetaminophen 10/325 mg Tablet PO PRN (08:22)
[2018-06-15] MEDS: Baclofen 10 MG TAB PO SCH (08:22)
[2018-06-15 11:30] VITALS: BP 146/93; TEMP 98.5
== END 2018-06-15 15:25 | disposition home or self-care (01) | DRG 698 ==
LOC: ERS 23:50 → ERHOLD 06-06 02:23 → SURG B 06-06 11:45
PROVIDERS: ADMIT Internal Medicine; ATTEND Internal Medicine
PROC: 0S9B3ZX Drainage of Left Hip Joint, Percutaneous Approach, Diagnostic (ICD-10-PCS; principal; 2018-06-08)
DX: T83.511A Infection and inflammatory reaction due to indwelling urethral catheter, initial encounter (principal); A41.9 Sepsis, unspecified organism; G82.20 Paraplegia, unspecified; M86.8X8 Other osteomyelitis, other site; N30.00 Acute cystitis without hematuria; E66.9 Obesity, unspecified; G89.4 Chronic pain syndrome; N31.9 Neuromuscular dysfunction of bladder, unspecified; I10 Essential (primary) hypertension; M25.40 Effusion, unspecified joint; B18.2 Chronic viral hepatitis C; Z90.49 Acquired absence of other specified parts of digestive tract; Z90.81 Acquired absence of spleen
CPT/HCPCS: 36415; 51701; 71045; 72197; 74177; 77002; 77012; 80048; 80053; 80202; 81003; 81015; 82805; 83605; 85025; 87040; 87070; 87077; 87086; 87186; 87205; 87804; 96361; 96365; 96366; 96367; 96375; 96376; A9577; J1642; J1650; J1885; J2270; J2543; J2550; J3370; J3490; J7050; Q9966

== ENCOUNTER 2018-08-08 16:33 | Inpatient (IN) | payer MEDICARE, MEDICAID ==
[2018-08-08] MEDS ORDERED: Acetaminophen 325 MG TAB PO PRN (17:56)
[2018-08-08] MEDS ORDERED: Senokot S 8.6-50 MG TAB PO PRN (17:56)
[2018-08-08 19:43] VITALS: BMI 32.7
[2018-08-08] MEDS: Sodium Chloride 0.9% 1,000 ML IV SCH (20:32)
[2018-08-08] MEDS: Famotidine 20 MG TAB PO SCH (20:37)
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
[2018-08-09] MEDS: Piperacillin/Tazobactam 3.375 GM in Sodium Chloride 0.9% 100 ML IVPB SCH ×4 (00:21→21:56)
[2018-08-09] MEDS: Vancomycin HCl 1.5 GM in Sodium Chloride 0.9% 250 ML 300 ML IVPB SCH ×3 (00:24→17:22)
[2018-08-09] MEDS: Promethazine HCl 25 MG in Sodium Chloride 0.9% 50 ML IVPB PRN ×3 (00:57→23:32)
[2018-08-09] MEDS: HYDROcodone/Acetaminophen 5/325 mg Tablet PO PRN (03:11)
[2018-08-09] MEDS: Sodium Chloride 0.9% 1,000 ML IV SCH ×2 (03:16→14:31)
[2018-08-09 05:55] LABS: #Eosinphils 0.1 thou/uL (0.0-0.7); #Lymphocytes 2.2 thou/uL (1.20-3.40); #Monocytes 0.7 thou/uL (0.11-0.59); #Neutrophils 6.9 thou/uL (1.40-6.50); %Basophils 0.5 % (0.0-1.0); %Eosinophils 0.9 % (0.0-10.0); %Monocytes 6.7 % (0.0-10.0); %Neutrophils 69.8 % (42.0-75.0); Hemoglobin 14.3 g/dL (14.0-18.0); Mean Corpuscular Volume 99.9 fL (78.0-98.0); Platelet Count 168 thou/uL (130-400); RBC Distribution Width 12.6 % (11.5-14.5); Red Blood Cell (RBC) Count 4.33 mill/uL (4.70-6.10); White Blood Cell (WBC) Count 9.9 thou/uL (4.8-10.8)
[2018-08-09] MEDS: Ketorolac Tromethamine 30 MG/ML VIAL IVP PRN ×3 (05:55→21:57)
[2018-08-09 06:15] LABS: ALT (SGPT) 41 U/L (8-55); AST (SGOT) 55 U/L (5-34); Albumin 2.8 g/dL (3.5-5.0); Alkaline Phosphatase 106 U/L (40-150); Anion Gap 11 mmol/L (10-20); BUN (Urea Nitrogen) 14 mg/dL (8.9-20.6); Bilirubin, Total 1.3 mg/dL (0.2-1.2); Calc. Creatinine Clearance 216 mL/min (70-130); Calcium 8.2 mg/dL (7.8-10.44); Carbon Dioxide 21 mmol/L (22-29); Chloride 111 mmol/L (98-107); Estimated GFR-MDRD Greater than 90; Globulin 3.3 g/dL (2.4-3.5); Glucose 78 mg/dL (70-105); Potassium 3.8 mmol/L (3.5-5.1); Protein, Total 6.1 g/dL (6.0-8.3); Sodium 139 mmol/L (136-145)
[2018-08-09] MEDS: Enoxaparin Sodium 40 MG/0.4 ML SYRINGE SC SCH (09:43)
[2018-08-09] MEDS: Famotidine 20 MG TAB PO SCH ×3 (09:43→21:40)
[2018-08-09] MEDS ORDERED: Calcium Carbonate 500 MG ChewTAB PO PRN (11:07)
[2018-08-09] MEDS ORDERED: Eucerin (Mineral Oil/Petrolatum,White) 30 gm Jar TOP PRN (11:07)
[2018-08-09] MEDS ORDERED: hydrALAZINE 20 MG/ML VIAL SLOW IVP PRN (11:07)
[2018-08-09] MEDS ORDERED: Metoclopramide HCl 10 MG/2 ML VIAL IVP PRN (11:07)
[2018-08-09] MEDS ORDERED: Artificial Tears 18 DROP/0.9 ML EA EYE PRN (11:07)
[2018-08-09] MEDS ORDERED: Diabetic Tussin 200 MG/10 ML UDCUP PO PRN (11:07)
[2018-08-09] MEDS ORDERED: Sodium Chloride 0.65% Nasal 44 ML BOT EA NARE PRN (11:07)
[2018-08-09] MEDS ORDERED: Cepastat Lozenges 1 LOZ PO PRN (11:07)
--- NOTE | 2018-08-09 11:08 | PDOC.PN ---
- Subjective Encounter Start Date: 08/09/18 Encounter Start Time: 09:20 Patient seen and examined. No new complaints. No overnight events - Objective Resuscitation Status - Order Detail: 08/08/18 17:56 Resuscitation Status Routine Co-Sign Provider: Resuscitation Status: DNAR: NO Resuscitation Discussed with: Patient Additional comments: Mother is surrogate decison makerFlorecita MAR Reviewed: Yes Vital Signs & Weight: Vital Signs (12 hours) Temp Pulse Resp BP Pulse Ox 08/09/18 07:40 98.7 F 102 H 16 116/71 93 L 08/09/18 05:24 98.1 F 70 18 116/73 95 08/09/18 00:43 98.3 F 76 18 108/62 99 Weight Weight 208 lb 12.8 oz I&O: 08/08/18 08/09/18 08/10/18 06:59 06:59 06:59 Intake Total 1300 Output Total 1100 Balance 200 Result Diagrams: 08/09/18 05:36 08/09/18 05:36 Phys Exam - Physical Examination Constitutional: NAD HEENT: PERRLA, moist MMs, sclera anicteric Neck: no JVD, supple Respiratory: no wheezing, no rales, no rhonchi Cardiovascular: RRR, no significant murmur, no rub Gastrointestinal: soft, non-tender, no distention, positive bowel sounds Musculoskeletal: no edema, pulses present paraplegia Psychiatric: normal affect Skin: no rash, normal turgor Dx/Plan (1) UTI (urinary tract infection) due to urinary indwelling catheter Code(s): T83.51XA - ; N39.0 - URINARY TRACT INFECTION, SITE NOT SPECIFIED Status: Acute (2) Chronic hepatitis C Code(s): B18.2 - CHRONIC VIRAL HEPATITIS C Status: Chronic Qualifiers: Comment: (3) Chronic pain syndrome Code(s): G89.4 - CHRONIC PAIN SYNDROME Status: Chronic Comment: (4) HTN (hypertension) Code(s): I10 - ESSENTIAL (PRIMARY) HYPERTENSION Status: Chronic Qualifiers: Comment: (5) Neurogenic bladder Code(s): N31.9 - NEUROMUSCULAR DYSFUNCTION OF BLADDER, UNSPECIFIED Status: Chronic Comment: Intermittent bladder catheterizations (6) Obesity (BMI 30.0-34.9) Code(s): E66.9 - OBESITY, UNSPECIFIED Status: Chronic (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 - PARAPLEGIA, UNSPECIFIED Status: Chronic (8) Rotator cuff tear arthropathy of right shoulder Code(s): M12.811 - OTH SPECIFIC ARTHROPATHIES, NEC, RIGHT SHOULDER Status: Chronic - Plan cont current plan of care, continue antibiotics * continue vancomycin and zosyn * continue IVF * ID team consulted * medication reviewed as below * symptomatic treatment. Review of Systems - Review of Systems ENT: negative: Ear Pain, Ear Discharge, Nose Pain, Nose Discharge, Nose Congestion, Mouth Pain, Mouth Swelling, Throat Pain, Throat Swelling, Other Respiratory: negative: Cough, Dry, Shortness of Breath, Hemoptysis, SOB with Excertion, Pleuritic Pain, Sputum, Wheezing Cardiovascular: negative: chest pain, palpitations, orthopnea, paroxysmal nocturnal dyspnea, edema, light headedness, other Gastrointestinal: negative: Nausea, Vomiting, Abdominal Pain, Diarrhea, Constipation, Melena, Hematochezia, Other Genitourinary: negative: Dysuria, Frequency, Incontinence, Hematuria, Retention , Other Musculoskeletal: negative: Neck Pain, Shoulder Pain, Arm Pain, Back Pain, Hand Pain, Leg Pain, Foot Pain, Other - Medications/Allergies Allergies/Adverse Reactions: Allergies Allergy/AdvReac Type Severity Reaction Status Date / Time ciprofloxacin [From Cipro] Allergy Severe Anaphylaxis Verified 06/15/18 16:04 levofloxacin [From Levaquin] Allergy Severe Anaphylaxis Verified 04/20/18 06:28 ondansetron HCl Allergy Severe Short of Verified 04/20/18 06:28 [From Zofran (as Breath hydrochloride)] fluconazole Allergy Rash Verified 04/20/18 06:28 linezolid [From Zyvox] Allergy Verified 04/20/18 06:28 metoclopramide HCl Allergy Hives Verified 04/20/18 06:28 [From Reglan] pregabalin [From Lyrica] Allergy Verified 04/20/18 06:28 Medications: Current Medications Acetaminophen (Tylenol) 650 mg PO Q4H PRN PRN Reason: Headache/Fever/Mild Pain (1-3) Hydrocodone Bitart/Acetaminophen ([place] 5/325) 1 tab PO Q4H PRN PRN Reason: Moderate Pain (4-6) Last Admin: 08/09/18 03:11 Dose: 1 tab Artificial Tears (Tears Naturale) 2 drop EA EYE PRN PRN PRN Reason: Dry Eyes Calcium Carbonate (Tums) 1,000 mg PO Q4H PRN PRN Reason: Heartburn or Indigestion Enoxaparin Sodium (Lovenox) 40 mg SC 0900 [facility] Last Admin: 08/09/18 09:43 Dose: 40 mg Famotidine (Pepcid) 20 mg PO BID [facility] Last Admin: 08/09/18 09:43 Dose: 20 mg Guaifenesin (Robitussin Sf) 200 mg PO Q4H PRN PRN Reason: Cough Hydralazine HCl (Apresoline) 10 mg SLOW IVP Q4H PRN PRN Reason: SBP > 180 and HR < 70 Sodium Chloride (Normal Saline 0.9%) 1,000 mls @ 100 mls/hr IV .Q10H [facility] Last Admin: 08/09/18 03:16 Dose: Not Given Piperacillin Sod/Tazobactam (Sod 3.375 gm/ Sodium Chloride) 100 mls @ 200 mls/ hr IVPB Q6HR [facility] Last Admin: 08/09/18 05:37 Dose: 100 mls Vancomycin HCl 1.5 gm/ Sodium (Chloride) 300 mls @ 200 mls/hr IVPB 0800,1600, 2359 [facility] Last Admin: 08/09/18 09:41 Dose: 300 mls Promethazine HCl 25 mg/ Sodium (Chloride) 51 mls @ 204 mls/hr IVPB Q6H PRN PRN Reason: Nausea Last Admin: 08/09/18 00:57 Dose: 51 mls Ketorolac Tromethamine (Toradol) 30 mg IVP Q6H PRN PRN Reason: Pain Stop: 08/14/18 05:53 Last Admin: 08/09/18 05:55 Dose: 30 mg Metoclopramide HCl (Reglan) 5 mg IVP Q4H PRN PRN Reason: Nausea Mineral Oil/White Petrolatum (Eucerin Cream) 0 gm TOP BIDPRN PRN PRN Reason: Dry Skin Miscellaneous Medication (Pharmacy To Dose) 1 each IVPB ONE PRN PRN Reason: Pharmacy to dose Stop: 08/18/18 22:42 Promethazine HCl (Phenergan) 25 mg IM/IV Q6H PRN PRN Reason: Nausea/Vomiting Senna/Docusate Sodium (Senokot S) 2 tab PO BID PRN PRN Reason: Constipation Sodium Chloride (Flush - Normal Saline) 10 ml IVF PRN PRN PRN Reason: Saline Flush Sodium Chloride ([place] Nasal [place] 0.65%) 0 ml EA NARE QIDPRN PRN PRN Reason: Nasal Congestion Throat Lozenges (Cepastat Lozenges) 1 paige PO Q2H PRN PRN Reason: Sore Throat
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
[2018-08-10 00:02] LABS: Vancomycin, Trough 50.7 ug/mL
[2018-08-10] MEDS: Vancomycin HCl 1.5 GM in Sodium Chloride 0.9% 250 ML 300 ML IVPB SCH (00:03)
[2018-08-10] MEDS: Sodium Chloride 0.9% 1,000 ML IV SCH ×4 (00:04→20:29)
[2018-08-10] MEDS: Piperacillin/Tazobactam 3.375 GM in Sodium Chloride 0.9% 100 ML IVPB SCH ×5 (03:41→20:20)
[2018-08-10] MEDS: Ketorolac Tromethamine 30 MG/ML VIAL IVP PRN ×3 (05:26→22:30)
[2018-08-10] MEDS: Promethazine HCl 25 MG in Sodium Chloride 0.9% 50 ML IVPB PRN ×3 (06:06→22:24)
[2018-08-10 06:46] LABS: #Basophils 0.1 thou/uL (0.0-0.2); #Eosinphils 0.2 thou/uL (0.0-0.7); #Lymphocytes 2.9 thou/uL (1.20-3.40); #Monocytes 1.1 thou/uL (0.11-0.59); #Neutrophils 5.5 thou/uL (1.40-6.50); %Basophils 0.8 % (0.0-1.0); %Lymphocytes 29.5 % (21.0-51.0); %Monocytes 11.1 % (0.0-10.0); %Neutrophils 56.6 % (42.0-75.0); Hemoglobin 13.7 g/dL (14.0-18.0); Mean Corpuscular HGB CONC 32.6 g/dL (32.0-36.0); Mean Corpuscular Hemoglobin 32.3 pg (27.0-31.0); Mean Corpuscular Volume 99.2 fL (78.0-98.0); Mean Platelet Volume 7.7 fL (7.4-10.4); Platelet Count 184 thou/uL (130-400); RBC Distribution Width 12.4 % (11.5-14.5); Red Blood Cell (RBC) Count 4.24 mill/uL (4.70-6.10); White Blood Cell (WBC) Count 9.8 thou/uL (4.8-10.8)
[2018-08-10 07:28] LABS: ALT (SGPT) 38 U/L (8-55); AST (SGOT) 48 U/L (5-34); Albumin 2.9 g/dL (3.5-5.0); Alkaline Phosphatase 104 U/L (40-150); Anion Gap 11 mmol/L (10-20); BUN (Urea Nitrogen) 18 mg/dL (8.9-20.6); Bilirubin, Total 0.7 mg/dL (0.2-1.2); Calc. Creatinine Clearance 134 mL/min (70-130); Calcium 8.3 mg/dL (7.8-10.44); Carbon Dioxide 22 mmol/L (22-29); Chloride 116 mmol/L (98-107); Estimated GFR-MDRD 84; Globulin 3.3 g/dL (2.4-3.5); Glucose 94 mg/dL (70-105); Potassium 3.5 mmol/L (3.5-5.1); Protein, Total 6.2 g/dL (6.0-8.3); Sodium 145 mmol/L (136-145)
[2018-08-10] MEDS: Famotidine 20 MG TAB PO SCH ×3 (08:59→20:20)
[2018-08-10] MEDS: Enoxaparin Sodium 40 MG/0.4 ML SYRINGE SC SCH (08:59)
--- NOTE | 2018-08-10 12:07 | PDOC.PN ---
- Subjective Encounter Start Date: 08/10/18 Encounter Start Time: 09:20 Patient seen and examined. No new complaints. No overnight events - Objective Resuscitation Status - Order Detail: 08/08/18 17:56 Resuscitation Status Routine Co-Sign Provider: Resuscitation Status: FULL: Full Resuscitation Discussed with: Patient Additional comments: Mother is surrogate decison makerFlorecita MAR Reviewed: Yes Vital Signs & Weight: Vital Signs (12 hours) Temp Pulse Resp BP Pulse Ox 08/10/18 08:00 95 08/10/18 07:37 98.4 F 84 20 104/52 L 95 08/10/18 03:00 98.3 F 91 20 132/88 98 Weight Admit Weight 208 lb 12.8 oz Weight 208 lb 12.8 oz I&O: 08/09/18 08/10/18 08/11/18 06:59 06:59 06:59 Intake Total 1300 2800 Output Total 1100 1600 Balance 200 1200 Result Diagrams: 08/10/18 06:12 08/10/18 06:12 Phys Exam - Physical Examination Constitutional: NAD HEENT: PERRLA, moist MMs, sclera anicteric Neck: no JVD, supple Respiratory: no wheezing, no rales, no rhonchi Cardiovascular: RRR, no significant murmur, no rub Gastrointestinal: soft, non-tender, no distention, positive bowel sounds Musculoskeletal: no edema, pulses present paraplegia Psychiatric: normal affect Skin: no rash, normal turgor Dx/Plan (1) UTI (urinary tract infection) due to urinary indwelling catheter Code(s): T83.51XA - ; N39.0 - URINARY TRACT INFECTION, SITE NOT SPECIFIED Status: Acute (2) Chronic hepatitis C Code(s): B18.2 - CHRONIC VIRAL HEPATITIS C Status: Chronic Qualifiers: Comment: (3) Chronic pain syndrome Code(s): G89.4 - CHRONIC PAIN SYNDROME Status: Chronic Comment: (4) HTN (hypertension) Code(s): I10 - ESSENTIAL (PRIMARY) HYPERTENSION Status: Chronic Qualifiers: Comment: (5) Neurogenic bladder Code(s): N31.9 - NEUROMUSCULAR DYSFUNCTION OF BLADDER, UNSPECIFIED Status: Chronic Comment: Intermittent bladder catheterizations (6) Obesity (BMI 30.0-34.9) Code(s): E66.9 - OBESITY, UNSPECIFIED Status: Chronic (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 - PARAPLEGIA, UNSPECIFIED Status: Chronic (8) Rotator cuff tear arthropathy of right shoulder Code(s): M12.811 - OTH SPECIFIC ARTHROPATHIES, NEC, RIGHT SHOULDER Status: Chronic - Plan cont current plan of care, continue antibiotics * continue IV antibiotics * follow culture * medication reviewed as below * symptomatic treatment. Review of Systems - Review of Systems ENT: negative: Ear Pain, Ear Discharge, Nose Pain, Nose Discharge, Nose Congestion, Mouth Pain, Mouth Swelling, Throat Pain, Throat Swelling, Other Respiratory: negative: Cough, Dry, Shortness of Breath, Hemoptysis, SOB with Excertion, Pleuritic Pain, Sputum, Wheezing Cardiovascular: negative: chest pain, palpitations, orthopnea, paroxysmal nocturnal dyspnea, edema, light headedness, other Gastrointestinal: negative: Nausea, Vomiting, Abdominal Pain, Diarrhea, Constipation, Melena, Hematochezia, Other Genitourinary: negative: Dysuria, Frequency, Incontinence, Hematuria, Retention , Other Musculoskeletal: negative: Neck Pain, Shoulder Pain, Arm Pain, Back Pain, Hand Pain, Leg Pain, Foot Pain, Other - Medications/Allergies Allergies/Adverse Reactions: Allergies Allergy/AdvReac Type Severity Reaction Status Date / Time ciprofloxacin [From Cipro] Allergy Severe Anaphylaxis Verified 06/15/18 16:04 levofloxacin [From Levaquin] Allergy Severe Anaphylaxis Verified 04/20/18 06:28 ondansetron HCl Allergy Severe Short of Verified 04/20/18 06:28 [From Zofran (as Breath hydrochloride)] fluconazole Allergy Rash Verified 04/20/18 06:28 linezolid [From Zyvox] Allergy Verified 04/20/18 06:28 metoclopramide HCl Allergy Hives Verified 04/20/18 06:28 [From Reglan] pregabalin [From Lyrica] Allergy Verified 04/20/18 06:28 Medications: Current Medications Acetaminophen (Tylenol) 650 mg PO Q4H PRN PRN Reason: Headache/Fever/Mild Pain (1-3) Hydrocodone Bitart/Acetaminophen ([place] 5/325) 1 tab PO Q4H PRN PRN Reason: Moderate Pain (4-6) Last Admin: 08/09/18 03:11 Dose: 1 tab Artificial Tears (Tears Naturale) 2 drop EA EYE PRN PRN PRN Reason: Dry Eyes Calcium Carbonate (Tums) 1,000 mg PO Q4H PRN PRN Reason: Heartburn or Indigestion Enoxaparin Sodium (Lovenox) 40 mg SC 0900 [facility] Last Admin: 08/10/18 08:59 Dose: 40 mg Famotidine (Pepcid) 20 mg PO BID [facility] Last Admin: 08/10/18 08:59 Dose: 20 mg Guaifenesin (Robitussin Sf) 200 mg PO Q4H PRN PRN Reason: Cough Hydralazine HCl (Apresoline) 10 mg SLOW IVP Q4H PRN PRN Reason: SBP > 180 and HR < 70 Sodium Chloride (Normal Saline 0.9%) 1,000 mls @ 100 mls/hr IV .Q10H [facility] Last Admin: 08/10/18 03:55 Dose: 1,000 mls Promethazine HCl 25 mg/ Sodium (Chloride) 51 mls @ 204 mls/hr IVPB Q6H PRN PRN Reason: Nausea Last Admin: 08/10/18 06:06 Dose: 51 mls Piperacillin Sod/Tazobactam (Sod 3.375 gm/ Sodium Chloride) 100 mls @ 200 mls/ hr IVPB 0300,0900,1500,2100 [facility] Last Admin: 08/10/18 08:56 Dose: 100 mls Ketorolac Tromethamine (Toradol) 30 mg IVP Q6H PRN PRN Reason: Pain Stop: 08/14/18 05:53 Last Admin: 08/10/18 05:26 Dose: 30 mg Metoclopramide HCl (Reglan) 5 mg IVP Q4H PRN PRN Reason: Nausea Mineral Oil/White Petrolatum (Eucerin Cream) 0 gm TOP BIDPRN PRN PRN Reason: Dry Skin Miscellaneous Medication (Pharmacy To Dose) 1 each IVPB ONE PRN PRN Reason: Pharmacy to dose Stop: 08/18/18 22:42 Promethazine HCl (Phenergan) 25 mg IM/IV Q6H PRN PRN Reason: Nausea/Vomiting Senna/Docusate Sodium (Senokot S) 2 tab PO BID PRN PRN Reason: Constipation Sodium Chloride (Flush - Normal Saline) 10 ml IVF PRN PRN PRN Reason: Saline Flush Sodium Chloride ([place] Nasal [place] 0.65%) 0 ml EA NARE QIDPRN PRN PRN Reason: Nasal Congestion Throat Lozenges (Cepastat Lozenges) 1 paige PO Q2H PRN PRN Reason: Sore Throat
[2018-08-11] MEDS: Piperacillin/Tazobactam 3.375 GM in Sodium Chloride 0.9% 100 ML IVPB SCH ×3 (03:40→14:37)
[2018-08-11] MEDS: Sodium Chloride 0.9% 1,000 ML IV SCH ×3 (04:04→18:45)
[2018-08-11] MEDS: Ketorolac Tromethamine 30 MG/ML VIAL IVP PRN (06:26)
[2018-08-11] MEDS: Famotidine 20 MG TAB PO SCH ×2 (08:36→20:55)
[2018-08-11] MEDS: Enoxaparin Sodium 40 MG/0.4 ML SYRINGE SC SCH (08:36)
[2018-08-11] MEDS: Promethazine HCl 25 MG in Sodium Chloride 0.9% 50 ML IVPB PRN ×3 (08:56→22:47)
--- NOTE | 2018-08-11 12:07 | DIS ---
DATE OF ADMISSION: 08/08/2018 DATE OF DISCHARGE: 08/11/2018 PRIMARY CARE PHYSICIAN: Dr. Arnold Navarro. DISCHARGE DISPOSITION: Home. PRIMARY DISCHARGE DIAGNOSIS: Urinary tract infection related with intermittent self catheterization. SECONDARY DISCHARGE DIAGNOSES: Obesity with BMI 32, neurogenic bladder requiring intermittent self catheterization, history of chronic hepatitis C, chronic pain disorder, hypertension, paraplegia, and rotator cuff arthropathy on the right side. PRIMARY PROCEDURE/OPERATION: None. RADIOLOGICAL INVESTIGATION: None. SIGNIFICANT LABORATORY DATA: Hemoglobin 13.7, WBC 9.8, and creatinine 1.0. Urine culture grew Enterobacter cloacae. DISCHARGE MEDICATIONS: 1. Bactrim DS one tablet twice daily for 7 days. 2. Macrobid 50 mg daily. 3. [place] 10 one tablet t.i.d. p.r.n. 4. Gabapentin 300 mg t.i.d. 5. Clonazepam 0.5 mg t.i.d. 6. Baclofen 10 mg t.i.d. CONTRAINDICATION: None. CODE STATUS: Full code. INPATIENT MIXING MACHINE TENDER: Dr. Edwards. TEST RESULT PENDING ON DISCHARGE: None. ALLERGIES: CIPRO, LEVOFLOXACIN, ZOFRAN, AND FLUCONAZOLE. DISCHARGE PLAN: Posthospital, the patient will follow up with Dr. Mcbride as well as Dr. Arnold Navarro. HOSPITAL COURSE: A 38-year-old male, who has paraplegia and neurogenic bladder. He required in and out catheter for a period of time and at this time, he was admitted for urinary tract infection. Please see [facility] for further details. It was unclear whether this patient has colonization or real infection. While in hospital, we did not notice any elevated leukocytosis or fever while in hospital. We treated empirically with Zosyn and Dr. Edwards was also consulted. Based on culture result, we changed to Bactrim DS. At this point, the patient is completely hemodynamically stable. He has chronic pain disorder and he has chronic pain, which we cannot address during this admission, and I advised him to follow up with Pain [facility]. Otherwise, the patient is afebrile, vitals stable. His examination is unchanged. He is medically stable for discharge today. The patient is seen and examined at bedside today. Necessary patient education is given. Job ID: [id number]
--- NOTE | 2018-08-11 12:47 | PDOC.PN ---
- Subjective Encounter Start Date: 08/11/18 Encounter Start Time: 11:10 Patient seen and examined. No new complaints. No overnight events - Objective Resuscitation Status - Order Detail: 08/08/18 17:56 Resuscitation Status Routine Co-Sign Provider: Resuscitation Status: FULL: Full Resuscitation Discussed with: Patient Additional comments: Mother is surrogate decison makerFlorecita MAR Reviewed: Yes Vital Signs & Weight: Vital Signs (12 hours) Temp Pulse Resp BP BP Pulse Ox 08/11/18 08:00 98.1 F 67 18 142/81 H 97 08/11/18 04:00 98.5 F 62 20 134/82 98 Weight Admit Weight 208 lb 12.8 oz Weight 208 lb 12.8 oz I&O: 08/10/18 08/11/18 08/12/18 06:59 06:59 06:59 Intake Total 2800 2702 Output Total 1600 7000 Balance 1200 -4298 Result Diagrams: 08/10/18 06:12 08/10/18 06:12 Phys Exam - Physical Examination Constitutional: NAD HEENT: PERRLA, moist MMs, sclera anicteric Neck: no JVD, supple Respiratory: no wheezing, no rales, no rhonchi Cardiovascular: RRR, no significant murmur, no rub Gastrointestinal: soft, non-tender, no distention Musculoskeletal: no edema, pulses present Psychiatric: normal affect, A&O x 3 Skin: no rash, normal turgor Dx/Plan (1) UTI (urinary tract infection) due to urinary indwelling catheter Code(s): T83.51XA - ; N39.0 - URINARY TRACT INFECTION, SITE NOT SPECIFIED Status: Acute (2) Chronic hepatitis C Code(s): B18.2 - CHRONIC VIRAL HEPATITIS C Status: Chronic Qualifiers: Comment: (3) Chronic pain syndrome Code(s): G89.4 - CHRONIC PAIN SYNDROME Status: Chronic Comment: (4) HTN (hypertension) Code(s): I10 - ESSENTIAL (PRIMARY) HYPERTENSION Status: Chronic Qualifiers: Comment: (5) Neurogenic bladder Code(s): N31.9 - NEUROMUSCULAR DYSFUNCTION OF BLADDER, UNSPECIFIED Status: Chronic Comment: Intermittent bladder catheterizations (6) Obesity (BMI 30.0-34.9) Code(s): E66.9 - OBESITY, UNSPECIFIED Status: Chronic (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 - PARAPLEGIA, UNSPECIFIED Status: Chronic (8) Rotator cuff tear arthropathy of right shoulder Code(s): M12.811 - OTH SPECIFIC ARTHROPATHIES, NEC, RIGHT SHOULDER Status: Chronic - Plan cont current plan of care, continue antibiotics * medication reviewed as below * symptomatic treatment * see discharge summery. Review of Systems - Review of Systems ENT: negative: Ear Pain, Ear Discharge, Nose Pain, Nose Discharge, Nose Congestion, Mouth Pain, Mouth Swelling, Throat Pain, Throat Swelling, Other Respiratory: negative: Cough, Dry, Shortness of Breath, Hemoptysis, SOB with Excertion, Pleuritic Pain, Sputum, Wheezing Cardiovascular: negative: chest pain, palpitations, orthopnea, paroxysmal nocturnal dyspnea, edema, light headedness, other Gastrointestinal: negative: Nausea, Vomiting, Abdominal Pain, Diarrhea, Constipation, Melena, Hematochezia, Other Genitourinary: negative: Dysuria, Frequency, Incontinence, Hematuria, Retention , Other Musculoskeletal: negative: Neck Pain, Shoulder Pain, Arm Pain, Back Pain, Hand Pain, Leg Pain, Foot Pain, Other - Medications/Allergies Allergies/Adverse Reactions: Allergies Allergy/AdvReac Type Severity Reaction Status Date / Time ciprofloxacin [From Cipro] Allergy Severe Anaphylaxis Verified 06/15/18 16:04 levofloxacin [From Levaquin] Allergy Severe Anaphylaxis Verified 04/20/18 06:28 ondansetron HCl Allergy Severe Short of Verified 04/20/18 06:28 [From Zofran (as Breath hydrochloride)] fluconazole Allergy Rash Verified 04/20/18 06:28 linezolid [From Zyvox] Allergy Verified 04/20/18 06:28 metoclopramide HCl Allergy Hives Verified 04/20/18 06:28 [From Reglan] pregabalin [From Lyrica] Allergy Verified 04/20/18 06:28 Medications: Current Medications Acetaminophen (Tylenol) 650 mg PO Q4H PRN PRN Reason: Headache/Fever/Mild Pain (1-3) Hydrocodone Bitart/Acetaminophen ([place] 5/325) 1 tab PO Q4H PRN PRN Reason: Moderate Pain (4-6) Last Admin: 08/09/18 03:11 Dose: 1 tab Artificial Tears (Tears Naturale) 2 drop EA EYE PRN PRN PRN Reason: Dry Eyes Calcium Carbonate (Tums) 1,000 mg PO Q4H PRN PRN Reason: Heartburn or Indigestion Enoxaparin Sodium (Lovenox) 40 mg SC 0900 [facility] Last Admin: 08/11/18 08:36 Dose: 40 mg Famotidine (Pepcid) 20 mg PO BID [facility] Last Admin: 08/11/18 08:36 Dose: 20 mg Guaifenesin (Robitussin Sf) 200 mg PO Q4H PRN PRN Reason: Cough Hydralazine HCl (Apresoline) 10 mg SLOW IVP Q4H PRN PRN Reason: SBP > 180 and HR < 70 Sodium Chloride (Normal Saline 0.9%) 1,000 mls @ 100 mls/hr IV .Q10H [facility] Last Admin: 08/11/18 06:25 Dose: Not Given Promethazine HCl 25 mg/ Sodium (Chloride) 51 mls @ 204 mls/hr IVPB Q6H PRN PRN Reason: Nausea Last Admin: 08/11/18 08:56 Dose: 51 mls Piperacillin Sod/Tazobactam (Sod 3.375 gm/ Sodium Chloride) 100 mls @ 200 mls/ hr IVPB 0300,0900,1500,2100 [facility] Last Admin: 08/11/18 08:47 Dose: 100 mls Ketorolac Tromethamine (Toradol) 30 mg IVP Q6H PRN PRN Reason: Pain Stop: 08/14/18 05:53 Last Admin: 08/11/18 06:26 Dose: 30 mg Metoclopramide HCl (Reglan) 5 mg IVP Q4H PRN PRN Reason: Nausea Mineral Oil/White Petrolatum (Eucerin Cream) 0 gm TOP BIDPRN PRN PRN Reason: Dry Skin Miscellaneous Medication (Pharmacy To Dose) 1 each IVPB ONE PRN PRN Reason: Pharmacy to dose Stop: 08/18/18 22:42 Promethazine HCl (Phenergan) 25 mg IM/IV Q6H PRN PRN Reason: Nausea/Vomiting Senna/Docusate Sodium (Senokot S) 2 tab PO BID PRN PRN Reason: Constipation Sodium Chloride (Flush - Normal Saline) 10 ml IVF PRN PRN PRN Reason: Saline Flush Sodium Chloride ([place] Nasal [place] 0.65%) 0 ml EA NARE QIDPRN PRN PRN Reason: Nasal Congestion Throat Lozenges (Cepastat Lozenges) 1 paige PO Q2H PRN PRN Reason: Sore Throat
[2018-08-11] MEDS: HYDROcodone/Acetaminophen 5/325 mg Tablet PO PRN (13:02)
[2018-08-11] MEDS ORDERED: cefTRIAXone Sodium 2,000 MG in Syringe 0 ML IVPB SCH (17:00)
[2018-08-11] MEDS: cefTRIAXone\\ROCEPHIN 2 GM in Sodium Chloride 0.9% 100 ML IVPB SCH (17:24)
--- NOTE | 2018-08-11 17:48 | PRG ---
DATE OF SERVICE: 08/11/2018 SUBJECTIVE: Mr. Chandra is feeling better. He is more alert. He is still having nausea and vomiting and having difficulty in keeping food down. No headaches. No visual symptoms. No shortness of breath or cough. No abdominal pain except for some flank pain on the right side as previously noted, but less than before. OBJECTIVE: VITAL SIGNS: Normal except for mild elevation of systolic blood pressure. GENERAL: Awake, alert, oriented, pleasant. HEENT: Ocular movements conjugate. Oral cavity moist. LUNGS: Symmetric clear breath sounds. HEART: S1, S2. Regular rate. No S3, S4. ABDOMEN: Soft with mild right flank tenderness. Some distention. LABORATORY DATA: White cell count is 9.8, hemoglobin 13.7, platelets 184. Sodium 145, creatinine 1.0, and glucose 94. AST 48, ALT 38, albumin 2.9. Urine culture revealed Enterobacter cloacae complex resistant to Macrodantin and cefoxitin. ASSESSMENT AND DISCUSSION: Paraplegia with recurring urinary tract infections, which we feel is related to the frequency of in and out catheterization. It is not clear if he does it four times or three times a day only. His usual postvoid residual is around 300 mL. We will switch him to IV Rocephin for 4 weeks, after that transition to Bactrim single-strength one tablet at bedtime for many months. Job ID: [id number] [facility]
[2018-08-11] MEDS: Morphine 4 MG/ML VIAL SLOW IVP PRN ×2 (18:31→22:48)
[2018-08-12] MEDS: Promethazine HCl 25 MG in Sodium Chloride 0.9% 50 ML IVPB PRN ×4 (04:34→23:30)
[2018-08-12] MEDS: Morphine 4 MG/ML VIAL SLOW IVP PRN ×4 (04:35→23:31)
[2018-08-12] MEDS: Enoxaparin Sodium 40 MG/0.4 ML SYRINGE SC SCH (08:14)
[2018-08-12] MEDS: Famotidine 20 MG TAB PO SCH ×2 (08:15→20:33)
--- NOTE | 2018-08-12 09:38 | PDOC.PN ---
- Subjective Encounter Start Date: 08/12/18 Encounter Start Time: 08:45 Patient seen and examined. No new complaints. No overnight events - Objective Resuscitation Status - Order Detail: 08/08/18 17:56 Resuscitation Status Routine Co-Sign Provider: Resuscitation Status: FULL: Full Resuscitation Discussed with: Patient Additional comments: Mother is surrogate decison makerFlorecita MAR Reviewed: Yes Vital Signs & Weight: Vital Signs (12 hours) Temp Pulse Resp BP Pulse Ox 08/12/18 08:00 97 08/12/18 07:37 98.7 F 81 16 132/86 97 Weight Admit Weight 208 lb 12.8 oz Weight 208 lb 12.8 oz I&O: 08/11/18 08/12/18 08/13/18 06:59 06:59 06:59 Intake Total 2702 3958 Output Total 7000 3300 500 Balance -4298 658 -500 Result Diagrams: 08/10/18 06:12 08/10/18 06:12 Phys Exam - Physical Examination Constitutional: NAD HEENT: PERRLA, moist MMs, sclera anicteric Neck: no JVD, supple Respiratory: no wheezing, no rales, no rhonchi Cardiovascular: RRR, no significant murmur, no rub Gastrointestinal: soft, non-tender, no distention, positive bowel sounds Musculoskeletal: no edema, pulses present paraplegia Lymphatic: no nodes Psychiatric: normal affect Skin: no rash, normal turgor Dx/Plan (1) UTI (urinary tract infection) due to urinary indwelling catheter Code(s): T83.51XA - ; N39.0 - URINARY TRACT INFECTION, SITE NOT SPECIFIED Status: Acute (2) Chronic hepatitis C Code(s): B18.2 - CHRONIC VIRAL HEPATITIS C Status: Chronic Qualifiers: Comment: (3) Chronic pain syndrome Code(s): G89.4 - CHRONIC PAIN SYNDROME Status: Chronic Comment: (4) HTN (hypertension) Code(s): I10 - ESSENTIAL (PRIMARY) HYPERTENSION Status: Chronic Qualifiers: Comment: (5) Neurogenic bladder Code(s): N31.9 - NEUROMUSCULAR DYSFUNCTION OF BLADDER, UNSPECIFIED Status: Chronic Comment: Intermittent bladder catheterizations (6) Obesity (BMI 30.0-34.9) Code(s): E66.9 - OBESITY, UNSPECIFIED Status: Chronic (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 - PARAPLEGIA, UNSPECIFIED Status: Chronic (8) Rotator cuff tear arthropathy of right shoulder Code(s): M12.811 - OTH SPECIFIC ARTHROPATHIES, NEC, RIGHT SHOULDER Status: Chronic - Plan cont current plan of care, continue antibiotics, 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 Review of Systems - Review of Systems ENT: negative: Ear Pain, Ear Discharge, Nose Pain, Nose Discharge, Nose Congestion, Mouth Pain, Mouth Swelling, Throat Pain, Throat Swelling, Other Respiratory: negative: Cough, Dry, Shortness of Breath, Hemoptysis, SOB with Excertion, Pleuritic Pain, Sputum, Wheezing Cardiovascular: negative: chest pain, palpitations, orthopnea, paroxysmal nocturnal dyspnea, edema, light headedness, other Gastrointestinal: negative: Nausea, Vomiting, Abdominal Pain, Diarrhea, Constipation, Melena, Hematochezia, Other Genitourinary: negative: Dysuria, Frequency, Incontinence, Hematuria, Retention , Other Musculoskeletal: negative: Neck Pain, Shoulder Pain, Arm Pain, Back Pain, Hand Pain, Leg Pain, Foot Pain, Other - Medications/Allergies Allergies/Adverse Reactions: Allergies Allergy/AdvReac Type Severity Reaction Status Date / Time ciprofloxacin [From Cipro] Allergy Severe Anaphylaxis Verified 06/15/18 16:04 levofloxacin [From Levaquin] Allergy Severe Anaphylaxis Verified 04/20/18 06:28 ondansetron HCl Allergy Severe Short of Verified 04/20/18 06:28 [From Zofran (as Breath hydrochloride)] fluconazole Allergy Rash Verified 04/20/18 06:28 linezolid [From Zyvox] Allergy Verified 04/20/18 06:28 metoclopramide HCl Allergy Hives Verified 04/20/18 06:28 [From Reglan] pregabalin [From Lyrica] Allergy Verified 04/20/18 06:28 Medications: Current Medications Acetaminophen (Tylenol) 650 mg PO Q4H PRN PRN Reason: Headache/Fever/Mild Pain (1-3) Hydrocodone Bitart/Acetaminophen ([place] 5/325) 1 tab PO Q4H PRN PRN Reason: Moderate Pain (4-6) Last Admin: 08/11/18 13:02 Dose: 1 tab Artificial Tears (Tears Naturale) 2 drop EA EYE PRN PRN PRN Reason: Dry Eyes Calcium Carbonate (Tums) 1,000 mg PO Q4H PRN PRN Reason: Heartburn or Indigestion Enoxaparin Sodium (Lovenox) 40 mg SC 0900 [facility] Last Admin: 08/12/18 08:14 Dose: Not Given Famotidine (Pepcid) 20 mg PO BID [facility] Last Admin: 08/12/18 08:15 Dose: 20 mg Guaifenesin (Robitussin Sf) 200 mg PO Q4H PRN PRN Reason: Cough Hydralazine HCl (Apresoline) 10 mg SLOW IVP Q4H PRN PRN Reason: SBP > 180 and HR < 70 Promethazine HCl 25 mg/ Sodium (Chloride) 51 mls @ 204 mls/hr IVPB Q6H PRN PRN Reason: Nausea Last Admin: 08/12/18 04:34 Dose: 51 mls Ceftriaxone Sodium 2 gm/ (Sodium Chloride) 100 mls @ 200 mls/hr IVPB Q24HR [facility] Last Admin: 08/11/18 17:24 Dose: 100 mls Ketorolac Tromethamine (Toradol) 30 mg IVP Q6H PRN PRN Reason: Pain Stop: 08/14/18 05:53 Last Admin: 08/11/18 06:26 Dose: 30 mg Metoclopramide HCl (Reglan) 5 mg IVP Q4H PRN PRN Reason: Nausea Mineral Oil/White Petrolatum (Eucerin Cream) 0 gm TOP BIDPRN PRN PRN Reason: Dry Skin Morphine Sulfate (Morphine) 4 mg SLOW IVP Q4H PRN PRN Reason: Pain Last Admin: 08/12/18 04:35 Dose: 4 mg Promethazine HCl (Phenergan) 25 mg IM/IV Q6H PRN PRN Reason: Nausea/Vomiting Senna/Docusate Sodium (Senokot S) 2 tab PO BID PRN PRN Reason: Constipation Sodium Chloride (Flush - Normal Saline) 10 ml IVF PRN PRN PRN Reason: Saline Flush Sodium Chloride ([place] Nasal [place] 0.65%) 0 ml EA NARE QIDPRN PRN PRN Reason: Nasal Congestion Throat Lozenges (Cepastat Lozenges) 1 paige PO Q2H PRN PRN Reason: Sore Throat
[2018-08-12] MEDS: cefTRIAXone\\ROCEPHIN 2 GM in Sodium Chloride 0.9% 100 ML IVPB SCH (16:21)
--- NOTE | 2018-08-12 17:20 | PRG ---
DATE OF SERVICE: 08/12/2018 SUBJECTIVE: Mr. Chandra is still having some nausea and some vomiting. Able to hold food down a little better, but still not back to baseline yet. No chest pain. No other respiratory symptoms. There maybe a little bit of abdominal tenderness in the right flank region. OBJECTIVE: VITAL SIGNS: He has been afebrile. Other vital signs are not remarkable. GENERAL: Awake, alert, oriented, appears more comfortable today than previously. He is more alert. HEENT: Ocular movements conjugate. LUNGS: Symmetric, clear breath sounds. HEART: S1 and S2. Regular rate. ABDOMEN: Soft. LABORATORY DATA: White cell count 9.8, hemoglobin 13, and platelets 184. Microbiology with Enterobacter cloacae, which is islas-susceptible phenotype except for cefoxitin. ASSESSMENT AND DISCUSSION: Paraplegia and recurring urinary tract infections and now this time actually not much fever, but just nausea, vomiting, and general malaise, abnormal urinalysis and positive urine culture. Basically, there is some flank pain on the right side. We are assuming that he has pyelonephritis again. Again, the concern with infrequent self-catheterizations is prominent. The patient to be discharged on 4 weeks of Rocephin IV. After that, may consider Bactrim single-strength suppressive therapy at that time. Job ID: [id number]
[2018-08-13] MEDS: Promethazine HCl 25 MG in Sodium Chloride 0.9% 50 ML IVPB PRN ×4 (05:27→23:40)
[2018-08-13] MEDS: Morphine 4 MG/ML VIAL SLOW IVP PRN ×4 (05:28→21:12)
[2018-08-13] MEDS: Enoxaparin Sodium 40 MG/0.4 ML SYRINGE SC SCH (08:19)
[2018-08-13] MEDS: Famotidine 20 MG TAB PO SCH ×2 (08:19→20:20)
--- NOTE | 2018-08-13 10:52 | PDOC.PN ---
- Subjective Encounter Start Date: 08/13/18 Encounter Start Time: 08:00 Patient seen and examined. No new complaints. No overnight events - Objective Resuscitation Status - Order Detail: 08/08/18 17:56 Resuscitation Status Routine Co-Sign Provider: Resuscitation Status: FULL: Full Resuscitation Discussed with: Patient Additional comments: Mother is surrogate decison makerFlorecita [phone] MAR Reviewed: Yes Vital Signs & Weight: Vital Signs (12 hours) Temp Pulse Resp BP Pulse Ox 08/13/18 08:00 98.7 F 80 16 139/87 97 Weight Admit Weight 208 lb 12.8 oz Weight 208 lb 12.8 oz I&O: 08/12/18 08/13/18 08/14/18 06:59 06:59 06:59 Intake Total 3958 2300 Output Total 3300 2600 Balance 658 -300 Result Diagrams: 08/10/18 06:12 08/10/18 06:12 Phys Exam - Physical Examination Constitutional: NAD HEENT: PERRLA, moist MMs, sclera anicteric Neck: no JVD, supple Respiratory: no wheezing, no rales, no rhonchi Cardiovascular: RRR, no significant murmur, no rub Gastrointestinal: soft, non-tender, no distention, positive bowel sounds Musculoskeletal: no edema, pulses present Psychiatric: normal affect, A&O x 3 Skin: no rash, normal turgor Dx/Plan (1) UTI (urinary tract infection) due to urinary indwelling catheter Code(s): T83.51XA - ; N39.0 - URINARY TRACT INFECTION, SITE NOT SPECIFIED Status: Acute (2) Chronic hepatitis C Code(s): B18.2 - CHRONIC VIRAL HEPATITIS C Status: Chronic Qualifiers: Comment: (3) Chronic pain syndrome Code(s): G89.4 - CHRONIC PAIN SYNDROME Status: Chronic Comment: (4) HTN (hypertension) Code(s): I10 - ESSENTIAL (PRIMARY) HYPERTENSION Status: Chronic Qualifiers: Comment: (5) Neurogenic bladder Code(s): N31.9 - NEUROMUSCULAR DYSFUNCTION OF BLADDER, UNSPECIFIED Status: Chronic Comment: Intermittent bladder catheterizations (6) Obesity (BMI 30.0-34.9) Code(s): E66.9 - OBESITY, UNSPECIFIED Status: Chronic (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 - PARAPLEGIA, UNSPECIFIED Status: Chronic (8) Rotator cuff tear arthropathy of right shoulder Code(s): M12.811 - OTH SPECIFIC ARTHROPATHIES, NEC, RIGHT SHOULDER Status: Chronic - Plan cont current plan of care, 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 Review of Systems - Review of Systems ENT: negative: Ear Pain, Ear Discharge, Nose Pain, Nose Discharge, Nose Congestion, Mouth Pain, Mouth Swelling, Throat Pain, Throat Swelling, Other Respiratory: negative: Cough, Dry, Shortness of Breath, Hemoptysis, SOB with Excertion, Pleuritic Pain, Sputum, Wheezing Cardiovascular: negative: chest pain, palpitations, orthopnea, paroxysmal nocturnal dyspnea, edema, light headedness, other Gastrointestinal: negative: Nausea, Vomiting, Abdominal Pain, Diarrhea, Constipation, Melena, Hematochezia, Other Genitourinary: negative: Dysuria, Frequency, Incontinence, Hematuria, Retention , Other Musculoskeletal: negative: Neck Pain, Shoulder Pain, Arm Pain, Back Pain, Hand Pain, Leg Pain, Foot Pain, Other - Medications/Allergies Allergies/Adverse Reactions: Allergies Allergy/AdvReac Type Severity Reaction Status Date / Time ciprofloxacin [From Cipro] Allergy Severe Anaphylaxis Verified 06/15/18 16:04 levofloxacin [From Levaquin] Allergy Severe Anaphylaxis Verified 04/20/18 06:28 ondansetron HCl Allergy Severe Short of Verified 04/20/18 06:28 [From Zofran (as Breath hydrochloride)] fluconazole Allergy Rash Verified 04/20/18 06:28 linezolid [From Zyvox] Allergy Verified 04/20/18 06:28 metoclopramide HCl Allergy Hives Verified 04/20/18 06:28 [From Reglan] pregabalin [From Lyrica] Allergy Verified 04/20/18 06:28 Medications: Current Medications Acetaminophen (Tylenol) 650 mg PO Q4H PRN PRN Reason: Headache/Fever/Mild Pain (1-3) Hydrocodone Bitart/Acetaminophen ([place] 5/325) 1 tab PO Q4H PRN PRN Reason: Moderate Pain (4-6) Last Admin: 08/11/18 13:02 Dose: 1 tab Artificial Tears (Tears Naturale) 2 drop EA EYE PRN PRN PRN Reason: Dry Eyes Calcium Carbonate (Tums) 1,000 mg PO Q4H PRN PRN Reason: Heartburn or Indigestion Enoxaparin Sodium (Lovenox) 40 mg SC 0900 [facility] Last Admin: 08/13/18 08:19 Dose: 40 mg Famotidine (Pepcid) 20 mg PO BID [facility] Last Admin: 08/13/18 08:19 Dose: 20 mg Guaifenesin (Robitussin Sf) 200 mg PO Q4H PRN PRN Reason: Cough Hydralazine HCl (Apresoline) 10 mg SLOW IVP Q4H PRN PRN Reason: SBP > 180 and HR < 70 Promethazine HCl 25 mg/ Sodium (Chloride) 51 mls @ 204 mls/hr IVPB Q6H PRN PRN Reason: Nausea Last Admin: 08/13/18 05:27 Dose: 51 mls Ceftriaxone Sodium 2 gm/ (Sodium Chloride) 100 mls @ 200 mls/hr IVPB Q24HR [facility] Last Admin: 08/12/18 16:21 Dose: 100 mls Ketorolac Tromethamine (Toradol) 30 mg IVP Q6H PRN PRN Reason: Pain Stop: 08/14/18 05:53 Last Admin: 08/11/18 06:26 Dose: 30 mg Metoclopramide HCl (Reglan) 5 mg IVP Q4H PRN PRN Reason: Nausea Mineral Oil/White Petrolatum (Eucerin Cream) 0 gm TOP BIDPRN PRN PRN Reason: Dry Skin Morphine Sulfate (Morphine) 4 mg SLOW IVP Q4H PRN PRN Reason: Pain Last Admin: 08/13/18 09:39 Dose: 4 mg Promethazine HCl (Phenergan) 25 mg IM/IV Q6H PRN PRN Reason: Nausea/Vomiting Senna/Docusate Sodium (Senokot S) 2 tab PO BID PRN PRN Reason: Constipation Sodium Chloride (Flush - Normal Saline) 10 ml IVF PRN PRN PRN Reason: Saline Flush Sodium Chloride ([place] Nasal [place] 0.65%) 0 ml EA NARE QIDPRN PRN PRN Reason: Nasal Congestion Throat Lozenges (Cepastat Lozenges) 1 paige PO Q2H PRN PRN Reason: Sore Throat
[2018-08-13] MEDS: cefTRIAXone\\ROCEPHIN 2 GM in Sodium Chloride 0.9% 100 ML IVPB SCH (16:53)
[2018-08-13] MEDS: HYDROcodone/Acetaminophen 5/325 mg Tablet PO PRN (20:20)
[2018-08-13] MEDS: Ketorolac Tromethamine 30 MG/ML VIAL IVP PRN (23:40)
[2018-08-14] MEDS: Morphine 4 MG/ML VIAL SLOW IVP PRN ×5 (02:11→21:54)
[2018-08-14] MEDS: Promethazine HCl 25 MG in Sodium Chloride 0.9% 50 ML IVPB PRN ×2 (05:36→21:54)
[2018-08-14] MEDS: Famotidine 20 MG TAB PO SCH ×2 (08:30→20:39)
[2018-08-14] MEDS: Enoxaparin Sodium 40 MG/0.4 ML SYRINGE SC SCH (08:31)
--- NOTE | 2018-08-14 10:39 | PDOC.PN ---
- Subjective Encounter Start Date: 08/14/18 Encounter Start Time: 09:20 Patient seen and examined. No new complaints. No overnight events - Objective Resuscitation Status - Order Detail: 08/08/18 17:56 Resuscitation Status Routine Co-Sign Provider: Resuscitation Status: FULL: Full Resuscitation Discussed with: Patient Additional comments: Mother is surrogate decison makerFlorecita [phone] MAR Reviewed: Yes Vital Signs & Weight: Vital Signs (12 hours) Temp Pulse Resp BP Pulse Ox 08/14/18 07:05 98 F 88 19 169/101 H 95 Weight Admit Weight 208 lb 12.8 oz Weight 208 lb 12.8 oz I&O: 08/13/18 08/14/18 08/15/18 06:59 06:59 06:59 Intake Total 2300 2483 Output Total 2600 1500 Balance -300 983 Result Diagrams: 08/10/18 06:12 08/10/18 06:12 Phys Exam - Physical Examination Constitutional: NAD HEENT: PERRLA, moist MMs, sclera anicteric Neck: no JVD, supple Respiratory: no wheezing, no rales, no rhonchi Cardiovascular: RRR, no significant murmur, no rub Gastrointestinal: soft, non-tender, no distention, positive bowel sounds Musculoskeletal: no edema, pulses present Lymphatic: no nodes Psychiatric: normal affect, A&O x 3 Skin: no rash, normal turgor Dx/Plan (1) UTI (urinary tract infection) due to urinary indwelling catheter Code(s): T83.51XA - ; N39.0 - URINARY TRACT INFECTION, SITE NOT SPECIFIED Status: Acute (2) Chronic hepatitis C Code(s): B18.2 - CHRONIC VIRAL HEPATITIS C Status: Chronic Qualifiers: Comment: (3) Chronic pain syndrome Code(s): G89.4 - CHRONIC PAIN SYNDROME Status: Chronic Comment: (4) HTN (hypertension) Code(s): I10 - ESSENTIAL (PRIMARY) HYPERTENSION Status: Chronic Qualifiers: Comment: (5) Neurogenic bladder Code(s): N31.9 - NEUROMUSCULAR DYSFUNCTION OF BLADDER, UNSPECIFIED Status: Chronic Comment: Intermittent bladder catheterizations (6) Obesity (BMI 30.0-34.9) Code(s): E66.9 - OBESITY, UNSPECIFIED Status: Chronic (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 - PARAPLEGIA, UNSPECIFIED Status: Chronic (8) Rotator cuff tear arthropathy of right shoulder Code(s): M12.811 - OTH SPECIFIC ARTHROPATHIES, NEC, RIGHT SHOULDER Status: Chronic - Plan cont current plan of care, continue antibiotics * medication reviewed as below * symptomatic treatment * continue rocephin * await placement. Review of Systems - Review of Systems ENT: negative: Ear Pain, Ear Discharge, Nose Pain, Nose Discharge, Nose Congestion, Mouth Pain, Mouth Swelling, Throat Pain, Throat Swelling, Other Respiratory: negative: Cough, Dry, Shortness of Breath, Hemoptysis, SOB with Excertion, Pleuritic Pain, Sputum, Wheezing Cardiovascular: negative: chest pain, palpitations, orthopnea, paroxysmal nocturnal dyspnea, edema, light headedness, other Gastrointestinal: negative: Nausea, Vomiting, Abdominal Pain, Diarrhea, Constipation, Melena, Hematochezia, Other Genitourinary: negative: Dysuria, Frequency, Incontinence, Hematuria, Retention , Other Musculoskeletal: negative: Neck Pain, Shoulder Pain, Arm Pain, Back Pain, Hand Pain, Leg Pain, Foot Pain, Other - Medications/Allergies Allergies/Adverse Reactions: Allergies Allergy/AdvReac Type Severity Reaction Status Date / Time ciprofloxacin [From Cipro] Allergy Severe Anaphylaxis Verified 06/15/18 16:04 levofloxacin [From Levaquin] Allergy Severe Anaphylaxis Verified 04/20/18 06:28 metoclopramide HCl Allergy Severe Anaphylaxis Verified 08/13/18 20:28 [From Reglan] ondansetron HCl Allergy Severe Short of Verified 04/20/18 06:28 [From Zofran (as Breath hydrochloride)] fluconazole Allergy Rash Verified 04/20/18 06:28 linezolid [From Zyvox] Allergy Verified 04/20/18 06:28 pregabalin [From Lyrica] Allergy Verified 04/20/18 06:28 Medications: Current Medications Acetaminophen (Tylenol) 650 mg PO Q4H PRN PRN Reason: Headache/Fever/Mild Pain (1-3) Hydrocodone Bitart/Acetaminophen ([place] 5/325) 1 tab PO Q4H PRN PRN Reason: Moderate Pain (4-6) Last Admin: 08/13/18 20:20 Dose: 1 tab Artificial Tears (Tears Naturale) 2 drop EA EYE PRN PRN PRN Reason: Dry Eyes Calcium Carbonate (Tums) 1,000 mg PO Q4H PRN PRN Reason: Heartburn or Indigestion Enoxaparin Sodium (Lovenox) 40 mg SC 0900 [facility] Last Admin: 08/14/18 08:31 Dose: Not Given Famotidine (Pepcid) 20 mg PO BID [facility] Last Admin: 08/14/18 08:30 Dose: 20 mg Guaifenesin (Robitussin Sf) 200 mg PO Q4H PRN PRN Reason: Cough Hydralazine HCl (Apresoline) 10 mg SLOW IVP Q4H PRN PRN Reason: SBP > 180 and HR < 70 Promethazine HCl 25 mg/ Sodium (Chloride) 51 mls @ 204 mls/hr IVPB Q6H PRN PRN Reason: Nausea Last Admin: 08/14/18 05:36 Dose: 51 mls Ceftriaxone Sodium 2 gm/ (Sodium Chloride) 100 mls @ 200 mls/hr IVPB Q24HR [facility] Last Admin: 08/13/18 16:53 Dose: 100 mls Mineral Oil/White Petrolatum (Eucerin Cream) 0 gm TOP BIDPRN PRN PRN Reason: Dry Skin Morphine Sulfate (Morphine) 4 mg SLOW IVP Q4H PRN PRN Reason: Pain Last Admin: 08/14/18 06:14 Dose: 4 mg Promethazine HCl (Phenergan) 25 mg IM/IV Q6H PRN PRN Reason: Nausea/Vomiting Senna/Docusate Sodium (Senokot S) 2 tab PO BID PRN PRN Reason: Constipation Sodium Chloride (Flush - Normal Saline) 10 ml IVF PRN PRN PRN Reason: Saline Flush Last Admin: 08/14/18 05:36 Dose: 10 ml Sodium Chloride ([place] Nasal [place] 0.65%) 0 ml EA NARE QIDPRN PRN PRN Reason: Nasal Congestion Throat Lozenges (Cepastat Lozenges) 1 paige PO Q2H PRN PRN Reason: Sore Throat
[2018-08-14] MEDS: Promethazine HCl 25 MG/ML VIAL IM/IV PRN (15:20)
[2018-08-14] MEDS: cefTRIAXone\\ROCEPHIN 2 GM in Sodium Chloride 0.9% 100 ML IVPB SCH (17:26)
[2018-08-14] MEDS: HYDROcodone/Acetaminophen 5/325 mg Tablet PO PRN (20:39)
[2018-08-15] MEDS: HYDROcodone/Acetaminophen 5/325 mg Tablet PO PRN (00:52)
[2018-08-15] MEDS: Morphine 4 MG/ML VIAL SLOW IVP PRN ×3 (03:00→16:08)
[2018-08-15] MEDS: Promethazine HCl 25 MG in Sodium Chloride 0.9% 50 ML IVPB PRN ×2 (04:02→18:14)
[2018-08-15] MEDS: Enoxaparin Sodium 40 MG/0.4 ML SYRINGE SC SCH (07:47)
[2018-08-15] MEDS: Famotidine 20 MG TAB PO SCH (07:48)
[2018-08-15] MEDS: Promethazine HCl 25 MG/ML VIAL IM/IV PRN (07:53)
[2018-08-15 09:02] LABS: #Lymphocytes 2.2 thou/uL (1.20-3.40); #Monocytes 0.9 thou/uL (0.11-0.59); #Neutrophils 7.1 thou/uL (1.40-6.50); %Basophils 0.3 % (0.0-1.0); %Eosinophils 0.4 % (0.0-10.0); %Lymphocytes 21.1 % (21.0-51.0); %Monocytes 9.2 % (0.0-10.0); %Neutrophils 69.1 % (42.0-75.0); Hemoglobin 14.8 g/dL (14.0-18.0); Mean Corpuscular Hemoglobin 32.1 pg (27.0-31.0); Mean Corpuscular Volume 97.3 fL (78.0-98.0); Mean Platelet Volume 7.3 fL (7.4-10.4); Platelet Count 244 thou/uL (130-400); RBC Distribution Width 12.4 % (11.5-14.5); Red Blood Cell (RBC) Count 4.59 mill/uL (4.70-6.10); White Blood Cell (WBC) Count 10.3 thou/uL (4.8-10.8)
[2018-08-15 09:11] LABS: ALT (SGPT) 56 U/L (8-55); AST (SGOT) 62 U/L (5-34); Albumin 3.8 g/dL (3.5-5.0); Alkaline Phosphatase 106 U/L (40-150); Anion Gap 16 mmol/L (10-20); BUN (Urea Nitrogen) 16 mg/dL (8.9-20.6); Calc. Creatinine Clearance 166 mL/min (70-130); Calcium 9.3 mg/dL (7.8-10.44); Carbon Dioxide 21 mmol/L (22-29); Chloride 106 mmol/L (98-107); Estimated GFR-MDRD Greater than 90; Glucose 103 mg/dL (70-105); Potassium 3.5 mmol/L (3.5-5.1); Protein, Total 7.8 g/dL (6.0-8.3); Sodium 139 mmol/L (136-145)
--- NOTE | 2018-08-15 12:55 | PDOC.PN ---
- Subjective Encounter Start Date: 08/15/18 (f/u complicated UTI) Encounter Start Time: 12:54 Subjective: pt reports yesterday/today feeling hot/cold, having nausea -: and hallucinations noted by staff training and development manager/not sleeping. BM today, denies -: any problems with self-cath. - Objective Resuscitation Status - Order Detail: 08/08/18 17:56 Resuscitation Status Routine Co-Sign Provider: Resuscitation Status: FULL: Full Resuscitation Discussed with: Patient Additional comments: Mother is surrogate decison maker, Florecita Chandra [phone] Vital Signs & Weight: Vital Signs (12 hours) Temp Pulse Resp BP Pulse Ox 08/15/18 11:35 98.3 F 97 19 136/96 H 98 Weight Admit Weight 208 lb 12.8 oz Weight 208 lb 12.8 oz I&O: 08/14/18 08/15/18 08/16/18 06:59 06:59 06:59 Intake Total 2483 1482 Output Total 1500 1100 Balance 983 382 Result Diagrams: 08/15/18 08:43 08/15/18 08:43 Phys Exam - Physical Examination Constitutional: NAD Respiratory: no wheezing, no rales, no rhonchi, clear to auscultation bilateral Cardiovascular: RRR, no significant murmur Gastrointestinal: soft, no distention, positive bowel sounds ttp along right abdomen, along the lower ribs/right and lumbar muscles all without palpable abnormality paraplegic Psychiatric: A&O x 3 Deviation from normal: answers questions appropriately, tired appearing Dx/Plan (1) Complicated UTI (urinary tract infection) Code(s): N39.0 - URINARY TRACT INFECTION, SITE NOT SPECIFIED Status: Acute (2) Chronic pain syndrome Code(s): G89.4 - CHRONIC PAIN SYNDROME Status: Chronic Comment: (3) Neurogenic bladder Code(s): N31.9 - NEUROMUSCULAR DYSFUNCTION OF BLADDER, UNSPECIFIED Status: Chronic Comment: Intermittent bladder catheterizations (4) Obesity (BMI 30.0-34.9) Code(s): E66.9 - OBESITY, UNSPECIFIED Status: Chronic (5) Paraplegia following spinal cord injury Code(s): G82.20 - PARAPLEGIA, UNSPECIFIED Status: Chronic - Plan * Uncertain etiology of the subj f/c - check urine and blood cultures * Right sided abd and flank pain with benign abd exam and active bowel sounds - check renal ultrasound given the complicated UTI. If ultrasound negative, consider CT scan * resume home medications - pt takes all at 07, 1300, 1900 except for norco he takes at 07, 1300, bedtime. Talked with pharmacist who will time them this way. * * Pt is on klonipin long-term - some of the hallucinations/difficulty sleeping and other sx may be due to withdrawal. Resume this today with other home meds * * monitor sleep with resuming klonipin * * dvt prophy - lovenox * gi prophy - not indicated - will d/c * code status full * * reviewed the plan of care with patient, no questions or further needs at end of eval. * Addendum 18:00 - reviewed ultrasound and mass at inferior aspect of bladder - will consult Urology for tomorrow given complicated patient.
[2018-08-15] MEDS: clonazePAM 0.5 MG TAB PO SCH ×2 (13:08→19:06)
[2018-08-15] MEDS: Baclofen 10 MG TAB PO SCH ×2 (13:09→19:06)
[2018-08-15] MEDS: HYDROcodone/Acetaminophen 10/325 mg Tablet PO SCH ×2 (13:09→20:59)
[2018-08-15] MEDS: Gabapentin 300 MG CAP PO SCH ×2 (13:09→19:06)
--- NOTE | 2018-08-15 14:05 | ULT ---
FUltrasound renal: 08/15/2018 HISTORY: 38-year-old male with urinary tract infection and right flank pain FINDINGS: Right kidney measures 10.5 x 5.5 x 6.5 cm. No hydronephrosis. There is a 3 cm rounded fluid-filled st ructure abutting the right side of the urinary bladder consistent with a reservoir for penile implant . Urinary bladder volume is 8.5 mL at the time of the scan. There is apparent diffuse mural thickenin g of the urinary bladder, which could either be due to decompressed state or cystitis. Apparent large 2.5 x 3.5 cm well-circumscribed filling defect with intermediate echogenicity occupies the lumen of the inferior aspect of the bladder. This does not appear to be an enlarged prostate gland based on e CT of 08/08/2018. Left kidney is absent. IMPRESSION: 1. 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 2. Penile implant reservoir abutting the right side of the decompressed urinary bladder. 3. Diffuse mural thickening of the decompressed urinary bladder. 4. Apparent large mass in the inferior aspect of the urinary bladder lumen of uncertain etiology.
[2018-08-15] MEDS: cefTRIAXone\\ROCEPHIN 2 GM in Sodium Chloride 0.9% 100 ML IVPB SCH (15:17)
[2018-08-15] MEDS: Sodium Chloride 0.9% 1,000 ML IV SCH (23:18)
[2018-08-16] MEDS: Morphine 4 MG/ML VIAL SLOW IVP PRN ×4 (05:01→22:06)
[2018-08-16] MEDS: Promethazine HCl 25 MG in Sodium Chloride 0.9% 50 ML IVPB PRN ×3 (05:04→17:38)
[2018-08-16] MEDS: Baclofen 10 MG TAB PO SCH ×3 (06:10→18:35)
[2018-08-16] MEDS: HYDROcodone/Acetaminophen 10/325 mg Tablet PO SCH ×3 (06:10→20:11)
[2018-08-16] MEDS: clonazePAM 0.5 MG TAB PO SCH ×3 (06:10→18:35)
[2018-08-16] MEDS: Gabapentin 300 MG CAP PO SCH ×3 (06:10→18:35)
[2018-08-16] MEDS: Enoxaparin Sodium 40 MG/0.4 ML SYRINGE SC SCH (08:46)
--- NOTE | 2018-08-16 09:27 | PDOC.PN ---
- Subjective Encounter Start Date: 08/16/18 Encounter Start Time: 09:24 Subjective: chronic pain controlled. no fever, chills - Objective Resuscitation Status - Order Detail: 08/08/18 17:56 Resuscitation Status Routine Co-Sign Provider: Resuscitation Status: FULL: Full Resuscitation Discussed with: Patient Additional comments: Mother is surrogate decison makerFlorecita MAR Reviewed: Yes Vital Signs & Weight: Vital Signs (12 hours) Temp Pulse Resp BP Pulse Ox 08/16/18 08:42 97 08/16/18 07:10 97.4 F L 83 18 124/76 97 Weight Admit Weight 208 lb 12.8 oz Weight 208 lb 12.8 oz I&O: 08/15/18 08/16/18 08/17/18 06:59 06:59 06:59 Intake Total 1482 1484 Output Total 1100 1600 Balance 382 -116 Result Diagrams: 08/15/18 08:43 08/15/18 08:43 Phys Exam - Physical Examination Neck: no JVD Respiratory: clear to auscultation bilateral Cardiovascular: RRR, no significant murmur Gastrointestinal: soft, positive bowel sounds Dx/Plan (1) UTI (urinary tract infection) due to urinary indwelling catheter Code(s): T83.51XA - ; N39.0 - URINARY TRACT INFECTION, SITE NOT SPECIFIED Status: Acute (2) Chronic hepatitis C Code(s): B18.2 - CHRONIC VIRAL HEPATITIS C Status: Chronic Qualifiers: Comment: (3) Chronic pain syndrome Code(s): G89.4 - CHRONIC PAIN SYNDROME Status: Chronic Comment: (4) HTN (hypertension) Code(s): I10 - ESSENTIAL (PRIMARY) HYPERTENSION Status: Chronic Qualifiers: Comment: (5) Neurogenic bladder Code(s): N31.9 - NEUROMUSCULAR DYSFUNCTION OF BLADDER, UNSPECIFIED Status: Chronic Comment: Intermittent bladder catheterizations (6) Paraplegia following spinal cord injury Code(s): G82.20 - PARAPLEGIA, UNSPECIFIED Status: Chronic (7) Bladder mass Code(s): N32.89 - OTHER SPECIFIED DISORDERS OF BLADDER Status: Acute - Plan consult for bladder mass -: cont antibx, etc * .
--- NOTE | 2018-08-16 11:52 | CT ---
FCT ABDOMEN AND PELVIS WITH AND WITHOUT IV CONTRAST: HISTORY: Bladder mass. Abnormal sonogram. COMPARISON: 08/08/2018. FINDINGS: The 0.1 cm calcification within a nondilated calyx at the inferior pole of the right kidney is stable . Left kidney is surgically absent. Right renal collecting system, ureter, and urinary bladder are de compressed. No filling defects are apparent on the delayed images. Penile prosthesis is in place. Radiopaque bulb effaces the right anterior aspect of the bladder dome. Radiopaque tubing lies anterior and to the left of the urinary bladder. It extends to an irregular-s haped, somewhat cylindrical radiopaque object immediately inferior and posterior to the bladder base. It measures 2.1 cm length by 1.9 cm diameter and accounts for the abnormality on recent sonogram. Postoperative changes of the lumbar spine and retroperitoneum. Prominent rightward convex curvature o f the lumbar spine and degenerative changes. Extensive postoperative changes of the right hip with small amount of residual fluid. Left hip joint fluid, prominent joint capsule thickening, destructive changes of the posterior aspect of the proxima l left femur, and lateral subluxation are similar in appearance to the previous exam. IMPRESSION: 1. Small hardware component of the penile prosthesis accounts for the area of concern adjacent to t he bladder base on recent sonogram. No bladder mucosal masses are apparent. 2. Tiny nonobstructing right renal calculus, stable. 3. Status post left nephrectomy. 4. Stable CT appearance of the left hip chronic abnormalities and joint fluid with thickening of the synovium. Transcribed Date/Time: 08/16/2018 12:07 PM
[2018-08-16] MEDS ORDERED: ISOVUE-370 76%-LOCM 1 ML ONE (14:43)
[2018-08-16] MEDS: cefTRIAXone\\ROCEPHIN 2 GM in Sodium Chloride 0.9% 100 ML IVPB SCH (16:18)
[2018-08-16] MEDS: Sodium Chloride 0.9% 1,000 ML IV SCH (16:57)
[2018-08-17] MEDS: Promethazine HCl 25 MG in Sodium Chloride 0.9% 50 ML IVPB PRN ×3 (01:23→18:33)
[2018-08-17] MEDS: Morphine 4 MG/ML VIAL SLOW IVP PRN ×3 (02:12→17:23)
[2018-08-17] MEDS: Gabapentin 300 MG CAP PO SCH ×3 (06:19→18:31)
[2018-08-17] MEDS: HYDROcodone/Acetaminophen 10/325 mg Tablet PO SCH ×3 (06:19→20:21)
[2018-08-17] MEDS: Baclofen 10 MG TAB PO SCH ×3 (06:19→18:31)
[2018-08-17] MEDS: clonazePAM 0.5 MG TAB PO SCH ×3 (06:19→18:31)
[2018-08-17] MEDS: Enoxaparin Sodium 40 MG/0.4 ML SYRINGE SC SCH (08:44)
[2018-08-17] MEDS: Sodium Chloride 0.9% 1,000 ML IV SCH ×2 (08:57→15:23)
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
[2018-08-17] MEDS: cefTRIAXone\\ROCEPHIN 2 GM in Sodium Chloride 0.9% 100 ML IVPB SCH (17:19)
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
[2018-08-18] MEDS: Morphine 4 MG/ML VIAL SLOW IVP PRN (04:34)
[2018-08-18] MEDS: Promethazine HCl 25 MG in Sodium Chloride 0.9% 50 ML IVPB PRN (04:34)
[2018-08-18] MEDS: Gabapentin 300 MG CAP PO SCH ×2 (06:28→13:13)
[2018-08-18] MEDS: Baclofen 10 MG TAB PO SCH ×2 (06:28→13:12)
[2018-08-18] MEDS: clonazePAM 0.5 MG TAB PO SCH ×2 (06:29→13:13)
[2018-08-18] MEDS: HYDROcodone/Acetaminophen 10/325 mg Tablet PO SCH ×2 (06:29→13:12)
[2018-08-18] MEDS: Enoxaparin Sodium 40 MG/0.4 ML SYRINGE SC SCH (09:30)
--- NOTE | 2018-08-18 12:48 | DIS ---
DATE OF ADMISSION: 08/08/2018 DATE OF DISCHARGE: 08/18/2018 PRIMARY CARE PROVIDER: Arnold Navarro MD. DISPOSITION: Discharged back to [facility]. FINAL DIAGNOSES: Urinary tract infection with Enterobacter cloacae sensitive to cephalosporins, paraplegia, chronic kidney disease, neurogenic bladder, and chronic hepatitis C. DISCHARGE MEDICATIONS: 1. Klonopin 0.5 mg p.o. t.i.d. p.r.n. 2. [place] 10/325 one t.i.d. p.r.n. 3. Neurontin 300 mg p.o. t.i.d. 4. Baclofen 10 mg p.o. t.i.d. 5. Florastor 250 mg a day. 6. Rocephin [address] Edwards. contact him re duration of therapy.. ALLERGIES: CIPROFLOXACIN, LEVAQUIN, REGLAN, ZOFRAN, ZYVOX, AND LYRICA. DIET: As tolerated. CODE STATUS: Full. PENDING AT TIME OF DISCHARGE: Nothing. HOSPITAL COURSE: The patient with paraplegia and frequent UTIs, often resistant , was sent to [facility] from [place]. He had had some nausea and vomiting. He was on self cath. Urine culture at [place] grew enterobacter, sensitive to cephalosporins; however, prior to that being available, he was put on IV Rocephin at our facility. His initial white count was normal at 9.9, platelet count 168,000, hemoglobin 14.3, no left shift. Comprehensive metabolic profile revealed a chloride of 111, CO2 of 21, creatinine 0.62, bilirubin 1.3, AST 55, otherwise normal. The patient was put on vancomycin plus Rocephin. Once a culture was obtained, he was transitioned to Rocephin only. During his hospitalization, he had a renal ultrasound on 08/15/2018, which revealed a solitary right kidney without hydronephrosis and apparent mass in the inferior aspect of the bladder. A CT scan of the pelvis revealed hardware and a penile prosthesis. A urology consult was obtained. Dr. Waite recommended continuing present therapy, had no other comments. A consultation with Dr. Prakash Edwards, Infectious Disease, was also obtained. The patient has done well during his hospital stay. He is being transferred back to the [facility] for continued care. No procedures were done. The patient to be followed up by PCP in 1 week. Job ID: [id number] [facility]
[2018-08-18] MEDS: Sodium Chloride 0.9% 1,000 ML IV SCH (13:00)
[2018-08-18 14:50] VITALS: BP 150/61; TEMP 98.3
--- NOTE | 2018-08-19 05:19 | PQF ---
[employer] Operator Crystal Reports Winform Viewer VERO PEREZ, NELSON LAGOON C [id number] [facility] [id number] CLINICAL DOCUMENTATION CLARIFICATION FORM: POST DISCHARGE Addendum to original discharge summary date: ____ Late entry note date: __ DATE: 08/19/18 ATTN: Dr. Mchugh, [place] Please exercise your independent, professional judgment in responding to the clarification form. Clinical indicators are provided on the bottom of this form for your review Please check appropriate box(s) to clarify if the following diagnosis has been ruled in or ruled out: Can you please specify whether Sepsis is ruled in or ruled out during this encounter? Sepsis [ ] Ruled in diagnosis [ ] Continue to treat [ ] Resolved [ x ] Ruled out diagnosis [ ] Cannot rule out diagnosis [ ] Other diagnosis please specify [ ] Unable to determine For continuity of documentation, please document condition throughout progress notes and discharge summary. Thank You. CLINICAL INDICATORS - SIGNS / SYMPTOMS / LABS H and P pg.1 08/08 Dr. Susannah Whalen- Chief complaint: Urinary tract infection sign and symptoms H and P pg.1 08/08 Dr. Susannah Whalen- Multiple hospitalizations for UTI H and P pg.2 08/08 Dr. Susannah Whalen- Vital signs: BR 114/69, pulse 55, RR 18, Temperature 98.0 H and P pg.3 08/08 Dr. Susannah Whalen- Sepsis with urine source. Culture has been obtained Consult pg.3 08/09 Dr. Edwards - Paraplegia with neurogenic bladder, insufficient self catheterization frequency. Hospitalist PN pg.2 08/09 Dr. Hernandez- UTI due to urinary indwelling catheter DS pg.1 08/18 Dr. Mchugh- urinary tract infection with enterobacter cloace sensetive to cephalosporins DS 08/[address] Hernandez He required in and out catheter for a period of time and at this time, he was admitted for urinary infection. Please see Susannah Spencer H and P for further details. It was unclear wether this patient has colonization ort real infection. While Treated empirically with Zosyn and Dr. Edwards was also consulted PN 08/12 pg1/2 Dr. Edwards Assessment and Discussion:Paraplegia and recurring urinary tract infections and now this time actually not much fever, but just nausea, vomiting and general malaise, abnormal urinalysis and positive culture. We are assuming he has pyelonephritis again RISK FACTORS Paraplegia- H and P pg.1 08/08 Dr. Susannah Kennedy Urinary Tract infection-H and P pg.1 08/08 Dr. Susannah Kennedy Recurrent UTI associated with in and out catheterization-Consult pg.1 08/09 Dr. Edwards Chronic Hepatitis C- Hospitalist PN pg.2 08/09 Dr. Hernandez Chronic catheter- Hospitalist PN pg.2 08/09 Dr. Hernandez Obesity- Hospitalist PN pg.3 08/09 Dr. Hernandez TREATMENTS Infectious Consult- Dr Edwards Vancomycin 1.5gm IVPB- 08/08/18 Piperacillin (zosyn) 3.375gm IVPB Q6HR- 08/08/18 Ceftriaxone 2000mg IVPB Q24HR- 08/11/18 Abdomen/Pelvis CT 08/16/18 Renal Ultrasound 08/15/18 (This form is maintained as a part of the permanent medical record) 2014 [employer]. All Rights Reserved Alfredo [email or web address] [not provided] MTDD
== END 2018-08-18 14:00 | DRG 699 ==
LOC: ERS 16:33 → T4-B 17:26
PROVIDERS: ADMIT Internal Medicine; ATTEND Internal Medicine
DX: T83.511A Infection and inflammatory reaction due to indwelling urethral catheter, initial encounter (principal); G82.20 Paraplegia, unspecified; N39.0 Urinary tract infection, site not specified; B18.2 Chronic viral hepatitis C; G89.4 Chronic pain syndrome; B96.89 Other specified bacterial agents as the cause of diseases classified elsewhere; N31.9 Neuromuscular dysfunction of bladder, unspecified; N18.9 Chronic kidney disease, unspecified; I12.9 Hypertensive chronic kidney disease with stage 1 through stage 4 chronic kidney disease, or unspecified chronic kidney disease; M12.811 Other specific arthropathies, not elsewhere classified, right shoulder; N32.89 Other specified disorders of bladder; E66.9 Obesity, unspecified; Z16.19 Resistance to other specified beta lactam antibiotics; Z68.32 Body mass index [BMI] 32.0-32.9, adult; Z90.49 Acquired absence of other specified parts of digestive tract; Z79.899 Other long term (current) drug therapy; Z88.1 Allergy status to other antibiotic agents; Z88.8 Allergy status to other drugs, medicaments and biological substances; F17.210 Nicotine dependence, cigarettes, uncomplicated
CPT/HCPCS: 36415; 74178; 76770; 80053; 80202; 85025; 87040; 87086; 99284; J0696; J1642; J1650; J1885; J2270; J2543; J2550; J2765; J3370; J7050; Q9966

== ENCOUNTER 2018-10-04 14:21 | Inpatient (IN) | payer MEDICARE, MEDICAID ==
[2018-10-04] MEDS ORDERED: Promethazine HCl 25 MG/ML VIAL ONE ×2 (15:14→15:15)
[2018-10-04] MEDS ORDERED: Morphine 4 MG/ML VIAL ONE (15:14)
[2018-10-04] MEDS ORDERED: Senokot S 8.6-50 MG TAB PO PRN (15:39)
[2018-10-04] MEDS ORDERED: Guaifenesin DM 100-10/5 ML UDCUP PO PRN (15:39)
[2018-10-04] MEDS ORDERED: Bisacodyl 10 MG SUPP PR PRN (15:39)
[2018-10-04] MEDS ORDERED: Meropenem 1 GM in Sodium Chloride 0.9% 100 ML IVPB SCH (16:00)
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
--- NOTE | 2018-10-04 17:01 | CT ---
CT STONE PROTOCOL: Date: 10/04/18 HISTORY: Recurrent UTI. COMPARISON: 08/08/18 and 08/16/18. FINDINGS: Absence of oral and IV contrast reduces the sensitivity of exam, particularly for evaluation of solid organs and bowel. The lung bases are clear. No free air or free fluid is seen in the abdomen or pelvis. A punctate, nonobstructing right renal calculus is again seen. Patient is post left nephrectomy. Norm al appearing appendix is present. Scoliosis of thoracolumbar spine and chronic changes in the hip joints are again noted. Penile prosth esis with bulb adjacent to right side of bladder again seen. IMPRESSION: No evidence of acute process. POS: [facility]
[2018-10-04] MEDS: SODIUM CHLORIDE 0.9% IVPB SCH (18:06)
[2018-10-04] MEDS: MEROPENEM IVPB SCH (18:06)
[2018-10-04] MEDS: Sodium Chloride 0.9% 1,000 ML IV SCH (18:17)
[2018-10-04] MEDS: Gabapentin 300 MG CAP PO SCH (19:57)
[2018-10-04] MEDS: Famotidine 20 MG TAB PO SCH (19:57)
[2018-10-04] MEDS: Baclofen 10 MG TAB PO SCH (19:57)
[2018-10-04] MEDS: clonazePAM 0.5 MG TAB PO SCH (20:06)
[2018-10-04] MEDS ORDERED: Promethazine HCl 25 MG/ML VIAL IVPB PRN (20:27)
[2018-10-04] MEDS: Promethazine HCl 12.5 MG in Sodium Chloride 0.9% 50 ML IVPB PRN (21:21)
[2018-10-05] MEDS: Acetaminophen 325 MG TAB PO PRN ×2 (00:05→05:51)
[2018-10-05] MEDS: MEROPENEM 1 GM/50 ML 1 GM in Premix Bag 1 BAG IVPB SCH ×4 (00:05→23:15)
[2018-10-05] MEDS: MEROPENEM IVPB SCH (01:17)
[2018-10-05] MEDS: SODIUM CHLORIDE 0.9% IVPB SCH (01:17)
[2018-10-05] MEDS: Promethazine HCl 12.5 MG in Sodium Chloride 0.9% 50 ML IVPB PRN ×3 (05:52→19:52)
[2018-10-05 06:26] LABS: #Basophils 0.1 thou/uL (0.0-0.2); #Eosinphils 0.1 thou/uL (0.0-0.7); #Lymphocytes 2.4 thou/uL (1.20-3.40); #Monocytes 0.8 thou/uL (0.11-0.59); #Neutrophils 6.2 thou/uL (1.40-6.50); %Basophils 0.6 % (0.0-1.0); %Eosinophils 0.9 % (0.0-10.0); %Monocytes 8.4 % (0.0-10.0); %Neutrophils 65.1 % (42.0-75.0); Hemoglobin 13.8 g/dL (14.0-18.0); Mean Corpuscular HGB CONC 33.3 g/dL (32.0-36.0); Mean Corpuscular Hemoglobin 33.5 pg (27.0-31.0); Mean Platelet Volume 7.8 fL (7.4-10.4); Platelet Count 202 thou/uL (130-400); RBC Distribution Width 11.8 % (11.5-14.5); Red Blood Cell (RBC) Count 4.12 mill/uL (4.70-6.10); White Blood Cell (WBC) Count 9.5 thou/uL (4.8-10.8)
[2018-10-05 06:52] LABS: Anion Gap 14 mmol/L (10-20); BUN (Urea Nitrogen) 16 mg/dL (8.9-20.6); Calc. Creatinine Clearance 221 mL/min (70-130); Calcium 8.4 mg/dL (7.8-10.44); Carbon Dioxide 18 mmol/L (22-29); Chloride 110 mmol/L (98-107); Estimated GFR-MDRD Greater than 90; Glucose 73 mg/dL (70-105); Sodium 138 mmol/L (136-145)
[2018-10-05] MEDS ORDERED: MEROPENEM 1 GM/50 ML 1 GM in Premix Bag 1 BAG IVPB SCH (08:00)
[2018-10-05] MEDS: Saccharomyces boulardii 250 MG CAP PO SCH (08:14)
[2018-10-05] MEDS: Sodium Chloride 0.9% 1,000 ML IV SCH (08:14)
[2018-10-05] MEDS: clonazePAM 0.5 MG TAB PO SCH ×3 (08:15→20:47)
[2018-10-05] MEDS: Enoxaparin Sodium 40 MG/0.4 ML SYRINGE SC SCH (08:15)
[2018-10-05] MEDS: Gabapentin 300 MG CAP PO SCH ×3 (08:15→20:00)
[2018-10-05] MEDS: Famotidine 20 MG TAB PO SCH ×2 (08:15→20:00)
[2018-10-05] MEDS: Baclofen 10 MG TAB PO SCH ×3 (08:15→20:00)
--- NOTE | 2018-10-05 11:20 | PDOC.PN ---
- Subjective Encounter Start Date: 10/05/18 Encounter Start Time: 09:45 -: old records requested/rev Patient seen and examined. No new complaints. No overnight events - Objective Resuscitation Status - Order Detail: 10/04/18 15:31 Resuscitation Status Routine Resuscitation Status: FULL: Full Resuscitation Discussed with: POA: soraya Mrs.Lourdes Prateek PASTRANA Reviewed: Yes Vital Signs & Weight: Vital Signs (12 hours) Temp Pulse Resp BP Pulse Ox 10/05/18 08:00 96 10/05/18 07:28 98.3 F 84 18 123/70 96 10/05/18 04:00 99.2 F 85 20 120/77 97 10/05/18 02:35 100.7 F H 10/05/18 00:00 99.7 F H 95 20 145/89 H 97 Weight Weight 209 lb 15.845 oz I&O: 10/04/18 10/05/18 10/06/18 06:59 06:59 06:59 Intake Total 240 Balance 240 Result Diagrams: 10/05/18 05:34 10/05/18 05:34 Phys Exam - Physical Examination Constitutional: NAD HEENT: PERRLA, moist MMs, sclera anicteric Neck: no JVD, supple Respiratory: no wheezing, no rales, no rhonchi Cardiovascular: RRR, no significant murmur, no rub Gastrointestinal: soft, non-tender, no distention Musculoskeletal: no edema, pulses present paraplegia Lymphatic: no nodes Psychiatric: normal affect, A&O x 3 Skin: no rash, normal turgor Dx/Plan (1) UTI (urinary tract infection) due to urinary indwelling catheter Code(s): T83.51XA - ; N39.0 - URINARY TRACT INFECTION, SITE NOT SPECIFIED Status: Acute (2) Chronic hepatitis C Code(s): B18.2 - CHRONIC VIRAL HEPATITIS C Status: Chronic Qualifiers: Comment: (3) Chronic pain syndrome Code(s): G89.4 - CHRONIC PAIN SYNDROME Status: Chronic Comment: (4) HTN (hypertension) Code(s): I10 - ESSENTIAL (PRIMARY) HYPERTENSION Status: Chronic Qualifiers: Comment: (5) Neurogenic bladder Code(s): N31.9 - NEUROMUSCULAR DYSFUNCTION OF BLADDER, UNSPECIFIED Status: Chronic Comment: Intermittent bladder catheterizations (6) Obesity (BMI 30.0-34.9) Code(s): E66.9 - OBESITY, UNSPECIFIED Status: Chronic (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 - PARAPLEGIA, UNSPECIFIED Status: Chronic (8) Rotator cuff tear arthropathy of right shoulder Code(s): M12.811 - OTH SPECIFIC ARTHROPATHIES, NEC, RIGHT SHOULDER Status: Chronic - Plan cont current plan of care, continue antibiotics * continue meropenam * follow culture * medication reviewed as below * symptomatic treatment. Review of Systems - Review of Systems ENT: negative: Ear Pain, Ear Discharge, Nose Pain, Nose Discharge, Nose Congestion, Mouth Pain, Mouth Swelling, Throat Pain, Throat Swelling, Other Respiratory: negative: Cough, Dry, Shortness of Breath, Hemoptysis, SOB with Excertion, Pleuritic Pain, Sputum, Wheezing Cardiovascular: negative: chest pain, palpitations, orthopnea, paroxysmal nocturnal dyspnea, edema, light headedness, other Gastrointestinal: negative: Nausea, Vomiting, Abdominal Pain, Diarrhea, Constipation, Melena, Hematochezia, Other Genitourinary: negative: Dysuria, Frequency, Incontinence, Hematuria, Retention , Other Musculoskeletal: negative: Neck Pain, Shoulder Pain, Arm Pain, Back Pain, Hand Pain, Leg Pain, Foot Pain, Other - Medications/Allergies Allergies/Adverse Reactions: Allergies Allergy/AdvReac Type Severity Reaction Status Date / Time ciprofloxacin [From Cipro] Allergy Severe Anaphylaxis Verified 06/15/18 16:04 levofloxacin [From Levaquin] Allergy Severe Anaphylaxis Verified 04/20/18 06:28 metoclopramide HCl Allergy Severe Anaphylaxis Verified 08/13/18 20:28 [From Reglan] ondansetron HCl Allergy Severe Short of Verified 04/20/18 06:28 [From Zofran (as Breath hydrochloride)] adhesive tape Allergy Intermediate Rash Verified 10/04/18 18:07 fluconazole Allergy Rash Verified 04/20/18 06:28 linezolid [From Zyvox] Allergy Verified 04/20/18 06:28 pregabalin [From Lyrica] Allergy Verified 04/20/18 06:28 Medications: Current Medications Acetaminophen (Tylenol) 650 mg PO Q4H PRN PRN Reason: Headache/Fever/Mild Pain (1-3) Last Admin: 10/05/18 05:51 Dose: 650 mg Hydrocodone Bitart/Acetaminophen ([place] 10/325) 1 tab PO TID PRN PRN Reason: Pain Baclofen (Lioresal) 10 mg PO TID [facility] Last Admin: 10/05/18 08:15 Dose: 10 mg Bisacodyl (Dulcolax) 10 mg [place] DAILYPRN PRN PRN Reason: Constipation Clonazepam (Klonopin) 0.5 mg PO TID [facility] Last Admin: 10/05/18 08:15 Dose: 0.5 mg Enoxaparin Sodium (Lovenox) 40 mg SC 0900 [facility] Last Admin: 10/05/18 08:15 Dose: 40 mg Famotidine (Pepcid) 20 mg PO BID [facility] Last Admin: 10/05/18 08:15 Dose: 20 mg Gabapentin (Neurontin) 300 mg PO TID [facility] Last Admin: 10/05/18 08:15 Dose: 300 mg Guaifenesin/Dextromethorphan (Robitussin Dm) 15 ml PO Q4H PRN PRN Reason: Cough Sodium Chloride (Normal Saline 0.9%) 1,000 mls @ 80 mls/hr IV .[id number] [facility] Stop: 10/05/18 16:44 Last Admin: 10/05/18 08:14 Dose: 1,000 mls Promethazine HCl 12.5 mg/ (Sodium Chloride) 50.5 mls @ 202 mls/hr IVPB Q6H PRN PRN Reason: Nausea/Vomiting Last Admin: 10/05/18 05:52 Dose: 50.5 mls Meropenem 1 gm/ Device 50 mls @ 200 mls/hr IVPB 0000,0800,1600 [facility] Last Admin: 10/05/18 08:12 Dose: 50 mls Morphine Sulfate (Morphine) 2 mg SLOW IVP Q4H PRN PRN Reason: Chest Pain/BP Elevations Saccharomyces Boulardii (Florastor) 250 mg PO DAILY [facility] Last Admin: 10/05/18 08:14 Dose: 250 mg Senna/Docusate Sodium (Senokot S) 2 tab PO BID PRN PRN Reason: Constipation
[2018-10-05] MEDS: HYDROcodone/Acetaminophen 10/325 mg Tablet PO PRN (13:39)
[2018-10-05] MEDS: Morphine 2 MG/ML SYRINGE SLOW IVP PRN ×2 (15:26→19:51)
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
[2018-10-06] MEDS: Morphine 2 MG/ML SYRINGE SLOW IVP PRN ×5 (00:18→21:09)
[2018-10-06] MEDS: Promethazine HCl 12.5 MG in Sodium Chloride 0.9% 50 ML IVPB PRN ×3 (02:21→16:54)
[2018-10-06] MEDS: MEROPENEM 1 GM/50 ML 1 GM in Premix Bag 1 BAG IVPB SCH ×2 (08:25→16:55)
[2018-10-06] MEDS: Gabapentin 300 MG CAP PO SCH ×3 (08:26→21:06)
[2018-10-06] MEDS: Saccharomyces boulardii 250 MG CAP PO SCH (08:26)
[2018-10-06] MEDS: Famotidine 20 MG TAB PO SCH ×2 (08:26→21:06)
[2018-10-06] MEDS: Enoxaparin Sodium 40 MG/0.4 ML SYRINGE SC SCH (08:26)
[2018-10-06] MEDS: Baclofen 10 MG TAB PO SCH ×3 (08:26→21:06)
[2018-10-06] MEDS: clonazePAM 0.5 MG TAB PO SCH ×3 (08:26→21:06)
[2018-10-06] MEDS: Acetaminophen 325 MG TAB PO PRN (08:49)
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
--- NOTE | 2018-10-06 17:22 | PRG ---
DATE OF SERVICE: 10/06/2018 SUBJECTIVE: Still not feeling very well, still with flank pain in right side, less diaphoretic than before. No headaches. No respiratory symptoms. Self-intermittent catheterization. OBJECTIVE: VITAL SIGNS: T-max 100, blood pressure 120/76, pulse 94, and respirations 18. HEENT: Ocular movements are conjugate. Sclerae are white. Pupils are equal. Oral cavity is moist. GENERAL: He is oriented, follows commands, and pleasant. LUNGS: Symmetric. Clear breath sounds. Port accessed without any inflammatory changes. ABDOMEN: With right flank tenderness, which is moderate to marked. No bladder distention. EXTREMITIES: Paraplegia as noted before. LABORATORY DATA: White cell count 9.5, hemoglobin 13.8, and platelets 202 with normal differential. Sodium 138 and creatinine 0.61. Microbiology with Enterobacter cloacae, which is the same organism he had in July and has not been eradicated despite of the previous protracted treatment. He had some enterococcus as well. ASSESSMENT AND DISCUSSION: Paraplegia with recurrent pyelonephritis. This last one was treated with Rocephin and Enterobacter is notorious for failing cephalosporin treatment, and we will continue with meropenem and continue treatment for probably 6 weeks at the [facility]. The CT of the abdomen did not show any evidence of surgical complications or complications that would require surgical intervention. Job ID: [id number]
[2018-10-07] MEDS: MEROPENEM 1 GM/50 ML 1 GM in Premix Bag 1 BAG IVPB SCH ×3 (00:16→16:58)
[2018-10-07] MEDS: Promethazine HCl 12.5 MG in Sodium Chloride 0.9% 50 ML IVPB PRN ×4 (00:19→23:41)
[2018-10-07] MEDS: Morphine 2 MG/ML SYRINGE SLOW IVP PRN ×4 (02:35→20:59)
[2018-10-07] MEDS: HYDROcodone/Acetaminophen 10/325 mg Tablet PO PRN (06:44)
[2018-10-07] MEDS: clonazePAM 0.5 MG TAB PO SCH ×3 (07:49→20:24)
[2018-10-07] MEDS: Saccharomyces boulardii 250 MG CAP PO SCH (07:50)
[2018-10-07] MEDS: Baclofen 10 MG TAB PO SCH ×3 (07:50→20:23)
[2018-10-07] MEDS: Enoxaparin Sodium 40 MG/0.4 ML SYRINGE SC SCH (07:50)
[2018-10-07] MEDS: Gabapentin 300 MG CAP PO SCH ×3 (07:50→20:23)
[2018-10-07] MEDS: Famotidine 20 MG TAB PO SCH ×2 (07:58→20:24)
--- NOTE | 2018-10-07 11:21 | PDOC.PN ---
- Subjective Encounter Start Date: 10/07/18 Encounter Start Time: 09:15 -: old records requested/rev Patient seen and examined. No new complaints. No overnight events - Objective Resuscitation Status - Order Detail: 10/04/18 15:31 Resuscitation Status Routine Resuscitation Status: FULL: Full Resuscitation Discussed with: POA: soraya Mrs.Lourdes Prateek PASTRANA Reviewed: Yes Vital Signs & Weight: Vital Signs (12 hours) Temp Pulse Resp BP Pulse Ox 10/07/18 08:11 97 10/07/18 07:40 99.1 F 92 18 144/87 H 91 L 10/07/18 03:25 99.3 F 94 20 158/99 H 96 10/07/18 00:00 98.5 F Weight Weight 158 lb 6.4 oz I&O: 10/06/18 10/07/18 10/08/18 06:59 06:59 06:59 Intake Total 1660 750 Output Total 1125 1675 Balance 535 -925 Result Diagrams: 10/05/18 05:34 10/05/18 05:34 Phys Exam - Physical Examination Constitutional: NAD HEENT: PERRLA, moist MMs, sclera anicteric Neck: no JVD, supple Respiratory: no wheezing, no rales, no rhonchi Cardiovascular: RRR, no significant murmur, no rub Gastrointestinal: soft, non-tender, no distention, positive bowel sounds Musculoskeletal: no edema, pulses present Lymphatic: no nodes Psychiatric: normal affect, A&O x 3 Skin: no rash, normal turgor Dx/Plan (1) UTI (urinary tract infection) due to urinary indwelling catheter Code(s): T83.51XA - ; N39.0 - URINARY TRACT INFECTION, SITE NOT SPECIFIED Status: Acute Comment: pt has neurogenic bladder and he requires self intermittent catheterization, has recurrent UTI due to SIC (2) Chronic hepatitis C Code(s): B18.2 - CHRONIC VIRAL HEPATITIS C Status: Chronic Qualifiers: Comment: (3) Chronic pain syndrome Code(s): G89.4 - CHRONIC PAIN SYNDROME Status: Chronic Comment: (4) HTN (hypertension) Code(s): I10 - ESSENTIAL (PRIMARY) HYPERTENSION Status: Chronic Qualifiers: Comment: (5) Neurogenic bladder Code(s): N31.9 - NEUROMUSCULAR DYSFUNCTION OF BLADDER, UNSPECIFIED Status: Chronic Comment: Intermittent bladder catheterizations (6) Obesity (BMI 30.0-34.9) Code(s): E66.9 - OBESITY, UNSPECIFIED Status: Chronic (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 - PARAPLEGIA, UNSPECIFIED Status: Chronic (8) Rotator cuff tear arthropathy of right shoulder Code(s): M12.811 - OTH SPECIFIC ARTHROPATHIES, NEC, RIGHT SHOULDER Status: Chronic - Plan cont current plan of care, continue antibiotics, 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 Review of Systems - Review of Systems ENT: negative: Ear Pain, Ear Discharge, Nose Pain, Nose Discharge, Nose Congestion, Mouth Pain, Mouth Swelling, Throat Pain, Throat Swelling, Other Respiratory: negative: Cough, Dry, Shortness of Breath, Hemoptysis, SOB with Excertion, Pleuritic Pain, Sputum, Wheezing Cardiovascular: negative: chest pain, palpitations, orthopnea, paroxysmal nocturnal dyspnea, edema, light headedness, other Gastrointestinal: negative: Nausea, Vomiting, Abdominal Pain, Diarrhea, Constipation, Melena, Hematochezia, Other Genitourinary: negative: Dysuria, Frequency, Incontinence, Hematuria, Retention , Other Musculoskeletal: negative: Neck Pain, Shoulder Pain, Arm Pain, Back Pain, Hand Pain, Leg Pain, Foot Pain, Other - Medications/Allergies Allergies/Adverse Reactions: Allergies Allergy/AdvReac Type Severity Reaction Status Date / Time ciprofloxacin [From Cipro] Allergy Severe Anaphylaxis Verified 06/15/18 16:04 levofloxacin [From Levaquin] Allergy Severe Anaphylaxis Verified 04/20/18 06:28 metoclopramide HCl Allergy Severe Anaphylaxis Verified 08/13/18 20:28 [From Reglan] ondansetron HCl Allergy Severe Short of Verified 04/20/18 06:28 [From Zofran (as Breath hydrochloride)] adhesive tape Allergy Intermediate Rash Verified 10/04/18 18:07 fluconazole Allergy Rash Verified 04/20/18 06:28 linezolid [From Zyvox] Allergy Verified 04/20/18 06:28 pregabalin [From Lyrica] Allergy Verified 04/20/18 06:28 Medications: Current Medications Acetaminophen (Tylenol) 650 mg PO Q4H PRN PRN Reason: Headache/Fever/Mild Pain (1-3) Last Admin: 10/06/18 08:49 Dose: 650 mg Hydrocodone Bitart/Acetaminophen ([place]ascade 10/325) 1 tab PO TID PRN PRN Reason: Pain Last Admin: 10/07/18 06:44 Dose: 1 tab Baclofen (Lioresal) 10 mg PO TID [facility] Last Admin: 10/07/18 07:50 Dose: 10 mg Bisacodyl (Dulcolax) 10 mg NE DAILYPRN PRN PRN Reason: Constipation Clonazepam (Klonopin) 0.5 mg PO TID [facility] Last Admin: 10/07/18 07:49 Dose: 0.5 mg Enoxaparin Sodium (Lovenox) 40 mg SC 0900 [facility] Last Admin: 10/07/18 07:50 Dose: 40 mg Famotidine (Pepcid) 20 mg PO BID [facility] Last Admin: 10/07/18 07:58 Dose: 20 mg Gabapentin (Neurontin) 300 mg PO TID [facility] Last Admin: 10/07/18 07:50 Dose: 300 mg Guaifenesin/Dextromethorphan (Robitussin Dm) 15 ml PO Q4H PRN PRN Reason: Cough Promethazine HCl 12.5 mg/ (Sodium Chloride) 50.5 mls @ 202 mls/hr IVPB Q6H PRN PRN Reason: Nausea/Vomiting Last Admin: 10/07/18 08:42 Dose: 50.5 mls Meropenem 1 gm/ Device 50 mls @ 200 mls/hr IVPB 0000,0800,1600 [facility] Last Admin: 10/07/18 08:43 Dose: 50 mls Morphine Sulfate (Morphine) 2 mg SLOW IVP Q4H PRN PRN Reason: Chest Pain/BP Elevations Last Admin: 10/07/18 07:58 Dose: 2 mg Saccharomyces Boulardii (Florastor) 250 mg PO DAILY [facility] Last Admin: 10/07/18 07:50 Dose: 250 mg Senna/Docusate Sodium (Senokot S) 2 tab PO BID PRN PRN Reason: Constipation Sodium Chloride (Flush - Normal Saline) 10 ml IVF Q12HR [facility] Last Admin: 10/07/18 07:58 Dose: 10 ml Sodium Chloride (Flush - Normal Saline) 10 ml IVF PRN PRN PRN Reason: Saline Flush
[2018-10-08] MEDS: MEROPENEM 1 GM/50 ML 1 GM in Premix Bag 1 BAG IVPB SCH ×2 (00:11→10:13)
[2018-10-08] MEDS: Morphine 2 MG/ML SYRINGE SLOW IVP PRN ×3 (03:19→12:05)
[2018-10-08] MEDS: Famotidine 20 MG TAB PO SCH (08:34)
[2018-10-08] MEDS: Baclofen 10 MG TAB PO SCH ×2 (08:35→14:02)
[2018-10-08] MEDS: Enoxaparin Sodium 40 MG/0.4 ML SYRINGE SC SCH (08:35)
[2018-10-08] MEDS: clonazePAM 0.5 MG TAB PO SCH ×2 (08:35→14:02)
[2018-10-08] MEDS: Gabapentin 300 MG CAP PO SCH ×2 (08:35→14:02)
[2018-10-08] MEDS: Saccharomyces boulardii 250 MG CAP PO SCH (08:35)
[2018-10-08] MEDS: Promethazine HCl 12.5 MG in Sodium Chloride 0.9% 50 ML IVPB PRN (10:13)
--- NOTE | 2018-10-08 13:49 | PDOC.EVN ---
Event Note - Event Note Event Note: DC SUMMARY #[id number]
[2018-10-08 14:07] VITALS: BP 116/69; TEMP 98.6
--- NOTE | 2018-10-09 04:47 | DIS ---
DATE OF ADMISSION: 10/04/2018 DATE OF DISCHARGE: 10/08/2018 ADMITTING DIAGNOSES: 1. Recurrent urinary tract infections. 2. Paraplegic. 3. Chronic pain syndrome. 4. Anxiety issues. DISCHARGE DIAGNOSES: 1. Recurrent urinary tract infections, stable. 2. Paraplegia, stable. 3. Chronic pain syndrome, stable. HOSPITAL COURSE: This is a 38-year-old male admitted to Internal Medicine Team for recurrent UTIs. The patient was admitted to the IM team, also seen by the Infectious Disease specialist. After evaluation and monitoring for about 4 days in the hospital, made a decision that as the patient continued to have recurrent infections, the antibiotic therapy was switched to Merrem. The patient was on Rocephin and had completed a 28 day course. However, this appeared to have failed as the patient was still having issues for recurrence of infection. The patient was started on Merrem to be continued for 6 weeks. IV arrangements were made. The patient was set up with a bed at [facility] and was to be discharged. Upon time of discharge, the patient had no complaints, stated that he felt like he was back to his baseline. No nausea, vomiting, diarrhea, constipation, chest pain, fevers, chills, or shortness of breath. CONDITION: Stable. DISPOSITION: [facility]. MEDICATIONS: See JUL. ACTIVITY: As tolerated with assistance as needed. DIET: Low-fat, low-calorie, high-fiber diet. CONDITION: Stable. PROGNOSIS: Guarded. Once again, case and plan discussed with the patient at length. He understood and agreed with this plan. Job ID: [id number]
== END 2018-10-08 14:59 | disposition swing bed (61) | DRG 699 ==
LOC: ERS 14:21 → T4-B 14:51
PROVIDERS: ADMIT Internal Medicine; ATTEND Internal Medicine
DX: T83.511A Infection and inflammatory reaction due to indwelling urethral catheter, initial encounter (principal); G82.20 Paraplegia, unspecified; N12 Tubulo-interstitial nephritis, not specified as acute or chronic; F32.9 Major depressive disorder, single episode, unspecified; F41.9 Anxiety disorder, unspecified; B18.2 Chronic viral hepatitis C; G40.909 Epilepsy, unspecified, not intractable, without status epilepticus; F17.210 Nicotine dependence, cigarettes, uncomplicated; G89.4 Chronic pain syndrome; I10 Essential (primary) hypertension; N31.9 Neuromuscular dysfunction of bladder, unspecified; E66.9 Obesity, unspecified; M12.811 Other specific arthropathies, not elsewhere classified, right shoulder; Z90.49 Acquired absence of other specified parts of digestive tract; Z88.1 Allergy status to other antibiotic agents; Z88.8 Allergy status to other drugs, medicaments and biological substances; Z79.899 Other long term (current) drug therapy; Z68.30 Body mass index [BMI] 30.0-30.9, adult
CPT/HCPCS: 36415; 74176; 80048; 85025; 87086; 96365; 96375; J1650; J2185; J2270; J2550; J3490; J7050

== ENCOUNTER 2018-12-06 01:34 | Emergency (ER) | payer MEDICAID, MEDICARE ==
--- NOTE | 2018-12-06 06:41 | ULT ---
ULTRASOUND WITH DOPPLER DUPLEX VENOUS LOWER EXTREMITY LEFT: CPT: 28016 ICD-10-PCS: B54D INDICATION: Edema. TECHNIQUE: Color flow Doppler, spectral waveform analysis of pulsed Doppler, and gabriel-scale imaging with luis alberto jossie and augmentation, were used to evaluate the left common femoral, femoral, popliteal, posterior t ibial, and superficial femoral, veins; and the proximal portions of the profunda femoral and greater saphenous, veins. FINDINGS: There is appropriate compressibility and flow within the imaged deep vein system of the left lower ex tremity without evidence of thrombus. IMPRESSION: No deep venous thrombosis. POS: BRAD
== END 2018-12-06 04:24 | disposition home or self-care (01) ==
LOC: ERS 01:34
DX: N39.0 Urinary tract infection, site not specified (principal); E66.9 Obesity, unspecified; F41.9 Anxiety disorder, unspecified; F32.9 Major depressive disorder, single episode, unspecified; F17.210 Nicotine dependence, cigarettes, uncomplicated; Z79.84 Long term (current) use of oral hypoglycemic drugs; Z79.891 Long term (current) use of opiate analgesic; Z79.899 Other long term (current) drug therapy

== ENCOUNTER 2019-02-13 22:25 | Inpatient (IN) | payer MEDICARE, MEDICAID ==
[2019-02-14] MEDS ORDERED: Sodium Chloride 0.9% 1,000 ML IV SCH (00:22)
[2019-02-14] MEDS ORDERED: Acetaminophen 325 MG TAB PO PRN (00:22)
[2019-02-14 00:38] VITALS: BMI 34.5
[2019-02-14] MEDS: Sodium Chloride 0.9% 1,000 ML IV SCH ×2 (00:55→15:31)
[2019-02-14] MEDS: MEROPENEM 1 GM/50 ML 1 GM in Premix Bag 1 BAG IVPB SCH ×3 (05:41→21:04)
[2019-02-14] MEDS ORDERED: Prevnar 13-Val Conj/PF 0.5 ML SYRINGE IM ONE (09:00)
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
[2019-02-14] MEDS ORDERED: MEROPENEM 1 GM/50 ML 1 GM in Premix Bag 1 BAG IVPB SCH (10:00)
[2019-02-14] MEDS: HYDROcodone/Acetaminophen 10/325 mg Tablet PO PRN ×3 (10:06→21:05)
[2019-02-14] MEDS: Gabapentin 300 MG CAP PO SCH ×3 (10:06→20:12)
[2019-02-14] MEDS: clonazePAM 0.5 MG TAB PO SCH ×3 (10:06→20:12)
[2019-02-14] MEDS: Baclofen 10 MG TAB PO SCH ×3 (10:06→20:12)
[2019-02-15] MEDS: MEROPENEM 1 GM/50 ML 1 GM in Premix Bag 1 BAG IVPB SCH ×3 (05:33→21:45)
[2019-02-15] MEDS: clonazePAM 0.5 MG TAB PO SCH ×3 (08:14→21:43)
[2019-02-15] MEDS: Baclofen 10 MG TAB PO SCH ×3 (08:14→21:43)
[2019-02-15] MEDS: Gabapentin 300 MG CAP PO SCH ×3 (08:14→21:43)
[2019-02-15] MEDS: HYDROcodone/Acetaminophen 10/325 mg Tablet PO PRN ×3 (08:14→21:43)
[2019-02-15] MEDS: Sodium Chloride 0.9% 1,000 ML IV SCH (10:42)
--- NOTE | 2019-02-15 11:10 | PDOC.HOSPP ---
- Subjective Encounter Date: 02/15/19 Encounter Time: 11:08 Subjective: CO nausea, flank pain, fever, chills - Objective Vital Signs & Weight: Vital Signs (12 hours) Temp Pulse Resp BP BP Pulse Ox 02/15/19 08:16 93 L 02/15/19 07:18 98.4 F 83 16 136/83 93 L 02/15/19 01:30 98.7 F 78 16 130/78 97 Weight Weight 220 lb 12.8 oz I&O: 02/14/19 02/15/19 02/16/19 06:59 06:59 06:59 Intake Total 1820 Output Total 2820 Balance -1000 Hospitalist ROS - Medication Medications: Active Medications Generic Name Dose Route Start Last Admin Trade Name Freq PRN Reason Stop Dose Admin Hydrocodone Bitart/Acetaminophen 1 tab 02/14/19 08:38 02/15/19 08:14 [place] 10/325 PO 1 tab TID PRN Administration Pain Baclofen 10 mg 02/14/19 09:00 02/15/19 08:14 Lioresal PO 10 mg TID IRAIS Administration Clonazepam 0.5 mg 02/14/19 09:00 02/15/19 08:14 Klonopin PO 0.5 mg TID IRAIS Administration Gabapentin 300 mg 02/14/19 09:00 02/15/19 08:14 Neurontin PO 300 mg TID IRAIS Administration Meropenem 1 gm/ Device 50 mls @ 100 mls/hr 02/14/19 06:00 02/15/19 05:33 IVPB 50 mls Q8HR IRAIS Administration Sodium Chloride 1,000 mls @ 50 mls/hr 02/14/19 00:30 02/15/19 10:42 Normal Saline 0.9% IV 1,000 mls .Q20H IRAIS Administration Prochlorperazine Edisylate 5 51 mls @ 150 mls/hr 02/14/19 00:49 02/15/19 10: 41 mg/ Sodium Chloride IVPB 51 mls Q6HR PRN Administration Nausea/Vomiting - Exam General Appearance: awake alert Neck: no JVD Heart: RRR, no murmur Respiratory: CTAB Gastrointestinal: soft, normal bowel sounds Extremities: 2+ LE edema Hosp A/P (1) UTI (urinary tract infection) due to urinary indwelling catheter Code(s): T83.51XA - ; N39.0 - URINARY TRACT INFECTION, SITE NOT SPECIFIED Status: Acute (2) Chronic hepatitis C Code(s): B18.2 - CHRONIC VIRAL HEPATITIS C Status: Chronic Qualifiers: (3) Chronic pain syndrome Code(s): G89.4 - CHRONIC PAIN SYNDROME Status: Chronic (4) HTN (hypertension) Code(s): I10 - ESSENTIAL (PRIMARY) HYPERTENSION Status: Chronic Qualifiers: (5) Neurogenic bladder Code(s): N31.9 - NEUROMUSCULAR DYSFUNCTION OF BLADDER, UNSPECIFIED Status: Chronic (6) Paraplegia following spinal cord injury Code(s): G82.20 - PARAPLEGIA, UNSPECIFIED Status: Chronic - Plan despite CO fever- VS Nl unfortunately, no urine C&S done when in ED, on antibx, will order wants phergan in place of compazine
[2019-02-15] MEDS: Promethazine HCl 12.5 MG in Sodium Chloride 0.9% 50 ML IVPB PRN ×2 (13:25→19:48)
[2019-02-16] MEDS: Promethazine HCl 12.5 MG in Sodium Chloride 0.9% 50 ML IVPB PRN ×3 (02:05→16:37)
[2019-02-16] MEDS: MEROPENEM 1 GM/50 ML 1 GM in Premix Bag 1 BAG IVPB SCH ×2 (05:53→14:04)
[2019-02-16] MEDS: HYDROcodone/Acetaminophen 10/325 mg Tablet PO PRN ×2 (09:05→14:12)
[2019-02-16] MEDS: clonazePAM 0.5 MG TAB PO SCH ×2 (09:05→14:12)
[2019-02-16] MEDS: Gabapentin 300 MG CAP PO SCH ×2 (09:05→14:13)
[2019-02-16] MEDS: Baclofen 10 MG TAB PO SCH ×2 (09:05→14:12)
--- NOTE | 2019-02-16 11:04 | DIS ---
DATE OF ADMISSION: 02/13/2019 DATE OF DISCHARGE: 02/16/2019 PRIMARY CARE PROVIDER: Arnold Navarro MD. DISPOSITION: Discharged home. FINAL DIAGNOSES: 1. Urinary tract infection. 2. Paraplegia. 3. Neuromuscular dysfunctional bladder. 4. Chronic pain syndrome. DISCHARGE MEDICATIONS: 1. Cefdinir 300 mg p.o. b.i.d. x10 days plus his chronic medicines. 2. Baclofen 10 mg p.o. b.i.d. 3. [place] 10/325 one p.o. t.i.d. p.r.n. 4. Gabapentin 300 mg t.i.d. 5. Klonopin 0.5 mg t.i.d. ALLERGIES: TO QUINOLONES, REGLAN, ZOFRAN, FLUCONAZOLE, ZYVOX, LYRICA. CODE STATUS: Full. PENDING AT TIME OF DISCHARGE: Nothing. DIET: As tolerated. HOSPITAL COURSE: The patient referred to the [facility] hospitalist Service from [place] for possible pyelonephritis. The patient complained of back pain and fever. The patient has been afebrile during his hospital stay. He was afebrile at the emergency room there. His laboratory revealed a normal white count without a left shift, 10.2. Chemistries were unremarkable. Urine suggested a UTI with pyuria, etc. Urine culture grew Proteus sensitive to cephalosporins and quinolones. He is allergic to quinolones. He has been treated in the hospital with meropenem because of previous resistant UTIs; however, since this is sensitive to cephalosporins, he is being discharged on oral cephalosporin, cefdinir 300 mg p.o. b.i.d. with followup by his PCP in 7 days. Job ID: [id number]
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
[2019-02-16] MEDS: Sodium Chloride 0.9% 1,000 ML IV SCH (14:08)
[2019-02-16 15:03] VITALS: BP 123/80; TEMP 98.4
== END 2019-02-16 20:48 | disposition home or self-care (01) | DRG 699 ==
LOC: T4-A 23:29
PROVIDERS: ADMIT Hospitalist; ATTEND Hospitalist
DX: T83.511A Infection and inflammatory reaction due to indwelling urethral catheter, initial encounter (principal); G82.20 Paraplegia, unspecified; Z16.19 Resistance to other specified beta lactam antibiotics; N39.0 Urinary tract infection, site not specified; Y84.6 Urinary catheterization as the cause of abnormal reaction of the patient, or of later complication, without mention of misadventure at the time of the procedure; B96.4 Proteus (mirabilis) (morganii) as the cause of diseases classified elsewhere; G89.4 Chronic pain syndrome; I10 Essential (primary) hypertension; N31.9 Neuromuscular dysfunction of bladder, unspecified; B18.2 Chronic viral hepatitis C; Z90.5 Acquired absence of kidney; Z90.81 Acquired absence of spleen; Z90.49 Acquired absence of other specified parts of digestive tract; Z88.1 Allergy status to other antibiotic agents; Z87.891 Personal history of nicotine dependence; S24.104S Unspecified injury at T11-T12 level of thoracic spinal cord, sequela
CPT/HCPCS: 87086; J0780; J1642; J2185; J2550

== ENCOUNTER 2019-05-18 18:44 | Inpatient (IN) | payer OTHER, MEDICARE, MEDICAID ==
[2019-05-18] MEDS ORDERED: Morphine 4 MG/ML VIAL ONE ×2 (19:47→20:55)
[2019-05-18] MEDS ORDERED: Promethazine HCl 25 MG/ML VIAL ONE (19:48)
[2019-05-18 20:02] LABS: #Eosinphils 0.1 thou/uL (0.0-0.7); #Lymphocytes 2.6 thou/uL (1.20-3.40); #Monocytes 0.6 thou/uL (0.11-0.59); %Basophils 0.5 % (0.0-1.0); %Eosinophils 1.1 % (0.0-10.0); %Lymphocytes 35.6 % (21.0-51.0); %Monocytes 8.2 % (0.0-10.0); %Neutrophils 54.6 % (42.0-75.0); Hemoglobin 14.2 g/dL (14.0-18.0); Mean Corpuscular HGB CONC 33.1 g/dL (32.0-36.0); Mean Corpuscular Hemoglobin 33.2 pg (27.0-31.0); Mean Platelet Volume 7.5 fL (7.4-10.4); Platelet Count 188 thou/uL (130-400); RBC Distribution Width 12.5 % (11.5-14.5); Red Blood Cell (RBC) Count 4.29 mill/uL (4.70-6.10); White Blood Cell (WBC) Count 7.3 thou/uL (4.8-10.8)
[2019-05-18 20:13] LABS: Bilirubin Negative (Negative); Blood, Urine 1+ (Negative); Clarity Turbid (Clear); Glucose, Urine (Dipstick) Normal (Negative); Leukocyte 500 Leu/uL (Negative); Nitrite Negative (Negative); Protein, Urine (Dipstick) 50 mg/dL (Neg-Trace); Squamous Epithelial 0-3 HPF (0-3); WBC/HPF Greater than 50 HPF (0-3)
[2019-05-18 20:14] LABS: Bacteria/HPF 1+ HPF (None Seen)
[2019-05-18 20:21] LABS: ALT (SGPT) 45 U/L (8-55); AST (SGOT) 61 U/L (5-34); Albumin 3.1 g/dL (3.5-5.0); Alkaline Phosphatase 105 U/L (40-110); Anion Gap 11 mmol/L (10-20); BUN (Urea Nitrogen) 12 mg/dL (8.9-20.6); Bilirubin, Total 1.1 mg/dL (0.2-1.2); Calc. Creatinine Clearance 0 mL/min (70-130); Calcium 8.1 mg/dL (7.8-10.44); Carbon Dioxide 22 mmol/L (22-29); Chloride 110 mmol/L (98-107); Estimated GFR-MDRD Greater than 90; Globulin 4.1 g/dL (2.4-3.5); Glucose 108 mg/dL (70-105); Protein, Total 7.2 g/dL (6.0-8.3); Sodium 139 mmol/L (136-145)
[2019-05-18] MEDS ORDERED: cefTRIAXone\\ROCEPHIN 1 GM VIAL ONE (20:55)
[2019-05-18] MEDS ORDERED: Sodium Chloride 0.9% 1,000 ML IV SCH (22:26)
[2019-05-18 23:05] VITALS: BMI 34.9
[2019-05-19] MEDS ORDERED: Acetaminophen 325 MG TAB PO PRN (00:27)
[2019-05-19] MEDS ORDERED: Sodium Chloride 0.9% 1,000 ML IV SCH (00:32)
[2019-05-19] MEDS ORDERED: Baclofen 10 MG TAB PO SCH (00:45)
[2019-05-19] MEDS: Morphine 4 MG/ML VIAL SLOW IVP PRN ×4 (01:12→17:52)
[2019-05-19] MEDS: Promethazine HCl 12.5 MG in Sodium Chloride 0.9% 50 ML IVPB PRN ×3 (01:41→17:16)
[2019-05-19] MEDS: Vancomycin 1.5 GRAM/300 ML BAG 1.5 GM in Premix Bag 1 BAG IVPB SCH ×2 (01:44→14:17)
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
[2019-05-19 05:30] LABS: #Basophils 0.1 thou/uL (0.0-0.2); #Eosinphils 0.4 thou/uL (0.0-0.7); #Lymphocytes 3.7 thou/uL (1.20-3.40); #Monocytes 0.9 thou/uL (0.11-0.59); #Neutrophils 2.6 thou/uL (1.40-6.50); %Basophils 0.7 % (0.0-1.0); %Eosinophils 5.1 % (0.0-10.0); %Lymphocytes 48.8 % (21.0-51.0); %Monocytes 11.4 % (0.0-10.0); Hemoglobin 13.2 g/dL (14.0-18.0); Mean Corpuscular HGB CONC 32.7 g/dL (32.0-36.0); Mean Platelet Volume 7.2 fL (7.4-10.4); Platelet Count 179 thou/uL (130-400); RBC Distribution Width 12.3 % (11.5-14.5); White Blood Cell (WBC) Count 7.6 thou/uL (4.8-10.8)
[2019-05-19 05:50] LABS: Anion Gap 8 mmol/L (10-20); BUN (Urea Nitrogen) 9 mg/dL (8.9-20.6); Calc. Creatinine Clearance 224 mL/min (70-130); Calcium 7.8 mg/dL (7.8-10.44); Carbon Dioxide 25 mmol/L (22-29); Chloride 110 mmol/L (98-107); Estimated GFR-MDRD Greater than 90; Glucose 91 mg/dL (70-105); Potassium 3.6 mmol/L (3.5-5.1); Sodium 139 mmol/L (136-145)
[2019-05-19] MEDS: Enoxaparin Sodium 30 MG/0.3 ML SYRINGE SC SCH (09:20)
[2019-05-19] MEDS: Gabapentin 300 MG CAP PO SCH ×3 (09:20→20:18)
[2019-05-19] MEDS: clonazePAM 0.5 MG TAB PO SCH ×3 (09:20→20:18)
[2019-05-19] MEDS: Baclofen 10 MG TAB PO SCH ×3 (09:20→20:18)
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
[2019-05-19] MEDS: HYDROcodone/Acetaminophen 10/325 mg Tablet PO PRN ×2 (14:16→20:17)
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
[2019-05-19] MEDS: cefTRIAXone\\ROCEPHIN 1 GM in Sodium Chloride 0.9% 100 ML IVPB SCH (17:52)
[2019-05-20] MEDS: Promethazine HCl 12.5 MG in Sodium Chloride 0.9% 50 ML IVPB PRN ×3 (02:03→20:20)
[2019-05-20] MEDS: Morphine 4 MG/ML VIAL SLOW IVP PRN ×3 (02:04→18:36)
[2019-05-20] MEDS: Vancomycin 1.5 GRAM/300 ML BAG 1.5 GM in Premix Bag 1 BAG IVPB SCH (02:05)
[2019-05-20] MEDS: Baclofen 10 MG TAB PO SCH ×3 (08:46→20:31)
[2019-05-20] MEDS: clonazePAM 0.5 MG TAB PO SCH ×3 (08:47→20:31)
[2019-05-20] MEDS: Enoxaparin Sodium 30 MG/0.3 ML SYRINGE SC SCH (08:47)
[2019-05-20] MEDS: Gabapentin 300 MG CAP PO SCH ×3 (08:47→20:31)
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
[2019-05-20 14:00] LABS: Vancomycin, Trough 18.1 ug/mL
[2019-05-20] MEDS: cefTRIAXone\\ROCEPHIN 1 GM in Sodium Chloride 0.9% 100 ML IVPB SCH (18:42)
[2019-05-20] MEDS: HYDROcodone/Acetaminophen 10/325 mg Tablet PO PRN (20:30)
[2019-05-21] MEDS: Morphine 4 MG/ML VIAL SLOW IVP PRN ×4 (02:15→19:49)
[2019-05-21] MEDS: Promethazine HCl 12.5 MG in Sodium Chloride 0.9% 50 ML IVPB PRN ×4 (02:17→20:49)
[2019-05-21] MEDS: Gabapentin 300 MG CAP PO SCH ×3 (08:36→19:49)
[2019-05-21] MEDS: clonazePAM 0.5 MG TAB PO SCH ×3 (08:36→19:50)
[2019-05-21] MEDS: Enoxaparin Sodium 30 MG/0.3 ML SYRINGE SC SCH (08:36)
[2019-05-21] MEDS: Baclofen 10 MG TAB PO SCH ×3 (08:36→19:49)
--- NOTE | 2019-05-21 12:13 | PDOC.HOSPP ---
- Subjective Encounter Date: 05/21/19 Encounter Time: 09:25 Subjective: Some right sided lumbar pain.. - Objective Vital Signs & Weight: Vital Signs (12 hours) Temp Pulse Resp BP Pulse Ox 05/21/19 07:39 98.2 F 85 20 135/84 94 L Weight Admit Weight 222 lb 10.67 oz Weight 222 lb 10.67 oz I&O: 05/20/19 05/21/19 05/22/19 06:59 06:59 06:59 Intake Total 1120 Output Total 1200 1200 Balance -1200 -80 Result Diagrams: 05/19/19 05:19 05/19/19 05:19 Hospitalist ROS - Medication Medications: Active Medications Generic Name Dose Route Start Last Admin Trade Name Freq PRN Reason Stop Dose Admin Hydrocodone Bitart/Acetaminophen 1 tab 05/19/19 00:34 05/20/19 20:30 [place] 10/325 PO 1 tab TID PRN Administration Severe Pain (7-10) Baclofen 10 mg 05/19/19 09:00 05/21/19 08:36 Lioresal PO 10 mg TID IRAIS Administration Clonazepam 0.5 mg 05/19/19 09:00 05/21/19 08:36 Klonopin PO 0.5 mg TID IRAIS Administration Enoxaparin Sodium 30 mg 05/19/19 09:00 05/21/19 08:36 Lovenox SC 30 mg 09 IRAIS Administration Gabapentin 300 mg 05/19/19 09:00 05/21/19 08:36 Neurontin PO 300 mg TID IRAIS Administration Promethazine HCl 12.5 mg/ 50.5 mls @ 202 mls/hr 05/19/19 00:31 05/21/19 08:46 Sodium Chloride IVPB 50.5 mls Q6H PRN Administration Nausea Ceftriaxone Sodium 1 gm/ 100 mls @ 200 mls/hr 05/19/19 18:00 05/20/19 18:42 Sodium Chloride IVPB 100 mls Q24HR IRAIS Administration Morphine Sulfate 4 mg 05/19/19 00:31 05/21/19 08:39 Morphine SLOW IVP 4 mg Q4H PRN Administration Severe Pain (7-10) Sodium Chloride 10 ml 05/19/19 09:00 05/21/19 08:49 Flush - Normal Saline IVF 10 ml Q12HR IRAIS Administration Sodium Chloride 10 ml 05/18/19 22:26 05/18/19 23:07 Flush - Normal Saline IVF 10 ml PRN PRN Administration Saline Flush - Exam Neck: no JVD Heart: RRR Respiratory: no rales Gastrointestinal: soft Extremities: no edema (Paraplegia..) Hosp A/P (1) UTI (urinary tract infection) due to urinary indwelling catheter Code(s): T83.51XA - ; N39.0 - URINARY TRACT INFECTION, SITE NOT SPECIFIED Status: Acute (2) HTN (hypertension) Code(s): I10 - ESSENTIAL (PRIMARY) HYPERTENSION Status: Chronic Qualifiers: Plan: BP satisfactory.. (3) Neurogenic bladder Code(s): N31.9 - NEUROMUSCULAR DYSFUNCTION OF BLADDER, UNSPECIFIED Status: Chronic (4) Paraplegia following spinal cord injury Code(s): G82.20 - PARAPLEGIA, UNSPECIFIED Status: Chronic (5) Pyelonephritis Code(s): N12 - TUBULO-INTERSTITIAL NEPHRITIS, NOT SPCF ACUTE OR CHRONIC Status: Acute (6) Pyelonephritis Code(s): N12 - TUBULO-INTERSTITIAL NEPHRITIS, NOT SPCF ACUTE OR CHRONIC Status: Acute - Plan continue antibiotics. F/u with ID.
[2019-05-21] MEDS: cefTRIAXone\\ROCEPHIN 1 GM in Sodium Chloride 0.9% 100 ML IVPB SCH (15:40)
[2019-05-22] MEDS: Morphine 4 MG/ML VIAL SLOW IVP PRN ×4 (04:06→20:52)
[2019-05-22] MEDS: Promethazine HCl 12.5 MG in Sodium Chloride 0.9% 50 ML IVPB PRN ×4 (04:07→20:52)
[2019-05-22] MEDS: clonazePAM 0.5 MG TAB PO SCH ×3 (08:50→19:53)
[2019-05-22] MEDS: Gabapentin 300 MG CAP PO SCH ×3 (08:51→19:53)
[2019-05-22] MEDS: Baclofen 10 MG TAB PO SCH ×3 (08:51→19:53)
[2019-05-22] MEDS: Enoxaparin Sodium 30 MG/0.3 ML SYRINGE SC SCH (09:01)
--- NOTE | 2019-05-22 10:34 | PDOC.HOSPP ---
- Subjective Encounter Date: 05/22/19 Encounter Time: : Subjective: No new complaint.. Right sided abdominal pain.. - Objective Vital Signs & Weight: Vital Signs (12 hours) Temp Pulse Resp BP Pulse Ox 05/22/19 07:38 98.6 F 95 20 128/80 93 L Weight Admit Weight 222 lb 10.67 oz Weight 222 lb 10.67 oz I&O: 05/21/19 05/22/19 05/23/19 06:59 06:59 06:59 Intake Total 1120 840 Output Total 1200 2900 Balance -80 -2060 Result Diagrams: 05/19/19 05:19 05/19/19 05:19 Hospitalist ROS - Medication Medications: Active Medications Generic Name Dose Route Start Last Admin Trade Name Freq PRN Reason Stop Dose Admin Hydrocodone Bitart/Acetaminophen 1 tab 05/19/19 00:34 05/20/19 20:30 [place] 10/325 PO 1 tab TID PRN Administration Severe Pain (7-10) Baclofen 10 mg 05/19/19 09:00 05/22/19 08:51 Lioresal PO 10 mg TID IRAIS Administration Clonazepam 0.5 mg 05/19/19 09:00 05/22/19 08:50 Klonopin PO 0.5 mg TID IRAIS Administration Enoxaparin Sodium 30 mg 05/19/19 09:00 05/22/19 09:01 Lovenox SC 30 mg 0900 IRAIS Administration Gabapentin 300 mg 05/19/19 09:00 05/22/19 08:51 Neurontin PO 300 mg TID IRAIS Administration Promethazine HCl 12.5 mg/ 50.5 mls @ 202 mls/hr 05/19/19 00:31 05/22/19 08:55 Sodium Chloride IVPB 50.5 mls Q6H PRN Administration Nausea Ceftriaxone Sodium 1 gm/ 100 mls @ 200 mls/hr 05/19/19 18:00 05/21/19 15:40 Sodium Chloride IVPB 100 mls Q24HR IRAIS Administration Morphine Sulfate 4 mg 05/19/19 00:31 05/22/19 08:51 Morphine SLOW IVP 4 mg Q4H PRN Administration Severe Pain (7-10) Sodium Chloride 10 ml 05/19/19 09:00 05/22/19 09:01 Flush - Normal Saline IVF 10 ml Q12HR IRAIS Administration Sodium Chloride 10 ml 05/18/19 22:26 05/18/19 23:07 Flush - Normal Saline IVF 10 ml PRN PRN Administration Saline Flush - Exam General Appearance: NAD Neck: no JVD Heart: RRR Respiratory: CTAB Gastrointestinal: soft Extremities: no edema (+paraplegia..) Hosp A/P (1) UTI (urinary tract infection) due to urinary indwelling catheter Code(s): T83.51XA - ; N39.0 - URINARY TRACT INFECTION, SITE NOT SPECIFIED Status: Acute (2) HTN (hypertension) Code(s): I10 - ESSENTIAL (PRIMARY) HYPERTENSION Status: Chronic Qualifiers: (3) Neurogenic bladder Code(s): N31.9 - NEUROMUSCULAR DYSFUNCTION OF BLADDER, UNSPECIFIED Status: Chronic (4) Paraplegia following spinal cord injury Code(s): G82.20 - PARAPLEGIA, UNSPECIFIED Status: Chronic (5) Pyelonephritis Code(s): N12 - TUBULO-INTERSTITIAL NEPHRITIS, NOT SPCF ACUTE OR CHRONIC Status: Acute - Plan continue antibiotics. Start PO bactrim tomorrow for a total of 14 days then single strenght bactrim daily continuously..see ID note. F/u with ID.
[2019-05-22] MEDS: cefTRIAXone\\ROCEPHIN 1 GM in Sodium Chloride 0.9% 100 ML IVPB SCH (14:52)
[2019-05-23] MEDS: Morphine 4 MG/ML VIAL SLOW IVP PRN ×2 (04:11→08:37)
[2019-05-23] MEDS: Promethazine HCl 12.5 MG in Sodium Chloride 0.9% 50 ML IVPB PRN ×3 (04:12→19:33)
[2019-05-23] MEDS: Enoxaparin Sodium 30 MG/0.3 ML SYRINGE SC SCH (08:37)
[2019-05-23] MEDS: Gabapentin 300 MG CAP PO SCH ×3 (08:37→19:33)
[2019-05-23] MEDS: Baclofen 10 MG TAB PO SCH ×3 (08:37→19:33)
[2019-05-23] MEDS: clonazePAM 0.5 MG TAB PO SCH ×3 (08:37→19:33)
--- NOTE | 2019-05-23 12:00 | PDOC.HOSPP ---
- Subjective Encounter Date: 05/23/19 Encounter Time: 11:58 Subjective: cont to CO flank pain - Objective Vital Signs & Weight: Vital Signs (12 hours) Temp Pulse Resp BP Pulse Ox 05/23/19 08:21 98.3 F 88 18 146/97 H 96 05/23/19 08:00 96 Weight Admit Weight 222 lb 10.67 oz Weight 222 lb 10.67 oz I&O: 05/22/19 05/23/19 05/24/19 06:59 06:59 06:59 Intake Total 840 Output Total 2900 2700 Balance -2059 -270 Result Diagrams: 05/19/19 05:19 05/19/19 05:19 Hospitalist ROS - Medication Medications: Active Medications Generic Name Dose Route Start Last Admin Trade Name Freq PRN Reason Stop Dose Admin Hydrocodone Bitart/Acetaminophen 1 tab 05/19/19 00:34 05/20/19 20:30 [place] 10/325 PO 1 tab TID PRN Administration Severe Pain (7-10) Baclofen 10 mg 05/19/19 09:00 05/23/19 08:37 Lioresal PO 10 mg TID IRAIS Administration Clonazepam 0.5 mg 05/19/19 09:00 05/23/19 08:37 Klonopin PO 0.5 mg TID IRAIS Administration Enoxaparin Sodium 30 mg 05/19/19 09:00 05/23/19 08:37 Lovenox SC 30 mg 0900 IRAIS Administration Gabapentin 300 mg 05/19/19 09:00 05/23/19 08:37 Neurontin PO 300 mg TID IRAIS Administration Promethazine HCl 12.5 mg/ 50.5 mls @ 202 mls/hr 05/19/19 00:31 05/23/19 11:20 Sodium Chloride IVPB 50.5 mls Q6H PRN Administration Nausea Ceftriaxone Sodium 1 gm/ 100 mls @ 200 mls/hr 05/19/19 18:00 05/22/19 14:52 Sodium Chloride IVPB 100 mls Q24HR IRAIS Administration Morphine Sulfate 4 mg 05/19/19 00:31 05/23/19 08:37 Morphine SLOW IVP 4 mg Q4H PRN Administration Severe Pain (7-10) Sodium Chloride 10 ml 05/19/19 09:00 05/23/19 08:45 Flush - Normal Saline IVF 10 ml Q12HR IRAIS Administration Sodium Chloride 10 ml 05/18/19 22:26 05/18/19 23:07 Flush - Normal Saline IVF 10 ml PRN PRN Administration Saline Flush - Exam General Appearance: awake alert Neck: no JVD Heart: RRR, no murmur Respiratory: CTAB Gastrointestinal: soft, normal bowel sounds Extremities: 1+ LE edema Hosp A/P (1) Pyelonephritis Code(s): N12 - TUBULO-INTERSTITIAL NEPHRITIS, NOT SPCF ACUTE OR CHRONIC Status: Acute (2) Chronic hepatitis C Code(s): B18.2 - CHRONIC VIRAL HEPATITIS C Status: Chronic Qualifiers: (3) Chronic pain syndrome Code(s): G89.4 - CHRONIC PAIN SYNDROME Status: Chronic (4) HTN (hypertension) Code(s): I10 - ESSENTIAL (PRIMARY) HYPERTENSION Status: Chronic Qualifiers: (5) Neurogenic bladder Code(s): N31.9 - NEUROMUSCULAR DYSFUNCTION OF BLADDER, UNSPECIFIED Status: Chronic (6) Paraplegia following spinal cord injury Code(s): G82.20 - PARAPLEGIA, UNSPECIFIED Status: Chronic - Plan cont iv antibx minimize narcotics
--- NOTE | 2019-05-23 13:13 | PRG ---
DATE OF SERVICE: 05/23/2019 SUBJECTIVE: Still with the same pain that he came in to the hospital with. No vomiting, although he feels nauseated frequently, has to take Phenergan. No dyspnea or diarrhea. OBJECTIVE: VITAL SIGNS: He has been afebrile. Other vital signs are not remarkable. GENERAL: Awake, alert, oriented. HEENT: Area of subconjunctival hemorrhage, left side. HEART: S1 and S2. Regular rate. LUNGS: Clear. ABDOMEN: Moderate to marked tenderness in the right flank region. Bowel sounds are present. LABORATORY DATA: White cell count 7.6, hemoglobin 13, platelets 179. Creatinine 0.64. Culture now shows the Enterococcus avium which is susceptible to quinolones and vancomycin, and the Escherichia hermannii. The last CT of abdomen was done on April 05 and it showed no findings of significance. ASSESSMENT AND DISCUSSION: Paraplegia, neurogenic bladder with in and out catheterizations, recurrent episodes of pyelonephritis, most recent one in March, now with another recurrence and persistence of flank pain despite the Rocephin. We will add vancomycin and image his abdomen with a CT with contrast. Job ID: [id number]
[2019-05-23] MEDS: Vancomycin 1.5 GRAM/300 ML BAG 1.5 GM in Premix Bag 1 BAG IVPB SCH ×2 (14:18→21:06)
[2019-05-23] MEDS ORDERED: Iopamidol-370 76% 500 ML 1 ML ONE (15:06)
[2019-05-23] MEDS: HYDROcodone/Acetaminophen 10/325 mg Tablet PO PRN (15:34)
--- NOTE | 2019-05-23 15:44 | CT ---
CT of abdomen and pelvis: 05/23/2019 COMPARISON: 04/05/2019 HISTORY: Pyelonephritis with persistent right-sided flank pain TECHNIQUE: Axial CT imaging at 5 mm intervals from the lung bases through the pubic symphysis with IV and oral contrast. Coronal and sagittal reformatted imaging obtained. FINDINGS: The imaged lung bases are unremarkable. No free intraperitoneal air or fluid. There is a ca theter extending into the urinary bladder. There is a prosthesis at the level of the urinary bladder base with an associated bulb adjacent to the urinary bladder. The liver and spleen demonstrates no acute findings. The pancreas is unremarkable. Gallbladder nonvis ualized suggesting prior surgical resection. Left kidney is nonvisualized, presumably surgically absent. Region of adrenal glands appears grossly unremarkable. Right kidney appears unremarkable. The urinary bladder is lobulated and there is wall thickening of the urinary bladder. There is a focus of gas within the urinary bladder, likely associated with the catheter tubing within the bladder. There is significant stool within the colon. No evidence for bowel inflammatory change or bowel obstr uction is seen. The vascular structures of the abdomen/pelvis appear patent. There is no abdominal or pelvic lymphade nopathy appreciated. As seen on the prior examination there is linear soft tissue density within the subcutaneous fat in t he right buttock region approaching the right ischium suggesting a degree of decubitus ulceration formation. There is severe destructive change involving bilateral hips, right greater than left. As b efore, the right femoral head is absent and there is mildly complex fluid in the region of bilateral hip joints, also chronic in nature. As seen on the prior examination there is prominent dextroscoliosis with a rotational component at th e level of the thoracolumbar junction. Posterior hardware is noted at the level of the thoracolumbar junction. There is significant debris within the stomach. IMPRESSION: Extensive chronic findings as detailed above. No hydronephrosis is seen on the right in t he right kidney appears grossly unremarkable.
[2019-05-23] MEDS: cefTRIAXone\\ROCEPHIN 1 GM in Sodium Chloride 0.9% 100 ML IVPB SCH (17:22)
[2019-05-24] MEDS: HYDROcodone/Acetaminophen 10/325 mg Tablet PO PRN ×3 (03:51→20:12)
[2019-05-24] MEDS: Promethazine HCl 12.5 MG in Sodium Chloride 0.9% 50 ML IVPB PRN ×3 (03:51→23:11)
[2019-05-24] MEDS: Vancomycin 1.5 GRAM/300 ML BAG 1.5 GM in Premix Bag 1 BAG IVPB SCH ×2 (05:51→15:34)
[2019-05-24] MEDS: Baclofen 10 MG TAB PO SCH ×3 (10:07→20:11)
[2019-05-24] MEDS: clonazePAM 0.5 MG TAB PO SCH ×3 (10:07→20:11)
[2019-05-24] MEDS: Gabapentin 300 MG CAP PO SCH ×3 (10:08→20:11)
--- NOTE | 2019-05-24 13:02 | PDOC.HOSPP ---
- Subjective Encounter Date: 05/24/19 Encounter Time: 12:58 Subjective: no new CO, actually, he is asleep everytime i visit . arouses easily to CO flank pain - Objective Vital Signs & Weight: Vital Signs (12 hours) Temp Pulse Resp BP Pulse Ox 05/24/19 08:00 96 05/24/19 07:17 97.7 F 106 H 18 159/98 H 96 Weight Admit Weight 222 lb 10.67 oz Weight 222 lb 10.67 oz I&O: 05/23/19 05/24/19 05/25/19 06:59 06:59 06:59 Intake Total 1180 Output Total 2700 1600 Balance -2700 -420 Result Diagrams: 05/19/19 05:19 05/19/19 05:19 Hospitalist ROS - Medication Medications: Active Medications Generic Name Dose Route Start Last Admin Trade Name Freq PRN Reason Stop Dose Admin Hydrocodone Bitart/Acetaminophen 1 tab 05/19/19 00:34 05/24/19 12:31 [place] 10/325 PO 1 tab TID PRN Administration Severe Pain (7-10) Baclofen 10 mg 05/19/19 09:00 05/24/19 10:07 Lioresal PO 10 mg TID IRAIS Administration Clonazepam 0.5 mg 05/19/19 09:00 05/24/19 10:07 Klonopin PO 0.5 mg TID IRAIS Administration Enoxaparin Sodium 30 mg 05/19/19 09:00 05/23/19 08:37 Lovenox SC 30 mg 0900 IRAIS Administration Gabapentin 300 mg 05/19/19 09:00 05/24/19 10:08 Neurontin PO 300 mg TID IRAIS Administration Promethazine HCl 12.5 mg/ 50.5 mls @ 202 mls/hr 05/19/19 00:31 05/24/19 09:59 Sodium Chloride IVPB 50.5 mls Q6H PRN Administration Nausea Ceftriaxone Sodium 1 gm/ 100 mls @ 200 mls/hr 05/19/19 18:00 05/23/19 17:22 Sodium Chloride IVPB 100 mls Q24HR IRAIS Administration Vancomycin HCl 1.5 gm/ Device 300 mls @ 200 mls/hr 05/23/19 14:00 05/24/19 05 :51 IVPB 300 mls Q8HR IRAIS Administration Sodium Chloride 10 ml 05/19/19 09:00 05/24/19 10:09 Flush - Normal Saline IVF 10 ml Q12HR IRAIS Administration Sodium Chloride 10 ml 05/18/19 22:26 05/18/19 23:07 Flush - Normal Saline IVF 10 ml PRN PRN Administration Saline Flush - Exam Neck: no JVD Heart: RRR Respiratory: CTAB Gastrointestinal: soft, normal bowel sounds Extremities: 1+ LE edema Hosp A/P (1) Pyelonephritis Code(s): N12 - TUBULO-INTERSTITIAL NEPHRITIS, NOT SPCF ACUTE OR CHRONIC Status: Acute (2) Chronic hepatitis C Code(s): B18.2 - CHRONIC VIRAL HEPATITIS C Status: Chronic Qualifiers: (3) Chronic pain syndrome Code(s): G89.4 - CHRONIC PAIN SYNDROME Status: Chronic (4) HTN (hypertension) Code(s): I10 - ESSENTIAL (PRIMARY) HYPERTENSION Status: Chronic Qualifiers: (5) Neurogenic bladder Code(s): N31.9 - NEUROMUSCULAR DYSFUNCTION OF BLADDER, UNSPECIFIED Status: Chronic (6) Paraplegia following spinal cord injury Code(s): G82.20 - PARAPLEGIA, UNSPECIFIED Status: Chronic - Plan cont iv anti bx through tomorrow AM, then DC on po meds
[2019-05-24 13:43] LABS: Vancomycin, Trough 28.2 ug/mL
[2019-05-24] MEDS: Enoxaparin Sodium 30 MG/0.3 ML SYRINGE SC SCH ×2 (15:35→15:36)
[2019-05-24] MEDS: cefTRIAXone\\ROCEPHIN 1 GM in Sodium Chloride 0.9% 100 ML IVPB SCH (18:15)
[2019-05-25] MEDS: HYDROcodone/Acetaminophen 10/325 mg Tablet PO PRN ×2 (05:30→15:29)
[2019-05-25] MEDS: Promethazine HCl 12.5 MG in Sodium Chloride 0.9% 50 ML IVPB PRN ×2 (08:35→19:55)
[2019-05-25] MEDS: Enoxaparin Sodium 30 MG/0.3 ML SYRINGE SC SCH (08:36)
[2019-05-25] MEDS: Gabapentin 300 MG CAP PO SCH ×3 (08:36→20:02)
[2019-05-25] MEDS: clonazePAM 0.5 MG TAB PO SCH ×3 (08:36→20:02)
[2019-05-25] MEDS: Baclofen 10 MG TAB PO SCH ×3 (08:36→20:02)
[2019-05-25 12:36] LABS: Vancomycin, Random 6.1 ug/mL (See Comment)
--- NOTE | 2019-05-25 13:29 | PDOC.HOSPP ---
- Subjective Encounter Date: 05/25/19 Encounter Time: 13:27 Subjective: sleeping, woke him up. CO flank pain - Objective Vital Signs & Weight: Vital Signs (12 hours) Temp Pulse Resp BP Pulse Ox 05/25/19 07:21 98.3 F 89 20 124/82 96 Weight Admit Weight 222 lb 10.67 oz Weight 222 lb 10.67 oz I&O: 05/24/19 05/25/19 05/26/19 06:59 06:59 06:59 Intake Total 1180 Output Total 1600 750 Balance -420 -750 Result Diagrams: 05/19/19 05:19 05/19/19 05:19 Hospitalist ROS - Medication Medications: Active Medications Generic Name Dose Route Start Last Admin Trade Name Freq PRN Reason Stop Dose Admin Hydrocodone Bitart/Acetaminophen 1 tab 05/19/19 00:34 05/25/19 05:30 [place] 10/325 PO 1 tab TID PRN Administration Severe Pain (7-10) Baclofen 10 mg 05/19/19 09:00 05/25/19 08:36 Lioresal PO 10 mg TID IRAIS Administration Clonazepam 0.5 mg 05/19/19 09:00 05/25/19 08:36 Klonopin PO 0.5 mg TID IRAIS Administration Enoxaparin Sodium 30 mg 05/19/19 09:00 05/25/19 08:36 Lovenox SC Not Given 0900 IRAIS Gabapentin 300 mg 05/19/19 09:00 05/25/19 08:36 Neurontin PO 300 mg TID IRAIS Administration Promethazine HCl 12.5 mg/ 50.5 mls @ 202 mls/hr 05/19/19 00:31 05/25/19 08:35 Sodium Chloride IVPB 50.5 mls Q6H PRN Administration Nausea Ceftriaxone Sodium 1 gm/ 100 mls @ 200 mls/hr 05/19/19 18:00 05/24/19 18:15 Sodium Chloride IVPB 100 mls Q24HR IRAIS Administration Sodium Chloride 10 ml 05/19/19 09:00 05/25/19 08:36 Flush - Normal Saline IVF 10 ml Q12HR IRAIS Administration Sodium Chloride 10 ml 05/18/19 22:26 05/18/19 23:07 Flush - Normal Saline IVF 10 ml PRN PRN Administration Saline Flush - Exam General Appearance: NAD Neck: no JVD Heart: RRR, no murmur Respiratory: CTAB, no wheezes Gastrointestinal: soft, normal bowel sounds Neurological - other findings: paraplegia Hosp A/P (1) Pyelonephritis Code(s): N12 - TUBULO-INTERSTITIAL NEPHRITIS, NOT SPCF ACUTE OR CHRONIC Status: Acute (2) Chronic hepatitis C Code(s): B18.2 - CHRONIC VIRAL HEPATITIS C Status: Chronic Qualifiers: (3) Chronic pain syndrome Code(s): G89.4 - CHRONIC PAIN SYNDROME Status: Chronic (4) HTN (hypertension) Code(s): I10 - ESSENTIAL (PRIMARY) HYPERTENSION Status: Chronic Qualifiers: Hypertension type: essential hypertension (5) Neurogenic bladder Code(s): N31.9 - NEUROMUSCULAR DYSFUNCTION OF BLADDER, UNSPECIFIED Status: Chronic (6) Paraplegia following spinal cord injury Code(s): G82.20 - PARAPLEGIA, UNSPECIFIED Status: Chronic - Plan ID has recommended SNF with IV antibx working with CM
[2019-05-25] MEDS: Vancomycin HCl 1.75 GM in Sodium Chloride 0.9% 500 ML IVPB SCH (15:29)
[2019-05-25] MEDS: cefTRIAXone\\ROCEPHIN 1 GM in Sodium Chloride 0.9% 100 ML IVPB SCH (19:12)
[2019-05-26] MEDS: Vancomycin HCl 1.75 GM in Sodium Chloride 0.9% 500 ML IVPB SCH ×2 (01:22→14:28)
[2019-05-26] MEDS: HYDROcodone/Acetaminophen 10/325 mg Tablet PO PRN (05:04)
[2019-05-26] MEDS: Promethazine HCl 12.5 MG in Sodium Chloride 0.9% 50 ML IVPB PRN ×2 (05:44→12:13)
[2019-05-26] MEDS: Enoxaparin Sodium 30 MG/0.3 ML SYRINGE SC SCH (08:48)
[2019-05-26] MEDS: Gabapentin 300 MG CAP PO SCH ×2 (08:48→14:28)
[2019-05-26] MEDS: clonazePAM 0.5 MG TAB PO SCH ×2 (08:48→14:28)
[2019-05-26] MEDS: Baclofen 10 MG TAB PO SCH ×2 (08:48→14:28)
--- NOTE | 2019-05-26 09:41 | DIS ---
DATE OF ADMISSION: 05/18/2019 DATE OF DISCHARGE: 05/27/2019 PRIMARY CARE PROVIDER: Arnold Navarro MD. DISPOSITION: Discharged to [facility] under the care of Dr. Arnold Navarro. FINAL DIAGNOSES: Pyelonephritis, paraplegia, chronic hepatitis C, hypertension, neurogenic bladder. DISCHARGE MEDICATIONS: 1. Baclofen 10 mg p.o. t.i.d. 2. Ceftriaxone 1 g q.24 hours. 3. Vancomycin 1.75 g q.12 hours. 4. Hydrocodone 10/325 one t.i.d. p.r.n. 5. Gabapentin 300 mg p.o. t.i.d. 6. Klonopin 0.5 mg t.i.d. ALLERGIES: TO CIPROFLOXACIN, LEVOFLOXACIN, REGLAN, ZOFRAN, FLUCONAZOLE, ZYVOX, LYRICA. DIET: As tolerated. CODE STATUS: Full. PENDING AT TIME OF DISCHARGE: Nothing. HOSPITAL COURSE: The patient was admitted to the [facility] with a diagnosis of pyelonephritis based on UTI and flank pain. The patient was afebrile on admission. Laboratory; white count 7.3 with no left shift, and followup 7.6, no left shift. Culture grew Escherichia hermannii resistant to ampicillin, nitrofurantoin; Enterococcus avium resistant to ampicillin, penicillin. The patient was put on IV antibiotics. Dr. Edwards was consulted. Initial consultation suggested oral regimen at discharge. Abdomen and pelvis CT was done. No hydronephrosis. Right kidney was within normal limits. At the time of discharge, Dr. Edwards suggested [facility] with IV vancomycin, Rocephin. He is being discharged to [facility] for IV vancomycin, Rocephin, May 13 with weekly CBC, CRP, and CMP. After completion of Rocephin and vancomycin, to switch him to Bactrim SS one at bedtime. Follow up in [address] Navarro. Followup per his own recommendations by Dr. Edwards. At this time, the patient continues to complain of flank pain, which he has every time I have seen him. He has been afebrile during his hospital stay. He has had no leukocytosis. Job ID: [id number]
[2019-05-26 15:05] VITALS: BP 124/83; TEMP 98.2
--- NOTE | 2019-05-27 23:39 | PQF ---
VERO PEREZ, ATQASUK Lindsay ORDOÑEZ [id number] T4-[id number]- [id number] CLINICAL DOCUMENTATION CLARIFICATION FORM: POST DISCHARGE Addendum to original discharge summary date: ____ Late entry note date: __ DATE: 05/27/18 ATTN: Dion Mchugh Please exercise your independent, professional judgment in responding to the clarification form. Clinical indicators are provided on the bottom of this form for your review Can you please further clarify the diagnosis based on the clinical indicators below? Please check appropriate box(es): [ ] Sepsis due to: (Pna, UTI, gangrenous gall bladder, etc.) [ ] Localized infection without sepsis [ ] Other diagnosis please specify [ ] Unable to determine In addition, please specify: Present on Admission (POA): [ ] Yes [ ] No [ ] Unable to determine For continuity of documentation, please document condition throughout progress notes and discharge summary. Thank You. CLINICAL INDICATORS - SIGNS / SYMPTOMS / LABS H and P pg.2- Complicated UTI and suspected pyelonephritis Consult pg.3- recurrent episodes of pyelonephritis associated with neurogenic bladder and the requirement for in and out catheterization DS pg.1- Culture grew Escherichia resistant to ampicillin DS pg.1- he had no leukocytosis Hospitalist PN Dr. Pickett 05/22 pg.4- UTI due to urinary indwelling catheter RISK FACTORS Paraplegia- H and P pg.1 Recurrent UTI- H and P pg.1 Neurogenic bladder- Consult pg.1 Pyelonephritis- DS pg.1 TREATMENTS: Indwelling catheter placement- H and P pg.3 Infectious Consult 05/19- Dr. Edwards Abdomen/Pelvis CT 05/23 IV Fluids-MAR IV antibiotics- MAR Urine culture- Microbiology (This form is maintained as a part of the permanent medical record) 2014 [employer]. All Rights Reserved [email or web address] [not provided] MTDD
--- NOTE | 2019-05-27 23:41 | PQF ---
[employer] Winform Viewer VERO PEREZ, ROXY C [id number] [facility] [id number] CLINICAL DOCUMENTATION CLARIFICATION FORM: POST DISCHARGE Addendum to original discharge summary date: ____ Late entry note date: __ DATE: 05/27/19 ATTN: Roxy Mchugh Please exercise your independent, professional judgment in responding to the clarification form. Clinical indicators are provided on the bottom of this form for your review Please check appropriate box(s): [ ] UTI please specify if due to or related to (as applicable): [ ] Indwelling catheter [ ] Self-catheterization [ ] Suprapubic catheter [ ] Unable to determine etiology UTI Site: [ ] Kidney [ ] Ureter [ ] Bladder [ ] Urethra [ ] Unable to determine Specify Organism (if known): [ ] Unknown organism [ ] Contaminated urine specimen without UTI [ ] Other diagnosis [ ] Unable to determine In addition, please specify: Present on Admission (POA): [ ] Yes [ ] No [ ] Unable to determine For continuity of documentation, please document condition throughout progress notes and discharge summary. Thank You. CLINICAL INDICATORS - SIGNS / SYMPTOMS / LABS H and P pg.2- Complicated UTI and suspected pyelonephritis Consult pg.3- recurrent episodes of pyelonephritis associated with neurogenic bladder and the requirement for in and out catheterization DS pg.1- Culture grew Escherichia resistant to ampicillin DS pg.1- he had no leukocytosis Hospitalist PN Dr. Picektt 05/22 pg.4- UTI due to urinary indwelling catheter RISK FACTORS Paraplegia- H and P pg.1 Recurrent UTI- H and P pg.1 Neurogenic bladder- Consult pg.1 Pyelonephritis- DS pg.1 TREATMENT: Indwelling catheter placement- H and P pg.3 Infectious Consult 05/19- Dr. Edwards Abdomen/Pelvis CT 05/23 IV Fluids-MAR IV antibiotics- MAR Urine culture- Microbiology (This form is maintained as a part of the permanent medical record) 2014 [employer]. All Rights Reserved [email or web address] [not provided] MTDD
== END 2019-05-26 15:24 | disposition swing bed (61) | DRG 699 ==
LOC: ERS 18:44 → T4-A 21:04
PROVIDERS: ADMIT Hospitalist; ATTEND Hospitalist
DX: T83.511A Infection and inflammatory reaction due to indwelling urethral catheter, initial encounter (principal); N12 Tubulo-interstitial nephritis, not specified as acute or chronic; G82.20 Paraplegia, unspecified; Z16.11 Resistance to penicillins; G58.0 Intercostal neuropathy; F32.9 Major depressive disorder, single episode, unspecified; F41.9 Anxiety disorder, unspecified; N31.9 Neuromuscular dysfunction of bladder, unspecified; L73.8 Other specified follicular disorders; B18.2 Chronic viral hepatitis C; G89.4 Chronic pain syndrome; I10 Essential (primary) hypertension; B96.20 Unspecified Escherichia coli [E. coli] as the cause of diseases classified elsewhere; Z98.1 Arthrodesis status; Z87.440 Personal history of urinary (tract) infections; Z87.891 Personal history of nicotine dependence; Z88.1 Allergy status to other antibiotic agents; Z88.8 Allergy status to other drugs, medicaments and biological substances; T14.8XXS Other injury of unspecified body region, sequela; V89.2XXS Person injured in unspecified motor-vehicle accident, traffic, sequela
CPT/HCPCS: 36415; 51701; 74177; 80048; 80053; 80202; 81003; 81015; 83605; 85025; 87077; 87086; 87186; 96365; 96367; 96375; 96376; J0696; J1650; J2270; J2550; J3370; J3490; J7050; Q9967

== ENCOUNTER 2019-05-31 00:30 | Observation (INO) | payer MEDICARE, MEDICAID ==
[2019-05-31] MEDS ORDERED: Morphine 4 MG/ML VIAL ONE (01:12)
[2019-05-31 03:00] LABS: Troponin I Less than 0.010 ng/mL (< 0.028)
[2019-05-31] MEDS ORDERED: Nitroglycerin 0.4 MG TAB (25 Tab Bottle) PO PRN (03:10)
[2019-05-31] MEDS ORDERED: Aspirin 325 MG TAB PO SCH (03:30)
[2019-05-31 03:43] VITALS: BMI 35.9
[2019-05-31] MEDS ORDERED: Vancomycin HCl 1.75 GM in Sodium Chloride 0.9% 500 ML IVPB SCH (04:00)
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
[2019-05-31] MEDS: cefTRIAXone\\ROCEPHIN 1 GM in Sodium Chloride 0.9% 100 ML IVPB SCH (04:16)
[2019-05-31] MEDS: Morphine 2 MG/ML SYRINGE SLOW IVP PRN ×4 (05:04→22:14)
[2019-05-31] MEDS: Promethazine HCl 12.5 MG in Sodium Chloride 0.9% 50 ML IVPB PRN ×2 (05:57→14:55)
[2019-05-31 07:11] LABS: Troponin I Less than 0.010 ng/mL (< 0.028)
[2019-05-31] MEDS: Enoxaparin Sodium 40 MG/0.4 ML SYRINGE SC SCH (09:43)
[2019-05-31] MEDS: Aspirin 325 mg Enteric Coated Tablet PO SCH (09:43)
[2019-05-31] MEDS: clonazePAM 0.5 MG TAB PO SCH ×3 (09:43→20:08)
[2019-05-31] MEDS: Baclofen 10 MG TAB PO SCH ×3 (09:44→20:08)
[2019-05-31] MEDS: Gabapentin 300 MG CAP PO SCH ×3 (09:44→20:08)
--- NOTE | 2019-05-31 14:36 | PDOC.BPN ---
- Brief Progress Note Went to see the patient. Describes atypical chest pain, likely musculoskeletal, and is low risk for cardiac etiology. ECG showed no signs of ischemia and trop - ve x 2. Was considering discharge but patient developed migraine headache, so transfered to medical floor. Offered patient a triptan for migrain but refused and requested phenergen.
[2019-05-31] MEDS: Vancomycin HCl 1.75 GM in Sodium Chloride 0.9% 500 ML IVPB SCH (19:11)
[2019-05-31] MEDS: Promethazine HCl 25 MG/ML VIAL IM/IV PRN (22:14)
[2019-06-01] MEDS: cefTRIAXone\\ROCEPHIN 1 GM in Sodium Chloride 0.9% 100 ML IVPB SCH (04:46)
[2019-06-01] MEDS: Vancomycin HCl 1.75 GM in Sodium Chloride 0.9% 500 ML IVPB SCH ×2 (04:47→16:05)
[2019-06-01] MEDS: Enoxaparin Sodium 40 MG/0.4 ML SYRINGE SC SCH (08:02)
[2019-06-01] MEDS: clonazePAM 0.5 MG TAB PO SCH ×3 (08:03→20:30)
[2019-06-01] MEDS: Aspirin 325 mg Enteric Coated Tablet PO SCH (08:03)
[2019-06-01] MEDS: Morphine 2 MG/ML SYRINGE SLOW IVP PRN ×3 (08:03→20:33)
[2019-06-01] MEDS: Baclofen 10 MG TAB PO SCH ×3 (08:03→20:30)
[2019-06-01] MEDS: Gabapentin 300 MG CAP PO SCH ×3 (08:03→20:30)
[2019-06-01] MEDS: Promethazine HCl 12.5 MG in Sodium Chloride 0.9% 50 ML IVPB PRN (08:56)
[2019-06-01 15:25] LABS: Vancomycin, Trough 18.9 ug/mL
[2019-06-01] MEDS: Promethazine HCl 25 MG/ML VIAL IM/IV PRN ×2 (16:41→22:46)
--- NOTE | 2019-06-01 17:13 | PDOC.HOSPP ---
- Subjective Subjective: Seen and examined. Patient tells me that he has had stress tests in the past, though it has been several years ago. Midsternal chest pain as crushing in nature. It does have an element of shortness of breath with it. Patient states that when he "pushes on his heart and it does feel a little bit better". - Objective Vital Signs & Weight: Vital Signs (12 hours) Temp Pulse Resp BP Pulse Ox 06/01/19 16:00 98.5 F 99 20 114/76 92 L 06/01/19 11:00 98.9 F 100 20 126/79 96 06/01/19 07:23 98.5 F 95 20 129/82 96 Weight Weight 229 lb I&O: 05/31/19 06/01/19 06/02/19 06:59 06:59 06:59 Intake Total 750 1602 Output Total 750 3150 Balance 0 -1548 Radiology Reviewed by me: Yes Hospitalist ROS - Review of Systems All other systems reviewed; all pertinent +/- noted in HPI/Subj - Medication Medications: Active Medications Generic Name Dose Route Start Last Admin Trade Name Freq PRN Reason Stop Dose Admin Aspirin 325 mg 05/31/19 09:00 06/01/19 08:03 Ecotrin PO 325 mg DAILY IRAIS Administration Baclofen 10 mg 05/31/19 09:00 06/01/19 14:33 Lioresal PO 10 mg TID IRAIS Administration Clonazepam 0.5 mg 05/31/19 09:00 06/01/19 14:33 Klonopin PO 0.5 mg TID IRAIS Administration Enoxaparin Sodium 40 mg 05/31/19 09:00 06/01/19 08:02 Lovenox SC 40 mg 0900 IRAIS Administration Gabapentin 300 mg 05/31/19 09:00 06/01/19 14:34 Neurontin PO 300 mg TID IRAIS Administration Vancomycin HCl 1.75 gm/ Sodium 500 mls @ 250 mls/hr 05/31/19 16:00 06/01/19 16:05 Chloride IVPB 500 mls 0400,1600 IRAIS Administration Ceftriaxone Sodium 1 gm/ 100 mls @ 200 mls/hr 05/31/19 03:30 06/01/19 04:46 Sodium Chloride IVPB 100 mls Q24HR IRAIS Administration Promethazine HCl 12.5 mg/ 50.5 mls @ 202 mls/hr 05/31/19 04:54 06/01/19 08:56 Sodium Chloride IVPB 50.5 mls Q6H PRN Administration Nausea/Vomiting Morphine Sulfate 2 mg 05/31/19 04:38 06/01/19 16:39 Morphine SLOW IVP 2 mg Q4H PRN Administration Moderate Pain (4-6) Nitroglycerin 0.4 mg 05/31/19 03:10 05/31/19 04:17 Nitrostat PO 0.4 mg Q5MIN PRN Administration Chest Pain Promethazine HCl 12.5 mg 05/31/19 04:38 06/01/19 16:41 Phenergan IM/IV 12.5 mg Q6H PRN Administration Nausea/Vomiting - Exam General Appearance: NAD, awake alert Eye: PERRL, anicteric sclera ENT: normocephalic atraumatic, moist mucosa Neck: supple, symmetric, no lymphadenopathy Heart: RRR, no murmur, no gallops Heart - other findings: chest pain NOT reproducable to palpation Respiratory: CTAB, no wheezes, no rales, no ronchi, normal chest expansion, normal percussion Gastrointestinal: soft, non-tender, no guarding, no rigidity Extremities: 1+ LE edema Skin: no lesions, no rashes Neurological: cranial nerve grossly intact, no new deficit Neurological - other findings: LE plegic at baseline Musculoskeletal: generalized weakness Psychiatric: normal affect, A&O x 3 Hosp A/P (1) Chest pain Code(s): R07.9 - CHEST PAIN, UNSPECIFIED Status: Acute (2) Pyelonephritis Code(s): N12 - TUBULO-INTERSTITIAL NEPHRITIS, NOT SPCF ACUTE OR CHRONIC Status: Acute (3) UTI (urinary tract infection) due to urinary indwelling catheter Code(s): T83.51XA - ; N39.0 - URINARY TRACT INFECTION, SITE NOT SPECIFIED Status: Acute (4) Chronic pain syndrome Code(s): G89.4 - CHRONIC PAIN SYNDROME Status: Chronic (5) HTN (hypertension) Code(s): I10 - ESSENTIAL (PRIMARY) HYPERTENSION Status: Chronic Qualifiers: Hypertension type: essential hypertension (6) Neurogenic bladder Code(s): N31.9 - NEUROMUSCULAR DYSFUNCTION OF BLADDER, UNSPECIFIED Status: Chronic (7) Obesity (BMI 30.0-34.9) Code(s): E66.9 - OBESITY, UNSPECIFIED Status: Chronic (8) Paraplegia following spinal cord injury Code(s): G82.20 - PARAPLEGIA, UNSPECIFIED Status: Chronic - Plan Plan: medical unit nuclear medicine stress test rule out reversible ischemia echocardiogram to monitor for structural abnormalities that would cause chest pain troponins negative times three EKG does not demonstrate any acute ST - T segment abnormalities no STEMI morphing, oxygen, nitrates, aspirin continue other home medications as able blood pressure control blood sugar control G.I. prophylaxis DVT prophylaxis
[2019-06-02] MEDS: cefTRIAXone\\ROCEPHIN 1 GM in Sodium Chloride 0.9% 100 ML IVPB SCH (03:33)
[2019-06-02] MEDS: Morphine 2 MG/ML SYRINGE SLOW IVP PRN ×4 (03:40→22:53)
[2019-06-02] MEDS: Vancomycin HCl 1.75 GM in Sodium Chloride 0.9% 500 ML IVPB SCH ×2 (04:02→16:12)
[2019-06-02] MEDS ORDERED: ADENOSINE 60 MG/20 ML VIAL ONE (08:54)
[2019-06-02] MEDS: Enoxaparin Sodium 40 MG/0.4 ML SYRINGE SC SCH (09:36)
[2019-06-02] MEDS: clonazePAM 0.5 MG TAB PO SCH ×3 (09:36→20:02)
[2019-06-02] MEDS: Aspirin 325 mg Enteric Coated Tablet PO SCH (09:36)
[2019-06-02] MEDS: Baclofen 10 MG TAB PO SCH ×3 (09:36→20:02)
[2019-06-02] MEDS: Gabapentin 300 MG CAP PO SCH ×3 (09:36→20:02)
[2019-06-02] MEDS: Promethazine HCl 25 MG/ML VIAL IM/IV PRN ×3 (12:00→22:53)
--- NOTE | 2019-06-02 12:18 | PRG ---
DATE OF SERVICE: 06/02/2019 SUBJECTIVE: The patient is seen and examined at bedside. He feels tired and somewhat weird. He just came back from his stress test and he noticed that the medication which was used for the stress test makes him sick. He still has pain in his lower chest and upper abdomen. No nausea. No vomiting. He has regular bowel movements. OBJECTIVE: VITAL SIGNS: Blood pressure is 127/81, pulse is 88, respiratory rate is 16, temperature maximal is 99.3, now temperature is 98.4, O2 saturation is 93% on room air. HEENT: His head is atraumatic and normocephalic. Eyes are PERRLA. Sclerae are nonicteric. Conjunctivae palish. Oral mucosa is moist. NECK: Supple. LUNGS: Clear. HEART: S1, S2 normal. No S3. No S4. ABDOMEN: In the epigastric area mid center, a tenderness on palpation noticeable. Bowel sounds are present. No organomegaly. EXTREMITIES: No erythema. NEUROLOGIC: Alert and oriented x4. He has paraplegia waist down. He responds to my commands. LABORATORY DATA: None today. IMPRESSION: 1. Chest pain, status post stress test of his heart. We are waiting for the final report. This seems to be more gastric than cardiac. I am going to start him on Protonix 40 mg once a day. 2. Pyelonephritis. We will continue his scheduled Rocephin and vancomycin course. 3. Chronic pain syndrome. 4. Hypertension. 5. Neurogenic bladder, chronic. 6. Paraplegia following spinal cord injury. PLAN: Plan is to evaluate his results on his cardiac stress test when they are available. Start him on Protonix p.o. and he should be able to go back to swing bed either tonight or tomorrow morning when he feels better. Job ID: [id number]
--- NOTE | 2019-06-02 13:24 | NM ---
EXAM: NM Cardiac Stress W EF WF PROVIDED CLINICAL HISTORY: Chest pain. COMPARISON: None FINDINGS: No significant reversible defect is seen between the stress and resting acquisitions. Quantitative an alysis also shows no significant reversible defect. The gated images demonstrate normal ventricular wall motion and wall thickening. The calculated left ventricular ejection fraction is 61%. IMPRESSION: 1. Normal myocardial perfusion study without evidence of a reversible defect seen to suggest ischemia . 2. Normal LVEF of 61%.
[2019-06-03] MEDS: cefTRIAXone\\ROCEPHIN 1 GM in Sodium Chloride 0.9% 100 ML IVPB SCH (03:55)
[2019-06-03] MEDS: Vancomycin HCl 1.75 GM in Sodium Chloride 0.9% 500 ML IVPB SCH ×2 (04:08→15:39)
[2019-06-03] MEDS: clonazePAM 0.5 MG TAB PO SCH ×3 (08:02→19:52)
[2019-06-03] MEDS: Gabapentin 300 MG CAP PO SCH ×3 (08:02→19:52)
[2019-06-03] MEDS: Promethazine HCl 25 MG/ML VIAL IM/IV PRN ×2 (08:03→16:17)
[2019-06-03] MEDS: Baclofen 10 MG TAB PO SCH ×3 (08:03→19:52)
[2019-06-03] MEDS: Enoxaparin Sodium 40 MG/0.4 ML SYRINGE SC SCH (08:03)
[2019-06-03] MEDS: Aspirin 325 mg Enteric Coated Tablet PO SCH (08:03)
[2019-06-03] MEDS: Morphine 2 MG/ML SYRINGE SLOW IVP PRN ×4 (08:07→23:55)
[2019-06-04] MEDS: Promethazine HCl 25 MG/ML VIAL IM/IV PRN ×3 (00:56→14:39)
[2019-06-04] MEDS: cefTRIAXone\\ROCEPHIN 1 GM in Sodium Chloride 0.9% 100 ML IVPB SCH (03:15)
[2019-06-04] MEDS: Vancomycin HCl 1.75 GM in Sodium Chloride 0.9% 500 ML IVPB SCH ×2 (04:13→17:07)
[2019-06-04] MEDS: Morphine 2 MG/ML SYRINGE SLOW IVP PRN ×4 (04:14→17:06)
[2019-06-04] MEDS: clonazePAM 0.5 MG TAB PO SCH ×2 (08:32→14:39)
[2019-06-04] MEDS: Baclofen 10 MG TAB PO SCH ×2 (08:32→14:39)
[2019-06-04] MEDS: Gabapentin 300 MG CAP PO SCH ×2 (08:33→14:39)
[2019-06-04] MEDS: Aspirin 325 mg Enteric Coated Tablet PO SCH (08:33)
[2019-06-04] MEDS: Enoxaparin Sodium 40 MG/0.4 ML SYRINGE SC SCH (08:33)
[2019-06-04 15:21] VITALS: BP 103/69; TEMP 97.5
[2019-06-04 15:21] LABS: Vancomycin, Trough 24.1 ug/mL
--- NOTE | 2019-06-06 12:27 | DIS ---
DATE OF ADMISSION: 05/31/2019 DATE OF DISCHARGE: 06/04/2019 DIAGNOSES AT THE TIME OF DISCHARGE: 1. Atypical chest pain. Acute coronary syndrome was ruled out. 2. Pyelonephritis and continuation of his scheduled Rocephin and vancomycin course. 3. Chronic pain syndrome. 4. Hypertension. 5. Neurogenic bladder, chronic. 6. Paraplegia following spinal cord injury. HOSPITAL COURSE: The patient is a 38-year-old male, who was admitted to the hospital with complains of chest pain. Apparently, he developed left-sided chest pain which was described as tightness like sensation, which was not radiating. It was accompanied by shortness of breath and some nausea and vomiting. He was at swing bed receiving his IV antibiotics, which was scheduled for his pyelonephritis and subsequently he was sent to [facility] for further evaluation. A CT angiogram of the chest was done and subsequently he was transferred to the Emergency Room in [place] at [facility]. His electrocardiogram showed normal sinus rhythm, no ST changes. His chest x-ray did not show any abnormalities. CT scan of the abdomen and pelvis done at [facility] was limited evaluation due to timing of contrast bolus, but there was no any acute abnormality and CT angiogram of the chest did not show any evidence of pulmonary embolism. His white count was normal. Hemoglobin was 13. Normal platelet count. INR was 1.1. Electrolytes were within normal limits. Creatinine was normal and LFTs were unremarkable. The patient got admitted to the hospital. He was continued on vancomycin and ceftriaxone. He was continued on self catheterization. He underwent stress test, which included Nuclear Medicine part, which showed LVEF estimated at 61% and normal myocardial perfusion study without evidence of any reversible defect seen to suggest any ischemia of acute etiology. He also underwent echocardiogram which showed normal LVEF at 55% to 60%, and there was some suggestion of some diastolic dysfunction. There was also mild mitral regurgitation, mild tricuspid regurgitation, and normal pulmonary artery pressure. The patient is doing well. His blood pressure is 121/77, pulse is 88, temperature is 97.5, respirations 18, O2 saturation is 95% on room air. He is seen and examined before his discharge. Physical examination is not changed and he is going to be discharged back to swing bed. He will continue his renal diet. Activities, he stays in bed because of his paraplegia and he uses his wheelchair to move around. MEDICATIONS AT THE TIME OF DISCHARGE: Aspirin 325 mg once a day, baclofen 10 mg 3 times a day, ceftriaxone 1 g every 24 hours, clonazepam 0.5 mg 3 times a day, gabapentin 300 mg 3 times a day, pantoprazole 40 mg once a day, vancomycin 1.75 g at 0400 and 1600. He will be discharged to swing bed today. Job ID: [id number]
== END 2019-06-04 18:15 | disposition swing bed (61) ==
LOC: ERS 00:30 → 2NO 01:46 → T4-A 15:52
PROVIDERS: ADMIT Internal Medicine; ATTEND Internal Medicine
DX: R07.89 Other chest pain (principal); T83.518A Infection and inflammatory reaction due to other urinary catheter, initial encounter; N12 Tubulo-interstitial nephritis, not specified as acute or chronic; G89.4 Chronic pain syndrome; I10 Essential (primary) hypertension; N31.9 Neuromuscular dysfunction of bladder, unspecified; G82.20 Paraplegia, unspecified; S24.104S Unspecified injury at T11-T12 level of thoracic spinal cord, sequela; R33.9 Retention of urine, unspecified; G43.909 Migraine, unspecified, not intractable, without status migrainosus; E66.9 Obesity, unspecified; Z68.35 Body mass index [BMI] 35.0-35.9, adult; Z79.899 Other long term (current) drug therapy; Z88.1 Allergy status to other antibiotic agents; Z88.8 Allergy status to other drugs, medicaments and biological substances; Z91.048 Other nonmedicinal substance allergy status; Z90.5 Acquired absence of kidney; Z90.49 Acquired absence of other specified parts of digestive tract; X58.XXXS Exposure to other specified factors, sequela
CPT/HCPCS: 78452; 80202 ×2; 82550; 84484 ×2; 93005; 93017; 93306; 94760; 96365; 96366 ×5; 96367; 96372 ×5; 96376 ×6; 99285; A9500; G0378 ×6; 36415; 96374; J0153; J0696; J1642; J1650; J2270; J2550; J3370; J3490; J7050

== ENCOUNTER 2019-06-19 08:10 | Inpatient (IN) | payer OTHER, MEDICARE, MEDICAID ==
[2019-06-19] MEDS ORDERED: Morphine 4 MG/ML VIAL ONE (09:09)
[2019-06-19] MEDS ORDERED: Promethazine HCl 25 MG/ML VIAL ONE (09:10)
[2019-06-19] MEDS ORDERED: Senokot S 8.6-50 MG TAB PO PRN (10:50)
[2019-06-19] MEDS ORDERED: Bisacodyl 10 MG SUPP PR PRN (10:50)
[2019-06-19] MEDS ORDERED: Ondansetron ODT 4 MG TAB PO PRN (10:50)
[2019-06-19] MEDS ORDERED: Enoxaparin Sodium 40 MG/0.4 ML SYRINGE SC SCH (11:00)
[2019-06-19] MEDS ORDERED: Mag-Al 1200 mg/1200 mg/30 ML UDCUP PO PRN (11:00)
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
[2019-06-19] MEDS: Gabapentin 300 MG CAP PO SCH ×2 (14:31→20:37)
[2019-06-19] MEDS: Piperacillin/Tazobactam 3.375 GM in Sodium Chloride 0.9% 100 ML IVPB SCH ×3 (14:31→23:21)
[2019-06-19] MEDS: Baclofen 10 MG TAB PO SCH ×2 (14:31→20:36)
[2019-06-19] MEDS: Vancomycin 1.5 GRAM/300 ML BAG 1.5 GM in Premix Bag 1 BAG IVPB SCH (14:31)
[2019-06-19] MEDS: clonazePAM 0.5 MG TABLET PO SCH ×2 (14:32→20:37)
[2019-06-19] MEDS: HYDROcodone/Acetaminophen 10/325 mg Tablet PO PRN (14:32)
[2019-06-19] MEDS: Morphine 2 MG/ML SYRINGE SLOW IVP PRN ×3 (14:37→23:20)
[2019-06-19] MEDS: Sodium Chloride 0.9% 1,000 ML IV SCH (14:38)
[2019-06-19] MEDS: Promethazine HCl 12.5 MG in Sodium Chloride 0.9% 50 ML IVPB PRN ×2 (16:09→23:21)
[2019-06-19 16:31] LABS: Bacteria/HPF None Seen HPF (None Seen); Bilirubin Negative (Negative); Blood, Urine Trace (Negative); Clarity Clear (Clear); Glucose, Urine (Dipstick) Normal (Negative); Leukocyte 75 Leu/uL (Negative); Nitrite Negative (Negative); Protein, Urine (Dipstick) Negative (Neg-Trace); Squamous Epithelial 0-3 HPF (0-3); Urobilinogen Normal mg/dL (Less than 2); WBC/HPF 21-50 HPF (0-3)
[2019-06-19 16:34] LABS: Urine Culture Reflex Yes Yes
[2019-06-20] MEDS: Sodium Chloride 0.9% 1,000 ML IV SCH ×2 (00:08→14:07)
[2019-06-20] MEDS: Vancomycin 1.5 GRAM/300 ML BAG 1.5 GM in Premix Bag 1 BAG IVPB SCH ×2 (00:58→14:04)
[2019-06-20] MEDS: Morphine 2 MG/ML SYRINGE SLOW IVP PRN ×4 (05:32→18:24)
[2019-06-20] MEDS: Piperacillin/Tazobactam 3.375 GM in Sodium Chloride 0.9% 100 ML IVPB SCH ×3 (05:33→18:24)
[2019-06-20 05:36] LABS: #Basophils 0.1 thou/uL (0.0-0.2); #Eosinphils 0.4 thou/uL (0.0-0.7); #Lymphocytes 2.8 thou/uL (1.20-3.40); #Neutrophils 6.1 thou/uL (1.40-6.50); %Basophils 0.6 % (0.0-1.0); %Eosinophils 3.8 % (0.0-10.0); %Monocytes 9.7 % (0.0-10.0); %Neutrophils 58.9 % (42.0-75.0); Hemoglobin 12.8 g/dL (14.0-18.0); Mean Corpuscular HGB CONC 33.5 g/dL (32.0-36.0); Mean Corpuscular Hemoglobin 32.9 pg (27.0-31.0); Mean Corpuscular Volume 98.3 fL (78.0-98.0); Mean Platelet Volume 7.4 fL (7.4-10.4); Platelet Count 197 thou/uL (130-400); RBC Distribution Width 11.8 % (11.5-14.5); White Blood Cell (WBC) Count 10.3 thou/uL (4.8-10.8)
[2019-06-20 05:57] LABS: Anion Gap 8 mmol/L (10-20); BUN (Urea Nitrogen) 9 mg/dL (8.9-20.6); Calc. Creatinine Clearance 241 mL/min (70-130); Calcium 7.9 mg/dL (7.8-10.44); Carbon Dioxide 21 mmol/L (22-29); Chloride 108 mmol/L (98-107); Estimated GFR-MDRD Greater than 90; Glucose 97 mg/dL (70-105); Potassium 3.9 mmol/L (3.5-5.1); Sodium 133 mmol/L (136-145)
[2019-06-20] MEDS: Promethazine HCl 12.5 MG in Sodium Chloride 0.9% 50 ML IVPB PRN ×3 (08:39→23:54)
[2019-06-20] MEDS ORDERED: FLU VACC QS2019-20(6MOS UP)/PF 60 MCG/0.5 ML SYRINGE IM ONE (09:00)
[2019-06-20] MEDS: Enoxaparin Sodium 40 MG/0.4 ML SYRINGE SC SCH (09:43)
[2019-06-20] MEDS: clonazePAM 0.5 MG TABLET PO SCH ×3 (09:43→22:04)
[2019-06-20] MEDS: Baclofen 10 MG TAB PO SCH ×3 (09:44→22:04)
[2019-06-20] MEDS: Gabapentin 300 MG CAP PO SCH ×3 (09:44→22:04)
[2019-06-20] MEDS: HYDROcodone/Acetaminophen 10/325 mg Tablet PO PRN ×2 (12:33→22:05)
--- NOTE | 2019-06-20 16:05 | PDOC.HOSPP ---
- Subjective Encounter Date: 06/20/19 Subjective: The patient was seen and examined. Denied any new complaints other than frequent need to self catheterize. - Objective Vital Signs & Weight: Vital Signs (12 hours) Temp Pulse Resp BP Pulse Ox 06/20/19 11:18 98.9 F 98 20 147/88 H 96 06/20/19 08:00 98 06/20/19 07:51 99.9 F H 89 18 131/84 98 Weight Weight 240 lb I&O: 06/19/19 06/20/19 06/21/19 06:59 06:59 06:59 Output Total 750 Balance -750 Result Diagrams: 06/20/19 05:09 06/20/19 05:09 Hospitalist ROS - Medication Medications: Active Medications Generic Name Dose Route Start Last Admin Trade Name Freq PRN Reason Stop Dose Admin Hydrocodone Bitart/Acetaminophen 1 tab 06/19/19 11:00 06/20/19 12:33 [place] 10/325 PO 1 tab Q6H PRN Administration Pain Baclofen 10 mg 06/19/19 15:00 06/20/19 14:43 Lioresal PO 10 mg TID IRAIS Administration Clonazepam 0.5 mg 06/19/19 15:00 06/20/19 14:43 Klonopin PO 0.5 mg TID IRAIS Administration Enoxaparin Sodium 40 mg 06/20/19 09:00 06/20/19 09:43 Lovenox SC 40 mg 0900 IRAIS Administration Gabapentin 300 mg 06/19/19 15:00 06/20/19 14:43 Neurontin PO 300 mg TID IRAIS Administration Sodium Chloride 1,000 mls @ 75 mls/hr 06/19/19 11:00 06/20/19 14:07 Normal Saline 0.9% IV 1,000 mls .[id number] IRAIS Administration Piperacillin Sod/Tazobactam 100 mls @ 200 mls/hr 06/19/19 12:00 06/20/19 12: 29 Sod 3.375 gm/ Sodium Chloride IVPB 100 mls Q6HR IRAIS Administration Vancomycin HCl 1.5 gm/ Device 300 mls @ 200 mls/hr 06/19/19 13:00 06/20/19 14 :04 IVPB 300 mls 0100,1300 IRAIS Administration Promethazine HCl 12.5 mg/ 50.5 mls @ 202 mls/hr 06/19/19 12:00 06/20/19 14:42 Sodium Chloride IVPB 50.5 mls Q6H PRN Administration Nausea/Vomiting Morphine Sulfate 2 mg 06/19/19 12:01 06/20/19 14:00 Morphine SLOW IVP 2 mg Q4H PRN Administration Moderate to Severe Pain (6-10) Pantoprazole Sodium 40 mg 06/20/19 09:00 06/20/19 09:44 Protonix PO 40 mg DAILY IRAIS Administration - Exam General Appearance: NAD, awake alert Eye: PERRL ENT: normocephalic atraumatic Neck: supple, no JVD Heart: RRR Respiratory: CTAB Gastrointestinal: soft Extremities: no clubbing, no edema Hosp A/P (1) Sepsis Code(s): A41.9 - SEPSIS, UNSPECIFIED ORGANISM Status: Acute (2) Pyelonephritis Code(s): N12 - TUBULO-INTERSTITIAL NEPHRITIS, NOT SPCF ACUTE OR CHRONIC Status: Acute (3) Chronic hepatitis C Code(s): B18.2 - CHRONIC VIRAL HEPATITIS C Status: Chronic Qualifiers: (4) Chronic pain syndrome Code(s): G89.4 - CHRONIC PAIN SYNDROME Status: Chronic (5) Neurogenic bladder Code(s): N31.9 - NEUROMUSCULAR DYSFUNCTION OF BLADDER, UNSPECIFIED Status: Chronic (6) Paraplegia following spinal cord injury Code(s): G82.20 - PARAPLEGIA, UNSPECIFIED Status: Chronic - Plan 06/19: The patient is presenting with sepsis likely due to recurrent pyelonephritis associated with E. coli and enterococcus per prior cultures. Empiric antibiotic treatment with vancomycin and Zosyn has been initiated. Urine culture and blood cultures will be obtained. We will monitor the patient's response and resume his home medications. Please see orders for further details. 06/20: The patient remains with no signs of sepsis. Blood and urine culture results are in progress. Continue vancomycin and Zosyn. We will insert Menezes catheter due to the patient's frequent self catheterizations.
[2019-06-21] MEDS: Piperacillin/Tazobactam 3.375 GM in Sodium Chloride 0.9% 100 ML IVPB SCH ×4 (00:25→18:00)
[2019-06-21 00:38] LABS: Vancomycin, Trough 20.7 ug/mL
[2019-06-21] MEDS: Vancomycin 1.5 GRAM/300 ML BAG 1.5 GM in Premix Bag 1 BAG IVPB SCH ×2 (01:25→13:01)
[2019-06-21] MEDS: Sodium Chloride 0.9% 1,000 ML IV SCH ×2 (05:50→15:38)
[2019-06-21] MEDS: HYDROcodone/Acetaminophen 10/325 mg Tablet PO PRN ×3 (06:16→21:32)
[2019-06-21] MEDS: Morphine 2 MG/ML SYRINGE SLOW IVP PRN ×2 (08:14→15:46)
[2019-06-21] MEDS: Enoxaparin Sodium 40 MG/0.4 ML SYRINGE SC SCH (08:14)
[2019-06-21] MEDS: clonazePAM 0.5 MG TABLET PO SCH ×3 (08:14→21:33)
[2019-06-21] MEDS: Gabapentin 300 MG CAP PO SCH ×3 (08:14→21:33)
[2019-06-21] MEDS: Baclofen 10 MG TAB PO SCH ×3 (08:14→21:32)
[2019-06-21] MEDS: Promethazine HCl 12.5 MG in Sodium Chloride 0.9% 50 ML IVPB PRN ×2 (11:15→21:34)
--- NOTE | 2019-06-21 15:36 | PDOC.HOSPP ---
- Subjective Encounter Date: 06/21/19 Subjective: The patient is denying any new complaints today. He is tolerating his meals. He feels better. - Objective Vital Signs & Weight: Vital Signs (12 hours) Temp Pulse Resp BP Pulse Ox 06/21/19 08:00 98 06/21/19 07:59 98.2 F 82 20 138/84 98 Weight Weight 240 lb I&O: 06/20/19 06/21/19 06/22/19 06:59 06:59 06:59 Intake Total 2094 Output Total 750 2250 2200 Balance -750 -155 -2200 Result Diagrams: 06/20/19 05:09 06/20/19 05:09 Hospitalist ROS - Medication Medications: Active Medications Generic Name Dose Route Start Last Admin Trade Name Freq PRN Reason Stop Dose Admin Hydrocodone Bitart/Acetaminophen 1 tab 06/19/19 11:00 06/21/19 11:22 [place] 10/325 PO 1 tab Q6H PRN Administration Pain Baclofen 10 mg 06/19/19 15:00 06/21/19 08:14 Lioresal PO 10 mg TID IRAIS Administration Clonazepam 0.5 mg 06/19/19 15:00 06/21/19 08:14 Klonopin PO 0.5 mg TID IRAIS Administration Enoxaparin Sodium 40 mg 06/20/19 09:00 06/21/19 08:14 Lovenox SC 40 mg 0900 IRAIS Administration Gabapentin 300 mg 06/19/19 15:00 06/21/19 08:14 Neurontin PO 300 mg TID IRAIS Administration Sodium Chloride 1,000 mls @ 75 mls/hr 06/19/19 11:00 06/21/19 05:50 Normal Saline 0.9% IV Not Given .[id number] IRAIS Piperacillin Sod/Tazobactam 100 mls @ 200 mls/hr 06/19/19 12:00 06/21/19 11: 16 Sod 3.375 gm/ Sodium Chloride IVPB 100 mls Q6HR IRAIS Administration Vancomycin HCl 1.5 gm/ Device 300 mls @ 200 mls/hr 06/19/19 13:00 06/21/19 13 :01 IVPB 300 mls 0100,1300 IRAIS Administration Promethazine HCl 12.5 mg/ 50.5 mls @ 202 mls/hr 06/19/19 12:00 06/21/19 11:15 Sodium Chloride IVPB 50.5 mls Q6H PRN Administration Nausea/Vomiting Morphine Sulfate 2 mg 06/19/19 12:01 06/21/19 08:14 Morphine SLOW IVP 2 mg Q4H PRN Administration Moderate to Severe Pain (6-10) Pantoprazole Sodium 40 mg 06/20/19 09:00 06/21/19 08:14 Protonix PO 40 mg DAILY IRAIS Administration Sodium Chloride 10 ml 06/20/19 21:00 06/21/19 08:15 Flush - Normal Saline IVF Not Given Q12HR IRAIS - Exam General Appearance: NAD, awake alert Eye: PERRL, anicteric sclera ENT: normocephalic atraumatic Neck: supple Heart: RRR, no murmur, no gallops, no rubs Respiratory: CTAB Hosp A/P (1) Sepsis Code(s): A41.9 - SEPSIS, UNSPECIFIED ORGANISM Status: Acute (2) Pyelonephritis Code(s): N12 - TUBULO-INTERSTITIAL NEPHRITIS, NOT SPCF ACUTE OR CHRONIC Status: Acute (3) Chronic hepatitis C Code(s): B18.2 - CHRONIC VIRAL HEPATITIS C Status: Chronic Qualifiers: (4) Chronic pain syndrome Code(s): G89.4 - CHRONIC PAIN SYNDROME Status: Chronic (5) Neurogenic bladder Code(s): N31.9 - NEUROMUSCULAR DYSFUNCTION OF BLADDER, UNSPECIFIED Status: Chronic (6) Paraplegia following spinal cord injury Code(s): G82.20 - PARAPLEGIA, UNSPECIFIED Status: Chronic - Plan 06/19: The patient is presenting with sepsis likely due to recurrent pyelonephritis associated with E. coli and enterococcus per prior cultures. Empiric antibiotic treatment with vancomycin and Zosyn has been initiated. Urine culture and blood cultures will be obtained. We will monitor the patient's response and resume his home medications. Please see orders for further details. 06/20: The patient remains with no signs of sepsis. Blood and urine culture results are in progress. Continue vancomycin and Zosyn. We will insert Menezes catheter due to the patient's frequent self catheterizations. 06/21: Urine culture is showing growth of Pseudomonas species. Pending final identification and sensitivity data. Continue broad-spectrum antibiotics. The patient is improving clinically.
[2019-06-22] MEDS: Vancomycin 1.5 GRAM/300 ML BAG 1.5 GM in Premix Bag 1 BAG IVPB SCH ×2 (00:25→13:21)
[2019-06-22] MEDS: Piperacillin/Tazobactam 3.375 GM in Sodium Chloride 0.9% 100 ML IVPB SCH ×5 (00:25→23:21)
[2019-06-22] MEDS: HYDROcodone/Acetaminophen 10/325 mg Tablet PO PRN (06:31)
[2019-06-22] MEDS: Sodium Chloride 0.9% 1,000 ML IV SCH ×2 (06:46→10:54)
[2019-06-22] MEDS: Gabapentin 300 MG CAP PO SCH ×3 (08:12→20:25)
[2019-06-22] MEDS: clonazePAM 0.5 MG TABLET PO SCH ×3 (08:12→20:24)
[2019-06-22] MEDS: Baclofen 10 MG TAB PO SCH ×3 (08:12→20:24)
[2019-06-22] MEDS: Enoxaparin Sodium 40 MG/0.4 ML SYRINGE SC SCH (08:13)
[2019-06-22] MEDS: Morphine 2 MG/ML SYRINGE SLOW IVP PRN ×3 (08:14→18:02)
[2019-06-22] MEDS: Promethazine HCl 12.5 MG in Sodium Chloride 0.9% 50 ML IVPB PRN ×2 (09:51→20:25)
[2019-06-22] MEDS: Vancomycin HCl 1.25 GM in Sodium Chloride 0.9% 250 ML 250 ML IVPB SCH (14:33)
--- NOTE | 2019-06-22 17:11 | PDOC.HOSPP ---
- Subjective Encounter Date: 06/22/19 Subjective: No new events - Objective Vital Signs & Weight: Vital Signs (12 hours) Temp Pulse Resp BP Pulse Ox 06/22/19 15:32 89 16 131/83 95 06/22/19 08:00 98.3 F 06/22/19 07:29 98.3 F 86 18 145/91 H 98 Weight Weight 240 lb I&O: 06/21/19 06/22/19 06/23/19 06:59 06:59 06:59 Intake Total 2095 1820 600 Output Total 2250 9058 1554 Balance -155 -1155 -950 Result Diagrams: 06/20/19 05:09 06/20/19 05:09 Hospitalist ROS - Medication Medications: Active Medications Generic Name Dose Route Start Last Admin Trade Name Freq PRN Reason Stop Dose Admin Hydrocodone Bitart/Acetaminophen 1 tab 06/19/19 11:00 06/22/19 06:31 [place] 10/325 PO 1 tab Q6H PRN Administration Pain Baclofen 10 mg 06/19/19 15:00 06/22/19 15:28 Lioresal PO 10 mg TID IRAIS Administration Clonazepam 0.5 mg 06/19/19 15:00 06/22/19 15:28 Klonopin PO 0.5 mg TID IRAIS Administration Enoxaparin Sodium 40 mg 06/20/19 09:00 06/22/19 08:13 Lovenox SC 40 mg 0900 IRAIS Administration Gabapentin 300 mg 06/19/19 15:00 06/22/19 15:28 Neurontin PO 300 mg TID IRAIS Administration Sodium Chloride 1,000 mls @ 75 mls/hr 06/19/19 11:00 06/22/19 10:54 Normal Saline 0.9% IV 1,000 mls .[id number] IRAIS Administration Piperacillin Sod/Tazobactam 100 mls @ 200 mls/hr 06/19/19 12:00 06/22/19 11: 30 Sod 3.375 gm/ Sodium Chloride IVPB 100 mls Q6HR IRAIS Administration Promethazine HCl 12.5 mg/ 50.5 mls @ 202 mls/hr 06/19/19 12:00 06/22/19 09:51 Sodium Chloride IVPB 50.5 mls Q6H PRN Administration Nausea/Vomiting Vancomycin HCl 1.25 gm/ Sodium 250 mls @ 166.667 mls/hr 06/22/19 14:00 14:33 Chloride IVPB 250 mls 0200,1400 IRAIS Administration Morphine Sulfate 2 mg 06/19/19 12:01 06/22/19 13:12 Morphine SLOW IVP 2 mg Q4H PRN Administration Moderate to Severe Pain (6-10) Pantoprazole Sodium 40 mg 06/20/19 09:00 06/22/19 08:12 Protonix PO 40 mg DAILY IRAIS Administration Sodium Chloride 10 ml 06/20/19 21:00 06/22/19 08:13 Flush - Normal Saline IVF 10 ml Q12HR IRAIS Administration - Exam General Appearance: NAD, awake alert Eye: PERRL, anicteric sclera ENT: normocephalic atraumatic Neck: supple, symmetric, no JVD Heart: RRR Respiratory: CTAB Gastrointestinal: soft, non-tender, non-distended Hosp A/P (1) Sepsis Code(s): A41.9 - SEPSIS, UNSPECIFIED ORGANISM Status: Acute (2) Pyelonephritis Code(s): N12 - TUBULO-INTERSTITIAL NEPHRITIS, NOT SPCF ACUTE OR CHRONIC Status: Acute (3) Chronic hepatitis C Code(s): B18.2 - CHRONIC VIRAL HEPATITIS C Status: Chronic Qualifiers: (4) Chronic pain syndrome Code(s): G89.4 - CHRONIC PAIN SYNDROME Status: Chronic (5) Neurogenic bladder Code(s): N31.9 - NEUROMUSCULAR DYSFUNCTION OF BLADDER, UNSPECIFIED Status: Chronic (6) Paraplegia following spinal cord injury Code(s): G82.20 - PARAPLEGIA, UNSPECIFIED Status: Chronic - Plan 06/19: The patient is presenting with sepsis likely due to recurrent pyelonephritis associated with E. coli and enterococcus per prior cultures. Empiric antibiotic treatment with vancomycin and Zosyn has been initiated. Urine culture and blood cultures will be obtained. We will monitor the patient's response and resume his home medications. Please see orders for further details. 06/20: The patient remains with no signs of sepsis. Blood and urine culture results are in progress. Continue vancomycin and Zosyn. We will insert Menezes catheter due to the patient's frequent self catheterizations. 06/21: Urine culture is showing growth of Pseudomonas species. Pending final identification and sensitivity data. Continue broad-spectrum antibiotics. The patient is improving clinically. 06/22: The patient is stable for discharge pending antibiotic sensitivities for the Pseudomonas in the cultures.
[2019-06-23] MEDS: Vancomycin HCl 1.25 GM in Sodium Chloride 0.9% 250 ML 250 ML IVPB SCH ×2 (01:51→14:52)
[2019-06-23] MEDS: Piperacillin/Tazobactam 3.375 GM in Sodium Chloride 0.9% 100 ML IVPB SCH ×3 (05:20→17:55)
[2019-06-23] MEDS: Sodium Chloride 0.9% 1,000 ML IV SCH (05:22)
[2019-06-23] MEDS: Morphine 2 MG/ML SYRINGE SLOW IVP PRN ×2 (05:42→12:04)
[2019-06-23] MEDS: Enoxaparin Sodium 40 MG/0.4 ML SYRINGE SC SCH (09:41)
[2019-06-23] MEDS: clonazePAM 0.5 MG TABLET PO SCH ×2 (09:41→14:52)
[2019-06-23] MEDS: Baclofen 10 MG TAB PO SCH ×2 (09:41→14:52)
[2019-06-23] MEDS: Gabapentin 300 MG CAP PO SCH ×2 (09:41→14:52)
[2019-06-23] MEDS: Promethazine HCl 12.5 MG in Sodium Chloride 0.9% 50 ML IVPB PRN (11:31)
--- NOTE | 2019-06-23 13:14 | PDOC.HOSPP ---
- Subjective Encounter Date: 06/23/19 Subjective: Complains of swelling and tightness in his left thigh - Objective Vital Signs & Weight: Vital Signs (12 hours) Temp Pulse Resp BP Pulse Ox 06/23/19 08:00 98.5 F 81 18 137/87 98 Weight Weight 240 lb I&O: 06/22/19 06/23/19 06/24/19 06:59 06:59 06:59 Intake Total 5063 2865 240 Output Total 0715 7230 Balance -1155 -103 240 Result Diagrams: 06/20/19 05:09 06/20/19 05:09 Hospitalist ROS - Medication Medications: Active Medications Generic Name Dose Route Start Last Admin Trade Name Freq PRN Reason Stop Dose Admin Hydrocodone Bitart/Acetaminophen 1 tab 06/19/19 11:00 06/22/19 06:31 [place] 10/325 PO 1 tab Q6H PRN Administration Pain Baclofen 10 mg 06/19/19 15:00 06/23/19 09:41 Lioresal PO 10 mg TID IRAIS Administration Clonazepam 0.5 mg 06/19/19 15:00 06/23/19 09:41 Klonopin PO 0.5 mg TID IRAIS Administration Enoxaparin Sodium 40 mg 06/20/19 09:00 06/23/19 09:41 Lovenox SC 40 mg 0900 IRAIS Administration Gabapentin 300 mg 06/19/19 15:00 06/23/19 09:41 Neurontin PO 300 mg TID IRAIS Administration Sodium Chloride 1,000 mls @ 75 mls/hr 06/19/19 11:00 06/23/19 05:22 Normal Saline 0.9% IV 1,000 mls .[id number] IRAIS Administration Piperacillin Sod/Tazobactam 100 mls @ 200 mls/hr 06/19/19 12:00 06/23/19 11: 33 Sod 3.375 gm/ Sodium Chloride IVPB 100 mls Q6HR IRAIS Administration Promethazine HCl 12.5 mg/ 50.5 mls @ 202 mls/hr 06/19/19 12:00 06/23/19 11:31 Sodium Chloride IVPB 50.5 mls Q6H PRN Administration Nausea/Vomiting Vancomycin HCl 1.25 gm/ Sodium 250 mls @ 166.667 mls/hr 06/22/19 14:00 01:51 Chloride IVPB 250 mls 0200,1400 IRAIS Administration Morphine Sulfate 2 mg 06/19/19 12:01 06/23/19 12:04 Morphine SLOW IVP 2 mg Q4H PRN Administration Moderate to Severe Pain (6-10) Pantoprazole Sodium 40 mg 06/20/19 09:00 06/23/19 09:41 Protonix PO 40 mg DAILY IRAIS Administration Sodium Chloride 10 ml 06/20/19 21:00 06/23/19 09:41 Flush - Normal Saline IVF 10 ml Q12HR IRAIS Administration - Exam General Appearance: NAD, awake alert Eye: PERRL, anicteric sclera ENT: normocephalic atraumatic Neck: supple, no JVD Heart: RRR, no murmur, no gallops, no rubs, normal peripheral pulses Respiratory: CTAB Gastrointestinal: soft, non-tender, non-distended Extremities - other findings: Swelling of left LE without skin discoloration Hosp A/P (1) Sepsis Code(s): A41.9 - SEPSIS, UNSPECIFIED ORGANISM Status: Acute (2) Pyelonephritis Code(s): N12 - TUBULO-INTERSTITIAL NEPHRITIS, NOT SPCF ACUTE OR CHRONIC Status: Acute (3) Chronic hepatitis C Code(s): B18.2 - CHRONIC VIRAL HEPATITIS C Status: Chronic Qualifiers: (4) Chronic pain syndrome Code(s): G89.4 - CHRONIC PAIN SYNDROME Status: Chronic (5) Neurogenic bladder Code(s): N31.9 - NEUROMUSCULAR DYSFUNCTION OF BLADDER, UNSPECIFIED Status: Chronic (6) Paraplegia following spinal cord injury Code(s): G82.20 - PARAPLEGIA, UNSPECIFIED Status: Chronic (7) Swelling of left lower extremity Code(s): M79.89 - OTHER SPECIFIED SOFT TISSUE DISORDERS Status: Acute - Plan 06/19: The patient is presenting with sepsis likely due to recurrent pyelonephritis associated with E. coli and enterococcus per prior cultures. Empiric antibiotic treatment with vancomycin and Zosyn has been initiated. Urine culture and blood cultures will be obtained. We will monitor the patient's response and resume his home medications. Please see orders for further details. 06/20: The patient remains with no signs of sepsis. Blood and urine culture results are in progress. Continue vancomycin and Zosyn. We will insert Menezes catheter due to the patient's frequent self catheterizations. 06/21: Urine culture is showing growth of Pseudomonas species. Pending final identification and sensitivity data. Continue broad-spectrum antibiotics. The patient is improving clinically. 06/22: The patient is stable for discharge pending antibiotic sensitivities for the Pseudomonas in the cultures. 06/23: One more day of IVABX. Check LLE Venous duplex.
--- NOTE | 2019-06-23 16:06 | ULT ---
VENOUS DOPPLER ULTRASOUND OF THE LEFT LOWER EXTREMITY: 06/23/19 HISTORY: Left lower extremity edema. TECHNIQUE: Garcia scale, color flow and spectral Doppler imaging of the deep venous system of the left lower extre mity is performed. FINDINGS: There is good flow, compression, and augmentation noted in the left common femoral, femoral, deep fem oral, popliteal, posterior tibial and greater saphenous veins. IMPRESSION: No evidence of DVT in the left lower extremity. POS: JEANNINE
[2019-06-24] MEDS: HYDROcodone/Acetaminophen 10/325 mg Tablet PO PRN ×2 (00:49→15:19)
[2019-06-24] MEDS: Baclofen 10 MG TAB PO SCH ×3 (00:49→14:57)
[2019-06-24] MEDS: Piperacillin/Tazobactam 3.375 GM in Sodium Chloride 0.9% 100 ML IVPB SCH ×3 (00:49→12:12)
[2019-06-24] MEDS: clonazePAM 0.5 MG TABLET PO SCH ×3 (00:50→14:57)
[2019-06-24] MEDS: Gabapentin 300 MG CAP PO SCH ×3 (00:50→14:57)
[2019-06-24 01:21] LABS: Vancomycin, Trough 23.7 ug/mL
[2019-06-24] MEDS: Promethazine HCl 12.5 MG in Sodium Chloride 0.9% 50 ML IVPB PRN ×2 (01:55→14:57)
[2019-06-24] MEDS: Vancomycin HCl 1.25 GM in Sodium Chloride 0.9% 250 ML 250 ML IVPB SCH (03:27)
[2019-06-24] MEDS: Sodium Chloride 0.9% 1,000 ML IV SCH ×2 (03:37→12:12)
[2019-06-24] MEDS: Morphine 2 MG/ML SYRINGE SLOW IVP PRN ×2 (03:38→12:17)
[2019-06-24] MEDS ORDERED: Vancomycin HCl 1 GM in Premix Bag 1 BAG IVPB SCH (06:00)
[2019-06-24] MEDS: Enoxaparin Sodium 40 MG/0.4 ML SYRINGE SC SCH (08:34)
[2019-06-24] MEDS ORDERED: Heparin 1,000 UNITS/ML VIAL SLOW IVP SCH (13:15)
[2019-06-24 16:46] VITALS: BP 127/83; TEMP 98.3
--- NOTE | 2019-06-25 02:07 | DIS ---
DATE OF ADMISSION: 06/19/2019 DATE OF DISCHARGE: 06/24/2019 HISTORY OF PRESENT ILLNESS AND HOSPITAL COURSE: This is a 38-year-old male with a lengthy complicated past medical history including paraplegia and neurogenic bladder that he manages with intermittent catheterizations. He was admitted to our facility earlier in May with pyelonephritis and sepsis. At that time, he was managed with IV antibiotics and his culture showed growth of Escherichia coli and Enterococcus species. The patient presented to the hospital this time with recurrent UTI with sepsis. His urine culture results revealed growth of Pseudomonas aeruginosa. He was managed with broad-spectrum IV antibiotics for 5 days leading to resolution of his sepsis and improvement in his symptoms. DISCHARGE DIAGNOSES: 1. Sepsis. 2. Pyelonephritis. 3. Chronic hepatitis C. 4. Chronic pain syndrome. 5. Neurogenic bladder. 6. Paraplegia. DISCHARGE MEDICATIONS: 1. The patient completed 5 days of IV vancomycin and Zosyn. 2. Baclofen 10 mg orally t.i.d. 3. Clonazepam 0.5 p.o. t.i.d. 4. Gabapentin 300 mg orally t.i.d. 5. [place] 10/325 p.o. q.6 hours. 6. Pantoprazole 40 mg orally daily. 7. Tylenol 650 mg p.o. q.6 hours p.r.n. for pain. 8. Bactrim SS tablet 1 tablet daily. Job ID: [id number]
--- NOTE | 2019-06-27 04:23 | PQF ---
VERO PEREZ MOEZ [id number] CLINICAL DOCUMENTATION CLARIFICATION FORM: POST DISCHARGE Addendum to original discharge summary date: ____ Late entry note date: __ DATE:06/27/2019 ATTN: Radha Cadena Please exercise your independent, professional judgment in responding to the clarification form. Clinical indicators are provided on the bottom of this form for your review Please check appropriate box(s): [ > ] Sepsis due to Postoperative complication of self catheterization [ ] Sepsis due to Postoperative complication of Penile implant [ ] Sepsis due to Pyelonephritis not related to procedure [ ] Other diagnosis [ ] Unable to determine In addition, please specify: Present on Admission (POA): [ ] Yes [ ] No [ ] Unable to determine CLINICAL INDICATORS - SIGNS / SYMPTOMS / LABS Vital signs 06/19 BP 128/83, Pulse 89, Resp 20 Urinalysis 06/19 Urine blood Trace A, Urine Leukocyte esterase 75, Urine RBC 7 -10, Urine WBC 21-50 Microbiology Urine straight catheter cultured 06/19 Presumptive Pseudo Aeruginosa H&P p1 06/19 Dr Ohara Pt has history of paraplegia and neurogenic bladder and does intermittens catheterization H&P p1 06/19 Dr Ohara He has admitted to this facility earlier on May with pyelonephritis and sepsis H&P p1 06/19 Dr Ohara the patients sent to the hospital today with complaints of fever and severe right-sided abdominal pain that started earlier today H&P p1 06/19 Dr Ohara Initial laboratory testing at the facility revealed presence of leukocytosis with WBC count of 14.6 and he was found to be febrile with temperature of 103. H&P p3 06/19 Dr Ohara The patient presenting with sepsis likely due to recurrent pyelonephritis associated with E.Coi and enterococcus per prior culture RISK FACTORS ED Notes p1 2/9 Self catheterization H&P p1 06/19 Paraplegia H&P p1 06/19 Neurogenic bladder H&P p1 06/19 s/p Nephrectomy H&P p1 06/19 s/p inflatable penile prosthetic implant H&P p2 06/19 Sepsis H&P p2 06/19 Pyelonephritis H&P p2 06/19 Chronic Hepatitis TREATMENT: JUL 10 IV Vancomycin 1.5gm JUL 10 IVF 1L JUL 10 IV Zosyn 3.375gm UA ordered 06/19 Urine and blood culture ordered 06/19 (This form is maintained as a part of the permanent medical record) 2014 [employer]. All Rights Reserved [email or web address]
== END 2019-06-24 17:36 | disposition home health service (06) | DRG 698 ==
LOC: ERS 08:10 → T4-A 09:13
PROVIDERS: ADMIT Internal Medicine; ATTEND Internal Medicine
DX: T83.518A Infection and inflammatory reaction due to other urinary catheter, initial encounter (principal); A41.52 Sepsis due to Pseudomonas; A41.51 Sepsis due to Escherichia coli [E. coli]; N12 Tubulo-interstitial nephritis, not specified as acute or chronic; G82.20 Paraplegia, unspecified; B18.2 Chronic viral hepatitis C; G89.4 Chronic pain syndrome; N31.9 Neuromuscular dysfunction of bladder, unspecified; Z96.0 Presence of urogenital implants; Y84.6 Urinary catheterization as the cause of abnormal reaction of the patient, or of later complication, without mention of misadventure at the time of the procedure; M79.89 Other specified soft tissue disorders; Z87.440 Personal history of urinary (tract) infections; Z79.899 Other long term (current) drug therapy; Z90.5 Acquired absence of kidney; Z90.49 Acquired absence of other specified parts of digestive tract; Z89.422 Acquired absence of other left toe(s); Z89.421 Acquired absence of other right toe(s); S24.152S Other incomplete lesion at T2-T6 level of thoracic spinal cord, sequela; V04.9 Pedestrian injured in collision with heavy transport vehicle or bus, unspecified whether traffic or nontraffic accident; Z28.21 Immunization not carried out because of patient refusal
CPT/HCPCS: 36415; 80048; 80202; 85025; 87086; 96365; 96375; J1642; J1650; J2270; J2543; J2550; J3370; J3490; J7050

== ENCOUNTER 2019-07-29 21:20 | Emergency (ER) | payer MEDICARE, OTHER ==
[2019-07-29] MEDS ORDERED: Promethazine HCl 25 MG/ML VIAL ONE (21:41)
[2019-07-29] MEDS ORDERED: Morphine 2 MG/ML SYRINGE ONE (21:41)
[2019-07-29 22:14] LABS: #Basophils 0.1 thou/uL (0.0-0.2); #Eosinphils 0.2 thou/uL (0.0-0.7); #Monocytes 0.6 thou/uL (0.11-0.59); #Neutrophils 3.4 thou/uL (1.40-6.50); %Basophils 0.7 % (0.0-1.0); %Eosinophils 2.4 % (0.0-10.0); %Lymphocytes 41.8 % (21.0-51.0); %Monocytes 8.6 % (0.0-10.0); %Neutrophils 46.5 % (42.0-75.0); Hemoglobin 13.9 g/dL (14.0-18.0); Mean Corpuscular HGB CONC 33.1 g/dL (32.0-36.0); Mean Corpuscular Hemoglobin 32.7 pg (27.0-31.0); Mean Corpuscular Volume 98.8 fL (78.0-98.0); Mean Platelet Volume 7.6 fL (7.4-10.4); Platelet Count 179 thou/uL (130-400); RBC Distribution Width 12.5 % (11.5-14.5); Red Blood Cell (RBC) Count 4.24 mill/uL (4.70-6.10); White Blood Cell (WBC) Count 7.3 thou/uL (4.8-10.8)
[2019-07-29 22:14] LABS: Bacteria/HPF 4+ HPF (None Seen); Bilirubin Negative (Negative); Blood, Urine Negative (Negative); Clarity Turbid (Clear); Glucose, Urine (Dipstick) Normal (Negative); Leukocyte 500 Leu/uL (Negative); Nitrite Negative (Negative); Protein, Urine (Dipstick) 30 mg/dL (Neg-Trace); Urobilinogen 6 mg/dL (Less than 2); WBC/HPF Greater than 50 HPF (0-3)
[2019-07-29 22:34] LABS: ALT (SGPT) 48 U/L (8-55); AST (SGOT) 69 U/L (5-34); Albumin 3.2 g/dL (3.5-5.0); Alkaline Phosphatase 118 U/L (40-110); Anion Gap 11 mmol/L (10-20); BUN (Urea Nitrogen) 15 mg/dL (8.9-20.6); Bilirubin, Total 1.4 mg/dL (0.2-1.2); Calc. Creatinine Clearance 0 mL/min (70-130); Calcium 8.1 mg/dL (7.8-10.44); Carbon Dioxide 22 mmol/L (22-29); Chloride 110 mmol/L (98-107); Estimated GFR-MDRD Greater than 90; Globulin 3.8 g/dL (2.4-3.5); Glucose 106 mg/dL (70-105); Potassium 3.8 mmol/L (3.5-5.1); Sodium 139 mmol/L (136-145)
[2019-07-29] MEDS ORDERED: cefTRIAXone\\ROCEPHIN 2 GM VIAL ONE (22:59)
[2019-07-29] MEDS ORDERED: HYDROcodone/Acetaminophen 7.5/325 mg Tablet ONE (23:10)
== END 2019-07-30 00:40 | disposition home or self-care (01) ==
LOC: ERS 21:20
DX: N39.0 Urinary tract infection, site not specified (principal); M86.9 Osteomyelitis, unspecified; F41.9 Anxiety disorder, unspecified; E66.9 Obesity, unspecified; F32.9 Major depressive disorder, single episode, unspecified; F17.210 Nicotine dependence, cigarettes, uncomplicated; Z79.899 Other long term (current) drug therapy
CPT/HCPCS: 36415; 51701; 80053; 81003; 81015; 83605; 85025; 87040; 87077; 87086; 87149; 87186; 96361; 96374; 96375; J0696; J2270; J2550

== ENCOUNTER 2020-02-16 17:00 | Emergency (ER) | payer MEDICARE, OTHER ==
[~2020-02-16 17:00] MED LIST: Iopamidol-370 76% 500 ML 1 ML ONE
[2020-02-16 17:48] LABS: #Basophils 0.1 thou/uL (0.0-0.2); #Eosinphils 0.4 thou/uL (0.0-0.7); #Lymphocytes 3.5 thou/uL (1.20-3.40); #Monocytes 0.8 thou/uL (0.11-0.59); #Neutrophils 2.9 thou/uL (1.40-6.50); %Basophils 1.1 % (0.0-1.0); %Eosinophils 4.7 % (0.0-10.0); %Lymphocytes 45.7 % (21.0-51.0); %Neutrophils 37.5 % (42.0-75.0); Hemoglobin 14.6 g/dL (14.0-18.0); Mean Corpuscular HGB CONC 33.4 g/dL (32.0-36.0); Mean Corpuscular Hemoglobin 33.5 pg (27.0-31.0); Mean Platelet Volume 7.2 fL (7.4-10.4); Platelet Count 177 thou/uL (130-400); RBC Distribution Width 12.3 % (11.5-14.5); Red Blood Cell (RBC) Count 4.37 mill/uL (4.70-6.10); White Blood Cell (WBC) Count 7.6 thou/uL (4.8-10.8)
[2020-02-16 18:10] LABS: ALT (SGPT) 41 U/L (8-55); AST (SGOT) 75 U/L (5-34); Alkaline Phosphatase 104 U/L (40-110); Anion Gap 12 mmol/L (10-20); BUN (Urea Nitrogen) 13 mg/dL (8.9-20.6); Bilirubin, Total 1.8 mg/dL (0.2-1.2); Calc. Creatinine Clearance 0 mL/min (70-130); Calcium 8.2 mg/dL (7.8-10.44); Carbon Dioxide 24 mmol/L (22-29); Chloride 109 mmol/L (98-107); Estimated GFR-MDRD Greater than 90; Globulin 4.1 g/dL (2.4-3.5); Glucose 90 mg/dL (70-105); Lipase 13 U/L (8-78); Potassium 3.7 mmol/L (3.5-5.1); Protein, Total 7.1 g/dL (6.0-8.3); Sodium 141 mmol/L (136-145)
[2020-02-16] MEDS ORDERED: Promethazine HCl 12.5 MG SUPP ONE (18:56)
[2020-02-16] MEDS ORDERED: Morphine 4 MG/ML VIAL ONE (18:56)
[2020-02-16] MEDS ORDERED: Promethazine HCl 25 MG/ML VIAL ONE ×2 (18:57→19:02)
[2020-02-16 19:36] LABS: Bacteria/HPF 4+ HPF (None Seen); Bilirubin Negative (Negative); Blood, Urine 2+ (Negative); Clarity Turbid (Clear); Glucose, Urine (Dipstick) Normal (Negative); Ketone, Urine Trace mg/dL (Negative); Leukocyte 75 Leu/uL (Negative); Nitrite 1+ (Negative); Protein, Urine (Dipstick) 30 mg/dL (Neg-Trace); Specific Gravity, Urine 1.023 (1.002-1.036); Squamous Epithelial 0-3 HPF (0-3); Urobilinogen Greater than 12 mg/dL (Less than 2); WBC/HPF 21-50 HPF (0-3)
[2020-02-16] MEDS ORDERED: cefTRIAXone\\ROCEPHIN 2 GM VIAL ONE (20:02)
--- NOTE | 2020-02-16 20:38 | CT ---
EXAM: ABDOMEN AND PELVIC CT SCAN WITH IV CONTRAST: 02/16/20 HISTORY: Abdominal pain. COMPARISON: 06/19/19. FINDINGS: The lung bases are clear. Status post cholecystectomy. Mild dilatation of the common bile duct but no intrahepatic ductal dilatation. There are some minimally enlarged michael hepatis and peripancreatic l ymph nodes showing little change from prior study. Status post left nephrectomy. Marked dextroscolios is. Pancreas and adrenal glands are unremarkable as visualized. No significant retroperitoneal adenop athy. Thick wall very trabeculated appearing urinary bladder. Penile prosthesis changes noted. Marked abnormality involving both hip regions with some progressive left hip dislocation, effusion, and leopoldo e bony destructive changes of the femoral head compared to the prior study. No free intraperitoneal f luid or retroperitoneal hematoma. No right renal hydronephrosis. IMPRESSION: 1. No significant acute process in the abdomen or pelvis. 2. Numerous other findings as above showing little change from prior study other than some progr essive left hip effusion, dislocation, and overall bony destructive changes from the prior study. POS: [facility]
== END 2020-02-16 22:00 | disposition home or self-care (01) ==
LOC: ERS 17:00
DX: N39.0 Urinary tract infection, site not specified (principal); I71.2 Thoracic aortic aneurysm, without rupture; M86.9 Osteomyelitis, unspecified; E66.9 Obesity, unspecified; F41.9 Anxiety disorder, unspecified; G62.9 Polyneuropathy, unspecified; F32.9 Major depressive disorder, single episode, unspecified; Z87.891 Personal history of nicotine dependence; Z79.891 Long term (current) use of opiate analgesic; Z79.899 Other long term (current) drug therapy
CPT/HCPCS: 36415; 74177; 80053; 81003; 81015; 83690; 85025; 85652; 86140; 86850; 86900; 86901; 87040; 87077; 87086; 87186; 96374; 96375; J0696; J2270; J2550; Q9967

== ENCOUNTER 2020-05-02 00:47 | Inpatient (IN) | payer MEDICARE, MEDICAID ==
[2020-05-02 01:37] LABS: #Basophils 0.1 thou/uL (0.0-0.2); #Eosinphils 0.3 thou/uL (0.0-0.7); #Lymphocytes 2.6 thou/uL (1.20-3.40); #Monocytes 0.8 thou/uL (0.11-0.59); #Neutrophils 3.5 thou/uL (1.40-6.50); %Basophils 1.3 % (0.0-1.0); %Eosinophils 3.9 % (0.0-10.0); %Lymphocytes 35.8 % (21.0-51.0); %Monocytes 10.6 % (0.0-10.0); %Neutrophils 48.5 % (42.0-75.0); Mean Corpuscular HGB CONC 33.2 g/dL (32.0-36.0); Mean Corpuscular Hemoglobin 33.3 pg (27.0-31.0); Mean Platelet Volume 7.5 fL (7.4-10.4); Platelet Count 189 thou/uL (130-400); RBC Distribution Width 12.5 % (11.5-14.5); Red Blood Cell (RBC) Count 4.19 mill/uL (4.70-6.10); White Blood Cell (WBC) Count 7.3 thou/uL (4.8-10.8)
[2020-05-02 01:52] LABS: ALT (SGPT) 36 U/L (8-55); AST (SGOT) 64 U/L (5-34); Albumin 3.1 g/dL (3.5-5.0); Alkaline Phosphatase 115 U/L (40-110); Anion Gap 14 mmol/L (10-20); BUN (Urea Nitrogen) 17 mg/dL (8.9-20.6); Bilirubin, Total 0.8 mg/dL (0.2-1.2); Calc. Creatinine Clearance 0 mL/min (70-130); Calcium 8.2 mg/dL (7.8-10.44); Carbon Dioxide 23 mmol/L (22-29); Chloride 108 mmol/L (98-107); Globulin 4.6 g/dL (2.4-3.5); Glucose 116 mg/dL (70-105); Magnesium 1.8 mg/dL (1.6-2.6); Potassium 3.6 mmol/L (3.5-5.1); Protein, Total 7.7 g/dL (6.0-8.3); Sodium 141 mmol/L (136-145)
[2020-05-02] MEDS ORDERED: Promethazine HCl 25 MG/ML VIAL ONE (01:56)
[2020-05-02] MEDS ORDERED: cefTRIAXone\\ROCEPHIN 1 GM VIAL ONE (01:56)
[2020-05-02] MEDS ORDERED: Morphine 4 MG/ML VIAL ONE (02:44)
[2020-05-02 04:45] LABS: Bacteria/HPF 3+ HPF (None Seen); Bilirubin Negative (Negative); Blood, Urine 2+ (Negative); Clarity Turbid (Clear); Glucose, Urine (Dipstick) Normal (Negative); Ketone, Urine Negative (Negative); Leukocyte 500 Leu/uL (Negative); Mucous/LPF Rare LPF (<2+); Nitrite Negative (Negative); Protein, Urine (Dipstick) 50 mg/dL (Neg-Trace); RBC/HPF 21-50 HPF (0-3); Specific Gravity, Urine 1.023 (1.002-1.036); Squamous Epithelial 0-3 HPF (0-3); Urobilinogen 12 mg/dL (Less than 2); WBC/HPF Greater than 50 HPF (0-3)
[2020-05-02 05:01] LABS: Sperm/HPF None Seen HPF (None Seen); Yeast-Budding None Seen HPF (None Seen)
[2020-05-02] MEDS ORDERED: Vancomycin 1 GM/200 ML BAG ONE (05:22)
[2020-05-02] MEDS ORDERED: Piperacillin/Tazobactam 4.5 GM in Sodium Chloride 0.9% 100 ML IVPB SCH (06:00)
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
[2020-05-02] MEDS ORDERED: Sodium Chloride 0.9% 1,000 ML IV SCH ×2 (06:15→19:45)
[2020-05-02 10:23] VITALS: BMI 35.2
--- NOTE | 2020-05-02 10:44 | CT ---
PRELIMINARY REPORT/[facility]/EMERGENCY AFTER HOURS PROCEDURE: EXAM: CT Abdomen and Pelvis Without Intravenous Contrast CLINICAL HISTORY: ABDOMINAL FLANK RIGHT SIDE PAIN. 2HRS AGO STARTED N/V. MALE SURGICAL HISTORY Med Port, small filipe wel resection, sacral pressure ulcer debridement, toe amputation, cholecystectomy, nephrectomy, on th e left, R. Foot, R. Hip, splenectomy, Med Port, small bowel resection, Debridement of pressure sore o n sacrum, amputation toes on left right foot, Spine, bladder, AAA, Buttock skin flaps, bladder augmen tation, artificial sphincter, TECHNIQUE: Axial computed tomography images of the abdomen and pelvis without intravenous contrast. CONTRAST: None. COMPARISON: None provided. FINDINGS: LUNG BASES: No basilar airspace consolidation or pleural effusion. LIVER: Unremarkable. GALLBLADDER AND BILE DUCTS: The gallbladder is absent. No dilatation of the biliary ductal system.. PANCREAS: Unremarkable. SPLEEN: The spleen has been removed. A moderate sized rounded soft tissue density in the left upper quadrant measures 8.1 x 6.5 x 6 cm. This is homogeneous and could represent multiple etiologies including a complicated cyst or possibly hamartoma.. ADRENAL GLANDS: Unremarkable. KIDNEYS, URETERS, AND BLADDER: The left kidney has been removed. The right kidney has a normal size. No hydronephrosis. No renal stones or masses. There is thickening of the urinary bladder wall, cystitis is possible.. STOMACH AND BOWEL: No obstruction is seen. There has been bowel surgery in the lower mid abdomen. Moderate fecal debri s in the distal colon... APPENDIX: No CT evidence for appendicitis. PERITONEUM: No free fluid. No free air. LYMPH NODES: No lymphadenopathy. REPRODUCTIVE: Not remarkable as visualized. VASCULATURE: No aortic aneurysm. ABDOMINAL WALL AND SOFT TISSUES: Unremarkable. BONES: There is significant right scoliosis. There is been previous spinal fixation with hardware at the T1 2-L1 vertebral levels. There is significant osseous remodeling at hip joints. Some osseous destruct ion with resorption of the proximal femurs is noted. There is soft tissue swelling identified in the joint regions bilaterally this is more pronounced on the left. There is some fluid in these regions again more pronounced on the left. This may represent a long standing inflammatory arthritic proces s, however an acute infectious etiology is not excluded on the basis of this single study. Correlati on with previous history and imaging is recommended. No definitive acute fracture is identified.. IMPRESSION: There is no evidence of intestinal or urinary tract obstruction. The right kidney and collecting sys tem have a normal appearance. No renal calculi. Previous splenectomy. There is an 8 cm rounded soft tissue density in the left upper quadrant of the abdomen which may represent multiple etiologies including complicated cyst or possibly hamartoma. N o prior studies are available for review. Significant osseous remodeling of the proximal femurs at the hip joints with soft tissue swelling and minimal fluid this is more pronounced on the left. An inflammatory arthritic process is possible. An acute inflammatory process is not excluded. Correlation with previous imaging and history is giulia mmended. There is lateral wall thickening which may represent cystitis. Previous left nephrectomy. ELECTRONICALLY SIGNED BY: Nicole Souza DO May 02, 2020 2:49:59 AM DIRECTOR OF DATABASE MARKETING This report is intended for review by the ordering physician only, in accordance of law. If you recei ve this report in error, please call [facility] at [phone]. FINAL REPORT EMERGENCY AFTER HOURS CT STONE PROTOCOL: I agree with the preliminary report provided by [facility] in that there is no definite acute C T explanation for the patient's right-sided abdominal pain. There is a density in the left upper quadrant described as a complicated hematoma, but is reflective of the spleen. There is no postsurgical change of a splenectomy. There is postsurgical change of a le ft nephrectomy. No right-sided hydronephrosis is evident. Unopacified large and small bowel reveal no acute abnormali ty. There is postsurgical change of partial small bowel obstruction. There is a normal appendix in th e right lower quadrant. There is chronic osteomyelitis involving the left hip with surrounding effusion and destructive bone changes. There is a Girdlestone arthroplasty of the right hip. There is prominent thoracolumbar scoli osis. There is instrumentation involving the thoracolumbar spine. There is a healed decubitus involvi ng the right gluteal region. There is a urinary bladder sphincter band in place. POS: [facility]
[2020-05-02] MEDS ORDERED: Prochlorperazine Edisylate 10 MG in Sodium Chloride 0.9% 50 ML IVPB PRN ×2 (11:55→19:43)
[2020-05-02] MEDS ORDERED: Sterile Water 10 ML VIAL IVP SCH (12:00)
[2020-05-02] MEDS ORDERED: Activase 2 MG VIAL CATH SCH (12:00)
[2020-05-02] MEDS: Piperacillin/Tazobactam 4.5 GM in Sodium Chloride 0.9% 100 ML IVPB SCH ×2 (13:17→16:47)
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
[2020-05-02] MEDS: Baclofen 10 MG TAB PO SCH ×2 (14:43→20:55)
[2020-05-02] MEDS: Enoxaparin Sodium 40 MG/0.4 ML SYRINGE SC SCH (14:43)
[2020-05-02] MEDS: clonazePAM 0.5 MG TAB PO SCH ×2 (14:43→20:55)
[2020-05-02] MEDS: Sodium Chloride 0.9% 1,000 ML IV SCH ×2 (14:44→20:56)
[2020-05-02 18:35] LABS: SARS-CoV-2 MS2 Positive; SARS-CoV-2 N Gene Negative; SARS-CoV-2 S Gene Negative; SARS-CoV-2 by NAA Not Detected (NotDetected); SARS-CoV-2 orf1ab Negative
[2020-05-02] MEDS ORDERED: Acetaminophen 650 MG Suppository PR PRN (19:41)
[2020-05-02] MEDS ORDERED: Promethazine HCl 25 MG in Sodium Chloride 0.9% 50 ML IVPB SCH (19:45)
[2020-05-02] MEDS: Acetaminophen 325 MG TAB PO PRN (20:55)
[2020-05-03] MEDS: Piperacillin/Tazobactam 4.5 GM in Sodium Chloride 0.9% 100 ML IVPB SCH ×2 (00:41→09:24)
[2020-05-03 05:41] LABS: Hemoglobin 11.8 g/dL (14.0-18.0); Mean Corpuscular HGB CONC 32.7 g/dL (32.0-36.0); Mean Corpuscular Hemoglobin 33.2 pg (27.0-31.0); Mean Platelet Volume 8.8 fL (7.4-10.4); Platelet Count 92 thou/uL (130-400); RBC Distribution Width 12.8 % (11.5-14.5); Red Blood Cell (RBC) Count 3.55 mill/uL (4.70-6.10); White Blood Cell (WBC) Count 36.2 thou/uL (4.8-10.8)
[2020-05-03 05:42] LABS: Band 36 % (5-11); Lymphocytes 4 % (21-51); MDiff Complete? YES; Metamyelocyte 5 % (0-0); Monocytes 5 % (0-10); Myelocyte 1 % (0-0); Neutrophil 48 % (42-75); Platelet Morphology Comment Appears Decreased; Reactive Lymphocytes 1 % (0-10)
[2020-05-03] MEDS: Baclofen 10 MG TAB PO SCH ×2 (05:52→21:06)
[2020-05-03 05:53] LABS: Anion Gap 13 mmol/L (10-20); BUN (Urea Nitrogen) 37 mg/dL (8.9-20.6); Calc. Creatinine Clearance 51 mL/min (70-130); Calcium 7.1 mg/dL (7.8-10.44); Carbon Dioxide 18 mmol/L (22-29); Chloride 115 mmol/L (98-107); Glucose 139 mg/dL (70-105); Potassium 3.8 mmol/L (3.5-5.1); Sodium 142 mmol/L (136-145)
[2020-05-03] MEDS ORDERED: FLU VACC QS2020-21(6MOS UP)/PF 60 MCG/0.5 ML SYRINGE IM ONE (09:00)
[2020-05-03] MEDS: Sodium Chloride 0.9% 1,000 ML IV SCH ×2 (09:23→21:02)
[2020-05-03] MEDS: HYDROcodone/Acetaminophen 10/325 mg Tablet PO PRN (09:23)
[2020-05-03] MEDS: Enoxaparin Sodium 40 MG/0.4 ML SYRINGE SC SCH (09:23)
[2020-05-03] MEDS ORDERED: [UNRECOGNIZED DRUG - REMARK] IVPB PRN (09:23)
[2020-05-03] MEDS: clonazePAM 0.5 MG TAB PO SCH ×2 (09:24→21:06)
[2020-05-03] MEDS ORDERED: Promethazine 25 MG TAB PO PRN (14:10)
[2020-05-03] MEDS: Scopolamine 1.5 mg/72 hour Patch TD SCH (14:42)
[2020-05-03] MEDS: Promethazine 25 MG TAB PO PRN (14:42)
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
[2020-05-03] MEDS: Morphine 2 MG/ML VIAL SLOW IVP PRN ×2 (17:57→22:12)
[2020-05-03] MEDS: MEROPENEM 1 GM/50 ML 1 GM in Premix Bag 1 BAG IVPB SCH (17:57)
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
[2020-05-04] MEDS: Morphine 2 MG/ML VIAL SLOW IVP PRN ×5 (02:09→22:10)
[2020-05-04 04:21] LABS: Anion Gap 13 mmol/L (10-20); BUN (Urea Nitrogen) 37 mg/dL (8.9-20.6); Calc. Creatinine Clearance 74 mL/min (70-130); Calcium 7.5 mg/dL (7.8-10.44); Carbon Dioxide 18 mmol/L (22-29); Chloride 114 mmol/L (98-107); Glucose 104 mg/dL (70-105); Potassium 3.5 mmol/L (3.5-5.1); Sodium 141 mmol/L (136-145)
[2020-05-04 04:24] LABS: Band 18 % (5-11); Hemoglobin 12.1 g/dL (14.0-18.0); Lymphocytes 11 % (21-51); MDiff Complete? YES; Macrocytosis SLIGHT = 6-15 cells (100X) (0-5/hpf); Mean Corpuscular HGB CONC 31.8 g/dL (32.0-36.0); Mean Corpuscular Hemoglobin 32.4 pg (27.0-31.0); Mean Platelet Volume 9.3 fL (7.4-10.4); Metamyelocyte 3 % (0-0); Monocytes 8 % (0-10); Neutrophil 60 % (42-75); Platelet Count 99 thou/uL (130-400); Platelet Morphology Comment Appears Decreased; RBC Distribution Width 12.9 % (11.5-14.5); Red Blood Cell (RBC) Count 3.73 mill/uL (4.70-6.10)
[2020-05-04] MEDS: Sodium Chloride 0.9% 1,000 ML IV SCH ×2 (05:49→15:57)
[2020-05-04] MEDS: MEROPENEM 1 GM/50 ML 1 GM in Premix Bag 1 BAG IVPB SCH ×2 (05:49→17:15)
[2020-05-04] MEDS: Enoxaparin Sodium 40 MG/0.4 ML SYRINGE SC SCH (08:59)
[2020-05-04] MEDS: Baclofen 10 MG TAB PO SCH ×3 (08:59→20:34)
[2020-05-04] MEDS: clonazePAM 0.5 MG TAB PO SCH ×3 (08:59→20:34)
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
[2020-05-04] MEDS: Promethazine 25 MG TAB PO PRN (14:29)
[2020-05-04] MEDS: Acetaminophen 325 MG TAB PO PRN ×2 (15:57→22:30)
[2020-05-05] MEDS: Sodium Chloride 0.9% 1,000 ML IV SCH ×3 (00:38→19:56)
[2020-05-05] MEDS: Morphine 2 MG/ML VIAL SLOW IVP PRN ×6 (02:33→23:55)
[2020-05-05 04:27] LABS: Hemoglobin 12.4 g/dL (14.0-18.0); Mean Corpuscular HGB CONC 32.9 g/dL (32.0-36.0); Mean Corpuscular Hemoglobin 33.1 pg (27.0-31.0); Mean Platelet Volume 8.8 fL (7.4-10.4); Platelet Count 97 thou/uL (130-400); RBC Distribution Width 12.8 % (11.5-14.5); Red Blood Cell (RBC) Count 3.73 mill/uL (4.70-6.10); White Blood Cell (WBC) Count 16.7 thou/uL (4.8-10.8)
[2020-05-05 04:28] LABS: Band 22 % (5-11); Lymphocytes 26 % (21-51); MDiff Complete? YES; Monocytes 6 % (0-10); Neutrophil 46 % (42-75); Platelet Morphology Comment Appears Decreased
[2020-05-05 04:42] LABS: Anion Gap 12 mmol/L (10-20); BUN (Urea Nitrogen) 24 mg/dL (8.9-20.6); Calc. Creatinine Clearance 177 mL/min (70-130); Calcium 7.4 mg/dL (7.8-10.44); Carbon Dioxide 19 mmol/L (22-29); Chloride 113 mmol/L (98-107); Glucose 83 mg/dL (70-105); Potassium 3.2 mmol/L (3.5-5.1); Sodium 141 mmol/L (136-145)
[2020-05-05] MEDS: MEROPENEM 1 GM/50 ML 1 GM in Premix Bag 1 BAG IVPB SCH ×2 (05:47→17:34)
[2020-05-05] MEDS: clonazePAM 0.5 MG TAB PO SCH ×3 (09:33→19:57)
[2020-05-05] MEDS: Acetaminophen 325 MG TAB PO PRN (09:33)
[2020-05-05] MEDS: Baclofen 10 MG TAB PO SCH ×3 (09:33→19:56)
[2020-05-05] MEDS: Enoxaparin Sodium 40 MG/0.4 ML SYRINGE SC SCH (09:34)
[2020-05-05] MEDS: HYDROcodone/Acetaminophen 10/325 mg Tablet PO PRN (09:42)
[2020-05-05] MEDS: Promethazine 25 MG TAB PO PRN ×2 (12:05→23:55)
--- NOTE | 2020-05-05 15:36 | PDOC.HOSPP ---
- Subjective Encounter Date: 05/05/20 Encounter Time: 15:30 Subjective: f/u for recurrent pyelonephritis R receiving Meropenem IV. Nursing reports fever up to 102.6F. - Objective Vital Signs & Weight: Vital Signs (12 hours) Temp Pulse Ox 05/05/20 11:41 102.6 F H 05/05/20 07:42 100 05/05/20 07:16 99.9 F H 05/05/20 05:00 99.3 F Weight Weight 225 lb Most Recent Monitor Data Heart Rate from ECG 82 NIBP 152/73 NIBP BP-Mean 99 Respiration from ECG 12 SpO2 94 I&O: 05/04/20 05/05/20 05/06/20 06:59 06:59 06:59 Intake Total 1650 3852 Output Total 2100 2900 200 Balance -450 952 -200 Result Diagrams: 05/05/20 03:39 05/05/20 03:39 Additional Labs: Microbiology 05/02/20 04:00 Urine Straight Catheter Urine Culture - Final Serratia marcescens Non-Hemolytic Streptococcus 05/02/20 01:16 Venous blood - Left Hand Blood Culture - Preliminary NO GROWTH AT 48 HOURS 05/02/20 01:08 Venous blood - Right Hand Blood Culture - Preliminary NO GROWTH AT 48 HOURS 01/14/18 01:00 Urine Straight Catheter Urine Culture - Preliminary Presumptive Pseudo aeruginosa Presumptive Enterococcus sp. 01/14/18 00:50 Venous blood - Left Arm Blood Culture - Preliminary Specimen has been received and culture in progress. No Growth to date. 01/14/18 00:50 Venous blood - Left Arm Blood Culture - Preliminary Specimen has been received and culture in progress. No Growth to date. Laboratory Tests 05/02/20 05/03/20 05/03/20 10:40 04:42 04:42 WBC 36.2 H Hgb 11.8 L Plt Count 92 L Band Neuts % (Manual) 36 H Creatinine 2.78 H SARS-CoV-2 (PCR) Not Detected 05/03/20 05/04/20 05/04/20 17:25 03:12 03:12 WBC 27.0 H Hgb 12.1 L Plt Count 99 L Band Neuts % (Manual) 18 H Creatinine 2.64 H 1.94 H SARS-CoV-2 (PCR) 05/05/20 03:39 WBC Hgb Plt Count Band Neuts % (Manual) 22 H Creatinine SARS-CoV-2 (PCR) EKG Reviewed by me: Yes (Tele - SR) Hospitalist ROS - Medication Medications: Active Medications Generic Name Dose Route Start Last Admin Trade Name Freq PRN Reason Stop Dose Admin Acetaminophen 650 mg 05/02/20 19:41 05/05/20 09:33 Acetaminophen 325 Mg Tab PO 650 mg Q4H PRN Administration Headache/Fever/Mild Pain (1-3) Hydrocodone Bitart/Acetaminophen 1 tab 05/02/20 11:53 05/05/20 09:42 Hydrocodone/Acetaminophen 10/325 Mg Tablet PO 1 tab Q8H PRN Administration Pain Baclofen 10 mg 05/03/20 21:00 05/05/20 09:33 Baclofen 10 Mg Tab PO 10 mg TID IRAIS Administration Clonazepam 0.5 mg 05/03/20 21:00 05/05/20 09:33 Clonazepam 0.5 Mg Tab PO 0.5 mg TID IRAIS Administration Enoxaparin Sodium 40 mg 05/02/20 09:00 05/05/20 09:34 Enoxaparin Sodium 40 Mg/0.4 Ml Syringe SC 40 mg 0900 IRAIS Administration Sodium Chloride 1,000 mls @ 100 mls/hr 05/02/20 11:57 05/05/20 09:35 Normal Saline 0.9% IV 1,000 mls .Q10H IRAIS Administration Meropenem 1 gm/ Device 50 mls @ 100 mls/hr 05/03/20 18:00 05/05/20 05:47 IVPB 50 mls 0600,1800 IRAIS Administration Morphine Sulfate 2 mg 05/03/20 16:52 05/05/20 11:00 Morphine 2 Mg/Ml Vial SLOW IVP 2 mg Q4H PRN Administration Pain Promethazine HCl 25 mg 05/03/20 14:15 05/05/20 12:05 Promethazine 25 Mg Tab PO 25 mg Q6H PRN Administration Nausea/Vomiting Scopolamine 1.5 mg 05/03/20 15:00 05/03/20 14:42 Scopolamine 1.5 Mg/72 Hour Patch TD 1.5 mg Q3D IRAIS Administration - Exam General Appearance: NAD, awake alert Eye: PERRL, anicteric sclera ENT: normocephalic atraumatic, no oropharyngeal lesions Neck: supple, symmetric, no JVD, no thyromegaly, no lymphadenopathy Heart: RRR, no murmur, no gallops, no rubs, normal peripheral pulses Heart - other findings: S1, S2 Respiratory: CTAB, no wheezes, no rales, no ronchi, normal chest expansion Gastrointestinal: soft, non-tender, non-distended, normal bowel sounds, no palpable masses Extremities: no cyanosis, no clubbing Extremities - other findings: atrophy of LE's Neurological: no new deficit Neurological - other findings: paraplegic(chronic) Musculoskeletal - other findings: BLE atrophy(chronic) Psychiatric: normal affect, A&O x 3 Hosp A/P (1) Pyelonephritis Code(s): N12 - TUBULO-INTERSTITIAL NEPHRITIS, NOT SPCF ACUTE OR CHRONIC Status: Acute Plan: Suspected on R, continue Meropenem, IVF's (2) Sepsis Code(s): A41.9 - SEPSIS, UNSPECIFIED ORGANISM Status: Acute Plan: Secondary to UTI with Serratia spp, see above (3) UTI (urinary tract infection) due to urinary indwelling catheter Code(s): T83.51XA - ; N39.0 - URINARY TRACT INFECTION, SITE NOT SPECIFIED Status: Acute Plan: Serratia spp, continue Meropenem (4) Chronic hepatitis C Code(s): B18.2 - CHRONIC VIRAL HEPATITIS C Status: Chronic Qualifiers: (5) HTN (hypertension) Code(s): I10 - ESSENTIAL (PRIMARY) HYPERTENSION Status: Chronic Qualifiers: Hypertension type: essential hypertension (6) Neurogenic bladder Code(s): N31.9 - NEUROMUSCULAR DYSFUNCTION OF BLADDER, UNSPECIFIED Status: Chronic Plan: Recurrent UTI's, self-catheterizations - Plan continue antibiotics, 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
[2020-05-05] MEDS: Ketorolac Tromethamine 30 MG/ML VIAL IVP PRN (15:41)
[2020-05-06] MEDS: Morphine 2 MG/ML VIAL SLOW IVP PRN ×4 (03:53→20:17)
[2020-05-06] MEDS: Ketorolac Tromethamine 30 MG/ML VIAL IVP PRN (03:54)
[2020-05-06] MEDS: Sodium Chloride 0.9% 1,000 ML IV SCH ×2 (04:17→14:32)
[2020-05-06] MEDS: MEROPENEM 1 GM/50 ML 1 GM in Premix Bag 1 BAG IVPB SCH (05:26)
[2020-05-06 06:15] LABS: Hemoglobin 11.7 g/dL (14.0-18.0); Mean Corpuscular HGB CONC 33.2 g/dL (32.0-36.0); Mean Corpuscular Hemoglobin 33.2 pg (27.0-31.0); Mean Platelet Volume 8.7 fL (7.4-10.4); Platelet Count 111 thou/uL (130-400); RBC Distribution Width 12.8 % (11.5-14.5); Red Blood Cell (RBC) Count 3.53 mill/uL (4.70-6.10); White Blood Cell (WBC) Count 13.6 thou/uL (4.8-10.8)
[2020-05-06 06:16] LABS: Band 1 % (5-11); Hypochromia SLIGHT = 6-15 cells (100X) (0-5/hpf); Lymphocytes 9 % (21-51); MDiff Complete? YES; Macrocytosis SLIGHT = 6-15 cells (100X) (0-5/hpf); Metamyelocyte 1 % (0-0); Monocytes 24 % (0-10); Neutrophil 64 % (42-75); Platelet Morphology Comment Appears Decreased; Reactive Lymphocytes 1 % (0-10)
[2020-05-06 06:17] LABS: Anion Gap 12 mmol/L (10-20); BUN (Urea Nitrogen) 23 mg/dL (8.9-20.6); Calc. Creatinine Clearance 186 mL/min (70-130); Carbon Dioxide 20 mmol/L (22-29); Chloride 113 mmol/L (98-107); Glucose 116 mg/dL (70-105); Potassium 3.4 mmol/L (3.5-5.1); Sodium 142 mmol/L (136-145)
[2020-05-06] MEDS: clonazePAM 0.5 MG TAB PO SCH ×3 (07:47→20:17)
[2020-05-06] MEDS: Baclofen 10 MG TAB PO SCH ×3 (07:47→20:17)
[2020-05-06] MEDS: Enoxaparin Sodium 40 MG/0.4 ML SYRINGE SC SCH (09:03)
--- NOTE | 2020-05-06 12:30 | PDOC.HOSPP ---
- Subjective Encounter Date: 05/06/20 Encounter Time: 12:20 Subjective: f/u for sepsis due to R-sided pyelonephritis receiving Meropenem with Ucx showing Serratia spp. Tmax 102.6F but overall feeling better today. - Objective Vital Signs & Weight: Vital Signs (12 hours) Temp Pulse Resp BP Pulse Ox 05/06/20 08:00 97 05/06/20 07:19 99.1 F 85 20 146/78 H 97 05/06/20 03:58 95 05/06/20 03:47 100.9 F H 91 18 153/76 H 95 Weight Weight 225 lb Most Recent Monitor Data Heart Rate from ECG 78 NIBP 140/78 NIBP BP-Mean 98 Respiration from ECG 31 SpO2 94 I&O: 05/05/20 05/06/20 05/07/20 06:59 06:59 06:59 Intake Total 3852 3300 120 Output Total 2900 1650 Balance 952 1650 120 Result Diagrams: 05/06/20 05:29 05/06/20 05:29 Additional Labs: Microbiology 05/02/20 04:00 Urine Straight Catheter Urine Culture - Final Serratia marcescens Non-Hemolytic Streptococcus 05/02/20 01:16 Venous blood - Left Hand Blood Culture - Preliminary NO GROWTH AT 48 HOURS 05/02/20 01:08 Venous blood - Right Hand Blood Culture - Preliminary NO GROWTH AT 48 HOURS 01/14/18 01:00 Urine Straight Catheter Urine Culture - Preliminary Presumptive Pseudo aeruginosa Presumptive Enterococcus sp. 01/14/18 00:50 Venous blood - Left Arm Blood Culture - Preliminary Specimen has been received and culture in progress. No Growth to date. 01/14/18 00:50 Venous blood - Left Arm Blood Culture - Preliminary Specimen has been received and culture in progress. No Growth to date. Laboratory Tests 05/02/20 05/03/20 05/03/20 10:40 04:42 04:42 WBC 36.2 H Hgb 11.8 L Plt Count 92 L Band Neuts % (Manual) 36 H Creatinine 2.78 H SARS-CoV-2 (PCR) Not Detected 05/03/20 05/04/20 05/04/20 17:25 03:12 03:12 WBC 27.0 H Hgb 12.1 L Plt Count 99 L Band Neuts % (Manual) 18 H Creatinine 2.64 H 1.94 H SARS-CoV-2 (PCR) 05/05/20 05/06/20 03:39 05:29 WBC 16.7 H Hgb 12.4 L Plt Count 97 L Band Neuts % (Manual) 22 H 1 L Creatinine SARS-CoV-2 (PCR) EKG Reviewed by me: Yes (Tele - SR) Hospitalist ROS - Medication Medications: Active Medications Generic Name Dose Route Start Last Admin Trade Name Freq PRN Reason Stop Dose Admin Acetaminophen 650 mg 05/02/20 19:41 05/05/20 09:33 Acetaminophen 325 Mg Tab PO 650 mg Q4H PRN Administration Headache/Fever/Mild Pain (1-3) Hydrocodone Bitart/Acetaminophen 1 tab 05/02/20 11:53 05/05/20 09:42 Hydrocodone/Acetaminophen 10/325 Mg Tablet PO 1 tab Q8H PRN Administration Pain Baclofen 10 mg 05/03/20 21:00 05/06/20 07:47 Baclofen 10 Mg Tab PO 10 mg TID IRAIS Administration Clonazepam 0.5 mg 05/03/20 21:00 05/06/20 07:47 Clonazepam 0.5 Mg Tab PO 0.5 mg TID IRAIS Administration Enoxaparin Sodium 40 mg 05/02/20 09:00 05/06/20 09:03 Enoxaparin Sodium 40 Mg/0.4 Ml Syringe SC 40 mg 0900 IRAIS Administration Sodium Chloride 1,000 mls @ 100 mls/hr 05/02/20 11:57 05/06/20 04:17 Normal Saline 0.9% IV 1,000 mls .Q10H IRAIS Administration Meropenem 1 gm/ Device 50 mls @ 100 mls/hr 05/03/20 18:00 05/06/20 05:26 IVPB 50 mls 0600,1800 IRAIS Administration Ketorolac Tromethamine 30 mg 05/05/20 14:57 05/06/20 03:54 Ketorolac Tromethamine 30 Mg/Ml Vial IVP 05/10/20 14:58 30 mg Q6H PRN Administration FEVER/PAIN Morphine Sulfate 2 mg 05/03/20 16:52 05/06/20 07:44 Morphine 2 Mg/Ml Vial SLOW IVP 2 mg Q4H PRN Administration Pain Promethazine HCl 25 mg 05/03/20 14:15 05/05/20 23:55 Promethazine 25 Mg Tab PO 25 mg Q6H PRN Administration Nausea/Vomiting Scopolamine 1.5 mg 05/03/20 15:00 05/03/20 14:42 Scopolamine 1.5 Mg/72 Hour Patch TD 1.5 mg Q3D IRAIS Administration - Exam General Appearance: NAD, awake alert Eye: PERRL, anicteric sclera ENT: normocephalic atraumatic, no oropharyngeal lesions Neck: supple, symmetric, no JVD, no thyromegaly, no lymphadenopathy Heart: RRR, no murmur, no gallops, no rubs, normal peripheral pulses Heart - other findings: S1, S2 Respiratory: CTAB, no wheezes, no rales, no ronchi, normal chest expansion Gastrointestinal: soft, non-tender, non-distended, normal bowel sounds, no palpable masses Extremities: no cyanosis, no clubbing Skin: normal turgor Neurological: cranial nerve grossly intact, no new deficit Neurological - other findings: chronic paraplegia Musculoskeletal - other findings: LE atrophy(chronic) Psychiatric: normal affect, A&O x 3 Hosp A/P (1) Pyelonephritis Code(s): N12 - TUBULO-INTERSTITIAL NEPHRITIS, NOT SPCF ACUTE OR CHRONIC Status: Acute Plan: Continue Meropenem IV, IVF's, consider transition to Rocephin for completion of abx therapy (2) Sepsis Code(s): A41.9 - SEPSIS, UNSPECIFIED ORGANISM Status: Acute (3) UTI (urinary tract infection) due to urinary indwelling catheter Code(s): T83.51XA - ; N39.0 - URINARY TRACT INFECTION, SITE NOT SPECIFIED Status: Acute Plan: Recurrent cystitis/pyelonephritis, see mgmt outlined in #1 (4) Chronic hepatitis C Code(s): B18.2 - CHRONIC VIRAL HEPATITIS C Status: Chronic Qualifiers: (5) HTN (hypertension) Code(s): I10 - ESSENTIAL (PRIMARY) HYPERTENSION Status: Chronic Qualifiers: Hypertension type: essential hypertension Qualified Code(s): I10 - Essential (primary) hypertension (6) Neurogenic bladder Code(s): N31.9 - NEUROMUSCULAR DYSFUNCTION OF BLADDER, UNSPECIFIED Status: Chronic Plan: Intermittent bladder self-catheterizations - Plan continue antibiotics, group social worker, DVT proph w/lovenox Stable currently Continue Meropenem IV, consider Rocephin for outpt coverage Add Toradol 30mg IV q6h Zofran PRN nausea AM lab: CBC Likely home in 48h
[2020-05-06] MEDS: cefTRIAXone\\ROCEPHIN 2 GM in Sodium Chloride 0.9% 100 ML IVPB SCH (14:30)
[2020-05-06] MEDS: Scopolamine 1.5 mg/72 hour Patch TD SCH (14:31)
--- NOTE | 2020-05-06 14:57 | PRG ---
DATE OF SERVICE: 05/06/2020 SUBJECTIVE: The patient is feeling better overall, still having intermittent low-grade temperature elevations. Yesterday, he had a pretty heavy episode of chills. Still has a Menezes catheter in place. No vomiting. The pain is better controlled, still needing opioids. OBJECTIVE: VITAL SIGNS: Recent temperature up to 100.9 at 3 a.m., now it is 99.1. Blood pressure 140/70, heart rate 85, respiratory rate 20, and O2 saturations are 97 on room air. GENERAL: Awake, alert, and oriented. LUNGS: Clear. HEART: S1 and S2, regular rate. ABDOMEN: Soft. Not distended or tender. NEUROLOGIC: Paraplegia as noted before. LABORATORY DATA: White cell count is markedly down to 13.6, hemoglobin 11.7, platelets 111, bands are down to 1%. Creatinine is back to normal at 0.77. Microbiology with Serratia, broadly susceptible to various antimicrobials, and nonhemolytic Strep. Blood cultures negative at 48 hours. ASSESSMENT: Paraplegia, neurogenic bladder with recurrent episodes of pyelonephritis, usually once or twice a year and this one is pretty severe, but it is getting better now. Switch him to Rocephin and prepare for discharge planning in the next few days. Should be able to go back to his in-and-out catheterization soon. Should be able to arrange to a swing bed in [place] following the usual procedure and treat him until May 20. He may benefit from suppressive Bactrim. I do not think he is allergic to it. Low-dose suppressive Bactrim after completion of treatment, although that is not yet fully evidence based strategy. Job ID: [id number]
[2020-05-06] MEDS: Promethazine 25 MG TAB PO PRN (20:17)
[2020-05-07] MEDS: Ketorolac Tromethamine 30 MG/ML VIAL IVP PRN (00:45)
[2020-05-07] MEDS: Sodium Chloride 0.9% 1,000 ML IV SCH ×3 (00:45→21:36)
[2020-05-07] MEDS: Morphine 2 MG/ML VIAL SLOW IVP PRN ×4 (04:42→19:53)
[2020-05-07 05:58] LABS: Hemoglobin 12.1 g/dL (14.0-18.0); Mean Corpuscular HGB CONC 34.7 g/dL (32.0-36.0); Mean Corpuscular Hemoglobin 34.7 pg (27.0-31.0); Mean Platelet Volume 9.6 fL (7.4-10.4); Platelet Count 107 thou/uL (130-400); RBC Distribution Width 12.7 % (11.5-14.5); Red Blood Cell (RBC) Count 3.49 mill/uL (4.70-6.10); White Blood Cell (WBC) Count 12.9 thou/uL (4.8-10.8)
[2020-05-07 05:59] LABS: Band 2 % (5-11); Eosinophils 8 % (0-10); Lymphocytes 38 % (21-51); MDiff Complete? YES; Metamyelocyte 3 % (0-0); Monocytes 18 % (0-10); Neutrophil 27 % (42-75); Platelet Morphology Comment Appears Decreased; Reactive Lymphocytes 4 % (0-10)
[2020-05-07] MEDS: Enoxaparin Sodium 40 MG/0.4 ML SYRINGE SC SCH (09:13)
[2020-05-07] MEDS: Baclofen 10 MG TAB PO SCH ×3 (09:13→19:52)
[2020-05-07] MEDS: clonazePAM 0.5 MG TAB PO SCH ×3 (09:13→19:52)
[2020-05-07] MEDS: cefTRIAXone\\ROCEPHIN 2 GM in Sodium Chloride 0.9% 100 ML IVPB SCH (14:21)
--- NOTE | 2020-05-07 15:40 | PRG ---
DATE OF SERVICE: 05/07/2020 SUBJECTIVE: Other than diarrhea, he is feeling overall better. He has had C difficile in the past and he recognizes the smell, so most likely it is C difficile. Sample was submitted for testing. He is not having any respiratory difficulties. OBJECTIVE: VITAL SIGNS: His temperature has normalized. LUNGS: Clear. HEART: S1, S2. Regular rate. ABDOMEN: Mildly tender. LABORATORY DATA: His white cell count is down to 12,000, hemoglobin 12, platelets 107. The Serratia marcescens and nonhemolytic Strep with broad susceptibility results. ASSESSMENT AND DISCUSSION: Paraplegia, neurogenic bladder with recurrent episodes of pyelonephritis. This one with Serratia and Strep. The patient is switched to Rocephin and now we will start vancomycin for treatment of C difficile. Vancomycin to continue until after the completion of treatment for his pyelonephritis, so he will go on taking vancomycin while he is at the swing bed in [place]. Job ID: [id number]
[2020-05-07] MEDS ORDERED: Saccharomyces boulardii 250 MG CAP PO SCH (17:00)
--- NOTE | 2020-05-07 17:13 | PDOC.HOSPP ---
- Subjective Encounter Date: 05/07/20 Encounter Time: 17:00 Subjective: f/u for pyelonephritis on prior Meropenem now transitioned to Rocephin. Tmax 100.9F - Objective Vital Signs & Weight: Vital Signs (12 hours) Temp Pulse Resp BP Pulse Ox 05/07/20 16:43 98.4 F 64 20 147/91 H 98 05/07/20 11:57 97.7 F 65 20 142/83 H 96 05/07/20 08:00 96 05/07/20 07:52 97.7 F 66 20 124/71 96 Weight Weight 225 lb Most Recent Monitor Data Heart Rate from ECG 78 NIBP 140/78 NIBP BP-Mean 98 Respiration from ECG 31 SpO2 94 I&O: 05/06/20 05/07/20 05/08/20 06:59 06:59 06:59 Intake Total 3300 3490 Output Total 1650 1600 Balance 1650 1890 Result Diagrams: 05/07/20 04:25 05/06/20 05:29 Additional Labs: Microbiology 05/02/20 04:00 Urine Straight Catheter Urine Culture - Final Serratia marcescens Non-Hemolytic Streptococcus 05/02/20 01:16 Venous blood - Left Hand Blood Culture - Preliminary NO GROWTH AT 48 HOURS 05/02/20 01:08 Venous blood - Right Hand Blood Culture - Preliminary NO GROWTH AT 48 HOURS 01/14/18 01:00 Urine Straight Catheter Urine Culture - Preliminary Presumptive Pseudo aeruginosa Presumptive Enterococcus sp. 01/14/18 00:50 Venous blood - Left Arm Blood Culture - Preliminary Specimen has been received and culture in progress. No Growth to date. 01/14/18 00:50 Venous blood - Left Arm Blood Culture - Preliminary Specimen has been received and culture in progress. No Growth to date. Laboratory Tests 05/02/20 05/03/20 05/03/20 10:40 04:42 04:42 WBC 36.2 H Hgb 11.8 L Plt Count 92 L Band Neuts % (Manual) 36 H Creatinine 2.78 H SARS-CoV-2 (PCR) Not Detected 05/03/20 05/04/20 05/04/20 17:25 03:12 03:12 WBC 27.0 H Hgb 12.1 L Plt Count 99 L Band Neuts % (Manual) 18 H Creatinine 2.64 H 1.94 H SARS-CoV-2 (PCR) 05/05/20 05/06/20 03:39 05:29 WBC 16.7 H Hgb 12.4 L Plt Count 97 L Band Neuts % (Manual) 22 H 1 L Creatinine SARS-CoV-2 (PCR) Hospitalist ROS - Medication Medications: Active Medications Generic Name Dose Route Start Last Admin Trade Name Freq PRN Reason Stop Dose Admin Acetaminophen 650 mg 05/02/20 19:41 05/05/20 09:33 Acetaminophen 325 Mg Tab PO 650 mg Q4H PRN Administration Headache/Fever/Mild Pain (1-3) Hydrocodone Bitart/Acetaminophen 1 tab 05/02/20 11:53 05/05/20 09:42 Hydrocodone/Acetaminophen 10/325 Mg Tablet PO 1 tab Q8H PRN Administration Pain Baclofen 10 mg 05/03/20 21:00 05/07/20 14:22 Baclofen 10 Mg Tab PO 10 mg TID IRAIS Administration Clonazepam 0.5 mg 05/03/20 21:00 05/07/20 14:22 Clonazepam 0.5 Mg Tab PO 0.5 mg TID IRAIS Administration Enoxaparin Sodium 40 mg 05/02/20 09:00 05/07/20 09:13 Enoxaparin Sodium 40 Mg/0.4 Ml Syringe SC 40 mg 0900 IRAIS Administration Sodium Chloride 1,000 mls @ 100 mls/hr 05/02/20 11:57 05/07/20 14:22 Normal Saline 0.9% IV 1,000 mls .Q10H IRAIS Administration Ceftriaxone Sodium 2 gm/ 100 mls @ 200 mls/hr 05/06/20 14:00 05/07/20 14:21 Sodium Chloride IVPB 100 mls Q24HR IRAIS Administration Ketorolac Tromethamine 30 mg 05/05/20 14:57 05/07/20 00:45 Ketorolac Tromethamine 30 Mg/Ml Vial IVP 05/10/20 14:58 30 mg Q6H PRN Administration FEVER/PAIN Morphine Sulfate 2 mg 05/03/20 16:52 05/07/20 14:28 Morphine 2 Mg/Ml Vial SLOW IVP 2 mg Q4H PRN Administration Pain Promethazine HCl 25 mg 05/03/20 14:15 05/06/20 20:17 Promethazine 25 Mg Tab PO 25 mg Q6H PRN Administration Nausea/Vomiting Scopolamine 1.5 mg 05/03/20 15:00 05/06/20 14:31 Scopolamine 1.5 Mg/72 Hour Patch TD 1.5 mg Q3D IRAIS Administration Sodium Chloride 10 ml 05/06/20 21:00 05/07/20 09:14 Flush - Normal Saline 10 Ml Syringe IVF 10 ml Q12HR IRAIS Administration - Exam General Appearance: NAD, awake alert Eye: PERRL, anicteric sclera ENT: normocephalic atraumatic, no oropharyngeal lesions Neck: supple, symmetric, no JVD, no thyromegaly, no lymphadenopathy Heart: RRR, no murmur, no gallops, no rubs, normal peripheral pulses Heart - other findings: S1, S2 Respiratory: CTAB, no wheezes, no rales, no ronchi, normal chest expansion, no tachypnea Gastrointestinal: soft, non-tender, non-distended, normal bowel sounds, no palpable masses Extremities: no cyanosis Neurological: cranial nerve grossly intact, no new deficit Neurological - other findings: paraplegia(chronic) Musculoskeletal: normal tone, generalized weakness Psychiatric: normal affect, A&O x 3 Hosp A/P (1) Pyelonephritis Code(s): N12 - TUBULO-INTERSTITIAL NEPHRITIS, NOT SPCF ACUTE OR CHRONIC Status: Acute Plan: Continue Rocephin IV, plan for outpt IV abx at [facility] (2) Sepsis Code(s): A41.9 - SEPSIS, UNSPECIFIED ORGANISM Status: Acute (3) UTI (urinary tract infection) due to urinary indwelling catheter Code(s): T83.51XA - ; N39.0 - URINARY TRACT INFECTION, SITE NOT SPECIFIED Status: Acute Plan: Serratia spp isolated, continue Rocephin (4) Chronic hepatitis C Code(s): B18.2 - CHRONIC VIRAL HEPATITIS C Status: Chronic Qualifiers: (5) HTN (hypertension) Code(s): I10 - ESSENTIAL (PRIMARY) HYPERTENSION Status: Chronic Qualifiers: Hypertension type: essential hypertension Qualified Code(s): I10 - Essential (primary) hypertension (6) Neurogenic bladder Code(s): N31.9 - NEUROMUSCULAR DYSFUNCTION OF BLADDER, UNSPECIFIED Status: Chronic Plan: Transition from Menezes catheter to intermittent self-catheterization - 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 diff antigen/tox CM for assistance with swing bed options
[2020-05-07] MEDS: Vancomycin HCl 25 MG/ML Oral PO SCH ×2 (18:02→21:37)
[2020-05-07] MEDS ORDERED: Melatonin 3 MG TAB PO PRN (21:45)
[2020-05-08] MEDS: Morphine 2 MG/ML VIAL SLOW IVP PRN ×4 (00:31→16:27)
[2020-05-08] MEDS: Cepastat Lozenges 1 LOZ PO PRN ×3 (00:32→10:24)
[2020-05-08] MEDS: Vancomycin HCl 25 MG/ML Oral PO SCH ×3 (04:47→16:27)
[2020-05-08 06:59] LABS: Hemoglobin 12.1 g/dL (14.0-18.0); Mean Corpuscular HGB CONC 33.8 g/dL (32.0-36.0); Mean Corpuscular Hemoglobin 33.6 pg (27.0-31.0); Mean Corpuscular Volume 99.3 fL (78.0-98.0); Mean Platelet Volume 8.6 fL (7.4-10.4); Platelet Count 144 thou/uL (130-400); RBC Distribution Width 12.9 % (11.5-14.5); Red Blood Cell (RBC) Count 3.61 mill/uL (4.70-6.10); White Blood Cell (WBC) Count 11.4 thou/uL (4.8-10.8)
[2020-05-08] MEDS ORDERED: Saccharomyces boulardii 250 MG CAP PO SCH (09:00)
[2020-05-08] MEDS: clonazePAM 0.5 MG TAB PO SCH ×2 (10:25→14:10)
[2020-05-08] MEDS: Baclofen 10 MG TAB PO SCH ×2 (10:25→14:10)
[2020-05-08] MEDS: Promethazine 25 MG TAB PO PRN (10:25)
[2020-05-08 10:30] LABS: Band 6 % (5-11); Eosinophils 12 % (0-10); Lymphocytes 42 % (21-51); MDiff Complete? YES; Metamyelocyte 2 % (0-0); Monocytes 13 % (0-10); Neutrophil 24 % (42-75); RBC Morphology Normal; Reactive Lymphocytes 1 % (0-10)
[2020-05-08] MEDS: Enoxaparin Sodium 40 MG/0.4 ML SYRINGE SC SCH (10:30)
[2020-05-08] MEDS: Sodium Chloride 0.9% 1,000 ML IV SCH (10:31)
[2020-05-08] MEDS: cefTRIAXone\\ROCEPHIN 2 GM in Sodium Chloride 0.9% 100 ML IVPB SCH (14:10)
[2020-05-08 16:17] VITALS: TEMP 98.3
[2020-05-08 19:50] VITALS: BP 157/91
--- NOTE | 2020-05-09 07:09 | DIS ---
DATE OF ADMISSION: 05/02/2020 DATE OF DISCHARGE: 05/08/2020 DISCHARGE DIAGNOSES: 1. Recurrent pyelonephritis with Serratia species. 2. Sepsis secondarily to recurrent pyelonephritis, resolved. 3. Urinary tract infection secondarily to indwelling catheter. 4. Neurogenic bladder, chronic. 5. Paraplegia, chronic. 6. Chronic hepatitis C. 7. Acute kidney injury, resolved. CONSULTATIONS: Dr. Prakash Edwards with Infectious Disease Service. PERTINENT LABORATORY AND X-RAY FINDINGS: Potassium ranged between 3.2 to 3.8. Creatinine ranged between 0.77 to 2.78. Magnesium level 1.8. AST 64, ALT of 36, and alkaline phosphatase 115. CRP less than 0.5. CBC showed a white blood cell count ranging between 7.3 to 36.2, hemoglobin ranged between 11.7 to 14.0, platelet count ranged between 92 to 189. COCID-19 PCR not detected, 05/02/2020. Blood cultures x2 dated 05/02/2020, showed no growth at 5 days. Urine culture dated 05/02/2020, showed 50,000 to 75,000 colonies of Serratia marcescens. CT of the abdomen and pelvis dated 05/02/2020, showed lateral wall thickening, likely representing cystitis. Previous left nephrectomy noted. No hydronephrosis noted. HOSPITAL COURSE: The patient was initially admitted after presenting with sepsis criteria and urinary tract infection/pyelonephritis in the context of chronic T12 paraplegia with neurogenic bladder and intermittent bladder self-catheterizations. The patient was noted with a white blood cell count greater than 30,000 with associated fever. The patient was placed on broad-spectrum IV antibiotic therapy, initially receiving vancomycin and Rocephin, transitioning to Zosyn. The patient received IV fluid resuscitation and monitoring of the urine culture showed serous Serratia species. The patient continued on IV meropenem after consultation with Infectious Disease Service, pending final identification and sensitivities. The patient slowly clinically improved with IV fluid hydration and antibiotic therapy transitioning from meropenem to Rocephin with plans for IV antibiotic therapy up to 3 weeks. The patient was deemed an appropriate candidate for ongoing IV antibiotic therapy at [facility] and has been approved for transfer on 05/08/2020. I have examined the patient at the time of discharge and discussed followup instructions. The patient verbalizes understanding and in agreement and ready for discharge on 05/08/2020. DISCHARGE MEDICATIONS: 1. Rocephin 2 g IV daily until 05/20/2020. 2. Baclofen 10 mg p.o. t.i.d. p.r.n. 3. Klonopin 0.5 mg p.o. t.i.d. 4. Gabapentin 300 mg 1 to 2 tabs p.o. q.8 hours. 5. [place] 10/325 mg one tablet p.o. q.8 hours p.r.n. pain. 6. Vancomycin 250 mg p.o. q.6 hours. 7. Florastor 250 mg p.o. daily. 8. Melatonin 3 mg p.o. at bedtime. 9. Scopolamine patches 1.5 mg transdermally q.72 hours. FOLLOWUP: The patient may follow up with Dr. Arnold Navarro. The patient may follow up with Dr. Prakash Edwards with Infectious Disease Service. SPECIAL INSTRUCTIONS: Weekly lab to include a CBC, CRP, and BMP. ACTIVITY: Ad-julissa. DIET: Regular. CODE STATUS: Full. DISPOSITION: Discharged to [facility] on 05/08/2020. TIME SPENT: Total time preparing and coordinating discharge, 35 minutes. Job ID: [id number]
== END 2020-05-08 18:20 | disposition swing bed (61) | DRG 698 ==
LOC: ERS 00:47 → SUATTDRO 00:47 → 2NO 05:18 → IMCU/EMU 05-03 13:12 → T4-A 05-05 18:57
PROVIDERS: ADMIT Hospitalist; ATTEND Hospitalist
PROC: 8E0ZXY6 Isolation (ICD-10-PCS; principal; 2020-05-07)
DX: T83.511A Infection and inflammatory reaction due to indwelling urethral catheter, initial encounter (principal); A41.53 Sepsis due to Serratia; N17.0 Acute kidney failure with tubular necrosis; R65.20 Severe sepsis without septic shock; G82.20 Paraplegia, unspecified; N10 Acute pyelonephritis; Z20.828 Contact with and (suspected) exposure to other viral communicable diseases; N31.9 Neuromuscular dysfunction of bladder, unspecified; B18.2 Chronic viral hepatitis C; F41.9 Anxiety disorder, unspecified; F32.9 Major depressive disorder, single episode, unspecified; R32 Unspecified urinary incontinence; Z88.1 Allergy status to other antibiotic agents; Z91.011 Allergy to milk products; Z87.440 Personal history of urinary (tract) infections; Z28.21 Immunization not carried out because of patient refusal; Z86.14 Personal history of Methicillin resistant Staphylococcus aureus infection; Z90.49 Acquired absence of other specified parts of digestive tract; Z89.411 Acquired absence of right great toe; Z89.422 Acquired absence of other left toe(s); Z90.5 Acquired absence of kidney; Z89.421 Acquired absence of other right toe(s); V87 Traffic accident of specified type but victim's mode of transport unknown; S24.104S Unspecified injury at T11-T12 level of thoracic spinal cord, sequela; Z79.899 Other long term (current) drug therapy; Y84.6 Urinary catheterization as the cause of abnormal reaction of the patient, or of later complication, without mention of misadventure at the time of the procedure
CPT/HCPCS: 36415; 51701; 74176; 80048; 80053; 81003; 81015; 83735; 85025; 85652; 86140; 87040; 87077; 87086; 87186; 87324; 87449; 87635; 96361; 96365; 96366; 96367; 96368; 96375; J0696; J1650; J1885; J2185; J2270; J2543; J2550; J2997; J3370; J3490; Q0169; U0003

== ENCOUNTER 2020-06-05 22:22 | Inpatient (IN) | payer MEDICARE, MEDICAID ==
[2020-06-05 23:25] LABS: ALT (SGPT) 16 U/L (8-55); AST (SGOT) 31 U/L (5-34); Albumin 2.7 g/dL (3.5-5.0); Alkaline Phosphatase 80 U/L (40-110); Anion Gap 10 mmol/L (10-20); BUN (Urea Nitrogen) 13 mg/dL (8.9-20.6); Calc. Creatinine Clearance 0 mL/min (70-130); Calcium 7.6 mg/dL (7.8-10.44); Carbon Dioxide 26 mmol/L (22-29); Chloride 102 mmol/L (98-107); Globulin 5.6 g/dL (2.4-3.5); Glucose 139 mg/dL (70-105); Potassium 4.2 mmol/L (3.5-5.1); Protein, Total 8.3 g/dL (6.0-8.3); Sodium 134 mmol/L (136-145)
[2020-06-05 23:33] LABS: Eosinophils 1 % (0-10); Hemoglobin 12.5 g/dL (14.0-18.0); Lymphocytes 14 % (21-51); MDiff Complete? YES; Mean Corpuscular HGB CONC 33.9 g/dL (32.0-36.0); Mean Corpuscular Hemoglobin 33.4 pg (27.0-31.0); Mean Corpuscular Volume 98.5 fL (78.0-98.0); Mean Platelet Volume 6.8 fL (7.4-10.4); Metamyelocyte 1 % (0-0); Monocytes 15 % (0-10); Neutrophil 68 % (42-75); Platelet Count 284 thou/uL (130-400); Platelet Morphology Comment Appears Adequate; RBC Distribution Width 12.4 % (11.5-14.5); Red Blood Cell (RBC) Count 3.73 mill/uL (4.70-6.10); White Blood Cell (WBC) Count 15.3 thou/uL (4.8-10.8)
[2020-06-06 00:03] LABS: Bacteria/HPF None Seen HPF (None Seen); Bilirubin Negative (Negative); Blood, Urine 1+ (Negative); Clarity Turbid (Clear); Glucose, Urine (Dipstick) Normal (Negative); Ketone, Urine Negative (Negative); Leukocyte 250 Leu/uL (Negative); Nitrite Negative (Negative); Protein, Urine (Dipstick) 50 mg/dL (Neg-Trace); RBC/HPF 21-50 HPF (0-3); Specific Gravity, Urine 1.023 (1.002-1.036); Squamous Epithelial 0-3 HPF (0-3); Urobilinogen Greater than 12 mg/dL (Less than 2); WBC/HPF Greater than 50 HPF (0-3)
[2020-06-06] MEDS ORDERED: cefTRIAXone\\ROCEPHIN 1 GM VIAL ONE (00:10)
[2020-06-06] MEDS ORDERED: Morphine 4 MG/ML VIAL ONE ×2 (00:24→02:02)
[2020-06-06] MEDS ORDERED: Promethazine HCl 25 MG/ML VIAL ONE ×2 (00:24→02:02)
[2020-06-06] MEDS ORDERED: Vancomycin 1 GM/200 ML BAG ONE (00:50)
[2020-06-06 01:54] LABS: SARS-CoV-2 NAA Rapid Test Not Detected (NotDetected)
[2020-06-06] MEDS ORDERED: Ibuprofen 800 MG TAB ONE (02:40)
[2020-06-06 03:13] VITALS: BMI 33.7
[2020-06-06] MEDS ORDERED: Sodium Chloride 0.9% 1,000 ML IV SCH (03:45)
[2020-06-06] MEDS ORDERED: Acetaminophen 325 MG TAB PO PRN (03:45)
[2020-06-06] MEDS ORDERED: Promethazine HCl 12.5 MG in Sodium Chloride 0.9% 50 ML IVPB PRN (05:04)
[2020-06-06] MEDS ORDERED: cloNIDine 0.1 MG TAB PO PRN (05:04)
[2020-06-06] MEDS ORDERED: hydrALAZINE 20 MG/ML VIAL SLOW IVP PRN (05:04)
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
[2020-06-06] MEDS ORDERED: Electrolyte Replacement Protocol FS PRN (05:15)
[2020-06-06] MEDS ORDERED: Electrolyte Replacement Protocol 1 EACH FS SCH (05:15)
[2020-06-06] MEDS: Baclofen 10 MG TAB PO SCH ×3 (06:17→23:22)
[2020-06-06] MEDS: Gabapentin 300 MG CAP PO SCH ×3 (06:17→23:22)
[2020-06-06] MEDS: Piperacillin/Tazobactam 3.375 GM in Sodium Chloride 0.9% 100 ML IVPB SCH ×4 (06:19→23:27)
--- NOTE | 2020-06-06 07:04 | RAD ---
PORTABLE CHEST: Date: 06/05/2020 HISTORY: Fever. COMPARISON: 05/30/2020. FINDINGS: Lungs appear clear. No infiltrate identified. MediPort catheter is unchanged in position. Heart size upper normal and stable. IMPRESSION: No evidence of infiltrate. No interval change. POS: AGW
[2020-06-06] MEDS: Vancomycin 1.5 GRAM/300 ML BAG 1.5 GM in Premix Bag 1 BAG IVPB SCH ×2 (09:15→20:21)
[2020-06-06] MEDS: Sodium Chloride 0.9% 1,000 ML IV SCH ×3 (09:15→19:45)
[2020-06-06] MEDS: Polyethylene Glycol 3350 17 GM Packet PO SCH (09:16)
[2020-06-06] MEDS ORDERED: Promethazine HCl 25 MG/ML VIAL IM SCH (15:00)
--- NOTE | 2020-06-06 15:35 | PDOC.HOSPP ---
- Subjective Encounter Date: 06/06/20 Encounter Time: 14:30 Subjective: lethargic, easily arousable is on narcotics and wants phenergan for nausea as well has no other complaints does self cath q4h at home - Objective Vital Signs & Weight: Vital Signs (12 hours) Temp Pulse Resp BP Pulse Ox 06/06/20 12:00 98.2 F 71 18 103/60 95 06/06/20 09:00 97.0 F L 95/53 L 06/06/20 08:00 95.8 F L 79 14 87/52 L 95 06/06/20 03:45 96 Weight Weight 215 lb 1 oz I&O: 06/05/20 06/06/20 06/07/20 06:59 06:59 06:59 Intake Total 2020 Output Total 300 Balance 1720 Result Diagrams: 06/05/20 22:45 06/05/20 22:45 Hospitalist ROS - Medication Medications: Active Medications Generic Name Dose Route Start Last Admin Trade Name Freq PRN Reason Stop Dose Admin Baclofen 10 mg 06/06/20 06:00 06/06/20 14:13 Baclofen 10 Mg Tab PO 10 mg Q8HR IRAIS Administration Gabapentin 300 mg 06/06/20 06:00 06/06/20 14:13 Gabapentin 300 Mg Cap PO 300 mg Q8HR IRAIS Administration Sodium Chloride 1,000 mls @ 100 mls/hr 06/06/20 05:15 06/06/20 15:25 Normal Saline 0.9% IV 1,000 mls .Q10H IRAIS Administration Piperacillin Sod/Tazobactam 100 mls @ 200 mls/hr 06/06/20 06:00 06/06/20 12:16 Sod 3.375 gm/ Sodium Chloride IVPB 100 mls Q6HR IRAIS Administration Vancomycin HCl 1.5 gm/ Device 300 mls @ 200 mls/hr 06/06/20 09:00 06/06/20 09:15 IVPB 06/13/20 09:01 300 mls Q12HR IRAIS Administration Pantoprazole Sodium 40 mg 06/06/20 09:00 06/06/20 09:16 Pantoprazole 40 Mg Tab PO 40 mg DAILY IRAIS Administration Polyethylene Glycol 17 gm 06/06/20 09:00 06/06/20 09:16 Polyethylene Glycol 3350 17 Gm Packet PO 17 gm DAILY IRAIS Administration Promethazine HCl 25 mg 06/06/20 15:00 06/06/20 15:20 Promethazine Hcl 25 Mg/Ml Vial IM 06/06/20 18:00 25 mg NOW IRAIS Administration Hospitalist Exam Vitals: Vital Signs (12 hours) Temp Pulse Resp BP Pulse Ox 06/06/20 12:00 98.2 F 71 18 103/60 95 06/06/20 09:00 97.0 F L 95/53 L 06/06/20 08:00 95.8 F L 79 14 87/52 L 95 06/06/20 03:45 96 Weight Weight 215 lb 1 oz Eye: PERRL, anicteric sclera ENT: no oropharyngeal lesions, dry oral mucosa Neck: supple, no JVD Heart: RRR, no murmur Respiratory: no wheezes, no rales Gastrointestinal: soft, non-tender, non-distended, normal bowel sounds Extremities: no cyanosis, 1+ LE edema Neurological: cranial nerve grossly intact Neurological - other findings: paraplegia Hosp A/P (1) UTI (urinary tract infection) Status: Acute Qualifiers: Urinary tract infection type: acute cystitis Hematuria presence: without hematuria Qualified Code(s): N30.00 - Acute cystitis without hematuria (2) Sepsis Code(s): A41.9 - SEPSIS, UNSPECIFIED ORGANISM Status: Acute Qualifiers: Sepsis type: sepsis due to unspecified organism Sepsis acute organ dysfunction status: without acute organ dysfunction Qualified Code(s): A41.9 - Sepsis, unspecified organism (3) Chronic hepatitis C Code(s): B18.2 - CHRONIC VIRAL HEPATITIS C Status: Chronic Qualifiers: Hepatic coma status: without hepatic coma Qualified Code(s): B18.2 - Chronic viral hepatitis C (4) Chronic pain syndrome Code(s): G89.4 - CHRONIC PAIN SYNDROME Status: Chronic (5) HTN (hypertension) Code(s): I10 - ESSENTIAL (PRIMARY) HYPERTENSION Status: Chronic Qualifiers: Hypertension type: essential hypertension Qualified Code(s): I10 - Essential (primary) hypertension (6) Neurogenic bladder Code(s): N31.9 - NEUROMUSCULAR DYSFUNCTION OF BLADDER, UNSPECIFIED Status: Chronic (7) Obesity (BMI 30.0-34.9) Code(s): E66.9 - OBESITY, UNSPECIFIED Status: Chronic (8) Paraplegia following spinal cord injury Code(s): G82.20 - PARAPLEGIA, UNSPECIFIED Status: Chronic (9) Rotator cuff tear arthropathy of right shoulder Code(s): M12.811 - OTH SPECIFIC ARTHROPATHIES, NEC, RIGHT SHOULDER Status: Chronic - Plan is on vanc and zosyn, urine cs has not grown any organism, does self cath q4h, does not have ho will obtain pelvic CT to r/o osteomyelitis with prior h/o it, ID consult labs in am, initial wbc was 15k with fever is on baclofen tid, klonopin bid, morphine iv prn, norco, neurontin tid, nebs and iv fluids hemostable, watch for airway in view of heavy psychotropic meds and narcotics with phenergan as well dc plan in 24hrs if further w/u is -ve and he remains stable
--- NOTE | 2020-06-06 16:19 | CT ---
EXAM: CT Pelvis WO Con DATE: 06/06/2020 3:50 PM INDICATION: History of fever and concern for osteomyelitis of the pelvis COMPARISON: CT the abdomen and pelvis without contrast dated March 02, 2020 FINDING: There is stable chronic septic arthritis and osteomyelitis involving the left hip with prom inent periarticular erosive change involving the left hip acetabulum and proximal left femur. There is diffuse sclerosis of the left acetabulum and proximal left femur. Large complicated left hip joint effusion is again noted. There is a Girdlestone arthroplasty the proximal right femur with a healed right gluteal decubitus ulceration. There is a urinary bladder sphincter band in place. There is a moderate amount retained stool within colon. IMPRESSION: 1. 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 2. Stable cortical stroke arthroplasty of the proximal right femur with a healed right gluteal decubi tus ulceration. 3. Moderate amount of retained stool within the colon.
[2020-06-06] MEDS: Promethazine HCl 12.5 MG in Sodium Chloride 0.9% 50 ML IVPB PRN (19:46)
[2020-06-06] MEDS: Enoxaparin Sodium 40 MG/0.4 ML SYRINGE SC SCH (20:21)
[2020-06-06] MEDS: HYDROcodone/Acetaminophen 10/325 mg Tablet PO PRN (20:21)
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
[2020-06-07] MEDS: Promethazine HCl 12.5 MG in Sodium Chloride 0.9% 50 ML IVPB PRN ×3 (01:57→18:41)
[2020-06-07 04:06] LABS: #Basophils 0.1 thou/uL (0.0-0.2); #Eosinphils 0.4 thou/uL (0.0-0.7); #Lymphocytes 1.9 thou/uL (1.20-3.40); #Monocytes 1.2 thou/uL (0.11-0.59); #Neutrophils 6.5 thou/uL (1.40-6.50); %Basophils 0.8 % (0.0-1.0); %Eosinophils 3.8 % (0.0-10.0); %Lymphocytes 19.2 % (21.0-51.0); %Neutrophils 64.3 % (42.0-75.0); Mean Corpuscular HGB CONC 31.7 g/dL (32.0-36.0); Mean Corpuscular Hemoglobin 32.1 pg (27.0-31.0); Mean Platelet Volume 6.8 fL (7.4-10.4); Platelet Count 288 thou/uL (130-400); RBC Distribution Width 12.5 % (11.5-14.5); Red Blood Cell (RBC) Count 3.75 mill/uL (4.70-6.10); White Blood Cell (WBC) Count 10.1 thou/uL (4.8-10.8)
[2020-06-07 04:31] LABS: Anion Gap 9 mmol/L (10-20); BUN (Urea Nitrogen) 12 mg/dL (8.9-20.6); Calc. Creatinine Clearance 258 mL/min (70-130); Calcium 7.4 mg/dL (7.8-10.44); Carbon Dioxide 24 mmol/L (22-29); Chloride 111 mmol/L (98-107); Glucose 106 mg/dL (70-105); Magnesium 1.7 mg/dL (1.6-2.6); Potassium 3.6 mmol/L (3.5-5.1); Sodium 140 mmol/L (136-145)
[2020-06-07] MEDS: Baclofen 10 MG TAB PO SCH ×3 (05:09→20:37)
[2020-06-07] MEDS: Piperacillin/Tazobactam 3.375 GM in Sodium Chloride 0.9% 100 ML IVPB SCH ×3 (05:09→17:42)
[2020-06-07] MEDS: Gabapentin 300 MG CAP PO SCH ×3 (05:09→20:37)
[2020-06-07] MEDS: Acetaminophen 325 MG TAB PO PRN ×2 (08:18→20:39)
[2020-06-07] MEDS: Polyethylene Glycol 3350 17 GM Packet PO SCH (08:19)
[2020-06-07] MEDS: Morphine 2 MG/ML VIAL SLOW IVP PRN ×2 (08:20→15:51)
[2020-06-07] MEDS: Sodium Chloride 0.9% 1,000 ML IV SCH ×3 (08:21→20:40)
[2020-06-07 09:07] LABS: Vancomycin, Trough 17.7 ug/mL
[2020-06-07] MEDS: Vancomycin 1.5 GRAM/300 ML BAG 1.5 GM in Premix Bag 1 BAG IVPB SCH (09:34)
[2020-06-07] MEDS ORDERED: Magnesium 2 GM/50 ML 2 GM in Premix Bag 1 BAG IVPB SCH (10:00)
--- NOTE | 2020-06-07 14:45 | PDOC.HOSPP ---
- Subjective Encounter Date: 06/07/20 Encounter Time: 13:15 Subjective: no new complaints, says he has loss of appetite - Objective Vital Signs & Weight: Vital Signs (12 hours) Temp Pulse BP Pulse Ox 06/07/20 12:00 98.6 F 93 124/59 L 95 06/07/20 08:18 100.3 F H 06/07/20 08:00 100.3 F H 109 H 142/77 H 97 Weight Admit Weight 215 lb 1 oz Weight 215 lb 1 oz I&O: 06/06/20 06/07/20 06/08/20 06:59 06:59 06:59 Intake Total 2019 3450 Output Total 300 2300 Balance 1720 1150 Result Diagrams: 06/07/20 03:45 06/07/20 03:45 Hospitalist ROS - Medication Medications: Active Medications Generic Name Dose Route Start Last Admin Trade Name Freq PRN Reason Stop Dose Admin Acetaminophen 650 mg 06/06/20 05:04 06/07/20 08:18 Acetaminophen 325 Mg Tab PO 650 mg Q4H PRN Administration Headache/Fever/Mild Pain (1-3) Hydrocodone Bitart/Acetaminophen 1 tab 06/06/20 05:06 06/06/20 20:21 Hydrocodone/Acetaminophen 10/325 Mg Tablet PO 1 tab Q8HR PRN Administration Moderate Pain (4-6) Baclofen 10 mg 06/06/20 06:00 06/07/20 05:09 Baclofen 10 Mg Tab PO 10 mg Q8HR IRAIS Administration Enoxaparin Sodium 40 mg 06/06/20 21:00 06/06/20 20:21 Enoxaparin Sodium 40 Mg/0.4 Ml Syringe SC 40 mg 2100 IRAIS Administration Gabapentin 300 mg 06/06/20 06:00 06/07/20 05:09 Gabapentin 300 Mg Cap PO 300 mg Q8HR IRAIS Administration Sodium Chloride 1,000 mls @ 100 mls/hr 06/06/20 05:15 06/07/20 08:21 Normal Saline 0.9% IV 1,000 mls .Q10H IRAIS Administration Piperacillin Sod/Tazobactam 100 mls @ 200 mls/hr 06/06/20 06:00 06/07/20 05:09 Sod 3.375 gm/ Sodium Chloride IVPB 100 mls Q6HR IRAIS Administration Promethazine HCl 12.5 mg/ 50.5 mls @ 202 mls/hr 06/06/20 17:05 06/07/20 09:34 Sodium Chloride IVPB 50.5 mls Q6H PRN Administration Nausea/Vomiting Morphine Sulfate 2 mg 06/06/20 05:04 06/07/20 08:20 Morphine 2 Mg/Ml Vial SLOW IVP 2 mg Q4H PRN Administration severe pain 4-10 Pantoprazole Sodium 40 mg 06/06/20 09:00 06/07/20 08:19 Pantoprazole 40 Mg Tab PO 40 mg DAILY IRAIS Administration Polyethylene Glycol 17 gm 06/06/20 09:00 06/07/20 08:19 Polyethylene Glycol 3350 17 Gm Packet PO Not Given DAILY [facility] Hospitalist Exam Vitals: Vital Signs (12 hours) Temp Pulse BP Pulse Ox 06/07/20 12:00 98.6 F 93 124/59 L 95 06/07/20 08:18 100.3 F H 06/07/20 08:00 100.3 F H 109 H 142/77 H 97 Weight Admit Weight 215 lb 1 oz Weight 215 lb 1 oz General Appearance: awake alert Eye: PERRL, anicteric sclera ENT: no oropharyngeal lesions, moist mucosa Neck: supple, no JVD Heart: RRR, no murmur Respiratory: no wheezes, no rales Gastrointestinal: soft, non-tender, non-distended, normal bowel sounds Extremities: no cyanosis, no edema Neurological - other findings: chronic paraplegia Psychiatric: A&O x 3 Hosp A/P (1) UTI (urinary tract infection) Status: Acute Qualifiers: Urinary tract infection type: acute cystitis Hematuria presence: without hematuria Qualified Code(s): N30.00 - Acute cystitis without hematuria (2) Sepsis Code(s): A41.9 - SEPSIS, UNSPECIFIED ORGANISM Status: Acute Qualifiers: Sepsis type: sepsis due to unspecified organism Sepsis acute organ dysfunction status: without acute organ dysfunction Qualified Code(s): A41.9 - Sepsis, unspecified organism (3) Chronic hepatitis C Code(s): B18.2 - CHRONIC VIRAL HEPATITIS C Status: Chronic Qualifiers: Hepatic coma status: without hepatic coma Qualified Code(s): B18.2 - Chronic viral hepatitis C (4) Chronic pain syndrome Code(s): G89.4 - CHRONIC PAIN SYNDROME Status: Chronic (5) HTN (hypertension) Code(s): I10 - ESSENTIAL (PRIMARY) HYPERTENSION Status: Chronic Qualifiers: Hypertension type: essential hypertension Qualified Code(s): I10 - Essential (primary) hypertension (6) Neurogenic bladder Code(s): N31.9 - NEUROMUSCULAR DYSFUNCTION OF BLADDER, UNSPECIFIED Status: Chronic (7) Obesity (BMI 30.0-34.9) Code(s): E66.9 - OBESITY, UNSPECIFIED Status: Chronic (8) Paraplegia following spinal cord injury Code(s): G82.20 - PARAPLEGIA, UNSPECIFIED Status: Chronic (9) Rotator cuff tear arthropathy of right shoulder Code(s): M12.811 - OTH SPECIFIC ARTHROPATHIES, NEC, RIGHT SHOULDER Status: Chronic (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 no further fever is on baclofen tid, klonopin bid, morphine iv prn, norco, neurontin tid, nebs and iv fluids hemostable, watch for airway in view of heavy psychotropic meds and narcotics with phenergan as well dc plan based on culture results
--- NOTE | 2020-06-07 17:48 | PRG ---
DATE OF SERVICE: 06/07/2020 SUBJECTIVE: Feeling better, but still with pain in the right flank. No respiratory symptoms. No headaches. The port is not bothering him. OBJECTIVE: VITAL SIGNS: Still with low-grade temperature elevation up to 100.3, BP 140/80. LUNGS: Clear. HEART: S1 and S2. Regular rate. ABDOMEN: Tender right flank, quite tender to palpation. NEURO: Unchanged. LABORATORY DATA: White cell count is down to 10.1, hemoglobin 12, platelets 288, 64% neutrophils. Creatinine 0.53. Microbiology show Pseudomonas aeruginosa from one set of blood cultures and this was drawn from the subclavian port. Looks like only one set was drawn probably from the difficulty in getting samples from his peripheral IV sites. The urine culture was not helpful because it only showed mixed organisms 10 to 25,000 CFUs. IMAGING DATA: His last abdominal CTs from April did not show any evidence of hydronephrosis. ASSESSMENT/DISCUSSION: Paraplegia with recurrent episodes of urinary tract infection, port in place with P aeruginosa in one sample obtained from the port. Abnormal urinalysis associated with right flank pain. The most likely scenario is still pyelonephritis. The organism in the urine has not been identified or the various organisms there and I think they are the more likely scenario here in the face of coexisting flank pain. The sample from the port is only one sample and does not mean necessarily that it is infected. We will wait for the final identification susceptibility profile of the organism. We may have to recommend lock solution to the port plus treat with IV either Zosyn or meropenem in the [facility] for another 2 weeks. Job ID: [id number] MTDD
[2020-06-07] MEDS: Enoxaparin Sodium 40 MG/0.4 ML SYRINGE SC SCH (20:38)
[2020-06-08] MEDS: Piperacillin/Tazobactam 3.375 GM in Sodium Chloride 0.9% 100 ML IVPB SCH ×5 (00:11→23:46)
[2020-06-08] MEDS: Morphine 2 MG/ML VIAL SLOW IVP PRN ×3 (03:41→19:02)
[2020-06-08 04:22] LABS: #Basophils 0.1 thou/uL (0.0-0.2); #Eosinphils 0.3 thou/uL (0.0-0.7); #Lymphocytes 3.2 thou/uL (1.20-3.40); #Monocytes 1.1 thou/uL (0.11-0.59); #Neutrophils 5.7 thou/uL (1.40-6.50); %Basophils 0.7 % (0.0-1.0); %Eosinophils 2.5 % (0.0-10.0); %Lymphocytes 31.2 % (21.0-51.0); %Monocytes 10.4 % (0.0-10.0); %Neutrophils 55.3 % (42.0-75.0); Hemoglobin 11.4 g/dL (14.0-18.0); Mean Corpuscular HGB CONC 32.4 g/dL (32.0-36.0); Mean Corpuscular Hemoglobin 32.8 pg (27.0-31.0); Mean Platelet Volume 6.6 fL (7.4-10.4); Platelet Count 287 thou/uL (130-400); RBC Distribution Width 12.4 % (11.5-14.5); Red Blood Cell (RBC) Count 3.46 mill/uL (4.70-6.10); White Blood Cell (WBC) Count 10.3 thou/uL (4.8-10.8)
[2020-06-08 04:40] LABS: Anion Gap 12 mmol/L (10-20); BUN (Urea Nitrogen) 7 mg/dL (8.9-20.6); Calc. Creatinine Clearance 258 mL/min (70-130); Calcium 7.5 mg/dL (7.8-10.44); Carbon Dioxide 19 mmol/L (22-29); Chloride 110 mmol/L (98-107); Glucose 60 mg/dL (70-105); Magnesium 1.8 mg/dL (1.6-2.6); Potassium 3.6 mmol/L (3.5-5.1); Sodium 137 mmol/L (136-145)
[2020-06-08] MEDS: Gabapentin 300 MG CAP PO SCH ×3 (05:27→20:56)
[2020-06-08] MEDS: Baclofen 10 MG TAB PO SCH ×3 (05:27→20:57)
[2020-06-08] MEDS: Polyethylene Glycol 3350 17 GM Packet PO SCH (08:13)
[2020-06-08] MEDS: Sodium Chloride 0.9% 1,000 ML IV SCH ×2 (08:13→11:20)
[2020-06-08] MEDS: Promethazine HCl 12.5 MG in Sodium Chloride 0.9% 50 ML IVPB PRN ×2 (11:18→20:56)
[2020-06-08] MEDS: Acetaminophen 325 MG TAB PO PRN ×3 (11:41→23:44)
--- NOTE | 2020-06-08 14:23 | PDOC.HOSPP ---
- Subjective Encounter Date: 06/08/20 Encounter Time: 13:15 Subjective: feels better, no fever is tolerating oral diet - Objective Vital Signs & Weight: Vital Signs (12 hours) Temp Pulse Resp BP Pulse Ox 06/08/20 11:42 102.1 F H 06/08/20 08:00 97.2 F L 104 H 18 148/69 H 97 06/08/20 03:45 98.5 F Weight Admit Weight 215 lb 1 oz Weight 215 lb 1 oz I&O: 06/07/20 06/08/20 06/09/20 06:59 06:59 06:59 Intake Total 3450 2800 Output Total 2300 1400 Balance 1150 1400 Result Diagrams: 06/08/20 04:02 06/08/20 04:02 Hospitalist ROS - Medication Medications: Active Medications Generic Name Dose Route Start Last Admin Trade Name Freq PRN Reason Stop Dose Admin Acetaminophen 650 mg 06/06/20 05:04 06/08/20 11:41 Acetaminophen 325 Mg Tab PO 650 mg Q4H PRN Administration Headache/Fever/Mild Pain (1-3) Hydrocodone Bitart/Acetaminophen 1 tab 06/06/20 05:06 06/06/20 20:21 Hydrocodone/Acetaminophen 10/325 Mg Tablet PO 1 tab Q8HR PRN Administration Moderate Pain (4-6) Baclofen 10 mg 06/06/20 06:00 06/08/20 05:27 Baclofen 10 Mg Tab PO 10 mg Q8HR IRAIS Administration Enoxaparin Sodium 40 mg 06/06/20 21:00 06/07/20 20:38 Enoxaparin Sodium 40 Mg/0.4 Ml Syringe SC 40 mg 2100 IRAIS Administration Gabapentin 300 mg 06/06/20 06:00 06/08/20 05:27 Gabapentin 300 Mg Cap PO 300 mg Q8HR IRAIS Administration Sodium Chloride 1,000 mls @ 100 mls/hr 06/06/20 05:15 06/08/20 11:20 Normal Saline 0.9% IV 1,000 mls .Q10H IRAIS Administration Piperacillin Sod/Tazobactam 100 mls @ 200 mls/hr 06/06/20 06:00 06/08/20 11:18 Sod 3.375 gm/ Sodium Chloride IVPB 100 mls Q6HR IRAIS Administration Promethazine HCl 12.5 mg/ 50.5 mls @ 202 mls/hr 06/06/20 17:05 06/08/20 11:18 Sodium Chloride IVPB 50.5 mls Q6H PRN Administration Nausea/Vomiting Morphine Sulfate 2 mg 06/06/20 05:04 06/08/20 11:19 Morphine 2 Mg/Ml Vial SLOW IVP 2 mg Q4H PRN Administration severe pain 4-10 Pantoprazole Sodium 40 mg 06/06/20 09:00 06/08/20 08:13 Pantoprazole 40 Mg Tab PO 40 mg DAILY IRAIS Administration Polyethylene Glycol 17 gm 06/06/20 09:00 06/08/20 08:13 Polyethylene Glycol 3350 17 Gm Packet PO Not Given DAILY [facility] Hospitalist Exam Vitals: Vital Signs (12 hours) Temp Pulse Resp BP Pulse Ox 06/08/20 11:42 102.1 F H 06/08/20 08:00 97.2 F L 104 H 18 148/69 H 97 06/08/20 03:45 98.5 F Weight Admit Weight 215 lb 1 oz Weight 215 lb 1 oz General Appearance: awake alert Eye: PERRL, anicteric sclera ENT: no oropharyngeal lesions, moist mucosa Neck: supple, no JVD Heart: RRR, no murmur Respiratory: no wheezes, no rales Gastrointestinal: soft, non-tender, non-distended, normal bowel sounds Extremities - other findings: chronic paraplegia with atrophy of muscles Neurological: no new deficit Psychiatric: normal affect, A&O x 3 Hosp A/P (1) UTI (urinary tract infection) Status: Acute Qualifiers: Urinary tract infection type: acute cystitis Hematuria presence: without hematuria Qualified Code(s): N30.00 - Acute cystitis without hematuria (2) Sepsis Code(s): A41.9 - SEPSIS, UNSPECIFIED ORGANISM Status: Acute Qualifiers: Sepsis type: sepsis due to unspecified organism Sepsis acute organ dysfunction status: without acute organ dysfunction Qualified Code(s): A41.9 - Sepsis, unspecified organism (3) Chronic hepatitis C Code(s): B18.2 - CHRONIC VIRAL HEPATITIS C Status: Chronic Qualifiers: Hepatic coma status: without hepatic coma Qualified Code(s): B18.2 - Chronic viral hepatitis C (4) Chronic pain syndrome Code(s): G89.4 - CHRONIC PAIN SYNDROME Status: Chronic (5) HTN (hypertension) Code(s): I10 - ESSENTIAL (PRIMARY) HYPERTENSION Status: Chronic Qualifiers: Hypertension type: essential hypertension Qualified Code(s): I10 - Essential (primary) hypertension (6) Neurogenic bladder Code(s): N31.9 - NEUROMUSCULAR DYSFUNCTION OF BLADDER, UNSPECIFIED Status: Chronic (7) Obesity (BMI 30.0-34.9) Code(s): E66.9 - OBESITY, UNSPECIFIED Status: Chronic (8) Paraplegia following spinal cord injury Code(s): G82.20 - PARAPLEGIA, UNSPECIFIED Status: Chronic (9) Rotator cuff tear arthropathy of right shoulder Code(s): M12.811 - OTH SPECIFIC ARTHROPATHIES, NEC, RIGHT SHOULDER Status: Chronic (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 no further fever is on baclofen tid, klonopin bid, morphine iv prn, norco, neurontin tid, nebs. hemostable, watch for airway in view of heavy psychotropic meds and narcotics with phenergan as well dc plan based on culture results
[2020-06-08] MEDS: Enoxaparin Sodium 40 MG/0.4 ML SYRINGE SC SCH (20:57)
[2020-06-09] MEDS: Morphine 2 MG/ML VIAL SLOW IVP PRN ×6 (00:33→22:31)
[2020-06-09] MEDS: Ibuprofen 200 MG TAB PO PRN ×2 (01:50→23:39)
[2020-06-09 04:58] LABS: #Basophils 0.1 thou/uL (0.0-0.2); #Eosinphils 0.3 thou/uL (0.0-0.7); #Lymphocytes 3.7 thou/uL (1.20-3.40); #Monocytes 1.5 thou/uL (0.11-0.59); #Neutrophils 4.9 thou/uL (1.40-6.50); %Basophils 0.5 % (0.0-1.0); %Eosinophils 2.8 % (0.0-10.0); %Lymphocytes 35.7 % (21.0-51.0); %Monocytes 14.1 % (0.0-10.0); %Neutrophils 46.9 % (42.0-75.0); Hemoglobin 10.3 g/dL (14.0-18.0); Mean Corpuscular HGB CONC 32.6 g/dL (32.0-36.0); Mean Corpuscular Hemoglobin 31.8 pg (27.0-31.0); Mean Corpuscular Volume 97.7 fL (78.0-98.0); Mean Platelet Volume 6.6 fL (7.4-10.4); Platelet Count 300 thou/uL (130-400); RBC Distribution Width 12.4 % (11.5-14.5); Red Blood Cell (RBC) Count 3.25 mill/uL (4.70-6.10); White Blood Cell (WBC) Count 10.4 thou/uL (4.8-10.8)
[2020-06-09 05:37] LABS: Anion Gap 8 mmol/L (10-20); BUN (Urea Nitrogen) 7 mg/dL (8.9-20.6); Calc. Creatinine Clearance 224 mL/min (70-130); Calcium 7.2 mg/dL (7.8-10.44); Carbon Dioxide 22 mmol/L (22-29); Chloride 108 mmol/L (98-107); Glucose 101 mg/dL (70-105); Magnesium 1.6 mg/dL (1.6-2.6); Sodium 135 mmol/L (136-145)
[2020-06-09 05:40] LABS: Potassium 2.9 mmol/L (3.5-5.1)
[2020-06-09] MEDS: Baclofen 10 MG TAB PO SCH ×3 (06:06→21:08)
[2020-06-09] MEDS: Gabapentin 300 MG CAP PO SCH ×3 (06:06→21:08)
[2020-06-09] MEDS: Potassium Chloride 20 MEQ TAB PO SCH ×2 (06:06→09:51)
[2020-06-09] MEDS: Piperacillin/Tazobactam 3.375 GM in Sodium Chloride 0.9% 100 ML IVPB SCH (06:07)
[2020-06-09] MEDS ORDERED: Magnesium 2 GM/50 ML 2 GM in Premix Bag 1 BAG IVPB SCH (09:00)
[2020-06-09] MEDS: Polyethylene Glycol 3350 17 GM Packet PO SCH (09:52)
[2020-06-09] MEDS: Promethazine HCl 12.5 MG in Sodium Chloride 0.9% 50 ML IVPB PRN ×2 (11:09→21:07)
[2020-06-09] MEDS: Cefepime 1 GM in Sodium Chloride 0.9% 100 ML IVPB SCH ×2 (11:37→23:31)
--- NOTE | 2020-06-09 14:06 | PDOC.HOSPP ---
- Subjective Encounter Date: 06/09/20 Encounter Time: 12:00 Subjective: has diarrhea from last night, couldn't sleep no nausea or vomiting, No abd pain - Objective Vital Signs & Weight: Vital Signs (12 hours) Temp Pulse Resp BP Pulse Ox 06/09/20 11:58 97.5 F L 06/09/20 08:00 96.2 F L 72 12 146/71 H 96 06/09/20 04:00 98.8 F 06/09/20 02:32 99.3 F Weight Admit Weight 215 lb 1 oz Weight 215 lb 1 oz I&O: 06/08/20 06/09/20 06/10/20 06:59 06:59 06:59 Intake Total 2800 3600 Output Total 1400 400 Balance 1400 3200 Result Diagrams: 06/09/20 04:16 06/09/20 04:16 Hospitalist ROS - Medication Medications: Active Medications Generic Name Dose Route Start Last Admin Trade Name Freq PRN Reason Stop Dose Admin Acetaminophen 650 mg 06/06/20 05:04 06/08/20 23:44 Acetaminophen 325 Mg Tab PO 650 mg Q4H PRN Administration Headache/Fever/Mild Pain (1-3) Hydrocodone Bitart/Acetaminophen 1 tab 06/06/20 05:06 06/06/20 20:21 Hydrocodone/Acetaminophen 10/325 Mg Tablet PO 1 tab Q8HR PRN Administration Moderate Pain (4-6) Baclofen 10 mg 06/06/20 06:00 06/09/20 06:06 Baclofen 10 Mg Tab PO 10 mg Q8HR IRAIS Administration Enoxaparin Sodium 40 mg 06/06/20 21:00 06/08/20 20:57 Enoxaparin Sodium 40 Mg/0.4 Ml Syringe SC 40 mg 2100 IRAIS Administration Gabapentin 300 mg 06/06/20 06:00 06/09/20 06:06 Gabapentin 300 Mg Cap PO 300 mg Q8HR IRAIS Administration Promethazine HCl 12.5 mg/ 50.5 mls @ 202 mls/hr 06/06/20 17:05 06/09/20 11:09 Sodium Chloride IVPB 50.5 mls Q6H PRN Administration Nausea/Vomiting Cefepime HCl 1 gm/ Sodium 100 mls @ 200 mls/hr 06/09/20 12:00 06/09/20 11:37 Chloride IVPB 100 mls 1200,2359 IRAIS Administration Ibuprofen 400 mg 06/09/20 01:42 06/09/20 01:50 Ibuprofen 200 Mg Tab PO 400 mg Q6H PRN Administration Fever/Mild Pain Morphine Sulfate 2 mg 06/06/20 05:04 06/09/20 09:59 Morphine 2 Mg/Ml Vial SLOW IVP 2 mg Q4H PRN Administration severe pain 4-10 Pantoprazole Sodium 40 mg 06/06/20 09:00 06/09/20 09:51 Pantoprazole 40 Mg Tab PO 40 mg DAILY IRAIS Administration Polyethylene Glycol 17 gm 06/06/20 09:00 06/09/20 09:52 Polyethylene Glycol 3350 17 Gm Packet PO Not Given DAILY [facility] Hospitalist Exam Vitals: Vital Signs (12 hours) Temp Pulse Resp BP Pulse Ox 06/09/20 11:58 97.5 F L 06/09/20 08:00 96.2 F L 72 12 146/71 H 96 06/09/20 04:00 98.8 F 06/09/20 02:32 99.3 F Weight Admit Weight 215 lb 1 oz Weight 215 lb 1 oz General Appearance: awake alert Eye: PERRL, anicteric sclera ENT: no oropharyngeal lesions, moist mucosa Neck: supple, no JVD Heart: RRR, no murmur Respiratory: no wheezes, no rales Gastrointestinal: soft, non-tender, non-distended, normal bowel sounds Extremities - other findings: paraplegia with atrophy of LE Neurological: cranial nerve grossly intact, no new deficit Neurological - other findings: paraplegia Psychiatric: normal affect, A&O x 3 Hosp A/P (1) UTI (urinary tract infection) Status: Acute Qualifiers: Urinary tract infection type: acute cystitis Hematuria presence: without hematuria Qualified Code(s): N30.00 - Acute cystitis without hematuria (2) Sepsis Code(s): A41.9 - SEPSIS, UNSPECIFIED ORGANISM Status: Acute Qualifiers: Sepsis type: sepsis due to unspecified organism Sepsis acute organ dysfunction status: without acute organ dysfunction Qualified Code(s): A41.9 - Sepsis, unspecified organism (3) Chronic hepatitis C Code(s): B18.2 - CHRONIC VIRAL HEPATITIS C Status: Chronic Qualifiers: Hepatic coma status: without hepatic coma Qualified Code(s): B18.2 - Chronic viral hepatitis C (4) Chronic pain syndrome Code(s): G89.4 - CHRONIC PAIN SYNDROME Status: Chronic (5) HTN (hypertension) Code(s): I10 - ESSENTIAL (PRIMARY) HYPERTENSION Status: Chronic Qualifiers: Hypertension type: essential hypertension Qualified Code(s): I10 - Essential (primary) hypertension (6) Neurogenic bladder Code(s): N31.9 - NEUROMUSCULAR DYSFUNCTION OF BLADDER, UNSPECIFIED Status: Chronic (7) Obesity (BMI 30.0-34.9) Code(s): E66.9 - OBESITY, UNSPECIFIED Status: Chronic (8) Paraplegia following spinal cord injury Code(s): G82.20 - PARAPLEGIA, UNSPECIFIED Status: Chronic (9) Rotator cuff tear arthropathy of right shoulder Code(s): M12.811 - OTH SPECIFIC ARTHROPATHIES, NEC, RIGHT SHOULDER Status: Chronic (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 CT pelvis results noted, findings are likely chronic per ID advice. tmax of 101 overnight is on baclofen tid, klonopin bid, morphine iv prn, norco, neurontin tid, nebs. hemostable, watch for airway in view of heavy psychotropic meds and narcotics with phenergan as well dc plan will be to [facility] for antibiotics x 2 weeks per advice. repeat blood cs, one from port and another from peripheral blood sample
[2020-06-09] MEDS ORDERED: Loperamide HCl 2 MG CAP PO PRN (15:48)
--- NOTE | 2020-06-09 16:32 | PRG ---
DATE OF SERVICE: 06/09/2020 SUBJECTIVE: Having diarrhea, does not smell like C difficile. Still with some flank pain but less. No respiratory symptoms. Had a temperature elevation of 101 today at midnight. OBJECTIVE: LUNGS: Clear. HEART: S1 and S2. Regular rate. Port is not tender. ABDOMEN: Moderate tenderness, right flank. Bowel sounds are normal. LABORATORY DATA: White cell count 10.4, hemoglobin 10.3, platelets 300. Creatinine 0.61, potassium 2.9. Blood cultures with one set from June 05 and I think two more sets were ordered yesterday if I am not mistaken. Yes, there were. The susceptibility shows resistant to Zosyn and meropenem and so the patient is now on cefepime. ASSESSMENT AND DISCUSSION: Paraplegia, recurrent episodes of urinary tract infection, port and Pseudomonas aeruginosa in one sample of blood cultures out of 2. The likely scenario here is pyelonephritis again. The organism was resistant to the initial antimicrobial and that explains the recurrence of fever. We will continue with cefepime and put orders for Case Management. Check C difficile in stool. If he is afebrile by tomorrow, then he can be transferred. If the new blood cultures turn positive, then we will have to reassess the port and consider removing it. Job ID: [id number]
[2020-06-09] MEDS: Enoxaparin Sodium 40 MG/0.4 ML SYRINGE SC SCH (19:54)
[2020-06-10] MEDS: Morphine 2 MG/ML VIAL SLOW IVP PRN ×4 (02:53→23:52)
[2020-06-10] MEDS: Baclofen 10 MG TAB PO SCH ×3 (06:16→21:47)
[2020-06-10] MEDS: Gabapentin 300 MG CAP PO SCH ×3 (06:16→21:47)
[2020-06-10] MEDS: Polyethylene Glycol 3350 17 GM Packet PO SCH (09:49)
[2020-06-10] MEDS: Lactinex Tablet PO SCH (09:53)
[2020-06-10] MEDS: Cefepime 1 GM in Sodium Chloride 0.9% 100 ML IVPB SCH ×2 (11:48→23:53)
--- NOTE | 2020-06-10 13:22 | PDOC.HOSPP ---
- Subjective Encounter Date: 06/10/20 Encounter Time: 12:00 Subjective: is still sleepy, had one bm overnight, no nausea no abd pain - Objective Vital Signs & Weight: Vital Signs (12 hours) Temp Pulse Resp BP Pulse Ox 06/10/20 12:00 97.6 F 90 18 133/68 97 06/10/20 08:00 97.6 F 93 16 142/84 H 98 06/10/20 04:00 99.1 F 104 H 16 142/81 H 96 Weight Admit Weight 215 lb 1 oz Weight 215 lb 1 oz I&O: 06/09/20 06/10/20 06/11/20 06:59 06:59 06:59 Intake Total 3600 Output Total 400 3100 Balance 3200 -3100 Result Diagrams: 06/09/20 04:16 06/09/20 04:16 Hospitalist ROS - Medication Medications: Active Medications Generic Name Dose Route Start Last Admin Trade Name Freq PRN Reason Stop Dose Admin Acetaminophen 650 mg 06/06/20 05:04 06/08/20 23:44 Acetaminophen 325 Mg Tab PO 650 mg Q4H PRN Administration Headache/Fever/Mild Pain (1-3) Hydrocodone Bitart/Acetaminophen 1 tab 06/06/20 05:06 06/06/20 20:21 Hydrocodone/Acetaminophen 10/325 Mg Tablet PO 1 tab Q8HR PRN Administration Moderate Pain (4-6) Acidophilus 1 tab 06/10/20 09:00 06/10/20 09:53 Lactinex Tablet PO 1 tab DAILY IRAIS Administration Baclofen 10 mg 06/06/20 06:00 06/10/20 06:16 Baclofen 10 Mg Tab PO 10 mg Q8HR IRAIS Administration Enoxaparin Sodium 40 mg 06/06/20 21:00 06/09/20 19:54 Enoxaparin Sodium 40 Mg/0.4 Ml Syringe SC 40 mg 2100 IRAIS Administration Gabapentin 300 mg 06/06/20 06:00 06/10/20 06:16 Gabapentin 300 Mg Cap PO 300 mg Q8HR IRAIS Administration Promethazine HCl 12.5 mg/ 50.5 mls @ 202 mls/hr 06/06/20 17:05 06/09/20 21:07 Sodium Chloride IVPB 50.5 mls Q6H PRN Administration Nausea/Vomiting Cefepime HCl 1 gm/ Sodium 100 mls @ 200 mls/hr 06/09/20 12:00 06/10/20 11:48 Chloride IVPB 100 mls 1200,2359 RIAIS Administration Ibuprofen 400 mg 06/09/20 01:42 06/09/20 23:39 Ibuprofen 200 Mg Tab PO 400 mg Q6H PRN Administration Fever/Mild Pain Morphine Sulfate 2 mg 06/06/20 05:04 06/10/20 11:50 Morphine 2 Mg/Ml Vial SLOW IVP 2 mg Q4H PRN Administration severe pain 4-10 Pantoprazole Sodium 40 mg 06/06/20 09:00 06/10/20 09:53 Pantoprazole 40 Mg Tab PO 40 mg DAILY IRAIS Administration Polyethylene Glycol 17 gm 06/06/20 09:00 06/10/20 09:49 Polyethylene Glycol 3350 17 Gm Packet PO Not Given DAILY [facility] Hospitalist Exam Vitals: Vital Signs (12 hours) Temp Pulse Resp BP Pulse Ox 06/10/20 12:00 97.6 F 90 18 133/68 97 06/10/20 08:00 97.6 F 93 16 142/84 H 98 06/10/20 04:00 99.1 F 104 H 16 142/81 H 96 Weight Admit Weight 215 lb 1 oz Weight 215 lb 1 oz General Appearance: awake alert Eye: PERRL, anicteric sclera ENT: no oropharyngeal lesions, moist mucosa Neck: supple, no JVD Heart: RRR, no murmur Respiratory: no wheezes, no rales Gastrointestinal: soft, non-tender, non-distended, normal bowel sounds Extremities - other findings: paraplegia with atrophy Neurological: cranial nerve grossly intact Neurological - other findings: chronic paraplegia Hosp A/P (1) UTI (urinary tract infection) Status: Acute Qualifiers: Urinary tract infection type: acute cystitis Hematuria presence: without hematuria Qualified Code(s): N30.00 - Acute cystitis without hematuria (2) Sepsis Code(s): A41.9 - SEPSIS, UNSPECIFIED ORGANISM Status: Acute Qualifiers: Sepsis type: sepsis due to unspecified organism Sepsis acute organ dysfunction status: without acute organ dysfunction Qualified Code(s): A41.9 - Sepsis, unspecified organism (3) Chronic hepatitis C Code(s): B18.2 - CHRONIC VIRAL HEPATITIS C Status: Chronic Qualifiers: Hepatic coma status: without hepatic coma Qualified Code(s): B18.2 - Chronic viral hepatitis C (4) Chronic pain syndrome Code(s): G89.4 - CHRONIC PAIN SYNDROME Status: Chronic (5) HTN (hypertension) Code(s): I10 - ESSENTIAL (PRIMARY) HYPERTENSION Status: Chronic Qualifiers: Hypertension type: essential hypertension Qualified Code(s): I10 - Essential (primary) hypertension (6) Neurogenic bladder Code(s): N31.9 - NEUROMUSCULAR DYSFUNCTION OF BLADDER, UNSPECIFIED Status: Chronic (7) Obesity (BMI 30.0-34.9) Code(s): E66.9 - OBESITY, UNSPECIFIED Status: Chronic (8) Paraplegia following spinal cord injury Code(s): G82.20 - PARAPLEGIA, UNSPECIFIED Status: Chronic (9) Rotator cuff tear arthropathy of right shoulder Code(s): M12.811 - OTH SPECIFIC ARTHROPATHIES, NEC, RIGHT SHOULDER Status: Chronic (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 CT pelvis results noted, findings are likely chronic per ID advice. tmax of 99 overnight is on baclofen tid, klonopin bid, morphine iv prn, norco, neurontin tid, nebs. hemostable, watch for airway in view of heavy psychotropic meds and narcotics with phenergan as well dc plan will be to [facility] for antibiotics x 2 weeks per advice. repeat blood cs, one from port and another from peripheral blood sample pending results. dc plan is to home if cefepime can be arranged at his house or to [facility].
[2020-06-10] MEDS: Promethazine HCl 12.5 MG in Sodium Chloride 0.9% 50 ML IVPB PRN ×2 (18:13→23:52)
[2020-06-10] MEDS: clonazePAM 0.5 MG TAB PO PRN (21:47)
[2020-06-10] MEDS: Enoxaparin Sodium 40 MG/0.4 ML SYRINGE SC SCH (21:48)
[2020-06-10] MEDS: Acetaminophen 325 MG TAB PO PRN (23:53)
[2020-06-11] MEDS: Morphine 2 MG/ML VIAL SLOW IVP PRN ×4 (04:17→20:37)
[2020-06-11] MEDS: Baclofen 10 MG TAB PO SCH ×3 (05:12→21:19)
[2020-06-11] MEDS: Gabapentin 300 MG CAP PO SCH ×3 (05:12→21:19)
[2020-06-11] MEDS: clonazePAM 0.5 MG TAB PO PRN ×2 (05:14→20:37)
[2020-06-11] MEDS ORDERED: Potassium Chloride 20 MEQ TAB PO SCH (09:45)
[2020-06-11] MEDS: Acetaminophen 325 MG TAB PO PRN (10:04)
[2020-06-11] MEDS: Lactinex Tablet PO SCH (10:04)
[2020-06-11] MEDS: Polyethylene Glycol 3350 17 GM Packet PO SCH (10:05)
[2020-06-11 10:29] LABS: #Basophils 0.1 thou/uL (0.0-0.2); #Eosinphils 0.4 thou/uL (0.0-0.7); #Lymphocytes 3.6 thou/uL (1.20-3.40); #Monocytes 1.4 thou/uL (0.11-0.59); #Neutrophils 5.6 thou/uL (1.40-6.50); %Basophils 0.5 % (0.0-1.0); %Eosinophils 3.9 % (0.0-10.0); %Lymphocytes 32.6 % (21.0-51.0); %Monocytes 12.8 % (0.0-10.0); %Neutrophils 50.2 % (42.0-75.0); Hemoglobin 11.8 g/dL (14.0-18.0); Mean Corpuscular HGB CONC 33.3 g/dL (32.0-36.0); Mean Corpuscular Hemoglobin 32.9 pg (27.0-31.0); Mean Corpuscular Volume 98.5 fL (78.0-98.0); Mean Platelet Volume 6.8 fL (7.4-10.4); Platelet Count 330 thou/uL (130-400); RBC Distribution Width 12.3 % (11.5-14.5); Red Blood Cell (RBC) Count 3.59 mill/uL (4.70-6.10); White Blood Cell (WBC) Count 11.1 thou/uL (4.8-10.8)
[2020-06-11 10:51] LABS: ALT (SGPT) 12 U/L (8-55); AST (SGOT) 33 U/L (5-34); Albumin 2.2 g/dL (3.5-5.0); Alkaline Phosphatase 58 U/L (40-110); Anion Gap 12 mmol/L (10-20); BUN (Urea Nitrogen) 6 mg/dL (8.9-20.6); Bilirubin, Total 0.8 mg/dL (0.2-1.2); Calc. Creatinine Clearance 207 mL/min (70-130); Calcium 7.7 mg/dL (7.8-10.44); Carbon Dioxide 24 mmol/L (22-29); Chloride 102 mmol/L (98-107); Globulin 5.6 g/dL (2.4-3.5); Glucose 130 mg/dL (70-105); Protein, Total 7.8 g/dL (6.0-8.3); Sodium 134 mmol/L (136-145)
[2020-06-11] MEDS: Promethazine HCl 12.5 MG in Sodium Chloride 0.9% 50 ML IVPB PRN ×2 (11:09→20:37)
[2020-06-11] MEDS: Cefepime 1 GM in Sodium Chloride 0.9% 100 ML IVPB SCH (11:39)
[2020-06-11] MEDS: Ibuprofen 200 MG TAB PO PRN (11:46)
[2020-06-11] MEDS: Cefepime 2 GM in Sodium Chloride 0.9% 100 ML IVPB SCH (14:54)
[2020-06-11] MEDS: Potassium Chloride 20 MEQ TAB PO SCH (16:21)
--- NOTE | 2020-06-11 17:34 | PDOC.HOSPP ---
- Subjective Encounter Date: 06/11/20 Encounter Time: 13:45 Subjective: pt up in bed no complains. - Objective Vital Signs & Weight: Vital Signs (12 hours) Temp Pulse Resp BP Pulse Ox 06/11/20 15:24 98.3 F 06/11/20 12:16 98.3 F 06/11/20 12:02 100.7 F H 111 H 16 163/82 H 97 06/11/20 11:46 100.7 F H 06/11/20 08:00 100.4 F H 107 H 18 169/86 H 99 Weight Admit Weight 215 lb 1 oz Weight 215 lb 1 oz I&O: 06/10/20 06/11/20 06/12/20 06:59 06:59 06:59 Intake Total 450 1360 Output Total 3100 1800 1050 Balance -3100 -1350 310 Result Diagrams: 06/11/20 10:08 06/11/20 10:08 Hospitalist ROS - Review of Systems Respiratory: denies: cough, dry, shortness of breath, hemoptysis, SOB with excertion, pleuritic pain, sputum, wheezing, other Cardiovascular: denies: chest pain, palpitations, orthopnea, paroxysmal noc. dyspnea, edema, light headedness, other Gastrointestinal: denies: nausea, vomiting, abdominal pain, diarrhea, constipation, melena, hematochezia, other - Medication Medications: Active Medications Generic Name Dose Route Start Last Admin Trade Name Freq PRN Reason Stop Dose Admin Acetaminophen 650 mg 06/06/20 05:04 06/11/20 10:04 Acetaminophen 325 Mg Tab PO 650 mg Q4H PRN Administration Headache/Fever/Mild Pain (1-3) Hydrocodone Bitart/Acetaminophen 1 tab 06/06/20 05:06 06/06/20 20:21 Hydrocodone/Acetaminophen 10/325 Mg Tablet PO 1 tab Q8HR PRN Administration Moderate Pain (4-6) Acidophilus 1 tab 06/10/20 09:00 06/11/20 10:04 Lactinex Tablet PO 1 tab DAILY IRAIS Administration Baclofen 10 mg 06/06/20 06:00 06/11/20 14:54 Baclofen 10 Mg Tab PO 10 mg Q8HR IRAIS Administration Clonazepam 0.5 mg 06/06/20 05:06 06/11/20 05:14 Clonazepam 0.5 Mg Tab PO 0.5 mg TID PRN Administration Anxiety Enoxaparin Sodium 40 mg 06/06/20 21:00 06/10/20 21:48 Enoxaparin Sodium 40 Mg/0.4 Ml Syringe SC 40 mg 2100 IRAIS Administration Gabapentin 300 mg 06/06/20 06:00 06/11/20 14:53 Gabapentin 300 Mg Cap PO 300 mg Q8HR IRAIS Administration Promethazine HCl 12.5 mg/ 50.5 mls @ 202 mls/hr 06/06/20 17:05 06/11/20 11:09 Sodium Chloride IVPB 50.5 mls Q6H PRN Administration Nausea/Vomiting Cefepime HCl 2 gm/ Sodium 100 mls @ 200 mls/hr 06/11/20 14:00 06/11/20 14:54 Chloride IVPB 100 mls 0200,1400 IRAIS Administration Ibuprofen 400 mg 06/09/20 01:42 06/11/20 11:46 Ibuprofen 200 Mg Tab PO 400 mg Q6H PRN Administration Fever/Mild Pain Morphine Sulfate 2 mg 06/06/20 05:04 06/11/20 16:21 Morphine 2 Mg/Ml Vial SLOW IVP 2 mg Q4H PRN Administration severe pain 4-10 Pantoprazole Sodium 40 mg 06/06/20 09:00 06/11/20 10:05 Pantoprazole 40 Mg Tab PO 40 mg DAILY IRAIS Administration Polyethylene Glycol 17 gm 06/06/20 09:00 06/11/20 10:05 Polyethylene Glycol 3350 17 Gm Packet PO Not Given DAILY IRAIS Potassium Chloride 40 meq 06/11/20 17:00 06/11/20 16:21 Potassium Chloride 20 Meq Tab PO 06/12/20 08:01 40 meq BID-WM IRAIS Administration Hospitalist Exam Vitals: Vital Signs (12 hours) Temp Pulse Resp BP Pulse Ox 06/11/20 15:24 98.3 F 06/11/20 12:16 98.3 F 06/11/20 12:02 100.7 F H 111 H 16 163/82 H 97 06/11/20 11:46 100.7 F H 06/11/20 08:00 100.4 F H 107 H 18 169/86 H 99 Weight Admit Weight 215 lb 1 oz Weight 215 lb 1 oz Neck: supple Heart: RRR, no murmur, no gallops Respiratory: no wheezes, no rales Gastrointestinal: soft, normal bowel sounds Gastrointestinal - other findings: mild pain to lower abdomen pain Hosp A/P - Plan (1) UTI (urinary tract infection) Status: Acute Qualifiers: Urinary tract infection type: acute cystitis Hematuria presence: without hematuria Qualified Code(s): N30.00 - Acute cystitis without hematuria (2) Sepsis Code(s): A41.9 - SEPSIS, UNSPECIFIED ORGANISM Status: Acute Qualifiers: Sepsis type: sepsis due to unspecified organism Sepsis acute organ dysfunction status: without acute organ dysfunction Qualified Code(s): A41.9 - Sepsis, unspecified organism (3) Chronic hepatitis C Code(s): B18.2 - CHRONIC VIRAL HEPATITIS C Status: Chronic Qualifiers: Hepatic coma status: without hepatic coma Qualified Code(s): B18.2 - Chronic viral hepatitis C (4) Chronic pain syndrome Code(s): G89.4 - CHRONIC PAIN SYNDROME Status: Chronic (5) HTN (hypertension) Code(s): I10 - ESSENTIAL (PRIMARY) HYPERTENSION Status: Chronic Qualifiers: Hypertension type: essential hypertension Qualified Code(s): I10 - Essential (primary) hypertension (6) Neurogenic bladder Code(s): N31.9 - NEUROMUSCULAR DYSFUNCTION OF BLADDER, UNSPECIFIED Status: Chronic (7) Obesity (BMI 30.0-34.9) Code(s): E66.9 - OBESITY, UNSPECIFIED Status: Chronic (8) Paraplegia following spinal cord injury Code(s): G82.20 - PARAPLEGIA, UNSPECIFIED Status: Chronic (9) Rotator cuff tear arthropathy of right shoulder Code(s): M12.811 - OTH SPECIFIC ARTHROPATHIES, NEC, RIGHT SHOULDER Status: Chronic (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 CT pelvis results noted, findings are likely chronic per ID advice. tmax of 99 overnight is on baclofen tid, klonopin bid, morphine iv prn, norco, neurontin tid, nebs. hemostable, watch for airway in view of heavy psychotropic meds and narcotics with phenergan as well dc plan will be to [facility] for antibiotics x 2 weeks per advice. repeat blood cs, one from port and another from peripheral blood sample pending results. dc plan is to home if cefepime can be arranged at his house or to [facility]. 06/11 will get cx from port. pt still has low grade temp.
[2020-06-11] MEDS: Enoxaparin Sodium 40 MG/0.4 ML SYRINGE SC SCH (21:19)
[2020-06-12] MEDS: Cefepime 2 GM in Sodium Chloride 0.9% 100 ML IVPB SCH ×2 (02:33→15:40)
[2020-06-12] MEDS: Morphine 2 MG/ML VIAL SLOW IVP PRN ×4 (02:39→21:02)
[2020-06-12] MEDS: Gabapentin 300 MG CAP PO SCH ×3 (05:45→21:03)
[2020-06-12] MEDS: Baclofen 10 MG TAB PO SCH ×3 (05:45→21:03)
[2020-06-12] MEDS: Promethazine HCl 12.5 MG in Sodium Chloride 0.9% 50 ML IVPB PRN ×2 (05:45→15:41)
[2020-06-12] MEDS: clonazePAM 0.5 MG TAB PO PRN ×2 (05:47→15:41)
[2020-06-12] MEDS: Polyethylene Glycol 3350 17 GM Packet PO SCH (08:47)
[2020-06-12] MEDS: Potassium Chloride 20 MEQ TAB PO SCH (08:47)
[2020-06-12] MEDS: Lactinex Tablet PO SCH (08:47)
[2020-06-12 12:09] LABS: #Eosinphils 0.6 thou/uL (0.0-0.7); #Lymphocytes 3.3 thou/uL (1.20-3.40); #Monocytes 1.3 thou/uL (0.11-0.59); #Neutrophils 5.9 thou/uL (1.40-6.50); %Basophils 0.4 % (0.0-1.0); %Eosinophils 5.3 % (0.0-10.0); %Lymphocytes 29.9 % (21.0-51.0); %Monocytes 11.6 % (0.0-10.0); %Neutrophils 52.8 % (42.0-75.0); Hemoglobin 10.8 g/dL (14.0-18.0); Mean Corpuscular HGB CONC 32.3 g/dL (32.0-36.0); Mean Corpuscular Hemoglobin 31.8 pg (27.0-31.0); Mean Corpuscular Volume 98.3 fL (78.0-98.0); Mean Platelet Volume 6.5 fL (7.4-10.4); Platelet Count 342 thou/uL (130-400); RBC Distribution Width 12.5 % (11.5-14.5); Red Blood Cell (RBC) Count 3.39 mill/uL (4.70-6.10); White Blood Cell (WBC) Count 11.1 thou/uL (4.8-10.8)
--- NOTE | 2020-06-12 13:19 | PRG ---
DATE OF SERVICE: 06/12/2020 SUBJECTIVE: Still having intermittent low-grade temperature elevation, some chills. The pain in the right flank is less. Diarrhea has resolved. Coughing a little bit here and there. OBJECTIVE: VITAL SIGNS: T-max was 100.7 yesterday and today is 99.9, max. Other vital signs were slight tachycardia. LUNGS: Clear. HEART: S1 and S2. Regular rate. Port is not tender. ABDOMEN: Mildly tender in the right flank. LABORATORY DATA: White cell count 11.1, hemoglobin 10.8, platelets 342, normal differential. Chemistries not remarkable. Mild decrease in sodium. There is another sample from the port sent yesterday, which is thus far no growth. There is one from June 09, which was no growth. ASSESSMENT AND DISCUSSION: Paraplegia, recurrent episodes of urinary tract infection, Pseudomonas aeruginosa from one sample obtained from the port, possibility of port infection has been considered, but not yet proven. The patient is receiving cefepime and continues to have low-grade temperature elevation. We will recheck COVID and await blood culture results. Job ID: [id number] [facility]
--- NOTE | 2020-06-12 18:19 | CT ---
CT Stone Protocol 06/12/2020 5:50 PM HISTORY: Pyelonephritis with slow resolution. Fever and bladder pain. COMPARISON: 05/02/2020 Technique: Multiple contiguous axial CT images are obtained through the abdomen and pelvis without IV contrast. Coronal reformats are provided. FINDINGS: This examination is limited for the evaluation of solid organs and vascular structures due to the lac k of intravenous contrast. Lower Chest: Trace left pleural effusion with associated passive atelectasis. Minimal atelectasis is present at the right lung base. Partial visualization of vascular catheter near the cavoatrial junction is seen. Liver: Suggestion of mildly lobulated contour which can be seen with cirrhosis. Gallbladder: Surgically absent. Pancreas: Grossly normal nonenhanced CT appearance. Spleen: Stable appearance compared to prior studies. Adrenals: Grossly normal nonenhanced CT appearance. Kidneys and ureters: Evidence of left nephrectomy. No right hydronephrosis or calculus is seen. Urinary bladder: There are postoperative changes likely due to artificial urinary bladder sphincter s een on multiple prior exams. Urinary bladder is incompletely distended. Cullen urinary bladder do appear mildly thickened, but this is a stable finding compared to multiple prior exams. Reproductive Organs: No pelvic masses. Lymph Nodes: Mild increase in aortocaval lymph nodes with mildly enlarged left iliac chain lymph node measuring 1.3 cm in short axis dimension. There is an enlarged lymph node along the left external iliac chain in the left hemipelvis measuring 2.3 cm in short axis dimension. Additional mildly enlarg ed lymph nodes are also seen along the left iliac chain. Bowel: Small amount retained fecal material seen throughout the colon. Loops of small bowel are dg l in caliber. Appendix: The appendix is normal in caliber. Peritoneum/retroperitoneum: No free fluid, free air, or fluid collection. Postoperative changes are seen within the mesentery with surgical clips seen in left para-aortic location. Vessels: Abdominal aorta is normal in caliber.. Abdominal Wall: There is atrophy of the lower paraspinous musculature as well as atrophy of the glute al musculature bilaterally. Bones: Previously described chronic septic arthritis and osteomyelitis involving the left hip is agai n seen with persistent periarticular erosive changes and sclerosis and remodeling of the left acetabulum and proximal left femur are again seen. Arthroplasty right proximal femur is again seen. S carring related to healed right gluteal decubitus ulceration. Severe right convex scoliosis thoracolumbar spine is present. IMPRESSION: 1. Evidence of left nephrectomy. No right hydronephrosis is seen, and there is no right-sided perinep hric stranding or obvious right-sided perinephric fluid collection. 2. Postoperative changes related to artificial urinary bladder sphincter are again present. Urinary b ladder is irregular in shape with thickening of cullen urinary bladder. This is a stable finding compared to multiple prior exams. 3. Trace left pleural effusion and passive atelectasis. 4. 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 5. Lymphadenopathy aortocaval region and along the iliac chains. Largest lymph node measures 2.3 cm i n short axis dimension seen in the left hemipelvis. Findings were also seen on CT scan pelvis and may be related to reactive lymphadenopathy.
[2020-06-12] MEDS: Acetaminophen 325 MG TAB PO PRN (21:04)
[2020-06-12] MEDS: Enoxaparin Sodium 40 MG/0.4 ML SYRINGE SC SCH (21:04)
[2020-06-13] MEDS: Cefepime 2 GM in Sodium Chloride 0.9% 100 ML IVPB SCH ×2 (02:35→14:17)
[2020-06-13] MEDS: clonazePAM 0.5 MG TAB PO PRN ×3 (02:45→21:17)
[2020-06-13] MEDS: Morphine 2 MG/ML VIAL SLOW IVP PRN ×2 (02:56→10:13)
[2020-06-13] MEDS: Promethazine HCl 12.5 MG in Sodium Chloride 0.9% 50 ML IVPB PRN ×2 (02:56→18:31)
[2020-06-13] MEDS: SODIUM CHLORIDE 0.9% IRR PRN ×3 (04:30→18:32)
[2020-06-13] MEDS: GENTAMICIN IRR PRN ×3 (04:30→18:32)
[2020-06-13] MEDS: Baclofen 10 MG TAB PO SCH ×3 (06:27→21:14)
[2020-06-13] MEDS: Gabapentin 300 MG CAP PO SCH ×3 (06:28→21:14)
[2020-06-13 07:48] LABS: SARS-CoV-2 PCR by NAA Not Detected (NotDetected)
[2020-06-13 07:50] LABS: #Basophils 0.1 thou/uL (0.0-0.2); #Eosinphils 0.6 thou/uL (0.0-0.7); #Monocytes 1.6 thou/uL (0.11-0.59); #Neutrophils 5.1 thou/uL (1.40-6.50); %Basophils 0.5 % (0.0-1.0); %Eosinophils 5.3 % (0.0-10.0); %Lymphocytes 34.9 % (21.0-51.0); %Monocytes 14.4 % (0.0-10.0); Hemoglobin 11.5 g/dL (14.0-18.0); Mean Corpuscular HGB CONC 33.2 g/dL (32.0-36.0); Mean Corpuscular Hemoglobin 32.5 pg (27.0-31.0); Mean Corpuscular Volume 98.1 fL (78.0-98.0); Mean Platelet Volume 6.5 fL (7.4-10.4); Platelet Count 381 thou/uL (130-400); RBC Distribution Width 12.5 % (11.5-14.5); Red Blood Cell (RBC) Count 3.55 mill/uL (4.70-6.10); White Blood Cell (WBC) Count 11.4 thou/uL (4.8-10.8)
[2020-06-13] MEDS: Lactinex Tablet PO SCH (10:13)
[2020-06-13] MEDS: Polyethylene Glycol 3350 17 GM Packet PO SCH (10:33)
--- NOTE | 2020-06-13 16:52 | PRG ---
DATE OF SERVICE: 06/13/2020 SUBJECTIVE: Feeling about the same. No vomiting. Little bit of pain in the right flank. His temperature seems to have settled down over the past 12 hours. Saturating 97 on room air. No diaphoresis is not tender. OBJECTIVE: LUNGS: Clear. ABDOMEN: Mildly tender in the right flank. LABORATORY DATA: White cell count is 11.4, hemoglobin 11, and platelets 381. Liver profile normal. Albumin 2.2. Repeat SARS-CoV RNA RT PCR not detected at this time on saliva. Abdomen and pelvis CT showed a left nephrectomy, postoperative changes from artificial urinary bladder sphincter, urinary bladder irregular shaped with thickening of cullen, trace pleural effusion on left side, passive atelectasis, chronic left hip changes, and lymphadenopathy in the aortocaval region along the iliac chains, probably reactive lymphadenopathy. ASSESSMENT AND DISCUSSION: 1. Paraplegia. 2. Recurrent episodes of urinary tract infection, Pseudomonas aeruginosa in one sample of blood cultures. Port infections not proven, but it is possible. Plan is to continue cefepime until 06/28, and continue lock solutions until then as well with the gentamicin. I have specifically instructed the pharmacist and nurse to make sure to withdraw the previous lock solution before using the line to avoid treating the patient with gentamicin doses and just keep it within the lumen of the line with the purpose for decolonization of potential line colonization with Pseudomonas. Job ID: [id number] [facility]
[2020-06-13] MEDS: HYDROcodone/Acetaminophen 10/325 mg Tablet PO PRN (18:31)
[2020-06-13] MEDS: Ibuprofen 200 MG TAB PO PRN (18:40)
[2020-06-13] MEDS: Enoxaparin Sodium 40 MG/0.4 ML SYRINGE SC SCH (21:15)
[2020-06-13] MEDS ORDERED: traMADol HCl 50 MG TAB PO SCH (22:00)
[2020-06-14] MEDS: Promethazine HCl 12.5 MG in Sodium Chloride 0.9% 50 ML IVPB PRN ×3 (00:52→13:16)
[2020-06-14] MEDS: HYDROcodone/Acetaminophen 10/325 mg Tablet PO PRN ×2 (02:10→13:16)
[2020-06-14] MEDS: Cefepime 2 GM in Sodium Chloride 0.9% 100 ML IVPB SCH ×2 (02:11→14:23)
[2020-06-14] MEDS: GENTAMICIN IRR PRN ×2 (02:51→06:40)
[2020-06-14] MEDS: SODIUM CHLORIDE 0.9% IRR PRN ×2 (02:51→06:40)
[2020-06-14] MEDS: Gabapentin 300 MG CAP PO SCH ×2 (09:07→14:23)
[2020-06-14] MEDS: Polyethylene Glycol 3350 17 GM Packet PO SCH (09:08)
[2020-06-14] MEDS: Baclofen 10 MG TAB PO SCH ×2 (09:08→14:23)
[2020-06-14] MEDS: Lactinex Tablet PO SCH (09:08)
[2020-06-14] MEDS: clonazePAM 0.5 MG TAB PO PRN (09:11)
[2020-06-14] MEDS ORDERED: SODIUM CHLORIDE 0.9% IRR PRN (09:48)
[2020-06-14] MEDS ORDERED: GENTAMICIN IRR PRN (09:48)
--- NOTE | 2020-06-14 12:46 | PDOC.HOSPP ---
- Subjective Encounter Date: 06/12/20 Encounter Time: 11:20 Subjective: pt up in bed no complains - Objective Vital Signs & Weight: Vital Signs (12 hours) Temp Pulse Resp BP Pulse Ox 06/14/20 08:00 98.1 F 92 18 146/77 H 97 06/14/20 04:00 97.5 F L Weight Admit Weight 215 lb 1 oz Weight 215 lb 1 oz I&O: 06/13/20 06/14/20 06/15/20 06:59 06:59 06:59 Intake Total 1900 400 Output Total 1000 1300 Balance 900 -900 Result Diagrams: 06/13/20 07:23 06/11/20 10:08 Hospitalist ROS - Review of Systems Respiratory: denies: cough, dry, shortness of breath, hemoptysis, SOB with excertion, pleuritic pain, sputum, wheezing, other Cardiovascular: denies: chest pain, palpitations, orthopnea, paroxysmal noc. dyspnea, edema, light headedness, other Gastrointestinal: denies: nausea, vomiting, abdominal pain, diarrhea, constipation, melena, hematochezia, other - Medication Medications: Active Medications Generic Name Dose Route Start Last Admin Trade Name Freq PRN Reason Stop Dose Admin Acetaminophen 650 mg 06/06/20 05:04 06/12/20 21:04 Acetaminophen 325 Mg Tab PO 650 mg Q4H PRN Administration Headache/Fever/Mild Pain (1-3) Hydrocodone Bitart/Acetaminophen 1 tab 06/06/20 05:06 06/14/20 02:10 Hydrocodone/Acetaminophen 10/325 Mg Tablet PO 1 tab Q8HR PRN Administration Moderate Pain (4-6) Acidophilus 1 tab 06/10/20 09:00 06/14/20 09:08 Lactinex Tablet PO 1 tab DAILY IRAIS Administration Baclofen 10 mg 06/06/20 06:00 06/14/20 09:08 Baclofen 10 Mg Tab PO 10 mg Q8HR IRAIS Administration Clonazepam 0.5 mg 06/06/20 05:06 06/14/20 09:11 Clonazepam 0.5 Mg Tab PO 0.5 mg TID PRN Administration Anxiety Enoxaparin Sodium 40 mg 06/06/20 21:00 06/13/20 21:15 Enoxaparin Sodium 40 Mg/0.4 Ml Syringe SC 40 mg 2100 IRAIS Administration Gabapentin 300 mg 06/06/20 06:00 06/14/20 09:07 Gabapentin 300 Mg Cap PO 300 mg Q8HR IRAIS Administration Promethazine HCl 12.5 mg/ 50.5 mls @ 202 mls/hr 06/06/20 17:05 06/14/20 05:41 Sodium Chloride IVPB 50.5 mls Q6H PRN Administration Nausea/Vomiting Cefepime HCl 2 gm/ Sodium 100 mls @ 200 mls/hr 06/11/20 14:00 06/14/20 02:11 Chloride IVPB 100 mls 0200,1400 IRAIS Administration Ibuprofen 400 mg 06/09/20 01:42 06/13/20 18:40 Ibuprofen 200 Mg Tab PO 400 mg Q6H PRN Administration Fever/Mild Pain Pantoprazole Sodium 40 mg 06/06/20 09:00 06/14/20 09:08 Pantoprazole 40 Mg Tab PO 40 mg DAILY IRAIS Administration Polyethylene Glycol 17 gm 06/06/20 09:00 06/14/20 09:08 Polyethylene Glycol 3350 17 Gm Packet PO Not Given DAILY [facility] Sodium Chloride 10 ml 06/11/20 21:00 06/14/20 09:08 Flush - Normal Saline 10 Ml Syringe IVF Not Given Q12HR [facility] Hospitalist Exam Vitals: Vital Signs (12 hours) Temp Pulse Resp BP Pulse Ox 06/14/20 08:00 98.1 F 92 18 146/77 H 97 06/14/20 04:00 97.5 F L Weight Admit Weight 215 lb 1 oz Weight 215 lb 1 oz Neck: supple Heart: RRR, no murmur Respiratory: no wheezes, no rales Gastrointestinal: soft, non-tender, normal bowel sounds Hosp A/P - Plan (1) UTI (urinary tract infection) Status: Acute Qualifiers: Urinary tract infection type: acute cystitis Hematuria presence: without hematuria Qualified Code(s): N30.00 - Acute cystitis without hematuria (2) Sepsis Code(s): A41.9 - SEPSIS, UNSPECIFIED ORGANISM Status: Acute Qualifiers: Sepsis type: sepsis due to unspecified organism Sepsis acute organ dysfunction status: without acute organ dysfunction Qualified Code(s): A41.9 - Sepsis, unspecified organism (3) Chronic hepatitis C Code(s): B18.2 - CHRONIC VIRAL HEPATITIS C Status: Chronic Qualifiers: Hepatic coma status: without hepatic coma Qualified Code(s): B18.2 - Chronic viral hepatitis C (4) Chronic pain syndrome Code(s): G89.4 - CHRONIC PAIN SYNDROME Status: Chronic (5) HTN (hypertension) Code(s): I10 - ESSENTIAL (PRIMARY) HYPERTENSION Status: Chronic Qualifiers: Hypertension type: essential hypertension Qualified Code(s): I10 - Essential (primary) hypertension (6) Neurogenic bladder Code(s): N31.9 - NEUROMUSCULAR DYSFUNCTION OF BLADDER, UNSPECIFIED Status: Chronic (7) Obesity (BMI 30.0-34.9) Code(s): E66.9 - OBESITY, UNSPECIFIED Status: Chronic (8) Paraplegia following spinal cord injury Code(s): G82.20 - PARAPLEGIA, UNSPECIFIED Status: Chronic (9) Rotator cuff tear arthropathy of right shoulder Code(s): M12.811 - OTH SPECIFIC ARTHROPATHIES, NEC, RIGHT SHOULDER Status: Chronic (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 CT pelvis results noted, findings are likely chronic per ID advice. tmax of 99 overnight is on baclofen tid, klonopin bid, morphine iv prn, norco, neurontin tid, nebs. hemostable, watch for airway in view of heavy psychotropic meds and narcotics with phenergan as well dc plan will be to [facility] for antibiotics x 2 weeks per advice. repeat blood cs, one from port and another from peripheral blood sample pending results. dc plan is to home if cefepime can be arranged at his house or to [facility]. 2/ will get cx from port. pt still has low grade temp. 2/2 cx from port drawn. He has low grad temp. spoke with ID will get ct abd/pel
--- NOTE | 2020-06-14 12:48 | PDOC.HOSPP ---
- Subjective Encounter Date: 06/13/20 Encounter Time: 16:00 Subjective: pt up in bed no complains - Objective Vital Signs & Weight: Vital Signs (12 hours) Temp Pulse Resp BP Pulse Ox 06/14/20 08:00 98.1 F 92 18 146/77 H 97 06/14/20 04:00 97.5 F L Weight Admit Weight 215 lb 1 oz Weight 215 lb 1 oz I&O: 06/13/20 06/14/20 06/15/20 06:59 06:59 06:59 Intake Total 1900 400 Output Total 1000 1300 Balance 900 -900 Result Diagrams: 06/13/20 07:23 06/11/20 10:08 Hospitalist ROS - Review of Systems Cardiovascular: denies: chest pain, palpitations, orthopnea, paroxysmal noc. dyspnea, edema, light headedness, other Gastrointestinal: denies: nausea, vomiting, abdominal pain, diarrhea, constipation, melena, hematochezia, other Genitourinary: denies: dysuria, frequency, incontinence, hematuria, retention, other - Medication Medications: Active Medications Generic Name Dose Route Start Last Admin Trade Name Freq PRN Reason Stop Dose Admin Acetaminophen 650 mg 06/06/20 05:04 06/12/20 21:04 Acetaminophen 325 Mg Tab PO 650 mg Q4H PRN Administration Headache/Fever/Mild Pain (1-3) Hydrocodone Bitart/Acetaminophen 1 tab 06/06/20 05:06 06/14/20 02:10 Hydrocodone/Acetaminophen 10/325 Mg Tablet PO 1 tab Q8HR PRN Administration Moderate Pain (4-6) Acidophilus 1 tab 06/10/20 09:00 06/14/20 09:08 Lactinex Tablet PO 1 tab DAILY IRAIS Administration Baclofen 10 mg 06/06/20 06:00 06/14/20 09:08 Baclofen 10 Mg Tab PO 10 mg Q8HR IRAIS Administration Clonazepam 0.5 mg 06/06/20 05:06 06/14/20 09:11 Clonazepam 0.5 Mg Tab PO 0.5 mg TID PRN Administration Anxiety Enoxaparin Sodium 40 mg 06/06/20 21:00 06/13/20 21:15 Enoxaparin Sodium 40 Mg/0.4 Ml Syringe SC 40 mg 2100 IRAIS Administration Gabapentin 300 mg 06/06/20 06:00 06/14/20 09:07 Gabapentin 300 Mg Cap PO 300 mg Q8HR IRAIS Administration Promethazine HCl 12.5 mg/ 50.5 mls @ 202 mls/hr 06/06/20 17:05 06/14/20 05:41 Sodium Chloride IVPB 50.5 mls Q6H PRN Administration Nausea/Vomiting Cefepime HCl 2 gm/ Sodium 100 mls @ 200 mls/hr 06/11/20 14:00 06/14/20 02:11 Chloride IVPB 100 mls 0200,1400 IRAIS Administration Ibuprofen 400 mg 06/09/20 01:42 06/13/20 18:40 Ibuprofen 200 Mg Tab PO 400 mg Q6H PRN Administration Fever/Mild Pain Pantoprazole Sodium 40 mg 06/06/20 09:00 06/14/20 09:08 Pantoprazole 40 Mg Tab PO 40 mg DAILY IRAIS Administration Polyethylene Glycol 17 gm 06/06/20 09:00 06/14/20 09:08 Polyethylene Glycol 3350 17 Gm Packet PO Not Given DAILY IRAIS Sodium Chloride 10 ml 06/11/20 21:00 06/14/20 09:08 Flush - Normal Saline 10 Ml Syringe IVF Not Given Q12HR [facility] Hospitalist Exam Vitals: Vital Signs (12 hours) Temp Pulse Resp BP Pulse Ox 06/14/20 08:00 98.1 F 92 18 146/77 H 97 06/14/20 04:00 97.5 F L Weight Admit Weight 215 lb 1 oz Weight 215 lb 1 oz Neck: supple Heart: RRR, no murmur, no gallops Respiratory: no wheezes, no rales, no ronchi Gastrointestinal: non-tender, non-distended, normal bowel sounds Hosp A/P - Plan (1) UTI (urinary tract infection) Status: Acute Qualifiers: Urinary tract infection type: acute cystitis Hematuria presence: without hematuria Qualified Code(s): N30.00 - Acute cystitis without hematuria (2) Sepsis Code(s): A41.9 - SEPSIS, UNSPECIFIED ORGANISM Status: Acute Qualifiers: Sepsis type: sepsis due to unspecified organism Sepsis acute organ dysfunction status: without acute organ dysfunction Qualified Code(s): A41.9 - Sepsis, unspecified organism (3) Chronic hepatitis C Code(s): B18.2 - CHRONIC VIRAL HEPATITIS C Status: Chronic Qualifiers: Hepatic coma status: without hepatic coma Qualified Code(s): B18.2 - Chronic viral hepatitis C (4) Chronic pain syndrome Code(s): G89.4 - CHRONIC PAIN SYNDROME Status: Chronic (5) HTN (hypertension) Code(s): I10 - ESSENTIAL (PRIMARY) HYPERTENSION Status: Chronic Qualifiers: Hypertension type: essential hypertension Qualified Code(s): I10 - Essential (primary) hypertension (6) Neurogenic bladder Code(s): N31.9 - NEUROMUSCULAR DYSFUNCTION OF BLADDER, UNSPECIFIED Status: Chronic (7) Obesity (BMI 30.0-34.9) Code(s): E66.9 - OBESITY, UNSPECIFIED Status: Chronic (8) Paraplegia following spinal cord injury Code(s): G82.20 - PARAPLEGIA, UNSPECIFIED Status: Chronic (9) Rotator cuff tear arthropathy of right shoulder Code(s): M12.811 - OTH SPECIFIC ARTHROPATHIES, NEC, RIGHT SHOULDER Status: Chronic (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 CT pelvis results noted, findings are likely chronic per ID advice. tmax of 99 overnight is on baclofen tid, klonopin bid, morphine iv prn, norco, neurontin tid, nebs. hemostable, watch for airway in view of heavy psychotropic meds and narcotics with phenergan as well dc plan will be to [facility] for antibiotics x 2 weeks per advice. repeat blood cs, one from port and another from peripheral blood sample pending results. dc plan is to home if cefepime can be arranged at his house or to [facility]. 2/1 will get cx from port. pt still has low grade temp. 2/2 cx from port drawn. He has low grad temp. spoke with ID will get ct abd/pel 2/[address] abd/pel discussed with pt. blood cx appears to be a contaminant. will speak with ID possible discharge in am.
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
[2020-06-14 15:12] VITALS: TEMP 98.6
[2020-06-14] MEDS ORDERED: HYDROcodone/Acetaminophen 10/325 mg Tablet PO PRN (16:30)
[2020-06-14 16:32] VITALS: BP 166/90
== END 2020-06-14 16:50 | disposition home or self-care (01) | DRG 872 ==
LOC: ERS 22:22 → ONC 06-06 00:50
PROVIDERS: ADMIT Internal Medicine; ATTEND Internal Medicine
DX: A41.9 Sepsis, unspecified organism (principal); G82.20 Paraplegia, unspecified; N30.00 Acute cystitis without hematuria; B18.2 Chronic viral hepatitis C; N31.9 Neuromuscular dysfunction of bladder, unspecified; I10 Essential (primary) hypertension; E66.9 Obesity, unspecified; Z20.822 Contact with and (suspected) exposure to COVID-19; M12.811 Other specific arthropathies, not elsewhere classified, right shoulder; G89.4 Chronic pain syndrome; S24.104S Unspecified injury at T11-T12 level of thoracic spinal cord, sequela; Z90.5 Acquired absence of kidney; Z90.81 Acquired absence of spleen; Z68.33 Body mass index [BMI] 33.0-33.9, adult; Z88.1 Allergy status to other antibiotic agents; Z88.8 Allergy status to other drugs, medicaments and biological substances; Z91.09 Other allergy status, other than to drugs and biological substances; Z89.411 Acquired absence of right great toe; Z89.422 Acquired absence of other left toe(s); Z89.421 Acquired absence of other right toe(s)
CPT/HCPCS: 0240U; 36415; 71045; 72192; 74176; 80048; 80053; 80202; 81003; 81015; 83605; 83735; 85025; 87040; 87077; 87086; 87149; 87186; 87324; 87449; 87493; 87635; 96365; 96367; 96375; 96376; J0692; J0696; J1580; J1650; J2270; J2543; J2550; J3370; J3475; J3490; U0003; U0005

== ENCOUNTER 2020-06-17 17:32 | Inpatient (IN) | payer MEDICARE, MEDICAID ==
[2020-06-17 20:36] VITALS: BMI 34.2
[2020-06-17] MEDS ORDERED: Gentamicin 80 MG/2 ML VIAL IRR PRN (21:36)
[2020-06-17] MEDS ORDERED: HYDROcodone/Acetaminophen 10/325 mg Tablet PO PRN (21:36)
[2020-06-17] MEDS ORDERED: Enoxaparin Sodium 40 MG/0.4 ML SYRINGE SC SCH (21:45)
[2020-06-17 22:23] LABS: Lactic Acid 1.2 mmol/L (0.5-2.2)
[2020-06-17 22:29] LABS: ALT (SGPT) 9 U/L (8-55); AST (SGOT) 24 U/L (5-34); Alkaline Phosphatase 63 U/L (40-110); Anion Gap 11 mmol/L (10-20); BUN (Urea Nitrogen) 12 mg/dL (8.9-20.6); Bilirubin, Total 0.5 mg/dL (0.2-1.2); Calc. Creatinine Clearance 214 mL/min (70-130); Calcium 7.5 mg/dL (7.8-10.44); Carbon Dioxide 20 mmol/L (22-29); Chloride 108 mmol/L (98-107); Globulin 5.4 g/dL (2.4-3.5); Glucose 138 mg/dL (70-105); Magnesium 1.8 mg/dL (1.6-2.6); Potassium 3.9 mmol/L (3.5-5.1); Protein, Total 7.4 g/dL (6.0-8.3); Sodium 135 mmol/L (136-145)
[2020-06-17 22:50] LABS: Clarity Clear (Clear); Glucose, Urine (Dipstick) Normal (Negative); Ketone, Urine Negative (Negative); Leukocyte 75 Leu/uL (Negative); Nitrite Negative (Negative); Protein, Urine (Dipstick) 10 mg/dL (Neg-Trace); Specific Gravity, Urine 1.012 (1.002-1.036); Urobilinogen Normal mg/dL (Less than 2)
[2020-06-17 22:51] LABS: Bacteria/HPF 2+ HPF (None Seen); Bilirubin Negative (Negative); Blood, Urine 2+ (Negative); RBC/HPF 0-3 HPF (0-3); Renal Epithelial 0-3 HPF (None Seen); Squamous Epithelial 0-3 HPF (0-3)
[2020-06-17 22:52] LABS: Urine Culture Reflex Yes Yes
[2020-06-17] MEDS: Baclofen 10 MG TAB PO SCH (22:53)
[2020-06-17] MEDS: Gabapentin 300 MG CAP PO SCH (22:53)
[2020-06-17] MEDS: VANCOMYCIN 1.25 GM/250 ML BAG 1.25 GM in Premix Bag 1 BAG IVPB SCH (23:57)
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
[2020-06-18] MEDS ORDERED: Cefepime 2 GM VIAL IVPB SCH (02:00)
[2020-06-18] MEDS: Promethazine HCl 25 MG in Sodium Chloride 0.9% 50 ML IVPB PRN ×3 (02:25→19:16)
[2020-06-18] MEDS: Cefepime 2 GM in Sodium Chloride 0.9% 100 ML IVPB SCH ×2 (02:27→14:27)
[2020-06-18] MEDS: SODIUM CHLORIDE 0.9% IRR PRN (04:18)
[2020-06-18] MEDS: GENTAMICIN IRR PRN (04:18)
[2020-06-18] MEDS: Baclofen 10 MG TAB PO SCH ×3 (05:50→20:22)
[2020-06-18] MEDS: Gabapentin 300 MG CAP PO SCH ×3 (05:50→20:22)
[2020-06-18] MEDS: clonazePAM 0.5 MG TAB PO SCH ×3 (08:45→20:22)
[2020-06-18] MEDS: Lactinex Tablet PO SCH (08:45)
[2020-06-18] MEDS: VANCOMYCIN 1.25 GM/250 ML BAG 1.25 GM in Premix Bag 1 BAG IVPB SCH ×2 (08:46→17:34)
[2020-06-18] MEDS: Famotidine 20 MG TAB PO SCH ×2 (08:46→20:22)
[2020-06-18] MEDS: Enoxaparin Sodium 40 MG/0.4 ML SYRINGE SC SCH (08:46)
[2020-06-18 08:54] LABS: #Basophils 0.1 thou/uL (0.0-0.2); #Eosinphils 0.6 thou/uL (0.0-0.7); #Lymphocytes 2.6 thou/uL (1.20-3.40); #Monocytes 1.5 thou/uL (0.11-0.59); %Basophils 0.6 % (0.0-1.0); %Eosinophils 5.3 % (0.0-10.0); %Monocytes 13.7 % (0.0-10.0); %Neutrophils 56.5 % (42.0-75.0); Hemoglobin 11.1 g/dL (14.0-18.0); Mean Corpuscular Hemoglobin 33.3 pg (27.0-31.0); Mean Platelet Volume 6.2 fL (7.4-10.4); Platelet Count 413 thou/uL (130-400); RBC Distribution Width 12.2 % (11.5-14.5); Red Blood Cell (RBC) Count 3.34 mill/uL (4.70-6.10); White Blood Cell (WBC) Count 10.6 thou/uL (4.8-10.8)
[2020-06-18] MEDS: Polyethylene Glycol 3350 17 GM Packet PO SCH (08:59)
[2020-06-18 09:23] LABS: Anion Gap 10 mmol/L (10-20); BUN (Urea Nitrogen) 12 mg/dL (8.9-20.6); Calc. Creatinine Clearance 248 mL/min (70-130); Calcium 7.7 mg/dL (7.8-10.44); Carbon Dioxide 23 mmol/L (22-29); Chloride 109 mmol/L (98-107); Glucose 77 mg/dL (70-105); Potassium 4.4 mmol/L (3.5-5.1); Sodium 138 mmol/L (136-145)
[2020-06-18] MEDS: Morphine 2 MG/ML VIAL SLOW IVP PRN ×4 (10:22→23:07)
--- NOTE | 2020-06-18 14:25 | PDOC.HOSPP ---
- Subjective Encounter Date: 06/18/20 Encounter Time: 14:05 Subjective: f/u for suspected sepsis/bacteremia/recurrent UTI in context of neurogenic bladder with multiple hospitalizations. Recent treated with Cefepime/Vancomycin after d/c to [facility]. - Objective Vital Signs & Weight: Vital Signs (12 hours) Temp Pulse Resp BP BP Pulse Ox 06/18/20 08:00 98.2 F 87 18 110/59 L 99 06/18/20 04:00 98.0 F 86 20 118/65 98 Weight Admit Weight 218 lb 4.8 oz Weight 218 lb 4.8 oz I&O: 06/17/20 06/18/20 06/19/20 06:59 06:59 06:59 Intake Total 820 450 Output Total 700 Balance 120 450 Result Diagrams: 06/18/20 08:31 06/18/20 08:31 Additional Labs: Microbiology 05/02/20 04:00 Urine Straight Catheter Urine Culture - Final Serratia marcescens Non-Hemolytic Streptococcus 05/02/20 01:16 Venous blood - Left Hand Blood Culture - Preliminary NO GROWTH AT 48 HOURS 05/02/20 01:08 Venous blood - Right Hand Blood Culture - Preliminary NO GROWTH AT 48 HOURS 01/14/18 01:00 Urine Straight Catheter Urine Culture - Preliminary Presumptive Pseudo aeruginosa Presumptive Enterococcus sp. 01/14/18 00:50 Venous blood - Left Arm Blood Culture - Preliminary Specimen has been received and culture in progress. No Growth to date. 01/14/18 00:50 Venous blood - Left Arm Blood Culture - Preliminary Specimen has been received and culture in progress. No Growth to date. 06/17/20 Unknown Urine ho catheter Urine Culture - Preliminary NO GROWTH AT 12 HOURS Laboratory Tests 05/02/20 05/03/20 05/03/20 10:40 04:42 04:42 WBC 36.2 H Hgb 11.8 L Plt Count 92 L Band Neuts % (Manual) 36 H Creatinine 2.78 H SARS-CoV-2 (PCR) Not Detected 05/03/20 05/04/20 05/04/20 17:25 03:12 03:12 WBC 27.0 H Hgb 12.1 L Plt Count 99 L Band Neuts % (Manual) 18 H Creatinine 2.64 H 1.94 H SARS-CoV-2 (PCR) 05/05/20 05/06/20 03:39 05:29 WBC 16.7 H Hgb 12.4 L Plt Count 97 L Band Neuts % (Manual) 22 H 1 L Creatinine SARS-CoV-2 (PCR) Radiology Reviewed by me: Yes (PCXR - no acute process) Hospitalist ROS - Medication Medications: Active Medications Generic Name Dose Route Start Last Admin Trade Name Freq PRN Reason Stop Dose Admin Hydrocodone Bitart/Acetaminophen 1 tab 06/17/20 21:36 06/17/20 22:54 Hydrocodone/Acetaminophen 10/325 Mg Tablet PO 1 tab Q8H PRN Administration Moderate Pain (4-6) Acidophilus 1 tab 06/18/20 09:00 06/18/20 08:45 Lactinex Tablet PO 1 tab DAILY IRAIS Administration Baclofen 10 mg 06/17/20 22:00 06/18/20 05:50 Baclofen 10 Mg Tab PO 10 mg Q8HR IRAIS Administration Clonazepam 0.5 mg 06/18/20 09:00 06/18/20 08:45 Clonazepam 0.5 Mg Tab PO 0.5 mg TID IRAIS Administration Enoxaparin Sodium 40 mg 06/18/20 09:00 06/18/20 08:46 Enoxaparin Sodium 40 Mg/0.4 Ml Syringe SC 40 mg 0900 IRAIS Administration Famotidine 20 mg 06/18/20 09:00 06/18/20 08:46 Famotidine 20 Mg Tab PO 20 mg BID IRAIS Administration Gabapentin 300 mg 06/17/20 22:00 06/18/20 05:50 Gabapentin 300 Mg Cap PO 300 mg Q8HR IRAIS Administration Cefepime HCl 2 gm/ Sodium 100 mls @ 200 mls/hr 06/18/20 02:00 06/18/20 02:27 Chloride IVPB 100 mls 0200,1400 IRAIS Administration Gentamicin Sulfate 10 mg/ 2 mls @ 0 mls/hr 06/17/20 23:00 06/18/20 04:18 Sodium Chloride IRR 2 mls PRN PRN Administration IV LOCK ACCESS As Directed Vancomycin HCl 1.25 gm/ Device 250 mls @ 166.667 mls/hr 06/17/20 23:59 08:46 IVPB 250 mls 0800,1600,2359 IRAIS Administration Promethazine HCl 25 mg/ Sodium 51 mls @ 204 mls/hr 06/18/20 02:11 06/18/20 10:22 Chloride IVPB 51 mls Q6H PRN Administration Nausea Morphine Sulfate 2 mg 06/18/20 09:49 06/18/20 10:22 Morphine 2 Mg/Ml Vial SLOW IVP 2 mg Q4H PRN Administration Pain Polyethylene Glycol 17 gm 06/18/20 09:00 06/18/20 08:59 Polyethylene Glycol 3350 17 Gm Packet PO Not Given DAILY IRAIS Hospitalist Exam Vitals: Vital Signs (12 hours) Temp Pulse Resp BP BP Pulse Ox 06/18/20 08:00 98.2 F 87 18 110/59 L 99 06/18/20 04:00 98.0 F 86 20 118/65 98 Weight Admit Weight 218 lb 4.8 oz Weight 218 lb 4.8 oz General Appearance: NAD, awake alert Eye: PERRL, anicteric sclera ENT: normocephalic atraumatic, no oropharyngeal lesions Neck: supple, symmetric, no JVD, no thyromegaly, no lymphadenopathy Heart: RRR, no gallops, no rubs, normal peripheral pulses Heart - other findings: S1, S2 Respiratory: CTAB, no wheezes, no rales, no ronchi, normal chest expansion Gastrointestinal: soft, non-tender, non-distended, normal bowel sounds, no palpable masses Extremities: no cyanosis, no clubbing Extremities - other findings: atrophy of bilat LE's Skin: normal turgor Neurological: no new deficit Neurological - other findings: paraplegia Musculoskeletal: normal tone, generalized weakness Psychiatric: normal affect, A&O x 3 Hosp A/P (1) Sepsis Code(s): A41.9 - SEPSIS, UNSPECIFIED ORGANISM Status: Acute Qualifiers: Sepsis type: sepsis due to unspecified organism Sepsis acute organ dysfunction status: without acute organ dysfunction Qualified Code(s): A41.9 - Sepsis, unspecified organism Plan: Suspected, awaiting repeat blood cx, Mediport in place x 5 years and receiving Gentamicin port locks after each infusion of abx (2) Bacteremia Code(s): R78.81 - BACTEREMIA Status: Acute Plan: Suspected but awaiting Ucx results (3) UTI (urinary tract infection) due to urinary indwelling catheter Code(s): T83.51XA - ; N39.0 - URINARY TRACT INFECTION, SITE NOT SPECIFIED Status: Acute Plan: Initially suspected, continue Cefepime/Vancomycin (4) Paraplegia Code(s): G82.20 - PARAPLEGIA, UNSPECIFIED Status: Chronic (5) Chronic hepatitis C Code(s): B18.2 - CHRONIC VIRAL HEPATITIS C Status: Chronic Qualifiers: Hepatic coma status: without hepatic coma Qualified Code(s): B18.2 - Chronic viral hepatitis C (6) Chronic pain syndrome Code(s): G89.4 - CHRONIC PAIN SYNDROME Status: Chronic Plan: Resume home pain med regimen, Morphine Sulfate 2mg IV q4h prn/[place] 10/325mg po q6h prn (7) Neurogenic bladder Code(s): N31.9 - NEUROMUSCULAR DYSFUNCTION OF BLADDER, UNSPECIFIED Status: Chronic Plan: Daily self-catheterizations - Plan old records reviewed/req, continue antibiotics, PT/OT, 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
[2020-06-18] MEDS: Acetaminophen 325 MG TAB PO PRN ×2 (14:41→18:12)
[2020-06-18] MEDS ORDERED: Ketorolac Tromethamine 30 MG/ML VIAL IVP SCH (14:45)
[2020-06-18] MEDS: Ketorolac Tromethamine 30 MG/ML VIAL IVP SCH ×2 (16:43→23:56)
[2020-06-18] MEDS: Senokot S 8.6-50 MG TAB PO SCH (20:22)
[2020-06-18 21:03] LABS: SARS-CoV-2 IgG Ab Non-Reactive (NonReactive); SARS-CoV-2 IgG Index 0.07 S/CO (< 1.40)
[2020-06-19] MEDS: Cefepime 2 GM in Sodium Chloride 0.9% 100 ML IVPB SCH ×2 (01:58→13:15)
[2020-06-19] MEDS: Promethazine HCl 25 MG in Sodium Chloride 0.9% 50 ML IVPB PRN ×2 (03:18→12:11)
[2020-06-19] MEDS: Morphine 2 MG/ML VIAL SLOW IVP PRN ×2 (03:19→09:42)
[2020-06-19 04:29] LABS: SARS-CoV-2 PCR NAA for Saliva Not Detected (NotDetected)
[2020-06-19] MEDS: Baclofen 10 MG TAB PO SCH ×3 (05:47→21:24)
[2020-06-19] MEDS: Gabapentin 300 MG CAP PO SCH ×3 (05:47→21:24)
[2020-06-19] MEDS: Ketorolac Tromethamine 30 MG/ML VIAL IVP SCH ×3 (05:47→17:45)
[2020-06-19] MEDS: GENTAMICIN IRR PRN ×3 (05:48→12:12)
[2020-06-19] MEDS: SODIUM CHLORIDE 0.9% IRR PRN ×3 (05:48→12:12)
[2020-06-19 06:06] LABS: Hemoglobin 10.6 g/dL (14.0-18.0); Mean Corpuscular HGB CONC 31.6 g/dL (32.0-36.0); Mean Corpuscular Hemoglobin 31.4 pg (27.0-31.0); Mean Corpuscular Volume 99.5 fL (78.0-98.0); Mean Platelet Volume 6.3 fL (7.4-10.4); Platelet Count 428 thou/uL (130-400); RBC Distribution Width 12.2 % (11.5-14.5); Red Blood Cell (RBC) Count 3.39 mill/uL (4.70-6.10)
[2020-06-19 06:09] LABS: Band 3 % (5-11); Eosinophils 8 % (0-10); Lymphocytes 22 % (21-51); MDiff Complete? YES; Metamyelocyte 1 % (0-0); Monocytes 20 % (0-10); Neutrophil 46 % (42-75); Platelet Morphology Comment Appears Increased
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
[2020-06-19] MEDS: Senokot S 8.6-50 MG TAB PO SCH ×2 (09:36→21:24)
[2020-06-19] MEDS: Lactinex Tablet PO SCH (09:36)
[2020-06-19] MEDS: clonazePAM 0.5 MG TAB PO SCH ×3 (09:36→21:24)
[2020-06-19] MEDS: Famotidine 20 MG TAB PO SCH ×2 (09:36→21:24)
[2020-06-19] MEDS: Polyethylene Glycol 3350 17 GM Packet PO SCH (09:38)
[2020-06-19] MEDS: Enoxaparin Sodium 40 MG/0.4 ML SYRINGE SC SCH (09:42)
--- NOTE | 2020-06-19 12:55 | PDOC.HOSPP ---
- Subjective Encounter Date: 06/19/20 Encounter Time: 12:50 Subjective: f/u for sepsis initially suspected from UTI tx with Cefepime/Vancomycin. No fever noted per nursing today. - Objective Vital Signs & Weight: Vital Signs (12 hours) Temp Pulse Resp BP Pulse Ox 06/19/20 08:42 97.5 F L 75 16 163/89 H 99 06/19/20 04:00 98.7 F Weight Admit Weight 218 lb 4.8 oz Weight 218 lb 4.8 oz I&O: 06/18/20 06/19/20 06/20/20 06:59 06:59 06:59 Intake Total 820 1670 Output Total 700 2650 Balance 120 -980 Result Diagrams: 06/19/20 05:16 06/18/20 08:31 Additional Labs: Microbiology 05/02/20 04:00 Urine Straight Catheter Urine Culture - Final Serratia marcescens Non-Hemolytic Streptococcus 05/02/20 01:16 Venous blood - Left Hand Blood Culture - Preliminary NO GROWTH AT 48 HOURS 05/02/20 01:08 Venous blood - Right Hand Blood Culture - Preliminary NO GROWTH AT 48 HOURS 01/14/18 01:00 Urine Straight Catheter Urine Culture - Preliminary Presumptive Pseudo aeruginosa Presumptive Enterococcus sp. 01/14/18 00:50 Venous blood - Left Arm Blood Culture - Preliminary Specimen has been received and culture in progress. No Growth to date. 01/14/18 00:50 Venous blood - Left Arm Blood Culture - Preliminary Specimen has been received and culture in progress. No Growth to date. 06/17/20 Unknown Urine ho catheter Urine Culture - Preliminary NO GROWTH AT 12 HOURS 06/17/20 21:54 Venous blood - Right Hand Blood Culture - Preliminary Specimen has been received and culture in progress. No Growth to date. 06/17/20 21:54 Venous blood - Left Hand Blood Culture - Preliminary Specimen has been received and culture in progress. No Growth to date. Laboratory Tests 05/02/20 05/03/20 05/03/20 10:40 04:42 04:42 WBC 36.2 H Hgb 11.8 L Plt Count 92 L Band Neuts % (Manual) 36 H Creatinine 2.78 H Vancomycin Trough SARS-CoV-2 (PCR) Not Detected SARS-CoV-2 RNA (RT-PCR) SARS-CoV-2 IgG Ab SARS-CoV-2 IgG Ab Index 05/03/20 05/04/20 05/04/20 17:25 03:12 03:12 WBC 27.0 H Hgb 12.1 L Plt Count 99 L Band Neuts % (Manual) 18 H Creatinine 2.64 H 1.94 H Vancomycin Trough SARS-CoV-2 (PCR) SARS-CoV-2 RNA (RT-PCR) SARS-CoV-2 IgG Ab SARS-CoV-2 IgG Ab Index 05/05/20 05/06/20 06/18/20 03:39 05:29 14:28 WBC 16.7 H Hgb 12.4 L Plt Count 97 L Band Neuts % (Manual) 22 H 1 L Creatinine Vancomycin Trough SARS-CoV-2 (PCR) SARS-CoV-2 RNA (RT-PCR) SARS-CoV-2 IgG Ab Non-Reactive SARS-CoV-2 IgG Ab Index 0.07 06/18/20 06/18/20 16:18 23:05 WBC Hgb Plt Count Band Neuts % (Manual) Creatinine Vancomycin Trough 32.0 H* SARS-CoV-2 (PCR) SARS-CoV-2 RNA (RT-PCR) Not Detected SARS-CoV-2 IgG Ab SARS-CoV-2 IgG Ab Index Hospitalist ROS - Medication Medications: Active Medications Generic Name Dose Route Start Last Admin Trade Name Freq PRN Reason Stop Dose Admin Acetaminophen 650 mg 06/17/20 22:07 06/18/20 18:12 Acetaminophen 325 Mg Tab PO 650 mg Q4H PRN Administration Mild Pain (1-3) Hydrocodone Bitart/Acetaminophen 1 tab 06/17/20 21:36 06/17/20 22:54 Hydrocodone/Acetaminophen 10/325 Mg Tablet PO 1 tab Q8H PRN Administration Moderate Pain (4-6) Acidophilus 1 tab 06/18/20 09:00 06/19/20 09:36 Lactinex Tablet PO 1 tab DAILY IRAIS Administration Baclofen 10 mg 06/17/20 22:00 06/19/20 05:47 Baclofen 10 Mg Tab PO 10 mg Q8HR IRAIS Administration Clonazepam 0.5 mg 06/18/20 09:00 06/19/20 09:36 Clonazepam 0.5 Mg Tab PO 0.5 mg TID IRAIS Administration Enoxaparin Sodium 40 mg 06/18/20 09:00 06/19/20 09:42 Enoxaparin Sodium 40 Mg/0.4 Ml Syringe SC 40 mg 0900 IRAIS Administration Famotidine 20 mg 06/18/20 09:00 06/19/20 09:36 Famotidine 20 Mg Tab PO 20 mg BID IRAIS Administration Gabapentin 300 mg 06/17/20 22:00 06/19/20 05:47 Gabapentin 300 Mg Cap PO 300 mg Q8HR IRAIS Administration Cefepime HCl 2 gm/ Sodium 100 mls @ 200 mls/hr 06/18/20 02:00 06/19/20 01:58 Chloride IVPB 100 mls 0200,1400 IRAIS Administration Gentamicin Sulfate 10 mg/ 2 mls @ 0 mls/hr 06/17/20 23:00 06/19/20 12:12 Sodium Chloride IRR 2 mls PRN PRN Administration IV LOCK ACCESS As Directed Promethazine HCl 25 mg/ Sodium 51 mls @ 204 mls/hr 06/18/20 02:11 06/19/20 12:11 Chloride IVPB 51 mls Q6H PRN Administration Nausea Ketorolac Tromethamine 30 mg 06/18/20 18:00 06/19/20 12:12 Ketorolac Tromethamine 30 Mg/Ml Vial IVP 06/23/20 18:01 30 mg Q6HR IRAIS Administration Morphine Sulfate 2 mg 06/18/20 09:49 06/19/20 09:42 Morphine 2 Mg/Ml Vial SLOW IVP 2 mg Q4H PRN Administration Pain Polyethylene Glycol 17 gm 06/18/20 09:00 06/19/20 09:38 Polyethylene Glycol 3350 17 Gm Packet PO Not Given DAILY IRAIS Senna/Docusate Sodium 1 tab 06/18/20 21:00 06/19/20 09:36 Senokot S 8.6-50 Mg Tab PO 1 tab BID IRAIS Administration Hospitalist Exam Vitals: Vital Signs (12 hours) Temp Pulse Resp BP Pulse Ox 06/19/20 08:42 97.5 F L 75 16 163/89 H 99 06/19/20 04:00 98.7 F Weight Admit Weight 218 lb 4.8 oz Weight 218 lb 4.8 oz General Appearance: NAD, awake alert Eye: PERRL, anicteric sclera ENT: normocephalic atraumatic, no oropharyngeal lesions Neck: supple, symmetric, no JVD, no thyromegaly, no lymphadenopathy Heart: RRR, no gallops, no rubs, normal peripheral pulses Heart - other findings: S1, S2 Respiratory: CTAB, no wheezes, no rales, no ronchi, normal chest expansion Gastrointestinal: soft, non-tender, non-distended, normal bowel sounds, no palpable masses Extremities: no cyanosis Extremities - other findings: chronic atrophy LE's Skin: normal turgor Neurological: cranial nerve grossly intact, no new deficit Neurological - other findings: paraplegia Musculoskeletal: generalized weakness Psychiatric: normal affect, A&O x 3 Hosp A/P (1) Sepsis Code(s): A41.9 - SEPSIS, UNSPECIFIED ORGANISM Status: Acute Qualifiers: Sepsis type: sepsis due to unspecified organism Sepsis acute organ dysfunction status: without acute organ dysfunction Qualified Code(s): A41.9 - Sepsis, unspecified organism Plan: Continue Cefepime/Gentamicin mediport flush, monitor clinically, initial Blood/Ucx neg (2) Bacteremia Code(s): R78.81 - BACTEREMIA Status: Acute Plan: No evidence currently, monitor as outlined in #1 (3) UTI (urinary tract infection) due to urinary indwelling catheter Code(s): T83.51XA - ; N39.0 - URINARY TRACT INFECTION, SITE NOT SPECIFIED Status: Acute Plan: Initially suspected but Ucx negative (4) Paraplegia Code(s): G82.20 - PARAPLEGIA, UNSPECIFIED Status: Chronic (5) Chronic hepatitis C Code(s): B18.2 - CHRONIC VIRAL HEPATITIS C Status: Chronic Qualifiers: Hepatic coma status: without hepatic coma Qualified Code(s): B18.2 - Chronic viral hepatitis C (6) Chronic pain syndrome Code(s): G89.4 - CHRONIC PAIN SYNDROME Status: Chronic (7) Neurogenic bladder Code(s): N31.9 - NEUROMUSCULAR DYSFUNCTION OF BLADDER, UNSPECIFIED Status: Chronic - Plan continue antibiotics, social service manager Stable currently Continue Cefepime Vancomycin on hold due to elevated levels Continue IVF's Add Toradol 30mg IV q6h Pain control Add Morphine Sulfate IV ID consult appreciated
[2020-06-19] MEDS ORDERED: Activase 2 MG VIAL CATH SCH (14:30)
[2020-06-19] MEDS ORDERED: Sterile Water 10 ML VIAL IVP SCH (14:30)
[2020-06-19] MEDS: Acetaminophen 325 MG TAB PO PRN (14:49)
--- NOTE | 2020-06-19 17:51 | PRG ---
DATE OF SERVICE: 06/19/2020 SUBJECTIVE: Mr. Chandra does not have any major complaints. The pain has improved actually. No respiratory symptoms. No diarrhea. He is still having fever. He was 100.4 on June 18 and today it is up to 101 at 1 and 2 p.m. Now he is 99.1. OBJECTIVE: VITAL SIGNS: He is saturating 98 on room air. Not tachycardic. Breathing 16 times a minute. BP 160/80. GENERAL: Not diaphoretic. LUNGS: Clear. HEART: Normal. SKIN: The port is not tender. No inflammatory changes there. The pelvic area and hip area and ischial regions have completely normal skin. No wounds noted. ABDOMEN: The abdominal tenderness is much less than before. LABORATORY DATA: White cell count is 9.0, hemoglobin 10.6, platelets 428, 46% neutrophils. Sodium 138, creatinine 0.56. Liver profile was normal. Albumin 2.0. The cultures are negative still, both urine and blood. The SARS-CoV2 antibody index was 0.07 and RT PCR not detected. ASSESSMENT AND DISCUSSION: Paraplegia, chronic cystitis and pyelonephritis, recurrent, as well as concern for port infection and Pseudomonas aeruginosa transient bacteremia, now with recrudescence of fever with negative cultures. Overall, his symptoms have improved, but he is still having fever and wonder if this is related to residual pyelonephritis or if the port is colonized the hips, I do not think, is the problem frankly. The skin is completely normal. We will continue the current management. He is getting cefepime and vancomycin as well as gentamicin lock solution. We may have to submit a Carrier test depending on the next 48 hours. I think treating empirically with additional antimicrobials would not be helpful. Job ID: [id number]
[2020-06-19 23:28] LABS: Vancomycin, Random 8.8 ug/mL (See Comment)
[2020-06-19] MEDS ORDERED: Vancomycin 1 GM in Premix Bag 1 BAG IVPB SCH (23:59)
[2020-06-20] MEDS: Ketorolac Tromethamine 30 MG/ML VIAL IVP SCH ×5 (00:27→23:56)
[2020-06-20] MEDS: Vancomycin 1 GM in Premix Bag 1 BAG IVPB SCH ×2 (00:27→13:19)
[2020-06-20] MEDS: Morphine 2 MG/ML VIAL SLOW IVP PRN ×5 (00:31→21:35)
[2020-06-20] MEDS: Cefepime 2 GM in Sodium Chloride 0.9% 100 ML IVPB SCH ×2 (02:32→14:45)
[2020-06-20] MEDS: Baclofen 10 MG TAB PO SCH ×3 (05:26→21:34)
[2020-06-20] MEDS: Gabapentin 300 MG CAP PO SCH ×3 (05:26→21:34)
[2020-06-20] MEDS: GENTAMICIN IRR PRN ×4 (05:27→18:26)
[2020-06-20] MEDS: SODIUM CHLORIDE 0.9% IRR PRN ×4 (05:27→18:26)
[2020-06-20] MEDS: Enoxaparin Sodium 40 MG/0.4 ML SYRINGE SC SCH (09:22)
[2020-06-20] MEDS: Lactinex Tablet PO SCH (09:22)
[2020-06-20] MEDS: Senokot S 8.6-50 MG TAB PO SCH ×2 (09:22→21:34)
[2020-06-20] MEDS: clonazePAM 0.5 MG TAB PO SCH ×3 (09:22→21:34)
[2020-06-20] MEDS: Famotidine 20 MG TAB PO SCH ×2 (09:22→21:34)
[2020-06-20] MEDS: Polyethylene Glycol 3350 17 GM Packet PO SCH (09:23)
[2020-06-20] MEDS: Promethazine HCl 25 MG in Sodium Chloride 0.9% 50 ML IVPB PRN (10:31)
--- NOTE | 2020-06-20 14:29 | PDOC.HOSPP ---
- Subjective Encounter Date: 06/20/20 Encounter Time: 14:20 Subjective: f/u for sepsis/bacteremia with Pseudomonas/UTI and mediport infection/colonization receiving Cefepime/Vancomycin/Gentamicin lock for mediport. - Objective Vital Signs & Weight: Vital Signs (12 hours) Temp Pulse Resp BP Pulse Ox 06/20/20 11:46 98.7 F 152/82 H 06/20/20 08:00 98.2 F 110 H 18 169/86 H 97 06/20/20 03:56 98.6 F Weight Admit Weight 218 lb 4.8 oz Weight 218 lb 4.8 oz I&O: 06/19/20 06/20/20 06/21/20 06:59 06:59 06:59 Intake Total 1670 1480 Output Total 2650 1500 Balance -980 -20 Result Diagrams: 06/19/20 05:16 06/18/20 08:31 Additional Labs: Microbiology 05/02/20 04:00 Urine Straight Catheter Urine Culture - Final Serratia marcescens Non-Hemolytic Streptococcus 05/02/20 01:16 Venous blood - Left Hand Blood Culture - Preliminary NO GROWTH AT 48 HOURS 05/02/20 01:08 Venous blood - Right Hand Blood Culture - Preliminary NO GROWTH AT 48 HOURS 01/14/18 01:00 Urine Straight Catheter Urine Culture - Preliminary Presumptive Pseudo aeruginosa Presumptive Enterococcus sp. 01/14/18 00:50 Venous blood - Left Arm Blood Culture - Preliminary Specimen has been received and culture in progress . No Growth to date. 01/14/18 00:50 Venous blood - Left Arm Blood Culture - Preliminary Specimen has been received and culture in [facility]. No Growth to date. 06/17/20 Unknown Urine ho catheter Urine Culture - Preliminary NO GROWTH AT 12 HOURS 06/17/20 21:54 Venous blood - Right Hand Blood Culture - Preliminary Specimen has been received and culture in progress. No Growth to date. 06/17/20 21:54 Venous blood - Left Hand Blood Culture - Preliminary Specimen has been received and culture in progress. No Growth to date. Laboratory Tests 05/02/20 05/03/20 05/03/20 10:40 04:42 04:42 WBC 36.2 H Hgb 11.8 L Plt Count 92 L Band Neuts % (Manual) 36 H Creatinine 2.78 H Vancomycin Trough SARS-CoV-2 (PCR) Not Detected SARS-CoV-2 RNA (RT-PCR) SARS-CoV-2 IgG Ab SARS-CoV-2 IgG Ab Index 05/03/20 05/04/20 05/04/20 17:25 03:12 03:12 WBC 27.0 H Hgb 12.1 L Plt Count 99 L Band Neuts % (Manual) 18 H Creatinine 2.64 H 1.94 H Vancomycin Trough SARS-CoV-2 (PCR) SARS-CoV-2 RNA (RT-PCR) SARS-CoV-2 IgG Ab SARS-CoV-2 IgG Ab Index 05/05/20 05/06/20 06/18/20 03:39 05:29 14:28 WBC 16.7 H Hgb 12.4 L Plt Count 97 L Band Neuts % (Manual) 22 H 1 L Creatinine Vancomycin Trough SARS-CoV-2 (PCR) SARS-CoV-2 RNA (RT-PCR) SARS-CoV-2 IgG Ab Non-Reactive SARS-CoV-2 IgG Ab Index 0.07 06/18/20 06/18/20 16:18 23:05 WBC Hgb Plt Count Band Neuts % (Manual) Creatinine Vancomycin Trough 32.0 H* SARS-CoV-2 (PCR) SARS-CoV-2 RNA (RT-PCR) Not Detected SARS-CoV-2 IgG Ab SARS-CoV-2 IgG Ab Index Hospitalist ROS - Medication Medications: Active Medications Generic Name Dose Route Start Last Admin Trade Name Freq PRN Reason Stop Dose Admin Acetaminophen 650 mg 06/17/20 22:07 06/19/20 14:49 Acetaminophen 325 Mg Tab PO 650 mg Q4H PRN Administration Mild Pain (1-3) Hydrocodone Bitart/Acetaminophen 1 tab 06/17/20 21:36 06/17/20 22:54 Hydrocodone/Acetaminophen 10/325 Mg Tablet PO 1 tab Q8H PRN Administration Moderate Pain (4-6) Acidophilus 1 tab 06/18/20 09:00 06/20/20 09:22 Lactinex Tablet PO 1 tab DAILY IRAIS Administration Baclofen 10 mg 06/17/20 22:00 06/20/20 05:26 Baclofen 10 Mg Tab PO 10 mg Q8HR IRAIS Administration Clonazepam 0.5 mg 06/18/20 09:00 06/20/20 09:22 Clonazepam 0.5 Mg Tab PO 0.5 mg TID IRAIS Administration Enoxaparin Sodium 40 mg 06/18/20 09:00 06/20/20 09:22 Enoxaparin Sodium 40 Mg/0.4 Ml Syringe SC 40 mg 0900 IRAIS Administration Famotidine 20 mg 06/18/20 09:00 06/20/20 09:22 Famotidine 20 Mg Tab PO 20 mg BID IRAIS Administration Gabapentin 300 mg 06/17/20 22:00 06/20/20 05:26 Gabapentin 300 Mg Cap PO 300 mg Q8HR IRAIS Administration Cefepime HCl 2 gm/ Sodium 100 mls @ 200 mls/hr 06/18/20 02:00 06/20/20 02:32 Chloride IVPB 100 mls 0200,1400 IRAIS Administration Gentamicin Sulfate 10 mg/ 2 mls @ 0 mls/hr 06/17/20 23:00 06/20/20 13:19 Sodium Chloride IRR 2 mls PRN PRN Administration IV LOCK ACCESS As Directed Promethazine HCl 25 mg/ Sodium 51 mls @ 204 mls/hr 06/18/20 02:11 06/20/20 10:31 Chloride IVPB 51 mls Q6H PRN Administration Nausea Vancomycin HCl 1 gm/ Device 200 mls @ 200 mls/hr 06/20/20 01:00 06/20/20 13:19 IVPB 200 mls 0100,1300 IRAIS Administration Ketorolac Tromethamine 30 mg 06/18/20 18:00 06/20/20 13:18 Ketorolac Tromethamine 30 Mg/Ml Vial IVP 06/23/20 18:01 30 mg Q6HR IRAIS Administration Morphine Sulfate 2 mg 06/18/20 09:49 06/20/20 10:31 Morphine 2 Mg/Ml Vial SLOW IVP 2 mg Q4H PRN Administration Pain Polyethylene Glycol 17 gm 06/18/20 09:00 06/20/20 09:23 Polyethylene Glycol 3350 17 Gm Packet PO Not Given DAILY IRAIS Senna/Docusate Sodium 1 tab 06/18/20 21:00 06/20/20 09:22 Senokot S 8.6-50 Mg Tab PO 1 tab BID IRAIS Administration Hospitalist Exam Vitals: Vital Signs (12 hours) Temp Pulse Resp BP Pulse Ox 06/20/20 11:46 98.7 F 152/82 H 06/20/20 08:00 98.2 F 110 H 18 169/86 H 97 06/20/20 03:56 98.6 F Weight Admit Weight 218 lb 4.8 oz Weight 218 lb 4.8 oz General Appearance: NAD, awake alert Eye: PERRL, anicteric sclera ENT: normocephalic atraumatic, no oropharyngeal lesions Neck: supple, symmetric, no JVD, no thyromegaly, no lymphadenopathy Heart: RRR, no gallops, no rubs, normal peripheral pulses Heart - other findings: S1, S2 Respiratory: CTAB, no wheezes, no rales, no ronchi, normal chest expansion Gastrointestinal: soft, non-tender, non-distended, normal bowel sounds, no palpable masses, no hepatomegaly Extremities: no cyanosis, no edema Skin: normal turgor Skin - other findings: R upper chest with Mediport in place, no erythema/edema Neurological: cranial nerve grossly intact, no new deficit Neurological - other findings: paraplegia Psychiatric: normal affect, A&O x 3 Hosp A/P (1) Sepsis Code(s): A41.9 - SEPSIS, UNSPECIFIED ORGANISM Status: Acute Qualifiers: Sepsis type: sepsis due to unspecified organism Sepsis acute organ dysfunction status: without acute organ dysfunction Qualified Code(s): A41.9 - Sepsis, unspecified organism Plan: Resolving, continue Cefepime/Vancomycin/Mediport lock with Gentamicin (2) Bacteremia Code(s): R78.81 - BACTEREMIA Status: Acute (3) UTI (urinary tract infection) due to urinary indwelling catheter Code(s): T83.51XA - ; N39.0 - URINARY TRACT INFECTION, SITE NOT SPECIFIED Status: Acute Plan: Suspected but Ucx negative (4) Paraplegia Code(s): G82.20 - PARAPLEGIA, UNSPECIFIED Status: Chronic (5) Chronic hepatitis C Code(s): B18.2 - CHRONIC VIRAL HEPATITIS C Status: Chronic Qualifiers: Hepatic coma status: without hepatic coma Qualified Code(s): B18.2 - Chronic viral hepatitis C (6) Chronic pain syndrome Code(s): G89.4 - CHRONIC PAIN SYNDROME Status: Chronic (7) Neurogenic bladder Code(s): N31.9 - NEUROMUSCULAR DYSFUNCTION OF BLADDER, UNSPECIFIED Status: Chronic - 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
[2020-06-21] MEDS: Cefepime 2 GM in Sodium Chloride 0.9% 100 ML IVPB SCH ×2 (01:00→14:14)
[2020-06-21] MEDS: GENTAMICIN IRR PRN ×4 (01:47→15:07)
[2020-06-21] MEDS: Morphine 2 MG/ML VIAL SLOW IVP PRN ×5 (01:47→21:13)
[2020-06-21] MEDS: SODIUM CHLORIDE 0.9% IRR PRN ×4 (01:47→15:07)
[2020-06-21] MEDS: Promethazine HCl 25 MG in Sodium Chloride 0.9% 50 ML IVPB PRN ×2 (01:47→10:19)
[2020-06-21] MEDS: Baclofen 10 MG TAB PO SCH ×3 (05:52→21:13)
[2020-06-21] MEDS: Gabapentin 300 MG CAP PO SCH ×3 (05:52→21:13)
[2020-06-21] MEDS: Ketorolac Tromethamine 30 MG/ML VIAL IVP SCH ×4 (05:53→23:50)
--- NOTE | 2020-06-21 06:32 | PRG ---
DATE OF SERVICE: 06/20/2020 SUBJECTIVE: Mr. Chandra is feeling about the same. Has not had much fever, but he states that he is taking his fever medicine ahead of time so he does not get it too high. No vomiting. No chest pain or abdominal pain. OBJECTIVE: VITAL SIGNS: His T-max today was 98.6. Previous T-max was 101.1 yesterday at 1 p.m. Other vital signs are normal. Saturations are 96%. GENERAL: Awake, alert, oriented. He looks better than when he came in. No new diaphoresis. LUNGS: Clear. HEART: S1, S2 regular rate. ABDOMEN: Soft. Tenderness has improved. Port is okay. LABORATORY DATA: White cell count is 9, hemoglobin 10.6, platelets 428. Creatinine 0.56. Liver profile normal. All the cultures are negative. ASSESSMENT AND DISCUSSION: Paraplegia, chronic cystitis and pyelonephritis, recurrent, as well as concern for port infection. Previous Pseudomonas aeruginosa, transient bacteremia. Sent to [place] for treatment, but then recurrence of fever. I think he is improving. The overall picture is more suggestive of urinary tract infection and this is going to be a difficult problem to solve. He does have Enterococcus faecalis from the last culture from June 17. Maybe that is the reason why he did regress and vancomycin may have to be added to his regimen. Nonetheless, we will continue following up his case. If he stays afebrile in the next 48 hours, then we would send him back to [place] to complete treatment with the addition of vancomycin on top of his previous cefepime regimen. Job ID: [id number]
[2020-06-21] MEDS: Polyethylene Glycol 3350 17 GM Packet PO SCH (09:36)
[2020-06-21] MEDS: Famotidine 20 MG TAB PO SCH ×2 (10:03→21:12)
[2020-06-21] MEDS: Lactinex Tablet PO SCH (10:03)
[2020-06-21] MEDS: Senokot S 8.6-50 MG TAB PO SCH ×2 (10:03→21:12)
[2020-06-21] MEDS: clonazePAM 0.5 MG TAB PO SCH ×3 (10:03→21:12)
[2020-06-21] MEDS: Enoxaparin Sodium 40 MG/0.4 ML SYRINGE SC SCH (10:03)
[2020-06-21 12:36] LABS: Vancomycin, Trough 14.3 ug/mL
[2020-06-21] MEDS: Vancomycin 1 GM in Premix Bag 1 BAG IVPB SCH ×2 (12:36)
[2020-06-21] MEDS ORDERED: Promethazine 25 MG TAB PO PRN (15:31)
--- NOTE | 2020-06-21 15:33 | PDOC.HOSPP ---
- Subjective Encounter Date: 06/21/20 Encounter Time: 15:30 Subjective: f/u for sepsis/UTI with Ucx showing Enterococcus spp. Receiving Vancomycin/Cefepime and overall fever trend is down. - Objective Vital Signs & Weight: Vital Signs (12 hours) Temp Pulse Resp BP Pulse Ox 06/21/20 12:24 99.3 F 06/21/20 08:00 99.1 F 102 H 102 H 160/86 H 98 06/21/20 04:00 97.9 F Weight Admit Weight 218 lb 4.8 oz Weight 218 lb 4.8 oz I&O: 06/20/20 06/21/20 06/22/20 06:59 06:59 06:59 Intake Total 1480 2019 Output Total 1499 Result Diagrams: 06/19/20 05:16 06/18/20 08:31 Additional Labs: Microbiology 05/02/20 04:00 Urine Straight Catheter Urine Culture - Final Serratia marcescens Non-Hemolytic Streptococcus 06/17/20 15:32 Urine voided Urine Culture - Final Enterococcus faecalis 05/02/20 01:16 Venous blood - Left Hand Blood Culture - Preliminary NO GROWTH AT 48 HOURS 05/02/20 01:08 Venous blood - Right Hand Blood Culture - Preliminary NO GROWTH AT 48 HOURS 01/14/18 01:00 Urine Straight Catheter Urine Culture - Preliminary Presumptive Pseudo aeruginosa Presumptive Enterococcus sp. 01/14/18 00:50 Venous blood - Left Arm Blood Culture - Preliminary Specimen has been received and culture in progress. No Growth to date. 01/14/18 00:50 Venous blood - Left Arm Blood Culture - Preliminary Specimen has been received and culture in progress. No Growth to date. 06/17/20 Unknown Urine ho catheter Urine Culture - Preliminary NO GROWTH AT 12 HOURS 06/17/20 21:54 Venous blood - Right Hand Blood Culture - Preliminary Specimen has been received and culture in progr ess. No Growth to date. 06/17/20 21:54 Venous blood - Right Hand Blood Culture - Preliminary NO GROWTH AT 48 HOURS 06/17/20 21:54 Venous blood - Left Hand Blood Culture - Preliminary Specimen has been received and culture in progress. No Growth to date. 06/17/20 21:54 Venous blood - Left Hand Blood Culture - Preliminary NO GROWTH AT 48 HOURS Laboratory Tests 05/02/20 05/03/20 05/03/20 10:40 04:42 04:42 WBC 36.2 H Hgb 11.8 L Plt Count 92 L Band Neuts % (Manual) 36 H Creatinine 2.78 H Vancomycin Trough SARS-CoV-2 (PCR) Not Detected SARS-CoV-2 RNA (RT-PCR) SARS-CoV-2 IgG Ab SARS-CoV-2 IgG Ab Index 05/03/20 05/04/20 05/04/20 17:25 03:12 03:12 WBC 27.0 H Hgb 12.1 L Plt Count 99 L Band Neuts % (Manual) 18 H Creatinine 2.64 H 1.94 H Vancomycin Trough SARS-CoV-2 (PCR) SARS-CoV-2 RNA (RT-PCR) SARS-CoV-2 IgG Ab SARS-CoV-2 IgG Ab Index 05/05/20 05/06/20 06/18/20 03:39 05:29 14:28 WBC 16.7 H Hgb 12.4 L Plt Count 97 L Band Neuts % (Manual) 22 H 1 L Creatinine Vancomycin Trough SARS-CoV-2 (PCR) SARS-CoV-2 RNA (RT-PCR) SARS-CoV-2 IgG Ab Non-Reactive SARS-CoV-2 IgG Ab Index 0.07 06/18/20 06/18/20 16:18 23:05 WBC Hgb Plt Count Band Neuts % (Manual) Creatinine Vancomycin Trough 32.0 H* SARS-CoV-2 (PCR) SARS-CoV-2 RNA (RT-PCR) Not Detected SARS-CoV-2 IgG Ab SARS-CoV-2 IgG Ab Index Hospitalist ROS - Medication Medications: Active Medications Generic Name Dose Route Start Last Admin Trade Name Freq PRN Reason Stop Dose Admin Acetaminophen 650 mg 06/17/20 22:07 06/19/20 14:49 Acetaminophen 325 Mg Tab PO 650 mg Q4H PRN Administration Mild Pain (1-3) Hydrocodone Bitart/Acetaminophen 1 tab 06/17/20 21:36 06/17/20 22:54 Hydrocodone/Acetaminophen 10/325 Mg Tablet PO 1 tab Q8H PRN Administration Moderate Pain (4-6) Acidophilus 1 tab 06/18/20 09:00 06/21/20 10:03 Lactinex Tablet PO 1 tab DAILY IRAIS Administration Baclofen 10 mg 06/17/20 22:00 06/21/20 14:13 Baclofen 10 Mg Tab PO 10 mg Q8HR IRASI Administration Clonazepam 0.5 mg 06/18/20 09:00 06/21/20 14:13 Clonazepam 0.5 Mg Tab PO 0.5 mg TID IRAIS Administration Enoxaparin Sodium 40 mg 06/18/20 09:00 06/21/20 10:03 Enoxaparin Sodium 40 Mg/0.4 Ml Syringe SC 40 mg 0900 IRAIS Administration Famotidine 20 mg 06/18/20 09:00 06/21/20 10:03 Famotidine 20 Mg Tab PO 20 mg BID IRAIS Administration Gabapentin 300 mg 06/17/20 22:00 06/21/20 14:13 Gabapentin 300 Mg Cap PO 300 mg Q8HR IRAIS Administration Cefepime HCl 2 gm/ Sodium 100 mls @ 200 mls/hr 06/18/20 02:00 06/21/20 14:14 Chloride IVPB 100 mls 0200,1400 IRAIS Administration Gentamicin Sulfate 10 mg/ 2 mls @ 0 mls/hr 06/17/20 23:00 06/21/20 15:07 Sodium Chloride IRR 2 mls PRN PRN Administration IV LOCK ACCESS As Directed Promethazine HCl 25 mg/ Sodium 51 mls @ 204 mls/hr 06/18/20 02:11 06/21/20 10:19 Chloride IVPB 51 mls Q6H PRN Administration Nausea Ketorolac Tromethamine 30 mg 06/18/20 18:00 06/21/20 12:36 Ketorolac Tromethamine 30 Mg/Ml Vial IVP 06/23/20 18:01 30 mg Q6HR IRAIS Administration Polyethylene Glycol 17 gm 06/18/20 09:00 06/21/20 09:36 Polyethylene Glycol 3350 17 Gm Packet PO Not Given DAILY IRAIS Senna/Docusate Sodium 1 tab 06/18/20 21:00 06/21/20 10:03 Senokot S 8.6-50 Mg Tab PO 1 tab BID IRAIS Administration Hospitalist Exam Vitals: Vital Signs (12 hours) Temp Pulse Resp BP Pulse Ox 06/21/20 12:24 99.3 F 06/21/20 08:00 99.1 F 102 H 102 H 160/86 H 98 06/21/20 04:00 97.9 F Weight Admit Weight 218 lb 4.8 oz Weight 218 lb 4.8 oz General Appearance: NAD, awake alert Eye: PERRL, anicteric sclera ENT: normocephalic atraumatic, no oropharyngeal lesions Neck: supple, symmetric, no JVD, no thyromegaly, no lymphadenopathy Heart: RRR, no gallops, no rubs, normal peripheral pulses Heart - other findings: S1, S2 Respiratory: CTAB, no wheezes, no rales, no ronchi, normal chest expansion Gastrointestinal: soft, non-tender, non-distended, normal bowel sounds, no palpable masses Extremities: no cyanosis, no clubbing Skin: normal turgor Neurological - other findings: paraplegia of LE's(chronic) Psychiatric: normal affect, A&O x 3 Hosp A/P (1) Sepsis Code(s): A41.9 - SEPSIS, UNSPECIFIED ORGANISM Status: Acute Qualifiers: Sepsis type: sepsis due to unspecified organism Sepsis acute organ dysfunction status: without acute organ dysfunction Qualified Code(s): A41.9 - Sepsis, unspecified organism (2) Bacteremia Code(s): R78.81 - BACTEREMIA Status: Acute (3) UTI (urinary tract infection) due to urinary indwelling catheter Code(s): T83.51XA - ; N39.0 - URINARY TRACT INFECTION, SITE NOT SPECIFIED Status: Acute (4) Paraplegia Code(s): G82.20 - PARAPLEGIA, UNSPECIFIED Status: Chronic (5) Chronic hepatitis C Code(s): B18.2 - CHRONIC VIRAL HEPATITIS C Status: Chronic Qualifiers: Hepatic coma status: without hepatic coma Qualified Code(s): B18.2 - Chronic viral hepatitis C (6) Chronic pain syndrome Code(s): G89.4 - CHRONIC PAIN SYNDROME Status: Chronic (7) Neurogenic bladder Code(s): N31.9 - NEUROMUSCULAR DYSFUNCTION OF BLADDER, UNSPECIFIED Status: Chronic - 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
[2020-06-21] MEDS: VANCOMYCIN 1.25 GM/250 ML BAG 1.25 GM in Premix Bag 1 BAG IVPB SCH (21:13)
[2020-06-22] MEDS: Cefepime 2 GM in Sodium Chloride 0.9% 100 ML IVPB SCH ×2 (03:18→14:26)
[2020-06-22] MEDS: Baclofen 10 MG TAB PO SCH ×2 (06:29→14:33)
[2020-06-22] MEDS: Ketorolac Tromethamine 30 MG/ML VIAL IVP SCH ×2 (06:29→12:58)
[2020-06-22] MEDS: Gabapentin 300 MG CAP PO SCH ×2 (06:29→14:33)
[2020-06-22] MEDS: Morphine 2 MG/ML VIAL SLOW IVP PRN ×2 (06:36→12:57)
[2020-06-22 09:09] VITALS: BP 174/87
[2020-06-22] MEDS: Famotidine 20 MG TAB PO SCH (10:25)
[2020-06-22] MEDS: Lactinex Tablet PO SCH (10:25)
[2020-06-22] MEDS: Enoxaparin Sodium 40 MG/0.4 ML SYRINGE SC SCH (10:25)
[2020-06-22] MEDS: clonazePAM 0.5 MG TAB PO SCH ×2 (10:25→14:33)
[2020-06-22] MEDS: Polyethylene Glycol 3350 17 GM Packet PO SCH (10:25)
[2020-06-22] MEDS: Senokot S 8.6-50 MG TAB PO SCH (10:26)
[2020-06-22] MEDS: VANCOMYCIN 1.25 GM/250 ML BAG 1.25 GM in Premix Bag 1 BAG IVPB SCH (11:09)
[2020-06-22] MEDS: Promethazine HCl 25 MG in Sodium Chloride 0.9% 50 ML IVPB PRN (11:26)
--- NOTE | 2020-06-22 11:31 | PDOC.DS.DS ---
Provider Date of Admission: 06/17/20 17:32 Date of Discharge: 06/22/20 Admitting Provider: Meaghan Rodríguez MD Consultations: Infectious Disease Primary Care Physician: Arnold Navarro MD Course Hospital Course: 39-year-old gentleman who is paraplegic since age of 4 who was recently admitted to [facility] on June 14, 2020 following discharge from our hospital where he was treated for right-sided pyelonephritis with Serratia marcescens. During his hospitalization he had blood cultures done and a culture obtained from the low left-sided portacatheter which initially came back Pseudomonas however repeat showed coagulase-negative staph felt to represent contaminant. He had diarrhea during his hospitalization and had C. difficile testing which was positive for the antigen and toxin negative. He was discharged on IV antibiotics with cefepime and gentamicin however since discharge she has had persistently elevated temperatures. Today his temperature spiked to 102 and he has felt generally unwell. The patient has been transferred here for further management with plans to have him evaluated by Dr. Edwards of infectious disease. He has been started on vancomycin and repeat blood cultures were obtained. He had a chest x-ray done earlier today which showed no acute process. Laboratory studies demonstrated a normal lactic acid. Urinalysis showed 2+ blood, 75 leukocyte esterase, 7-10 white blood cells, 2+ bacteria. After admission patient was evaluated by infectious disease team, during this admission decision was made to add vancomycin in addition to cefepime, he has Enterococcus faecalis in his urine culture, and that is sensitive to vancomycin, While in hospital he did not have any fever for almost 48 hours, today we are discharging him back to [facility] bed for continuation of IV antibiotic therapy, he will finish his IV cefepime and vancomycin on June 28, he will have weekly CBC CMP and Vanco trough level, This patient is always a risk for recurrent admission given his paraplegia and neurologic bladder. Patient seen and examined bedside today . Resuscitation Status: 06/17/20 21:28 Resuscitation Status Routine Co-Sign Provider: Resuscitation Status: FULL: Full Resuscitation Lab Results: 06/19/20 05:16 06/18/20 08:31 Microbiology - Entire Visit 06/17/20 21:54 Venous blood - Right Hand Blood Culture - Preliminary NO GROWTH AT 48 HOURS 06/17/20 21:54 Venous blood - Left Hand Blood Culture - Preliminary NO GROWTH AT 48 HOURS 06/17/20 Unknown Urine ho catheter Urine Culture - Final NO GROWTH AT 36 HOURS Vitals: Vital Signs (12 hours) Temp Pulse Resp BP Pulse Ox 06/22/20 08:00 98.3 F 98 18 174/87 H 98 06/22/20 04:00 97.7 F 06/22/20 00:00 98.0 F Weight Admit Weight 218 lb 4.8 oz Weight 218 lb 4.8 oz Physical Exam: The patient was seen and examined on the day of discharge. General Appearance: NAD, awake alert Eye: PERRL, anicteric sclera ENT: normocephalic atraumatic, no oropharyngeal lesions Neck: supple, symmetric, no JVD, no thyromegaly Respiratory: no wheezes, no rales, no ronchi Cardiovascular: RRR, no murmur, no gallops, no rubs Gastrointestinal: non-tender, non-distended, normal bowel sounds Extremities: no cyanosis, no clubbing, no edema Skin: normal turgor, no lesions Neurological - other findings: Paraplegia Musculoskeletal: normal tone, normal strength PSYCH: normal affect, normal behavior Problem (1) UTI (urinary tract infection) due to urinary indwelling catheter Code(s): T83.51XA - ; N39.0 - URINARY TRACT INFECTION, SITE NOT SPECIFIED Status: Acute (2) Chronic hepatitis C Code(s): B18.2 - CHRONIC VIRAL HEPATITIS C Status: Chronic Qualifiers: Hepatic coma status: without hepatic coma Qualified Code(s): B18.2 - Chronic viral hepatitis C (3) Chronic pain syndrome Code(s): G89.4 - CHRONIC PAIN SYNDROME Status: Chronic (4) HTN (hypertension) Code(s): I10 - ESSENTIAL (PRIMARY) HYPERTENSION Status: Chronic Qualifiers: Hypertension type: essential hypertension Qualified Code(s): I10 - Essential (primary) hypertension (5) Neurogenic bladder Code(s): N31.9 - NEUROMUSCULAR DYSFUNCTION OF BLADDER, UNSPECIFIED Status: Chronic (6) Obesity (BMI 30.0-34.9) Code(s): E66.9 - OBESITY, UNSPECIFIED Status: Chronic (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 - PARAPLEGIA, UNSPECIFIED Status: Chronic Plan Prescriptions: Vancomycin 1.25 gm/250 ml Bag 1.25 gm IVPB Q12HR #32 bag Home Medications: Medication Instructions Recorded Confirmed Type Gabapentin [Neurontin] 1 cap PO Q8HR 01/30/13 06/17/20 History HYDROcodone Bit/APAP 10/325 [[place]] 1 tab PO Q8HR PRN 01/14/18 06/17/20 History Baclofen 10 mg PO Q8HR 04/20/18 06/17/20 History clonazePAM [Klonopin] 0.5 mg PO TID 04/20/18 06/17/20 History Acetaminophen [Tylenol] 650 mg PO Q4HR PRN 05/30/20 06/17/20 History Cefepime [Maxipime] 2 gm IVPB 0200,1400 vial 06/14/20 06/17/20 Rx Gentamicin 10 mg IRR PRN PRN vial 06/14/20 06/17/20 Rx Lactobacillus [Floranex] 1 tab PO DAILY tab 06/14/20 06/17/20 Rx Polyethylene Glycol 3350 [Miralax] 17 gm PO DAILY pk 06/14/20 06/17/20 Rx Promethazine HCl In 0.9 % NaCl 25 mg IVPB Q6H 06/18/20 06/18/20 History [Promethazine 25 mg/50 ml-Ns] Vancomycin 1.25 gm/250 ml Bag 1.25 gm IVPB Q12HR #32 bag 06/22/20 Rx Allergies: ciprofloxacin [From Cipro] Allergy (Severe, Verified 06/17/20 20:39) Anaphylaxis PER HX levofloxacin [From Levaquin] Allergy (Severe, Verified 06/17/20 20:39) Anaphylaxis PER HX metoclopramide HCl [From Reglan] Allergy (Severe, Verified 06/17/20 20:39) Anaphylaxis PER HX: per pt anaphylaxis then after resolved nausea, vomiting and diarrhea ondansetron HCl [From Zofran (as hydrochloride)] Allergy (Severe, Verified 06/17/20 20:39) Short of Breath PER HX: Blisters in throat and hives pregabalin [From Lyrica] Allergy (Severe, Verified 06/17/20 20:39) Anaphylaxis PER HX: Makes patient not be able to move shoulders, arms and back prochlorperazine [From Compazine] Allergy (Severe, Verified 06/17/20 20:39) Anaphylaxis adhesive tape Allergy (Intermediate, Verified 06/17/20 20:39) Rash PER HX fluconazole Allergy (Verified 06/17/20 20:39) Rash PER HX: Makes patient itch and bumps all over his body linezolid [From Zyvox] Allergy (Verified 06/17/20 20:39) Rash PER HX: large blisters Activity:: Activity as Tolerated Nourishment:: Heart Healthy Diet Therapies:: Occupational Therapy, Physical Therapy, Wound Care Additional Therapy Instructions:: after transfer: cont Cefepime 2 g q 12hr. Vanco 1.25 g q 12hr. weekly cbc,crp,bmp,vanco trough. end date = jul 08 Equipment/Supplies:: [facility] IV Therapy:: Mediport Care Referrals: Arnold Navarro MD [Primary Care Provider] - Disposition: GROUP HOME FACILITY Quality CORE MEASURES:: N/A
[2020-06-22 11:55] VITALS: TEMP 98.4
[2020-06-22] MEDS: GENTAMICIN IRR PRN ×3 (12:30→15:11)
[2020-06-22] MEDS: SODIUM CHLORIDE 0.9% IRR PRN ×3 (12:30→15:11)
--- NOTE | 2020-06-22 17:13 | PRG ---
DATE OF SERVICE: 06/22/2020 SUBJECTIVE: The patient is doing well. Little pain. No respiratory symptoms. OBJECTIVE: VITAL SIGNS: Temperature curve has normalized. LUNGS: Clear. HEART: S1 and S2, regular rate. ABDOMEN: Soft. LABORATORY DATA: White cell count has not been repeated. Chemistry has been repeated since 4 days ago. Final cultures with negative blood cultures from June 17 and E faecalis from June 17 from urine. PLAN: Continue cefepime, add vancomycin, and continue 4 weeks of treatment. Retrospect looks like the E faecalis is the likely culprit here for the recrudescence of fever. Job ID: [id number]
== END 2020-06-22 16:45 | DRG 698 ==
LOC: ONC 17:32
PROVIDERS: ADMIT Internal Medicine; ATTEND Internal Medicine
DX: T83.518A Infection and inflammatory reaction due to other urinary catheter, initial encounter (principal); A41.81 Sepsis due to Enterococcus; G82.20 Paraplegia, unspecified; N39.0 Urinary tract infection, site not specified; N31.9 Neuromuscular dysfunction of bladder, unspecified; G43.909 Migraine, unspecified, not intractable, without status migrainosus; E66.9 Obesity, unspecified; B18.2 Chronic viral hepatitis C; Z20.822 Contact with and (suspected) exposure to COVID-19; I10 Essential (primary) hypertension; Y84.6 Urinary catheterization as the cause of abnormal reaction of the patient, or of later complication, without mention of misadventure at the time of the procedure; G89.4 Chronic pain syndrome; Z98.1 Arthrodesis status; Z90.49 Acquired absence of other specified parts of digestive tract; Z87.440 Personal history of urinary (tract) infections; Z68.34 Body mass index [BMI] 34.0-34.9, adult; Z88.1 Allergy status to other antibiotic agents; Z91.040 Latex allergy status; Z88.8 Allergy status to other drugs, medicaments and biological substances
CPT/HCPCS: 36415; 80048; 80053; 80202; 83605; 83735; 85025; 86769; 87086; 87635; J0692; J1580; J1650; J1885; J2270; J2550; J2997; J3370; J3490; U0003; U0005

== ENCOUNTER 2020-07-03 12:25 | Inpatient (IN) | payer MEDICARE, MEDICAID ==
[2020-07-03 18:05] VITALS: BMI 33.2
[2020-07-03] MEDS ORDERED: Bisacodyl 5 MG TAB PO PRN (20:32)
[2020-07-03] MEDS ORDERED: Senokot S 8.6-50 MG TAB PO PRN (20:32)
[2020-07-03] MEDS ORDERED: PROMETHAZINE HCL IVPB SCH (20:45)
[2020-07-03] MEDS ORDERED: SODIUM CHLORIDE 0.9% IVPB SCH (20:45)
[2020-07-03] MEDS ORDERED: [UNRECOGNIZED DRUG - OTHER] IVPB SCH (20:45)
[2020-07-03 21:30] LABS: #Basophils 0.1 thou/uL (0.0-0.2); #Eosinphils 0.5 thou/uL (0.0-0.7); #Monocytes 1.2 thou/uL (0.11-0.59); #Neutrophils 4.7 thou/uL (1.40-6.50); %Basophils 0.7 % (0.0-1.0); %Eosinophils 4.7 % (0.0-10.0); %Lymphocytes 38.7 % (21.0-51.0); %Monocytes 11.3 % (0.0-10.0); %Neutrophils 44.7 % (42.0-75.0); Hemoglobin 10.6 g/dL (14.0-18.0); Mean Corpuscular HGB CONC 32.7 g/dL (32.0-36.0); Mean Corpuscular Hemoglobin 32.1 pg (27.0-31.0); Platelet Count 432 thou/uL (130-400); RBC Distribution Width 12.1 % (11.5-14.5); Red Blood Cell (RBC) Count 3.32 mill/uL (4.70-6.10); White Blood Cell (WBC) Count 10.4 thou/uL (4.8-10.8)
[2020-07-03 21:42] LABS: Lactic Acid 1.1 mmol/L (0.5-2.2)
[2020-07-03] MEDS: Promethazine HCl 25 MG in Sodium Chloride 0.9% 50 ML IVPB SCH (21:44)
[2020-07-03 21:50] LABS: ALT (SGPT) 15 U/L (8-55); AST (SGOT) 32 U/L (5-34); Albumin 2.2 g/dL (3.5-5.0); Alkaline Phosphatase 76 U/L (40-110); Anion Gap 10 mmol/L (10-20); BUN (Urea Nitrogen) 10 mg/dL (8.9-20.6); Bilirubin, Total 0.6 mg/dL (0.2-1.2); Calc. Creatinine Clearance 233 mL/min (70-130); Calcium 7.7 mg/dL (7.8-10.44); Carbon Dioxide 23 mmol/L (22-29); Chloride 105 mmol/L (98-107); Globulin 6.4 g/dL (2.4-3.5); Glucose 86 mg/dL (70-105); Potassium 3.8 mmol/L (3.5-5.1); Protein, Total 8.6 g/dL (6.0-8.3); Sodium 134 mmol/L (136-145)
[2020-07-03] MEDS: Baclofen 10 MG TAB PO SCH (21:52)
[2020-07-03] MEDS: Gabapentin 300 MG CAP PO SCH (21:52)
[2020-07-03] MEDS: clonazePAM 0.5 MG TAB PO SCH (21:52)
[2020-07-03] MEDS: Morphine 2 MG/ML VIAL SLOW IVP PRN (23:38)
[2020-07-04] MEDS: Promethazine HCl 25 MG in Sodium Chloride 0.9% 50 ML IVPB SCH ×4 (02:49→21:05)
[2020-07-04] MEDS: HYDROcodone/Acetaminophen 10/325 mg Tablet PO PRN (02:51)
[2020-07-04] MEDS: Baclofen 10 MG TAB PO SCH ×3 (04:55→21:04)
[2020-07-04] MEDS: Gabapentin 300 MG CAP PO SCH ×3 (04:56→21:05)
[2020-07-04] MEDS: Morphine 2 MG/ML VIAL SLOW IVP PRN ×5 (04:56→22:28)
[2020-07-04] MEDS: Lactinex Tablet PO SCH (09:03)
[2020-07-04] MEDS: clonazePAM 0.5 MG TAB PO SCH ×3 (09:03→21:04)
[2020-07-04] MEDS: Polyethylene Glycol 3350 17 GM Packet PO SCH (09:03)
[2020-07-04] MEDS: Acetaminophen 325 MG TAB PO PRN ×2 (16:41→21:04)
[2020-07-05] MEDS: Promethazine HCl 25 MG in Sodium Chloride 0.9% 50 ML IVPB SCH ×4 (03:21→21:09)
[2020-07-05] MEDS: Morphine 2 MG/ML VIAL SLOW IVP PRN ×5 (03:54→22:24)
[2020-07-05] MEDS: Cepastat Lozenges 1 LOZ PO PRN (03:55)
[2020-07-05] MEDS: Gabapentin 300 MG CAP PO SCH ×3 (05:36→21:10)
[2020-07-05] MEDS: Baclofen 10 MG TAB PO SCH ×3 (05:36→21:11)
[2020-07-05] MEDS: clonazePAM 0.5 MG TAB PO SCH ×3 (08:18→21:10)
[2020-07-05] MEDS: Polyethylene Glycol 3350 17 GM Packet PO SCH (08:18)
[2020-07-05] MEDS: Lactinex Tablet PO SCH (08:30)
[2020-07-05] MEDS: HYDROcodone/Acetaminophen 10/325 mg Tablet PO PRN (17:11)
[2020-07-05] MEDS: Acetaminophen 325 MG TAB PO PRN (21:11)
[2020-07-06] MEDS: Morphine 2 MG/ML VIAL SLOW IVP PRN ×5 (02:37→21:22)
[2020-07-06] MEDS: Promethazine HCl 25 MG in Sodium Chloride 0.9% 50 ML IVPB SCH ×4 (02:38→21:21)
[2020-07-06] MEDS: Gabapentin 300 MG CAP PO SCH ×3 (05:08→21:19)
[2020-07-06] MEDS: Baclofen 10 MG TAB PO SCH ×3 (05:08→21:19)
[2020-07-06 07:15] LABS: #Basophils 0.1 thou/uL (0.0-0.2); #Eosinphils 0.5 thou/uL (0.0-0.7); #Lymphocytes 3.3 thou/uL (1.20-3.40); #Monocytes 1.3 thou/uL (0.11-0.59); #Neutrophils 5.3 thou/uL (1.40-6.50); %Basophils 0.9 % (0.0-1.0); %Eosinophils 5.1 % (0.0-10.0); %Lymphocytes 31.5 % (21.0-51.0); %Monocytes 12.1 % (0.0-10.0); %Neutrophils 50.4 % (42.0-75.0); Hemoglobin 10.1 g/dL (14.0-18.0); Mean Corpuscular HGB CONC 32.4 g/dL (32.0-36.0); Mean Corpuscular Volume 98.9 fL (78.0-98.0); Mean Platelet Volume 6.1 fL (7.4-10.4); Platelet Count 412 thou/uL (130-400); Red Blood Cell (RBC) Count 3.16 mill/uL (4.70-6.10); White Blood Cell (WBC) Count 10.5 thou/uL (4.8-10.8)
[2020-07-06 07:29] LABS: Anion Gap 12 mmol/L (10-20); BUN (Urea Nitrogen) 11 mg/dL (8.9-20.6); Calc. Creatinine Clearance 229 mL/min (70-130); Calcium 7.8 mg/dL (7.8-10.44); Carbon Dioxide 21 mmol/L (22-29); Chloride 104 mmol/L (98-107); Glucose 88 mg/dL (70-105); Potassium 3.9 mmol/L (3.5-5.1); Sodium 133 mmol/L (136-145)
[2020-07-06] MEDS: HYDROcodone/Acetaminophen 10/325 mg Tablet PO PRN (10:13)
[2020-07-06] MEDS: Lactinex Tablet PO SCH (10:14)
[2020-07-06] MEDS: clonazePAM 0.5 MG TAB PO SCH ×3 (10:15→21:20)
[2020-07-06] MEDS: Polyethylene Glycol 3350 17 GM Packet PO SCH (10:17)
[2020-07-06] MEDS ORDERED: Magnevist 469MG/ML 20 ML VIAL ONE (12:07)
[2020-07-06] MEDS: Acetaminophen 325 MG TAB PO PRN (21:21)
[2020-07-07] MEDS: Morphine 2 MG/ML VIAL SLOW IVP PRN ×4 (01:19→19:57)
[2020-07-07] MEDS: Promethazine HCl 25 MG in Sodium Chloride 0.9% 50 ML IVPB SCH ×4 (02:48→19:53)
[2020-07-07] MEDS: Baclofen 10 MG TAB PO SCH ×3 (05:50→19:53)
[2020-07-07] MEDS: Gabapentin 300 MG CAP PO SCH ×3 (05:50→19:53)
[2020-07-07 07:04] LABS: Anion Gap 10 mmol/L (10-20); BUN (Urea Nitrogen) 13 mg/dL (8.9-20.6); Calc. Creatinine Clearance 214 mL/min (70-130); Calcium 7.6 mg/dL (7.8-10.44); Carbon Dioxide 24 mmol/L (22-29); Chloride 104 mmol/L (98-107); Glucose 99 mg/dL (70-105); Potassium 3.9 mmol/L (3.5-5.1); Sodium 134 mmol/L (136-145)
[2020-07-07 07:36] LABS: Band 3 % (5-11); Eosinophils 2 % (0-10); Hemoglobin 10.2 g/dL (14.0-18.0); Lymphocytes 31 % (21-51); MDiff Complete? YES; Mean Corpuscular HGB CONC 32.1 g/dL (32.0-36.0); Mean Corpuscular Hemoglobin 31.1 pg (27.0-31.0); Mean Corpuscular Volume 96.7 fL (78.0-98.0); Mean Platelet Volume 6.1 fL (7.4-10.4); Monocytes 13 % (0-10); Neutrophil 51 % (42-75); Platelet Count 417 thou/uL (130-400); RBC Distribution Width 11.9 % (11.5-14.5); Red Blood Cell (RBC) Count 3.27 mill/uL (4.70-6.10); White Blood Cell (WBC) Count 9.1 thou/uL (4.8-10.8)
[2020-07-07] MEDS: clonazePAM 0.5 MG TAB PO SCH ×3 (08:24→19:53)
[2020-07-07] MEDS: Lactinex Tablet PO SCH (08:24)
[2020-07-07] MEDS: Polyethylene Glycol 3350 17 GM Packet PO SCH (08:25)
[2020-07-07] MEDS: HYDROcodone/Acetaminophen 10/325 mg Tablet PO PRN (13:37)
[2020-07-07 18:08] LABS: RBC Count-Automated (BF) 192099 /cu.mm; WBC/Nucleated-Auto (BF) 36013 uL
[2020-07-07 18:18] LABS: BF Color Red; Body Fluid Source Synovial Fluid; Clarity Cloudy/Turbid (Clear); Tube # 3
[2020-07-07 18:20] LABS: BF Segmented Neutrophils 76 %; Cell Count Non Hematic 18 %; Lymphocytes 6 %
[2020-07-07] MEDS ORDERED: Vancomycin 1 GM in Premix Bag 1 BAG IVPB SCH (19:21)
[2020-07-07] MEDS ORDERED: VANCOMYCIN 2 GRAM/400 ML BAG 2 GM in Premix Bag 1 BAG IVPB SCH (21:00)
[2020-07-07] MEDS: MEROPENEM 1 GM/50 ML 1 GM in Premix Bag 1 BAG IVPB SCH (21:08)
[2020-07-08] MEDS: Acetaminophen 325 MG TAB PO PRN (00:22)
[2020-07-08] MEDS: Morphine 2 MG/ML VIAL SLOW IVP PRN ×6 (00:22→22:40)
[2020-07-08] MEDS: Promethazine HCl 25 MG in Sodium Chloride 0.9% 50 ML IVPB SCH ×4 (02:27→20:51)
[2020-07-08] MEDS: MEROPENEM 1 GM/50 ML 1 GM in Premix Bag 1 BAG IVPB SCH ×3 (04:15→22:10)
[2020-07-08] MEDS: Baclofen 10 MG TAB PO SCH ×3 (04:25→21:05)
[2020-07-08] MEDS: Gabapentin 300 MG CAP PO SCH ×3 (04:25→21:05)
[2020-07-08] MEDS: Vancomycin 1.5 GRAM/300 ML BAG 1.5 GM in Premix Bag 1 BAG IVPB SCH ×3 (04:26→22:08)
[2020-07-08 06:27] LABS: Hemoglobin 10.6 g/dL (14.0-18.0); Mean Corpuscular HGB CONC 32.7 g/dL (32.0-36.0); Mean Platelet Volume 6.1 fL (7.4-10.4); Platelet Count 389 thou/uL (130-400); White Blood Cell (WBC) Count 9.3 thou/uL (4.8-10.8)
[2020-07-08 06:38] LABS: Anion Gap 10 mmol/L (10-20); BUN (Urea Nitrogen) 12 mg/dL (8.9-20.6); Band 7 % (5-11); Calc. Creatinine Clearance 198 mL/min (70-130); Calcium 7.8 mg/dL (7.8-10.44); Carbon Dioxide 24 mmol/L (22-29); Chloride 102 mmol/L (98-107); Eosinophils 2 % (0-10); Glucose 93 mg/dL (70-105); Lymphocytes 16 % (21-51); MDiff Complete? YES; Monocytes 17 % (0-10); Neutrophil 58 % (42-75); Potassium 3.9 mmol/L (3.5-5.1); Sodium 132 mmol/L (136-145)
[2020-07-08] MEDS: Lactinex Tablet PO SCH (09:12)
[2020-07-08] MEDS: Polyethylene Glycol 3350 17 GM Packet PO SCH (09:12)
[2020-07-08] MEDS: clonazePAM 0.5 MG TAB PO SCH ×3 (09:12→20:51)
[2020-07-08] MEDS: HYDROcodone/Acetaminophen 10/325 mg Tablet PO PRN (16:41)
[2020-07-08 22:01] LABS: Vancomycin, Trough 37.6 ug/mL
[2020-07-08] MEDS ORDERED: Vancomycin 1.5 GRAM/300 ML BAG 1.5 GM in Premix Bag 1 BAG IVPB SCH (22:15)
[2020-07-09] MEDS: Acetaminophen 325 MG TAB PO PRN (01:07)
[2020-07-09] MEDS ORDERED: Acetaminophen 325 MG TAB PO SCH (01:45)
[2020-07-09] MEDS: Cepastat Lozenges 1 LOZ PO PRN ×2 (02:06→15:59)
[2020-07-09] MEDS: Promethazine HCl 25 MG in Sodium Chloride 0.9% 50 ML IVPB SCH ×4 (02:07→20:37)
[2020-07-09] MEDS: Morphine 2 MG/ML VIAL SLOW IVP PRN ×4 (02:20→21:12)
[2020-07-09] MEDS: MEROPENEM 1 GM/50 ML 1 GM in Premix Bag 1 BAG IVPB SCH ×3 (04:20→22:30)
[2020-07-09] MEDS: Baclofen 10 MG TAB PO SCH ×3 (05:43→21:10)
[2020-07-09] MEDS: Gabapentin 300 MG CAP PO SCH ×3 (05:43→21:10)
[2020-07-09] MEDS: Lactinex Tablet PO SCH (08:56)
[2020-07-09] MEDS: clonazePAM 0.5 MG TAB PO SCH ×3 (08:57→20:35)
[2020-07-09] MEDS: Polyethylene Glycol 3350 17 GM Packet PO SCH (09:01)
[2020-07-09 09:41] LABS: Anion Gap 11 mmol/L (10-20); BUN (Urea Nitrogen) 12 mg/dL (8.9-20.6); Calc. Creatinine Clearance 208 mL/min (70-130); Carbon Dioxide 23 mmol/L (22-29); Chloride 105 mmol/L (98-107); Glucose 100 mg/dL (70-105); Sodium 135 mmol/L (136-145); Vancomycin, Random 16.1 ug/mL (See Comment)
[2020-07-09 09:42] LABS: Hemoglobin 11.1 g/dL (14.0-18.0); Mean Corpuscular HGB CONC 33.1 g/dL (32.0-36.0); Mean Corpuscular Hemoglobin 32.6 pg (27.0-31.0); Mean Corpuscular Volume 98.6 fL (78.0-98.0); Mean Platelet Volume 6.2 fL (7.4-10.4); Platelet Count 364 thou/uL (130-400); RBC Distribution Width 12.1 % (11.5-14.5); Red Blood Cell (RBC) Count 3.41 mill/uL (4.70-6.10); White Blood Cell (WBC) Count 8.1 thou/uL (4.8-10.8)
[2020-07-09] MEDS: VANCOMYCIN 1.25 GM/250 ML BAG 1.25 GM in Premix Bag 1 BAG IVPB SCH ×2 (12:07→23:39)
[2020-07-10] MEDS: Promethazine HCl 25 MG in Sodium Chloride 0.9% 50 ML IVPB SCH ×4 (04:31→23:53)
[2020-07-10] MEDS: Morphine 2 MG/ML VIAL SLOW IVP PRN ×3 (04:31→22:05)
[2020-07-10] MEDS: Baclofen 10 MG TAB PO SCH ×3 (06:10→22:10)
[2020-07-10] MEDS: Gabapentin 300 MG CAP PO SCH ×3 (06:10→22:10)
[2020-07-10] MEDS: MEROPENEM 1 GM/50 ML 1 GM in Premix Bag 1 BAG IVPB SCH ×2 (06:12→15:53)
[2020-07-10] MEDS: Polyethylene Glycol 3350 17 GM Packet PO SCH (08:30)
[2020-07-10] MEDS: clonazePAM 0.5 MG TAB PO SCH ×3 (08:30→22:10)
[2020-07-10] MEDS: Lactinex Tablet PO SCH (08:30)
[2020-07-10] MEDS ORDERED: Midazolam HCl 2 mg/2 ml Vial ONE (11:17)
[2020-07-10] MEDS ORDERED: Sodium Bicarbonate 2.5 MEQ/5 ML VIAL ONE (11:17)
[2020-07-10] MEDS ORDERED: Fentanyl 100 MCG/2 ML VIAL ONE (11:17)
[2020-07-10] MEDS: VANCOMYCIN 1.25 GM/250 ML BAG 1.25 GM in Premix Bag 1 BAG IVPB SCH (13:38)
[2020-07-11] MEDS: MEROPENEM 1 GM/50 ML 1 GM in Premix Bag 1 BAG IVPB SCH ×2 (00:46→08:41)
[2020-07-11] MEDS ORDERED: VANCOMYCIN 1.25 GM/250 ML BAG 1.25 GM in Premix Bag 1 BAG IVPB SCH (02:00)
[2020-07-11 02:06] LABS: Vancomycin, Trough 18.2 ug/mL
[2020-07-11] MEDS: Morphine 2 MG/ML VIAL SLOW IVP PRN ×5 (02:22→19:57)
[2020-07-11] MEDS: HYDROcodone/Acetaminophen 10/325 mg Tablet PO PRN (04:24)
[2020-07-11] MEDS: Baclofen 10 MG TAB PO SCH ×3 (05:00→22:28)
[2020-07-11] MEDS: Gabapentin 300 MG CAP PO SCH ×3 (05:00→22:28)
[2020-07-11] MEDS: Promethazine HCl 25 MG in Sodium Chloride 0.9% 50 ML IVPB SCH ×3 (05:01→16:03)
[2020-07-11] MEDS: Polyethylene Glycol 3350 17 GM Packet PO SCH (08:37)
[2020-07-11] MEDS: clonazePAM 0.5 MG TAB PO SCH ×3 (08:38→22:28)
[2020-07-11] MEDS: Lactinex Tablet PO SCH (08:38)
[2020-07-11] MEDS ORDERED: Sodium Chloride 0.9% 500 ML IVPB SCH (16:00)
[2020-07-12] MEDS: Morphine 2 MG/ML VIAL SLOW IVP PRN ×6 (00:17→21:59)
[2020-07-12] MEDS: Promethazine HCl 25 MG in Sodium Chloride 0.9% 50 ML IVPB SCH ×4 (00:25→18:38)
[2020-07-12] MEDS: Gabapentin 300 MG CAP PO SCH ×3 (05:04→23:08)
[2020-07-12] MEDS: Baclofen 10 MG TAB PO SCH ×3 (05:04→23:08)
[2020-07-12 07:23] LABS: Hemoglobin 10.8 g/dL (14.0-18.0); Mean Corpuscular HGB CONC 32.9 g/dL (32.0-36.0); Mean Corpuscular Hemoglobin 32.8 pg (27.0-31.0); Mean Corpuscular Volume 99.5 fL (78.0-98.0); Mean Platelet Volume 6.4 fL (7.4-10.4); Platelet Count 374 thou/uL (130-400); RBC Distribution Width 12.3 % (11.5-14.5); White Blood Cell (WBC) Count 9.6 thou/uL (4.8-10.8)
[2020-07-12 07:32] LABS: ALT (SGPT) 20 U/L (8-55); AST (SGOT) 57 U/L (5-34); Albumin 2.2 g/dL (3.5-5.0); Alkaline Phosphatase 86 U/L (40-110); Anion Gap 9 mmol/L (10-20); BUN (Urea Nitrogen) 10 mg/dL (8.9-20.6); Bilirubin, Total 0.9 mg/dL (0.2-1.2); Calc. Creatinine Clearance 214 mL/min (70-130); Calcium 7.8 mg/dL (7.8-10.44); Carbon Dioxide 25 mmol/L (22-29); Chloride 103 mmol/L (98-107); Globulin 6.2 g/dL (2.4-3.5); Glucose 88 mg/dL (70-105); Potassium 4.2 mmol/L (3.5-5.1); Protein, Total 8.4 g/dL (6.0-8.3); Sodium 133 mmol/L (136-145)
[2020-07-12] MEDS: clonazePAM 0.5 MG TAB PO SCH ×3 (08:11→20:45)
[2020-07-12] MEDS: Lactinex Tablet PO SCH (08:11)
[2020-07-12] MEDS: Polyethylene Glycol 3350 17 GM Packet PO SCH (08:11)
[2020-07-12] MEDS: Cepastat Lozenges 1 LOZ PO PRN (08:29)
[2020-07-12 11:38] LABS: HBSAg Index 0.66 S/CO (0-0.99); HIV (1/2) Antibody/Antigen Non-Reactive (NonReactive); HIV 1/2 INDEX 0.08 S/CO (<1.00); Hep B Surf Ag Non-Reactive S/CO (NonReactive)
[2020-07-12 12:18] LABS: Hep C IgG Ab Reflex HepC Qnt (NonReactive); Hep C Index 12.32 S/CO (0-0.79)
[2020-07-12] MEDS: MEROPENEM/VABORBACTAM 4 GM in Sodium Chloride 0.9% 250 ML 250 ML IVPB SCH ×2 (14:45→20:45)
[2020-07-12] MEDS: HYDROcodone/Acetaminophen 10/325 mg Tablet PO PRN (14:54)
[2020-07-12 16:07] LABS: Ref Lab Test Ordered VABOMERE MIC; Reference Lab Name LABCORP
[2020-07-12] MEDS: AMIKACIN SULFATE IVPB SCH (17:38)
[2020-07-12] MEDS: SODIUM CHLORIDE 0.9% IVPB SCH (17:38)
[2020-07-13] MEDS: Promethazine HCl 25 MG in Sodium Chloride 0.9% 50 ML IVPB SCH ×5 (00:27→20:44)
[2020-07-13] MEDS: Morphine 2 MG/ML VIAL SLOW IVP PRN ×5 (02:30→20:45)
[2020-07-13] MEDS: Baclofen 10 MG TAB PO SCH ×3 (05:04→20:44)
[2020-07-13] MEDS: Gabapentin 300 MG CAP PO SCH ×3 (05:04→20:44)
[2020-07-13 05:54] LABS: ALT (SGPT) 22 U/L (8-55); AST (SGOT) 59 U/L (5-34); Albumin 2.1 g/dL (3.5-5.0); Alkaline Phosphatase 87 U/L (40-110); Anion Gap 11 mmol/L (10-20); BUN (Urea Nitrogen) 9 mg/dL (8.9-20.6); Bilirubin, Total 0.9 mg/dL (0.2-1.2); Calc. Creatinine Clearance 229 mL/min (70-130); Calcium 7.7 mg/dL (7.8-10.44); Carbon Dioxide 25 mmol/L (22-29); Chloride 103 mmol/L (98-107); Globulin 6.1 g/dL (2.4-3.5); Glucose 85 mg/dL (70-105); Potassium 4.1 mmol/L (3.5-5.1); Protein, Total 8.2 g/dL (6.0-8.3); Sodium 135 mmol/L (136-145)
[2020-07-13] MEDS: MEROPENEM/VABORBACTAM 4 GM in Sodium Chloride 0.9% 250 ML 250 ML IVPB SCH ×3 (06:24→21:57)
[2020-07-13] MEDS: Lactinex Tablet PO SCH (08:38)
[2020-07-13] MEDS: clonazePAM 0.5 MG TAB PO SCH ×3 (08:38→20:44)
[2020-07-13] MEDS: Polyethylene Glycol 3350 17 GM Packet PO SCH (08:38)
[2020-07-13] MEDS: AMIKACIN SULFATE IVPB SCH (17:22)
[2020-07-13] MEDS: SODIUM CHLORIDE 0.9% IVPB SCH (17:22)
[2020-07-14] MEDS: Baclofen 10 MG TAB PO SCH ×3 (05:00→20:48)
[2020-07-14] MEDS: Gabapentin 300 MG CAP PO SCH ×3 (05:00→20:48)
[2020-07-14] MEDS: Acetaminophen 325 MG TAB PO PRN ×2 (05:01→23:34)
[2020-07-14] MEDS: Promethazine HCl 25 MG in Sodium Chloride 0.9% 50 ML IVPB SCH ×4 (05:01→21:55)
[2020-07-14] MEDS: MEROPENEM/VABORBACTAM 4 GM in Sodium Chloride 0.9% 250 ML 250 ML IVPB SCH ×3 (05:14→23:38)
[2020-07-14] MEDS: Polyethylene Glycol 3350 17 GM Packet PO SCH (08:24)
[2020-07-14] MEDS: Lactinex Tablet PO SCH (08:24)
[2020-07-14] MEDS ORDERED: HYDROcodone/Acetaminophen 10/325 mg Tablet PO PRN (09:38)
[2020-07-14 14:10] LABS: HCV log10 5.428 (.); Hep C PCR-Quant 268000 IU/mL (.)
[2020-07-14] MEDS: Morphine 2 MG/ML VIAL SLOW IVP PRN ×2 (16:44→23:33)
[2020-07-14] MEDS: SODIUM CHLORIDE 0.9% IVPB SCH (18:52)
[2020-07-14] MEDS: AMIKACIN SULFATE IVPB SCH (18:52)
[2020-07-14] MEDS: HYDROcodone/Acetaminophen 10/325 mg Tablet PO PRN (20:48)
[2020-07-15] MEDS: Promethazine HCl 25 MG in Sodium Chloride 0.9% 50 ML IVPB SCH ×4 (04:13→22:23)
[2020-07-15] MEDS: Gabapentin 300 MG CAP PO SCH ×3 (04:28→20:49)
[2020-07-15] MEDS: Baclofen 10 MG TAB PO SCH ×3 (04:29→20:49)
[2020-07-15] MEDS: HYDROcodone/Acetaminophen 10/325 mg Tablet PO PRN ×3 (04:29→13:27)
[2020-07-15] MEDS: Morphine 2 MG/ML VIAL SLOW IVP PRN ×3 (05:39→16:42)
[2020-07-15] MEDS: MEROPENEM/VABORBACTAM 4 GM in Sodium Chloride 0.9% 250 ML 250 ML IVPB SCH ×3 (05:50→22:23)
[2020-07-15] MEDS: Polyethylene Glycol 3350 17 GM Packet PO SCH (09:01)
[2020-07-15] MEDS: Lactinex Tablet PO SCH (09:01)
[2020-07-15] MEDS: Acetaminophen 325 MG TAB PO PRN (09:31)
[2020-07-15] MEDS ORDERED: diphenhydrAMINE 25 MG CAP PO PRN (18:06)
[2020-07-15] MEDS ORDERED: Zolpidem Tartrate 5 MG TAB PO PRN (18:06)
[2020-07-15] MEDS ORDERED: Naloxone HCl 0.4 mg/ml Vial IV PRN (18:06)
[2020-07-15] MEDS ORDERED: diphenhydrAMINE 50 MG/ML VIAL IM PRN (18:06)
[2020-07-15] MEDS ORDERED: diphenhydrAMINE 50 MG/ML VIAL IVP PRN (18:06)
[2020-07-15] MEDS ORDERED: Communication Order-Pharmacy FS SCH (18:15)
[2020-07-15] MEDS: Sodium Chloride 0.9% 1,000 ML IV SCH (18:49)
[2020-07-15] MEDS: AMIKACIN SULFATE IVPB SCH (18:49)
[2020-07-15] MEDS: SODIUM CHLORIDE 0.9% IVPB SCH (18:49)
[2020-07-15] MEDS: HYDROmorphone 10 mg/100 ml CADD IVPB PRN (18:58)
[2020-07-16] MEDS: Gabapentin 300 MG CAP PO SCH ×3 (02:47→23:47)
[2020-07-16] MEDS: Baclofen 10 MG TAB PO SCH ×3 (02:47→23:47)
[2020-07-16] MEDS: MEROPENEM/VABORBACTAM 4 GM in Sodium Chloride 0.9% 250 ML 250 ML IVPB SCH ×2 (05:44→14:40)
[2020-07-16] MEDS: Promethazine HCl 25 MG in Sodium Chloride 0.9% 50 ML IVPB SCH ×3 (05:44→23:02)
[2020-07-16 06:16] LABS: #Basophils 0.1 thou/uL (0.0-0.2); #Eosinphils 0.2 thou/uL (0.0-0.7); #Lymphocytes 2.8 thou/uL (1.20-3.40); #Monocytes 1.3 thou/uL (0.11-0.59); #Neutrophils 4.5 thou/uL (1.40-6.50); %Basophils 0.8 % (0.0-1.0); %Eosinophils 2.5 % (0.0-10.0); %Lymphocytes 31.6 % (21.0-51.0); %Monocytes 14.6 % (0.0-10.0); %Neutrophils 50.5 % (42.0-75.0); Mean Corpuscular HGB CONC 32.8 g/dL (32.0-36.0); Mean Corpuscular Volume 97.7 fL (78.0-98.0); Mean Platelet Volume 6.4 fL (7.4-10.4); Platelet Count 320 thou/uL (130-400); Red Blood Cell (RBC) Count 3.45 mill/uL (4.70-6.10)
[2020-07-16] MEDS: Lactinex Tablet PO SCH (08:05)
[2020-07-16] MEDS: Acetaminophen 325 MG TAB PO PRN (08:05)
[2020-07-16] MEDS: Polyethylene Glycol 3350 17 GM Packet PO SCH (08:07)
[2020-07-16] MEDS ORDERED: PHENYLEPHRINE-NS 100 MCG/ML 10 ML SYRINGE ONE (10:11)
[2020-07-16] MEDS ORDERED: EPINEPHrine 1 MG/10 ML Abboject SYRINGE ONE (10:11)
[2020-07-16] MEDS ORDERED: Dexamethasone 20 MG/5 ML VIAL ONE (10:11)
[2020-07-16] MEDS ORDERED: Rocuronium Bromide 10 MG/ML (10ML VIAL) ONE (10:11)
[2020-07-16] MEDS ORDERED: PROPOFOL 200 MG/20 ML VIAL ONE (10:11)
[2020-07-16] MEDS ORDERED: Lidocaine 1% PF 5 ML VIAL ONE ×2 (10:11→20:22)
[2020-07-16] MEDS: Sodium Chloride 0.9% 1,000 ML IV SCH (14:10)
[2020-07-16] MEDS ORDERED: Sodium Chloride 0.9% 10 ML ONE ×2 (16:21→21:01)
[2020-07-16] MEDS ORDERED: Neomycin-Polymyxin 1 ML AMP ONE (16:53)
[2020-07-16] MEDS ORDERED: Fentanyl 100 MCG/2 ML VIAL ONE (16:57)
[2020-07-16] MEDS ORDERED: Dexmedetomidine 200 MCG/2 ML VIAL ONE (16:58)
[2020-07-16] MEDS ORDERED: HYDROmorphone 0.5 MG/0.5 ML SYRINGE ONE (16:58)
[2020-07-16] MEDS ORDERED: EPINEPHrine 1 MG/ML AMP ONE (17:46)
[2020-07-16] MEDS ORDERED: ePHEDrine 50 MG/ML VIAL ONE ×2 (17:46→19:00)
[2020-07-16] MEDS ORDERED: Phenylephrine 10 MG/ML VIAL ONE (18:08)
[2020-07-16] MEDS ORDERED: SUGAMMADEX SODIUM 500 MG/5 ML VIAL ONE (19:34)
[2020-07-16] MEDS ORDERED: Labetalol HCl 100 MG/20 ML VIAL ONE ×2 (19:34→19:35)
[2020-07-16] MEDS ORDERED: Phentolamine Mesylate 5 MG VIAL SC SCH (20:15)
[2020-07-16] MEDS ORDERED: PACU-Morphine 4MG/ML VIAL SLOW IVP PRN (20:40)
[2020-07-16] MEDS ORDERED: HYDROmorphone 2 MG/ML VIAL SLOW IVP PRN (20:40)
[2020-07-16] MEDS ORDERED: Albumin 5% 0 ML ONE (21:16)
[2020-07-16] MEDS ORDERED: Albumin 5% 500 ML ONE (21:18)
[2020-07-16] MEDS: SODIUM CHLORIDE 0.9% IVPB SCH (22:55)
[2020-07-16] MEDS: AMIKACIN SULFATE IVPB SCH (22:55)
[2020-07-16] MEDS: HYDROmorphone 10 mg/100 ml CADD IVPB PRN (23:29)
[2020-07-17] MEDS: MEROPENEM/VABORBACTAM 4 GM in Sodium Chloride 0.9% 250 ML 250 ML IVPB SCH ×4 (00:32→22:04)
[2020-07-17] MEDS: Promethazine HCl 25 MG in Sodium Chloride 0.9% 50 ML IVPB SCH ×5 (00:34→20:55)
[2020-07-17] MEDS: Cepastat Lozenges 1 LOZ PO PRN (03:30)
[2020-07-17] MEDS: Baclofen 10 MG TAB PO SCH ×3 (06:28→22:02)
[2020-07-17] MEDS: Gabapentin 300 MG CAP PO SCH ×3 (06:28→22:00)
[2020-07-17 06:51] LABS: Hemoglobin 9.3 g/dL (14.0-18.0); Mean Corpuscular HGB CONC 33.2 g/dL (32.0-36.0); Mean Corpuscular Hemoglobin 32.4 pg (27.0-31.0); Mean Corpuscular Volume 97.9 fL (78.0-98.0); Mean Platelet Volume 6.3 fL (7.4-10.4); Platelet Count 316 thou/uL (130-400); RBC Distribution Width 11.9 % (11.5-14.5); Red Blood Cell (RBC) Count 2.88 mill/uL (4.70-6.10); White Blood Cell (WBC) Count 7.7 thou/uL (4.8-10.8)
[2020-07-17] MEDS: Polyethylene Glycol 3350 17 GM Packet PO SCH (07:54)
[2020-07-17] MEDS: Lactinex Tablet PO SCH (07:54)
[2020-07-17 10:03] LABS: Band 38 % (5-11); Lymphocytes 10 % (21-51); MDiff Complete? YES; Monocytes 1 % (0-10); Neutrophil 51 % (42-75); Platelet Morphology Comment Appears Adequate; Polychromasia SLIGHT = 2-3 cells (100X) (0-2/hpf)
[2020-07-17] MEDS: Sodium Chloride 0.9% 1,000 ML IV SCH (11:11)
[2020-07-17] MEDS: AMIKACIN SULFATE IVPB SCH (17:47)
[2020-07-17] MEDS: SODIUM CHLORIDE 0.9% IVPB SCH (17:47)
[2020-07-17] MEDS: clonazePAM 0.5 MG TAB PO PRN (22:08)
[2020-07-18] MEDS: Promethazine HCl 25 MG in Sodium Chloride 0.9% 50 ML IVPB SCH ×4 (03:59→21:24)
[2020-07-18] MEDS: clonazePAM 0.5 MG TAB PO PRN (06:18)
[2020-07-18] MEDS: Gabapentin 300 MG CAP PO SCH ×3 (06:18→21:22)
[2020-07-18] MEDS: MEROPENEM/VABORBACTAM 4 GM in Sodium Chloride 0.9% 250 ML 250 ML IVPB SCH ×3 (06:20→21:23)
[2020-07-18] MEDS: Baclofen 10 MG TAB PO SCH ×3 (06:20→21:22)
[2020-07-18 06:49] LABS: #Lymphocytes 2.3 thou/uL (1.20-3.40); #Monocytes 1.5 thou/uL (0.11-0.59); #Neutrophils 6.7 thou/uL (1.40-6.50); %Basophils 0.2 % (0.0-1.0); %Eosinophils 0.3 % (0.0-10.0); %Lymphocytes 21.8 % (21.0-51.0); %Monocytes 14.2 % (0.0-10.0); %Neutrophils 63.6 % (42.0-75.0); Mean Corpuscular HGB CONC 32.7 g/dL (32.0-36.0); Mean Corpuscular Hemoglobin 31.8 pg (27.0-31.0); Mean Corpuscular Volume 97.3 fL (78.0-98.0); Mean Platelet Volume 6.3 fL (7.4-10.4); Platelet Count 309 thou/uL (130-400); RBC Distribution Width 11.9 % (11.5-14.5); Red Blood Cell (RBC) Count 2.82 mill/uL (4.70-6.10); White Blood Cell (WBC) Count 10.5 thou/uL (4.8-10.8)
[2020-07-18 07:11] LABS: Anion Gap 12 mmol/L (10-20); BUN (Urea Nitrogen) 18 mg/dL (8.9-20.6); Calc. Creatinine Clearance 177 mL/min (70-130); Calcium 7.5 mg/dL (7.8-10.44); Carbon Dioxide 21 mmol/L (22-29); Chloride 107 mmol/L (98-107); Glucose 140 mg/dL (70-105); Potassium 3.9 mmol/L (3.5-5.1); Sodium 136 mmol/L (136-145)
[2020-07-18] MEDS: Lactinex Tablet PO SCH (08:28)
[2020-07-18] MEDS: Sodium Chloride 0.9% 1,000 ML IV SCH (08:28)
[2020-07-18] MEDS: Polyethylene Glycol 3350 17 GM Packet PO SCH (08:30)
[2020-07-18] MEDS ORDERED: Sterile Water 10 ML VIAL IVP SCH (09:00)
[2020-07-18] MEDS ORDERED: Activase 2 MG VIAL CATH SCH (09:00)
[2020-07-18] MEDS: AMIKACIN SULFATE IVPB SCH (17:18)
[2020-07-18] MEDS: SODIUM CHLORIDE 0.9% IVPB SCH (17:18)
[2020-07-19] MEDS: Promethazine HCl 25 MG in Sodium Chloride 0.9% 50 ML IVPB SCH ×2 (03:03→10:08)
[2020-07-19] MEDS: Sodium Chloride 0.9% 1,000 ML IV SCH ×2 (03:03→21:17)
[2020-07-19] MEDS: Gabapentin 300 MG CAP PO SCH ×3 (05:02→21:14)
[2020-07-19] MEDS: clonazePAM 0.5 MG TAB PO PRN ×3 (05:02→21:17)
[2020-07-19] MEDS: Baclofen 10 MG TAB PO SCH ×3 (05:02→21:14)
[2020-07-19 05:44] LABS: Hemoglobin 8.7 g/dL (14.0-18.0); Mean Corpuscular HGB CONC 33.5 g/dL (32.0-36.0); Mean Corpuscular Hemoglobin 32.7 pg (27.0-31.0); Mean Corpuscular Volume 97.9 fL (78.0-98.0); Mean Platelet Volume 6.6 fL (7.4-10.4); Platelet Count 304 thou/uL (130-400); RBC Distribution Width 11.9 % (11.5-14.5); Red Blood Cell (RBC) Count 2.65 mill/uL (4.70-6.10); White Blood Cell (WBC) Count 11.4 thou/uL (4.8-10.8)
[2020-07-19 05:46] LABS: Anion Gap 10 mmol/L (10-20); BUN (Urea Nitrogen) 20 mg/dL (8.9-20.6); Calc. Creatinine Clearance 195 mL/min (70-130); Calcium 7.2 mg/dL (7.8-10.44); Carbon Dioxide 23 mmol/L (22-29); Chloride 112 mmol/L (98-107); Glucose 139 mg/dL (70-105); Potassium 3.6 mmol/L (3.5-5.1); Sodium 141 mmol/L (136-145)
[2020-07-19] MEDS: MEROPENEM/VABORBACTAM 4 GM in Sodium Chloride 0.9% 250 ML 250 ML IVPB SCH ×3 (06:16→21:42)
[2020-07-19 06:25] LABS: Band 14 % (5-11); Lymphocytes 28 % (21-51); MDiff Complete? YES; Metamyelocyte 5 % (0-0); Monocytes 5 % (0-10); Neutrophil 46 % (42-75); Nucleated RBC 2 % (0); Platelet Morphology Comment Appears Adequate; Reactive Lymphocytes 2 % (0-10)
[2020-07-19] MEDS: Lactinex Tablet PO SCH (08:39)
[2020-07-19] MEDS: Polyethylene Glycol 3350 17 GM Packet PO SCH (08:40)
[2020-07-19] MEDS: AMIKACIN SULFATE IVPB SCH (17:19)
[2020-07-19] MEDS: SODIUM CHLORIDE 0.9% IVPB SCH (17:19)
[2020-07-19] MEDS: HYDROmorphone 10 mg/100 ml CADD IVPB PRN (20:50)
[2020-07-19] MEDS: Promethazine HCl 25 MG in Sodium Chloride 0.9% 50 ML IVPB PRN (21:22)
[2020-07-20] MEDS: MEROPENEM/VABORBACTAM 4 GM in Sodium Chloride 0.9% 250 ML 250 ML IVPB SCH ×3 (05:17→22:47)
[2020-07-20] MEDS: Gabapentin 300 MG CAP PO SCH ×3 (05:20→22:46)
[2020-07-20] MEDS: Baclofen 10 MG TAB PO SCH ×3 (05:20→22:46)
[2020-07-20 06:35] LABS: Anion Gap 9 mmol/L (10-20); BUN (Urea Nitrogen) 17 mg/dL (8.9-20.6); Calc. Creatinine Clearance 204 mL/min (70-130); Calcium 7.2 mg/dL (7.8-10.44); Carbon Dioxide 23 mmol/L (22-29); Chloride 112 mmol/L (98-107); Glucose 100 mg/dL (70-105); Potassium 3.7 mmol/L (3.5-5.1); Sodium 140 mmol/L (136-145)
[2020-07-20 07:40] LABS: #Eosinphils 0.3 thou/uL (0.0-0.7); #Lymphocytes 4.8 thou/uL (1.20-3.40); #Monocytes 1.2 thou/uL (0.11-0.59); #Neutrophils 5.3 thou/uL (1.40-6.50); %Monocytes 10.6 % (0.0-10.0); %Neutrophils 45.5 % (42.0-75.0); Hemoglobin 8.8 g/dL (14.0-18.0); Mean Corpuscular HGB CONC 32.4 g/dL (32.0-36.0); Mean Corpuscular Hemoglobin 31.6 pg (27.0-31.0); Mean Corpuscular Volume 97.3 fL (78.0-98.0); Mean Platelet Volume 6.3 fL (7.4-10.4); Platelet Count 314 thou/uL (130-400); RBC Distribution Width 12.1 % (11.5-14.5); White Blood Cell (WBC) Count 11.7 thou/uL (4.8-10.8)
[2020-07-20] MEDS: Polyethylene Glycol 3350 17 GM Packet PO SCH (08:45)
[2020-07-20] MEDS ORDERED: PROPOFOL 200 MG/20 ML VIAL ONE (09:08)
[2020-07-20] MEDS: Lactinex Tablet PO SCH (09:13)
[2020-07-20] MEDS ORDERED: Lidocaine 1% w/Epinephrine 1:100K 20 ML VIAL ONE (11:32)
[2020-07-20] MEDS ORDERED: Bupivacaine PF 0.5% 30 ML VIAL ONE (11:32)
[2020-07-20] MEDS ORDERED: Midazolam HCl 2 mg/2 ml Vial ONE (11:42)
[2020-07-20] MEDS ORDERED: Fentanyl 100 MCG/2 ML VIAL ONE (11:42)
[2020-07-20] MEDS ORDERED: Propofol 1,000 MG/100 ML VIAL IV ONE (11:42)
[2020-07-20] MEDS: Promethazine HCl 25 MG in Sodium Chloride 0.9% 50 ML IVPB PRN ×2 (16:13→22:46)
[2020-07-20] MEDS: SODIUM CHLORIDE 0.9% IVPB SCH (16:54)
[2020-07-20] MEDS: AMIKACIN SULFATE IVPB SCH (16:54)
[2020-07-20] MEDS: Sodium Chloride 0.9% 1,000 ML IV SCH (18:18)
[2020-07-20] MEDS: clonazePAM 0.5 MG TAB PO PRN (23:09)
[2020-07-21] MEDS: Promethazine HCl 25 MG in Sodium Chloride 0.9% 50 ML IVPB PRN ×3 (05:57→21:54)
[2020-07-21] MEDS: Gabapentin 300 MG CAP PO SCH ×3 (05:57→21:53)
[2020-07-21] MEDS: MEROPENEM/VABORBACTAM 4 GM in Sodium Chloride 0.9% 250 ML 250 ML IVPB SCH ×3 (05:57→21:53)
[2020-07-21] MEDS: Baclofen 10 MG TAB PO SCH ×3 (05:58→21:53)
[2020-07-21] MEDS: Lactinex Tablet PO SCH (08:47)
[2020-07-21] MEDS: Polyethylene Glycol 3350 17 GM Packet PO SCH (08:48)
[2020-07-21 09:14] LABS: #Basophils 0.1 thou/uL (0.0-0.2); #Eosinphils 0.8 thou/uL (0.0-0.7); #Lymphocytes 4.8 thou/uL (1.20-3.40); #Monocytes 1.4 thou/uL (0.11-0.59); #Neutrophils 4.3 thou/uL (1.40-6.50); %Basophils 0.4 % (0.0-1.0); %Eosinophils 7.4 % (0.0-10.0); %Lymphocytes 41.6 % (21.0-51.0); %Monocytes 12.5 % (0.0-10.0); Mean Corpuscular HGB CONC 32.4 g/dL (32.0-36.0); Mean Corpuscular Hemoglobin 31.6 pg (27.0-31.0); Mean Corpuscular Volume 97.7 fL (78.0-98.0); Mean Platelet Volume 6.2 fL (7.4-10.4); Platelet Count 309 thou/uL (130-400); RBC Distribution Width 12.3 % (11.5-14.5); Red Blood Cell (RBC) Count 2.86 mill/uL (4.70-6.10); White Blood Cell (WBC) Count 11.4 thou/uL (4.8-10.8)
[2020-07-21 09:32] LABS: Anion Gap 9 mmol/L (10-20); BUN (Urea Nitrogen) 15 mg/dL (8.9-20.6); Calc. Creatinine Clearance 195 mL/min (70-130); Calcium 7.3 mg/dL (7.8-10.44); Carbon Dioxide 26 mmol/L (22-29); Chloride 110 mmol/L (98-107); Glucose 101 mg/dL (70-105); Potassium 3.6 mmol/L (3.5-5.1); Sodium 141 mmol/L (136-145)
[2020-07-21] MEDS: HYDROmorphone 10 mg/100 ml CADD IVPB PRN (12:22)
[2020-07-21] MEDS: Sodium Chloride 0.9% 1,000 ML IV SCH (15:20)
[2020-07-21 16:47] LABS: Reference Lab Name LABCORP
[2020-07-21 16:48] LABS: Ref Lab Test Ordered MIN INHIBITORY CONC
[2020-07-21] MEDS: SODIUM CHLORIDE 0.9% IVPB SCH (17:05)
[2020-07-21] MEDS: AMIKACIN SULFATE IVPB SCH (17:05)
[2020-07-21] MEDS: clonazePAM 0.5 MG TAB PO PRN (21:53)
[2020-07-22] MEDS: Gabapentin 300 MG CAP PO SCH ×3 (05:24→21:53)
[2020-07-22] MEDS: Baclofen 10 MG TAB PO SCH ×3 (05:24→21:53)
[2020-07-22] MEDS: Sodium Chloride 0.9% 1,000 ML IV SCH (05:27)
[2020-07-22] MEDS: Promethazine HCl 25 MG in Sodium Chloride 0.9% 50 ML IVPB PRN ×3 (05:27→21:53)
[2020-07-22] MEDS: MEROPENEM/VABORBACTAM 4 GM in Sodium Chloride 0.9% 250 ML 250 ML IVPB SCH ×3 (05:58→21:53)
[2020-07-22 06:47] LABS: Anion Gap 10 mmol/L (10-20); BUN (Urea Nitrogen) 14 mg/dL (8.9-20.6); Calc. Creatinine Clearance 190 mL/min (70-130); Calcium 7.1 mg/dL (7.8-10.44); Carbon Dioxide 27 mmol/L (22-29); Chloride 108 mmol/L (98-107); Glucose 129 mg/dL (70-105); Potassium 3.6 mmol/L (3.5-5.1); Sodium 141 mmol/L (136-145)
[2020-07-22] MEDS: Polyethylene Glycol 3350 17 GM Packet PO SCH (07:22)
[2020-07-22] MEDS: Lactinex Tablet PO SCH (08:23)
[2020-07-22 08:51] LABS: Band 2 % (5-11); Eosinophils 6 % (0-10); Hemoglobin 8.4 g/dL (14.0-18.0); Lymphocytes 47 % (21-51); MDiff Complete? YES; Mean Corpuscular HGB CONC 33.2 g/dL (32.0-36.0); Mean Corpuscular Hemoglobin 32.4 pg (27.0-31.0); Mean Corpuscular Volume 97.5 fL (78.0-98.0); Mean Platelet Volume 6.5 fL (7.4-10.4); Metamyelocyte 1 % (0-0); Monocytes 8 % (0-10); Myelocyte 1 % (0-0); Neutrophil 35 % (42-75); Platelet Count 306 thou/uL (130-400); RBC Distribution Width 12.5 % (11.5-14.5); Red Blood Cell (RBC) Count 2.59 mill/uL (4.70-6.10); White Blood Cell (WBC) Count 12.4 thou/uL (4.8-10.8)
[2020-07-22] MEDS: Acetaminophen 325 MG TAB PO PRN (14:36)
[2020-07-22] MEDS: clonazePAM 0.5 MG TAB PO PRN ×2 (14:39→21:53)
[2020-07-22] MEDS: HYDROmorphone 10 mg/100 ml CADD IVPB PRN (16:55)
[2020-07-22] MEDS: AMIKACIN SULFATE IVPB SCH (16:55)
[2020-07-22] MEDS: SODIUM CHLORIDE 0.9% IVPB SCH (16:55)
[2020-07-23] MEDS: MEROPENEM/VABORBACTAM 4 GM in Sodium Chloride 0.9% 250 ML 250 ML IVPB SCH ×2 (05:40→13:50)
[2020-07-23] MEDS: Gabapentin 300 MG CAP PO SCH ×3 (05:40→21:00)
[2020-07-23] MEDS: Promethazine HCl 25 MG in Sodium Chloride 0.9% 50 ML IVPB PRN ×3 (05:40→21:06)
[2020-07-23] MEDS: Baclofen 10 MG TAB PO SCH ×3 (05:40→21:00)
[2020-07-23] MEDS: Sodium Chloride 0.9% 1,000 ML IV SCH ×2 (06:20→23:30)
[2020-07-23] MEDS: Polyethylene Glycol 3350 17 GM Packet PO SCH (08:16)
[2020-07-23] MEDS: Lactinex Tablet PO SCH (08:17)
[2020-07-23] MEDS: AMIKACIN SULFATE IVPB SCH (17:15)
[2020-07-23] MEDS: SODIUM CHLORIDE 0.9% IVPB SCH (17:15)
[2020-07-23] MEDS: clonazePAM 0.5 MG TAB PO PRN (17:21)
[2020-07-23] MEDS: Acetaminophen 325 MG TAB PO PRN (21:06)
[2020-07-23] MEDS: HYDROmorphone 10 mg/100 ml CADD IVPB PRN (23:54)
[2020-07-24] MEDS: Baclofen 10 MG TAB PO SCH ×3 (06:37→21:21)
[2020-07-24] MEDS: Gabapentin 300 MG CAP PO SCH ×3 (06:37→21:21)
[2020-07-24] MEDS: Polyethylene Glycol 3350 17 GM Packet PO SCH (08:26)
[2020-07-24] MEDS: Lactinex Tablet PO SCH (10:28)
[2020-07-24] MEDS: Promethazine HCl 25 MG in Sodium Chloride 0.9% 50 ML IVPB PRN ×2 (10:53→16:45)
[2020-07-24] MEDS: oxyCODONE/Acetaminophen 5 mg/325 mg Tablet PO SCH ×2 (17:52→23:38)
[2020-07-24] MEDS: AMIKACIN SULFATE IVPB SCH (17:52)
[2020-07-24] MEDS: SODIUM CHLORIDE 0.9% IVPB SCH (17:52)
[2020-07-24] MEDS: Sodium Chloride 0.9% 1,000 ML IV SCH (17:56)
[2020-07-24] MEDS: clonazePAM 0.5 MG TAB PO PRN (21:22)
[2020-07-24] MEDS: Morphine 4 MG/ML VIAL SLOW IVP PRN (21:23)
[2020-07-25] MEDS: Promethazine HCl 25 MG in Sodium Chloride 0.9% 50 ML IVPB PRN ×4 (00:07→22:50)
[2020-07-25] MEDS: Morphine 4 MG/ML VIAL SLOW IVP PRN ×5 (02:23→22:50)
[2020-07-25] MEDS: Baclofen 10 MG TAB PO SCH ×3 (05:31→21:16)
[2020-07-25] MEDS: Gabapentin 300 MG CAP PO SCH ×3 (05:31→21:15)
[2020-07-25] MEDS: oxyCODONE/Acetaminophen 5 mg/325 mg Tablet PO SCH ×3 (05:32→17:13)
[2020-07-25] MEDS: Lactinex Tablet PO SCH (09:21)
[2020-07-25] MEDS: Polyethylene Glycol 3350 17 GM Packet PO SCH (09:25)
[2020-07-25] MEDS: Sodium Chloride 0.9% 1,000 ML IV SCH (16:38)
[2020-07-25] MEDS: AMIKACIN SULFATE IVPB SCH (17:13)
[2020-07-25] MEDS: SODIUM CHLORIDE 0.9% IVPB SCH (17:13)
[2020-07-26] MEDS: oxyCODONE/Acetaminophen 5 mg/325 mg Tablet PO SCH ×4 (00:12→18:34)
[2020-07-26] MEDS: Morphine 4 MG/ML VIAL SLOW IVP PRN ×4 (04:31→21:13)
[2020-07-26] MEDS: Baclofen 10 MG TAB PO SCH ×3 (06:30→21:11)
[2020-07-26] MEDS: Gabapentin 300 MG CAP PO SCH ×3 (06:30→21:11)
[2020-07-26] MEDS: Promethazine HCl 25 MG in Sodium Chloride 0.9% 50 ML IVPB PRN ×3 (06:31→21:11)
[2020-07-26] MEDS: Lactinex Tablet PO SCH (08:55)
[2020-07-26] MEDS: Polyethylene Glycol 3350 17 GM Packet PO SCH (09:03)
[2020-07-26] MEDS ORDERED: Iopamidol-370 76% 500 ML 1 ML ONE (14:41)
[2020-07-26] MEDS ORDERED: Naloxone HCl 0.4 mg/ml Vial IV PRN (14:53)
[2020-07-26] MEDS: AMIKACIN SULFATE IVPB SCH (18:35)
[2020-07-26] MEDS: SODIUM CHLORIDE 0.9% IVPB SCH (18:35)
[2020-07-26] MEDS: Sodium Chloride 0.9% 1,000 ML IV SCH (18:35)
[2020-07-26] MEDS: Enoxaparin Sodium 40 MG/0.4 ML SYRINGE SC SCH (21:12)
[2020-07-27] MEDS: oxyCODONE/Acetaminophen 5 mg/325 mg Tablet PO SCH ×5 (00:05→23:57)
[2020-07-27] MEDS: Gabapentin 300 MG CAP PO SCH ×3 (05:55→22:26)
[2020-07-27] MEDS: Baclofen 10 MG TAB PO SCH ×3 (05:56→22:26)
[2020-07-27] MEDS: Morphine 4 MG/ML VIAL SLOW IVP PRN ×4 (06:06→19:59)
[2020-07-27] MEDS: Promethazine HCl 25 MG in Sodium Chloride 0.9% 50 ML IVPB PRN ×3 (06:39→22:27)
[2020-07-27] MEDS: Polyethylene Glycol 3350 17 GM Packet PO SCH (08:57)
[2020-07-27] MEDS: Lactinex Tablet PO SCH (08:57)
[2020-07-27] MEDS: Cepastat Lozenges 1 LOZ PO PRN (09:04)
[2020-07-27 11:49] LABS: #Basophils 0.1 thou/uL (0.0-0.2); #Eosinphils 0.5 thou/uL (0.0-0.7); #Lymphocytes 3.2 thou/uL (1.20-3.40); #Neutrophils 3.3 thou/uL (1.40-6.50); %Basophils 0.8 % (0.0-1.0); %Eosinophils 5.6 % (0.0-10.0); %Lymphocytes 39.8 % (21.0-51.0); %Monocytes 12.8 % (0.0-10.0); Hemoglobin 8.8 g/dL (14.0-18.0); Mean Corpuscular HGB CONC 33.1 g/dL (32.0-36.0); Mean Corpuscular Hemoglobin 32.2 pg (27.0-31.0); Mean Corpuscular Volume 97.4 fL (78.0-98.0); Mean Platelet Volume 6.4 fL (7.4-10.4); Platelet Count 323 thou/uL (130-400); RBC Distribution Width 13.1 % (11.5-14.5); Red Blood Cell (RBC) Count 2.73 mill/uL (4.70-6.10); White Blood Cell (WBC) Count 8.1 thou/uL (4.8-10.8)
[2020-07-27 12:12] LABS: Anion Gap 10 mmol/L (10-20); BUN (Urea Nitrogen) 10 mg/dL (8.9-20.6); Calc. Creatinine Clearance 198 mL/min (70-130); Calcium 7.6 mg/dL (7.8-10.44); Carbon Dioxide 25 mmol/L (22-29); Chloride 107 mmol/L (98-107); Glucose 123 mg/dL (70-105); Potassium 3.4 mmol/L (3.5-5.1); Sodium 139 mmol/L (136-145)
[2020-07-27] MEDS: Sodium Chloride 0.9% 1,000 ML IV SCH (13:14)
[2020-07-27] MEDS: AMIKACIN SULFATE IVPB SCH (17:33)
[2020-07-27] MEDS: SODIUM CHLORIDE 0.9% IVPB SCH (17:33)
[2020-07-27] MEDS: Simethicone Chewable 80 MG TAB PO PRN (17:34)
[2020-07-27] MEDS: Enoxaparin Sodium 40 MG/0.4 ML SYRINGE SC SCH (20:03)
[2020-07-27] MEDS: clonazePAM 0.5 MG TAB PO PRN (22:34)
[2020-07-28] MEDS: Morphine 4 MG/ML VIAL SLOW IVP PRN ×5 (05:53→23:03)
[2020-07-28] MEDS: Gabapentin 300 MG CAP PO SCH ×3 (05:57→21:54)
[2020-07-28] MEDS: Baclofen 10 MG TAB PO SCH ×3 (05:57→21:55)
[2020-07-28 06:31] LABS: Anion Gap 9 mmol/L (10-20); BUN (Urea Nitrogen) 9 mg/dL (8.9-20.6); Calc. Creatinine Clearance 195 mL/min (70-130); Calcium 7.5 mg/dL (7.8-10.44); Carbon Dioxide 25 mmol/L (22-29); Chloride 107 mmol/L (98-107); Glucose 110 mg/dL (70-105); Potassium 3.8 mmol/L (3.5-5.1); Sodium 137 mmol/L (136-145)
[2020-07-28 06:35] LABS: Band 7 % (5-11); Eosinophils 4 % (0-10); Hemoglobin 8.4 g/dL (14.0-18.0); Lymphocytes 31 % (21-51); MDiff Complete? YES; Mean Corpuscular HGB CONC 32.8 g/dL (32.0-36.0); Mean Corpuscular Hemoglobin 31.8 pg (27.0-31.0); Mean Platelet Volume 6.6 fL (7.4-10.4); Monocytes 15 % (0-10); Neutrophil 43 % (42-75); Platelet Count 307 thou/uL (130-400); Platelet Morphology Comment Appears Adequate; RBC Distribution Width 13.6 % (11.5-14.5); Red Blood Cell (RBC) Count 2.63 mill/uL (4.70-6.10); White Blood Cell (WBC) Count 9.7 thou/uL (4.8-10.8)
[2020-07-28] MEDS: oxyCODONE/Acetaminophen 5 mg/325 mg Tablet PO SCH ×3 (06:40→17:31)
[2020-07-28] MEDS: Promethazine HCl 25 MG in Sodium Chloride 0.9% 50 ML IVPB PRN ×2 (08:55→17:33)
[2020-07-28] MEDS: Lactinex Tablet PO SCH (08:57)
[2020-07-28] MEDS: Sodium Chloride 0.9% 1,000 ML IV SCH (08:58)
[2020-07-28] MEDS: Polyethylene Glycol 3350 17 GM Packet PO SCH (08:58)
[2020-07-28] MEDS: clonazePAM 0.5 MG TAB PO PRN ×2 (14:42→22:42)
[2020-07-28] MEDS: SODIUM CHLORIDE 0.9% IVPB SCH (17:33)
[2020-07-28] MEDS: AMIKACIN SULFATE IVPB SCH (17:33)
[2020-07-28] MEDS: Enoxaparin Sodium 40 MG/0.4 ML SYRINGE SC SCH (21:54)
[2020-07-29] MEDS: oxyCODONE/Acetaminophen 5 mg/325 mg Tablet PO SCH ×4 (00:10→19:29)
[2020-07-29] MEDS: Morphine 4 MG/ML VIAL SLOW IVP PRN ×4 (05:29→21:33)
[2020-07-29] MEDS: Baclofen 10 MG TAB PO SCH ×3 (05:31→21:26)
[2020-07-29] MEDS: Gabapentin 300 MG CAP PO SCH ×3 (05:31→21:26)
[2020-07-29] MEDS: Sodium Chloride 0.9% 1,000 ML IV SCH (05:32)
[2020-07-29] MEDS: Promethazine HCl 25 MG in Sodium Chloride 0.9% 50 ML IVPB PRN ×3 (06:27→21:35)
[2020-07-29 07:43] LABS: #Basophils 0.1 thou/uL (0.0-0.2); #Eosinphils 0.5 thou/uL (0.0-0.7); #Lymphocytes 3.1 thou/uL (1.20-3.40); #Monocytes 1.5 thou/uL (0.11-0.59); #Neutrophils 4.7 thou/uL (1.40-6.50); %Basophils 0.9 % (0.0-1.0); %Eosinophils 5.2 % (0.0-10.0); %Lymphocytes 31.5 % (21.0-51.0); %Monocytes 14.8 % (0.0-10.0); %Neutrophils 47.6 % (42.0-75.0); Hemoglobin 8.4 g/dL (14.0-18.0); Mean Corpuscular HGB CONC 33.3 g/dL (32.0-36.0); Mean Corpuscular Hemoglobin 32.4 pg (27.0-31.0); Mean Corpuscular Volume 97.4 fL (78.0-98.0); Mean Platelet Volume 6.4 fL (7.4-10.4); Platelet Count 306 thou/uL (130-400); RBC Distribution Width 13.4 % (11.5-14.5); White Blood Cell (WBC) Count 9.8 thou/uL (4.8-10.8)
[2020-07-29 07:59] LABS: Calcium 7.4 mg/dL (7.8-10.44); Chloride 105 mmol/L (98-107); Potassium 3.8 mmol/L (3.5-5.1); Sodium 136 mmol/L (136-145)
[2020-07-29 08:00] LABS: Glucose 109 mg/dL (70-105)
[2020-07-29 08:01] LABS: Anion Gap 9 mmol/L (10-20)
[2020-07-29 08:03] LABS: Calc. Creatinine Clearance 187 mL/min (70-130)
[2020-07-29 08:04] LABS: BUN (Urea Nitrogen) 10 mg/dL (8.9-20.6)
[2020-07-29] MEDS: Lactinex Tablet PO SCH (08:26)
[2020-07-29] MEDS: Polyethylene Glycol 3350 17 GM Packet PO SCH (08:29)
[2020-07-29] MEDS: Cepastat Lozenges 1 LOZ PO PRN ×2 (11:21→14:27)
[2020-07-29] MEDS: AMIKACIN SULFATE IVPB SCH (17:40)
[2020-07-29] MEDS: SODIUM CHLORIDE 0.9% IVPB SCH (17:40)
[2020-07-29] MEDS: Acetaminophen 325 MG TAB PO PRN (21:27)
[2020-07-29] MEDS: Enoxaparin Sodium 40 MG/0.4 ML SYRINGE SC SCH (21:34)
[2020-07-30] MEDS: oxyCODONE/Acetaminophen 5 mg/325 mg Tablet PO SCH ×4 (00:17→18:05)
[2020-07-30] MEDS: clonazePAM 0.5 MG TAB PO PRN (00:17)
[2020-07-30] MEDS: Sodium Chloride 0.9% 1,000 ML IV SCH ×2 (03:24→21:50)
[2020-07-30 05:38] LABS: #Basophils 0.1 thou/uL (0.0-0.2); #Eosinphils 0.5 thou/uL (0.0-0.7); #Monocytes 1.2 thou/uL (0.11-0.59); #Neutrophils 3.8 thou/uL (1.40-6.50); %Basophils 1.5 % (0.0-1.0); %Eosinophils 6.1 % (0.0-10.0); %Lymphocytes 34.5 % (21.0-51.0); %Monocytes 14.1 % (0.0-10.0); %Neutrophils 43.7 % (42.0-75.0); Mean Corpuscular HGB CONC 31.9 g/dL (32.0-36.0); Mean Corpuscular Hemoglobin 31.1 pg (27.0-31.0); Mean Corpuscular Volume 97.4 fL (78.0-98.0); Mean Platelet Volume 6.4 fL (7.4-10.4); Platelet Count 318 thou/uL (130-400); RBC Distribution Width 13.6 % (11.5-14.5); Red Blood Cell (RBC) Count 2.58 mill/uL (4.70-6.10); White Blood Cell (WBC) Count 8.6 thou/uL (4.8-10.8)
[2020-07-30 06:00] LABS: Anion Gap 11 mmol/L (10-20); BUN (Urea Nitrogen) 9 mg/dL (8.9-20.6); Calc. Creatinine Clearance 193 mL/min (70-130); Calcium 7.3 mg/dL (7.8-10.44); Carbon Dioxide 24 mmol/L (22-29); Chloride 107 mmol/L (98-107); Glucose 103 mg/dL (70-105); Potassium 3.6 mmol/L (3.5-5.1); Sodium 138 mmol/L (136-145)
[2020-07-30] MEDS: Baclofen 10 MG TAB PO SCH ×3 (06:00→21:50)
[2020-07-30] MEDS: Gabapentin 300 MG CAP PO SCH ×3 (06:00→21:49)
[2020-07-30] MEDS: Promethazine HCl 25 MG in Sodium Chloride 0.9% 50 ML IVPB PRN ×3 (06:01→18:05)
[2020-07-30] MEDS: Morphine 4 MG/ML VIAL SLOW IVP PRN ×5 (06:13→22:54)
[2020-07-30] MEDS: Lactinex Tablet PO SCH (09:15)
[2020-07-30] MEDS: Polyethylene Glycol 3350 17 GM Packet PO SCH (09:15)
[2020-07-30] MEDS: MEROPENEM/VABORBACTAM 4 GM in Sodium Chloride 0.9% 250 ML 250 ML IVPB SCH ×2 (14:30→22:05)
[2020-07-30] MEDS: Simethicone Chewable 80 MG TAB PO PRN (15:20)
[2020-07-30] MEDS: AMIKACIN SULFATE IVPB SCH (18:11)
[2020-07-30] MEDS: SODIUM CHLORIDE 0.9% IVPB SCH (18:11)
[2020-07-30] MEDS: Acetaminophen 325 MG TAB PO PRN (21:50)
[2020-07-30] MEDS: Enoxaparin Sodium 40 MG/0.4 ML SYRINGE SC SCH (21:50)
[2020-07-30] MEDS: Cepastat Lozenges 1 LOZ PO PRN (22:12)
[2020-07-31] MEDS: oxyCODONE/Acetaminophen 5 mg/325 mg Tablet PO SCH ×4 (00:21→20:48)
[2020-07-31] MEDS: Promethazine HCl 25 MG in Sodium Chloride 0.9% 50 ML IVPB PRN ×3 (00:21→23:09)
[2020-07-31] MEDS: Baclofen 10 MG TAB PO SCH ×3 (06:29→22:22)
[2020-07-31] MEDS: MEROPENEM/VABORBACTAM 4 GM in Sodium Chloride 0.9% 250 ML 250 ML IVPB SCH ×3 (06:29→23:07)
[2020-07-31] MEDS: Gabapentin 300 MG CAP PO SCH ×3 (06:29→22:22)
[2020-07-31] MEDS: Morphine 4 MG/ML VIAL SLOW IVP PRN ×4 (06:29→23:01)
[2020-07-31 06:32] LABS: #Basophils 0.1 thou/uL (0.0-0.2); #Eosinphils 0.5 thou/uL (0.0-0.7); #Lymphocytes 2.8 thou/uL (1.20-3.40); #Monocytes 0.8 thou/uL (0.11-0.59); #Neutrophils 3.5 thou/uL (1.40-6.50); %Basophils 1.6 % (0.0-1.0); %Lymphocytes 36.5 % (21.0-51.0); %Monocytes 10.2 % (0.0-10.0); %Neutrophils 45.7 % (42.0-75.0); Hemoglobin 8.2 g/dL (14.0-18.0); Mean Corpuscular HGB CONC 32.1 g/dL (32.0-36.0); Mean Corpuscular Hemoglobin 31.1 pg (27.0-31.0); Mean Corpuscular Volume 96.8 fL (78.0-98.0); Mean Platelet Volume 6.2 fL (7.4-10.4); Platelet Count 344 thou/uL (130-400); RBC Distribution Width 13.3 % (11.5-14.5); Red Blood Cell (RBC) Count 2.63 mill/uL (4.70-6.10); White Blood Cell (WBC) Count 7.7 thou/uL (4.8-10.8)
[2020-07-31 06:52] LABS: Anion Gap 12 mmol/L (10-20); BUN (Urea Nitrogen) 7 mg/dL (8.9-20.6); Calc. Creatinine Clearance 201 mL/min (70-130); Calcium 7.3 mg/dL (7.8-10.44); Carbon Dioxide 23 mmol/L (22-29); Chloride 106 mmol/L (98-107); Glucose 97 mg/dL (70-105); Potassium 3.8 mmol/L (3.5-5.1); Sodium 137 mmol/L (136-145)
[2020-07-31] MEDS: Polyethylene Glycol 3350 17 GM Packet PO SCH (09:23)
[2020-07-31] MEDS: Lactinex Tablet PO SCH (09:25)
[2020-07-31] MEDS: Simethicone Chewable 80 MG TAB PO PRN (13:06)
[2020-07-31] MEDS: AMIKACIN SULFATE IVPB SCH (18:25)
[2020-07-31] MEDS: SODIUM CHLORIDE 0.9% IVPB SCH (18:25)
[2020-07-31] MEDS: Sodium Chloride 0.9% 1,000 ML IV SCH ×2 (18:25→22:25)
[2020-07-31] MEDS: Cepastat Lozenges 1 LOZ PO PRN (18:39)
[2020-07-31] MEDS: Enoxaparin Sodium 40 MG/0.4 ML SYRINGE SC SCH (20:48)
[2020-07-31 21:11] LABS: Carbon Dioxide 26 mmol/L (22-29)
[2020-07-31] MEDS ORDERED: Ibuprofen 800 MG TAB PO SCH (22:15)
[2020-07-31] MEDS: Acetaminophen 325 MG TAB PO PRN (22:17)
[2020-07-31 22:18] LABS: #Basophils 0.1 thou/uL (0.0-0.2); #Eosinphils 0.2 thou/uL (0.0-0.7); #Lymphocytes 2.5 thou/uL (1.20-3.40); #Monocytes 0.9 thou/uL (0.11-0.59); #Neutrophils 4.4 thou/uL (1.40-6.50); %Basophils 0.9 % (0.0-1.0); %Eosinophils 2.9 % (0.0-10.0); %Lymphocytes 30.7 % (21.0-51.0); %Monocytes 10.8 % (0.0-10.0); %Neutrophils 54.7 % (42.0-75.0); Hemoglobin 8.8 g/dL (14.0-18.0); Mean Corpuscular HGB CONC 31.7 g/dL (32.0-36.0); Mean Corpuscular Hemoglobin 30.3 pg (27.0-31.0); Mean Corpuscular Volume 95.7 fL (78.0-98.0); Mean Platelet Volume 6.4 fL (7.4-10.4); Platelet Count 369 thou/uL (130-400); RBC Distribution Width 13.5 % (11.5-14.5); Red Blood Cell (RBC) Count 2.92 mill/uL (4.70-6.10)
[2020-07-31 22:28] LABS: Lactic Acid 1.2 mmol/L (0.5-2.2)
[2020-07-31 22:32] LABS: Anion Gap 10 mmol/L (10-20); BUN (Urea Nitrogen) 8 mg/dL (8.9-20.6); Calc. Creatinine Clearance 190 mL/min (70-130); Calcium 7.7 mg/dL (7.8-10.44); Carbon Dioxide 25 mmol/L (22-29); Chloride 107 mmol/L (98-107); Glucose 97 mg/dL (70-105); Magnesium 1.6 mg/dL (1.6-2.6); Sodium 138 mmol/L (136-145)
[2020-07-31] MEDS ORDERED: Magnesium Sulfate 4 GM in Sodium Chloride 0.9% 250 ML 250 ML IVPB SCH (23:00)
[2020-07-31] MEDS: VANCOMYCIN 1.25 GM/250 ML BAG 1.25 GM in Premix Bag 1 BAG IVPB SCH (23:36)
[2020-08-01] MEDS: oxyCODONE/Acetaminophen 5 mg/325 mg Tablet PO SCH ×5 (02:22→23:16)
[2020-08-01 05:43] LABS: Mean Corpuscular Volume 96.8 fL (78.0-98.0); Mean Platelet Volume 6.4 fL (7.4-10.4); Platelet Count 322 thou/uL (130-400); RBC Distribution Width 13.3 % (11.5-14.5); Red Blood Cell (RBC) Count 2.49 mill/uL (4.70-6.10); White Blood Cell (WBC) Count 6.3 thou/uL (4.8-10.8)
[2020-08-01 05:48] LABS: Anion Gap 8 mmol/L (10-20); BUN (Urea Nitrogen) 9 mg/dL (8.9-20.6); Calc. Creatinine Clearance 187 mL/min (70-130); Calcium 7.3 mg/dL (7.8-10.44); Carbon Dioxide 27 mmol/L (22-29); Chloride 108 mmol/L (98-107); Glucose 128 mg/dL (70-105); Potassium 3.2 mmol/L (3.5-5.1); Sodium 140 mmol/L (136-145)
[2020-08-01 06:02] LABS: Band 1 % (5-11); Eosinophils 5 % (0-10); Lymphocytes 36 % (21-51); MDiff Complete? YES; Metamyelocyte 1 % (0-0); Monocytes 11 % (0-10); Neutrophil 45 % (42-75); Platelet Morphology Comment Appears Adequate
[2020-08-01] MEDS: MEROPENEM/VABORBACTAM 4 GM in Sodium Chloride 0.9% 250 ML 250 ML IVPB SCH ×2 (06:17→14:32)
[2020-08-01] MEDS: Baclofen 10 MG TAB PO SCH ×3 (06:21→21:59)
[2020-08-01] MEDS: Gabapentin 300 MG CAP PO SCH ×3 (06:21→21:59)
[2020-08-01] MEDS ORDERED: Vancomycin 1 GM in Premix Bag 1 BAG IVPB SCH (09:00)
[2020-08-01] MEDS: Sodium Chloride 0.9% 1,000 ML IV SCH ×3 (09:10→20:03)
[2020-08-01] MEDS: Lactinex Tablet PO SCH (10:13)
[2020-08-01] MEDS: Morphine 4 MG/ML VIAL SLOW IVP PRN ×3 (10:36→19:55)
[2020-08-01] MEDS: Polyethylene Glycol 3350 17 GM Packet PO SCH (10:40)
[2020-08-01] MEDS: VANCOMYCIN 1.25 GM/250 ML BAG 1.25 GM in Premix Bag 1 BAG IVPB SCH ×2 (10:42→23:17)
[2020-08-01] MEDS: clonazePAM 0.5 MG TAB PO PRN ×2 (13:29→22:03)
[2020-08-01] MEDS: Promethazine HCl 25 MG in Sodium Chloride 0.9% 50 ML IVPB PRN ×2 (13:32→22:00)
[2020-08-01] MEDS: AMIKACIN SULFATE IVPB SCH (17:36)
[2020-08-01] MEDS: SODIUM CHLORIDE 0.9% IVPB SCH (17:36)
[2020-08-01] MEDS: Simethicone Chewable 80 MG TAB PO PRN (17:38)
[2020-08-01] MEDS: Cepastat Lozenges 1 LOZ PO PRN (17:39)
[2020-08-01] MEDS: Enoxaparin Sodium 40 MG/0.4 ML SYRINGE SC SCH (20:02)
[2020-08-02] MEDS: Morphine 4 MG/ML VIAL SLOW IVP PRN ×4 (00:32→19:00)
[2020-08-02] MEDS: MEROPENEM/VABORBACTAM 4 GM in Sodium Chloride 0.9% 250 ML 250 ML IVPB SCH ×5 (00:33→23:37)
[2020-08-02] MEDS: Promethazine HCl 25 MG in Sodium Chloride 0.9% 50 ML IVPB PRN ×3 (04:14→20:18)
[2020-08-02] MEDS: Sodium Chloride 0.9% 1,000 ML IV SCH ×2 (04:14→14:30)
[2020-08-02] MEDS: oxyCODONE/Acetaminophen 5 mg/325 mg Tablet PO SCH ×4 (05:00→23:40)
[2020-08-02] MEDS: Cepastat Lozenges 1 LOZ PO PRN ×3 (05:00→21:08)
[2020-08-02] MEDS: Acetaminophen 325 MG TAB PO PRN ×2 (05:05→21:08)
[2020-08-02] MEDS: Baclofen 10 MG TAB PO SCH ×3 (05:05→21:07)
[2020-08-02] MEDS: Gabapentin 300 MG CAP PO SCH ×3 (05:05→21:07)
[2020-08-02] MEDS: Polyethylene Glycol 3350 17 GM Packet PO SCH (09:21)
[2020-08-02] MEDS: Lactinex Tablet PO SCH (10:03)
[2020-08-02 10:48] LABS: Vancomycin, Trough 24.6 ug/mL
[2020-08-02] MEDS ORDERED: VANCOMYCIN 1.25 GM/250 ML BAG 1.25 GM in Premix Bag 1 BAG IVPB SCH (11:30)
[2020-08-02] MEDS: VANCOMYCIN 1.25 GM/250 ML BAG 1.25 GM in Premix Bag 1 BAG IVPB SCH (13:35)
[2020-08-02] MEDS ORDERED: SODIUM CHLORIDE 0.9% IVPB SCH (20:00)
[2020-08-02] MEDS: AMIKACIN SULFATE IVPB SCH (20:00)
[2020-08-02] MEDS: SODIUM CHLORIDE 0.9% IVPB SCH (20:00)
[2020-08-02] MEDS ORDERED: AMIKACIN SULFATE IVPB SCH (20:00)
[2020-08-02] MEDS: Enoxaparin Sodium 40 MG/0.4 ML SYRINGE SC SCH (20:45)
[2020-08-02] MEDS: Simethicone Chewable 80 MG TAB PO PRN (20:46)
[2020-08-03] MEDS: Morphine 4 MG/ML VIAL SLOW IVP PRN ×2 (00:57→09:58)
[2020-08-03] MEDS: Baclofen 10 MG TAB PO SCH ×2 (05:27→14:09)
[2020-08-03] MEDS: oxyCODONE/Acetaminophen 5 mg/325 mg Tablet PO SCH ×2 (05:28→11:26)
[2020-08-03] MEDS: Gabapentin 300 MG CAP PO SCH ×2 (05:28→14:09)
[2020-08-03] MEDS: MEROPENEM/VABORBACTAM 4 GM in Sodium Chloride 0.9% 250 ML 250 ML IVPB SCH ×2 (09:58→16:51)
[2020-08-03] MEDS: Sodium Chloride 0.9% 1,000 ML IV SCH ×2 (10:00→16:52)
[2020-08-03] MEDS ORDERED: Vancomycin 1 GM in Premix Bag 1 BAG IVPB SCH (10:00)
[2020-08-03] MEDS: Polyethylene Glycol 3350 17 GM Packet PO SCH (10:00)
[2020-08-03] MEDS: Lactinex Tablet PO SCH (10:00)
[2020-08-03 10:31] LABS: Vancomycin, Random 6.9 ug/mL (See Comment)
[2020-08-03] MEDS: Cepastat Lozenges 1 LOZ PO PRN (11:27)
[2020-08-03 12:39] VITALS: BP 126/83; TEMP 97.9
[2020-08-03] MEDS: Promethazine HCl 25 MG in Sodium Chloride 0.9% 50 ML IVPB PRN (14:08)
[2020-08-03] MEDS ORDERED: Morphine 4 MG/ML VIAL SLOW IVP SCH (16:00)
== END 2020-08-03 17:45 | DRG 854 ==
LOC: T4-B 12:25
PROVIDERS: ADMIT Internal Medicine; ATTEND Internal Medicine
PROC: 0S9B3ZX Drainage of Left Hip Joint, Percutaneous Approach, Diagnostic (ICD-10-PCS; 2020-07-07)
PROC: 0QB70ZZ Excision of Left Upper Femur, Open Approach (ICD-10-PCS; 2020-07-16)
PROC: 0SBB0ZZ Excision of Left Hip Joint, Open Approach (ICD-10-PCS; 2020-07-16)
PROC: 0JPT0WZ Removal of Totally Implantable Vascular Access Device from Trunk Subcutaneous Tissue and Fascia, Open Approach (ICD-10-PCS; principal; 2020-07-20)
PROC: 0JH63WZ Insertion of Totally Implantable Vascular Access Device into Chest Subcutaneous Tissue and Fascia, Percutaneous Approach (ICD-10-PCS; 2020-07-20)
PROC: 05PYX3Z Removal of Infusion Device from Upper Vein, External Approach (ICD-10-PCS; 2020-07-20)
PROC: 05H533Z Insertion of Infusion Device into Right Subclavian Vein, Percutaneous Approach (ICD-10-PCS; 2020-07-20)
PROC: B5161ZA Fluoroscopy of Right Subclavian Vein using Low Osmolar Contrast, Guidance (ICD-10-PCS; 2020-07-20)
DX: A41.52 Sepsis due to Pseudomonas (principal); G82.20 Paraplegia, unspecified; E87.1 Hypo-osmolality and hyponatremia; M87.852 Other osteonecrosis, left femur; M86.68 Other chronic osteomyelitis, other site; M00.852 Arthritis due to other bacteria, left hip; Z16.24 Resistance to multiple antibiotics; T82.598A Other mechanical complication of other cardiac and vascular devices and implants, initial encounter; M24.852 Other specific joint derangements of left hip, not elsewhere classified; N31.9 Neuromuscular dysfunction of bladder, unspecified; G89.4 Chronic pain syndrome; B18.2 Chronic viral hepatitis C; D64.9 Anemia, unspecified; I10 Essential (primary) hypertension; E66.9 Obesity, unspecified; B96.5 Pseudomonas (aeruginosa) (mallei) (pseudomallei) as the cause of diseases classified elsewhere; Z87.440 Personal history of urinary (tract) infections; Z86.69 Personal history of other diseases of the nervous system and sense organs; Z88.8 Allergy status to other drugs, medicaments and biological substances; Z88.1 Allergy status to other antibiotic agents; Z90.81 Acquired absence of spleen; Z98.1 Arthrodesis status; Z90.49 Acquired absence of other specified parts of digestive tract; Z68.33 Body mass index [BMI] 33.0-33.9, adult; Y83.8 Other surgical procedures as the cause of abnormal reaction of the patient, or of later complication, without mention of misadventure at the time of the procedure
CPT/HCPCS: 20610; 36415; 71045; 72197; 77002; 77012; 78806; 80048; 80053; 80150; 80202; 83605; 83735; 85025; 85027; 85060; 86803; 87040; 87070; 87077; 87086; 87186; 87205; 87340; 87389; 87522; 89051; 93005; 93010; A4641; A9521; A9579; C1729; C1788; J0171; J0278; J0695; J1100; J1170; J1200; J1642; J1650; J2185; J2186; J2250; J2270; J2370; J2550; J2704; J2997; J3010; J3370; J3475; J3490; J7030; J7050; P9045; Q9967; S0020

== ENCOUNTER 2020-09-17 02:59 | Inpatient (IN) | payer MEDICARE, MEDICAID ==
[2020-09-17 03:56] LABS: #Basophils 0.1 thou/uL (0.0-0.2); #Eosinphils 0.5 thou/uL (0.0-0.7); #Lymphocytes 3.8 thou/uL (1.20-3.40); #Monocytes 1.7 thou/uL (0.11-0.59); #Neutrophils 8.1 thou/uL (1.40-6.50); %Basophils 0.7 % (0.0-1.0); %Eosinophils 3.4 % (0.0-10.0); %Lymphocytes 26.8 % (21.0-51.0); %Monocytes 11.8 % (0.0-10.0); %Neutrophils 57.3 % (42.0-75.0); Hemoglobin 10.8 g/dL (14.0-18.0); Mean Corpuscular HGB CONC 32.6 g/dL (32.0-36.0); Mean Corpuscular Hemoglobin 30.6 pg (27.0-31.0); Mean Platelet Volume 7.1 fL (7.4-10.4); Platelet Count 278 thou/uL (130-400); Red Blood Cell (RBC) Count 3.54 mill/uL (4.70-6.10); White Blood Cell (WBC) Count 14.2 thou/uL (4.8-10.8)
[2020-09-17 04:02] LABS: Bilirubin 1+ (Negative); Blood, Urine 1+ (Negative); Clarity Turbid (Clear); Glucose, Urine (Dipstick) Normal (Negative); Ketone, Urine Negative (Negative); Leukocyte 250 Leu/uL (Negative); Nitrite Negative (Negative); Protein, Urine (Dipstick) 100 mg/dL (Neg-Trace); Specific Gravity, Urine 1.021 (1.002-1.036); Squamous Epithelial 0-3 HPF (0-3); Urobilinogen Normal mg/dL (Less than 2); WBC/HPF Greater than 50 HPF (0-3); pH, Urine 5.5 (5.0-9.0)
[2020-09-17 04:04] LABS: Bacteria/HPF Rare-Few HPF (None Seen)
[2020-09-17 04:16] LABS: Amphetamine Not Detected (NotDetected); Barbiturates Screen Not Detected (NotDetected); Benzodiazepine Screen Not Detected (NotDetected); Cocaine Metabolite Screen Not Detected (NotDetected); Medtox Reader # READER 4; Methadone Not Detected (NotDetected); Methamphetamine Not Detected (NotDetected); Opiate Screen Detected (NotDetected); Phencyclidine (PCP) Not Detected (NotDetected); THC/Cannabinoid Screen Not Detected (NotDetected); Tricyclic Screen Not Detected (NotDetected)
[2020-09-17 04:17] LABS: Medtox Control Line Valid? VALID (VALID); Oxycodone Screen Not Detected (NotDetected)
[2020-09-17] MEDS ORDERED: Vancomycin 1 GM/200 ML BAG ONE (04:30)
[2020-09-17] MEDS ORDERED: Cefepime 2 GM VIAL ONE (04:30)
[2020-09-17 04:33] LABS: CKMB 0.7 ng/mL (0-6.6)
[2020-09-17 04:40] LABS: SARS-CoV-2 NAA Rapid Test Not Detected (NotDetected)
[2020-09-17 05:01] LABS: Albumin 2.2 g/dL (3.5-5.0)
[2020-09-17 05:02] LABS: Chloride 108 mmol/L (98-107); Potassium 4.1 mmol/L (3.5-5.1); Sodium 137 mmol/L (136-145)
[2020-09-17 05:03] LABS: Calcium 8.1 mg/dL (7.8-10.44); Glucose 92 mg/dL (70-105)
[2020-09-17 05:04] LABS: Globulin 5.2 g/dL (2.4-3.5); Protein, Total 7.4 g/dL (6.0-8.3)
[2020-09-17 05:05] LABS: Anion Gap 12 mmol/L (10-20); Bilirubin, Total 0.8 mg/dL (0.2-1.2); Carbon Dioxide 21 mmol/L (22-29)
[2020-09-17 05:06] LABS: Alkaline Phosphatase 101 U/L (40-110)
[2020-09-17 05:07] LABS: Calc. Creatinine Clearance 0 mL/min (70-130)
[2020-09-17 05:08] LABS: BUN (Urea Nitrogen) 34 mg/dL (8.9-20.6)
[2020-09-17 05:09] LABS: ALT (SGPT) 35 U/L (8-55); AST (SGOT) 69 U/L (5-34); CK (CPK) 198 U/L (30-200)
[2020-09-17] MEDS ORDERED: Senokot S 8.6-50 MG TAB PO PRN (06:31)
[2020-09-17] MEDS ORDERED: Loperamide HCl 2 MG CAP PO PRN (06:31)
[2020-09-17] MEDS ORDERED: Guaifenesin DM 100-10/5 ML UDCUP PO PRN (06:31)
[2020-09-17] MEDS ORDERED: Calcium Carbonate 500 MG ChewTAB PO PRN (06:31)
[2020-09-17] MEDS ORDERED: Bisacodyl 10 MG SUPP PR PRN (06:31)
[2020-09-17] MEDS ORDERED: Bisacodyl 5 MG TAB PO PRN (06:31)
[2020-09-17] MEDS ORDERED: Acetaminophen 325 MG TAB PO PRN (06:31)
[2020-09-17] MEDS ORDERED: Sodium Chloride 0.9% 1,000 ML IV SCH (06:45)
[2020-09-17] MEDS ORDERED: Famotidine/PF 20 mg/2ml Vial ONE (08:04)
[2020-09-17] MEDS: Famotidine/PF 20 mg/2ml Vial SLOW IVP SCH ×2 (08:25→20:25)
[2020-09-17 08:37] LABS: Anion Gap 11 mmol/L (10-20); Carbon Dioxide 18 mmol/L (22-29); Chloride 110 mmol/L (98-107); Potassium 4.2 mmol/L (3.5-5.1); Sodium 135 mmol/L (136-145)
[2020-09-17] MEDS ORDERED: Famotidine 20 MG TAB PO SCH (09:00)
[2020-09-17] MEDS ORDERED: AMIKACIN SULFATE IVPB SCH (09:00)
[2020-09-17] MEDS ORDERED: Cefepime 1 GM in Sodium Chloride 0.9% 100 ML IVPB SCH (09:00)
[2020-09-17] MEDS ORDERED: SODIUM CHLORIDE 0.9% IVPB SCH (09:00)
[2020-09-17] MEDS ORDERED: Morphine 4 MG/ML VIAL ONE (09:43)
[2020-09-17] MEDS ORDERED: Morphine 4 MG/ML VIAL SLOW IVP SCH (10:00)
[2020-09-17 10:23] LABS: Creatinine, Urine 230.88 mg/dL (63-166)
[2020-09-17 10:34] LABS: Troponin I 0.014 ng/mL (< 0.028)
[2020-09-17 15:15] LABS: Ref Lab Test Ordered CYSTICERCOSIS AB; Reference Lab Name LABCORP
[2020-09-17] MEDS: Cefepime 1 GM in Sodium Chloride 0.9% 100 ML IVPB SCH (18:16)
[2020-09-17] MEDS: Vancomycin 1.5 GRAM/300 ML BAG 1.5 GM in Premix Bag 1 BAG IVPB SCH (20:25)
[2020-09-18] MEDS: HYDROcodone/Acetaminophen 10/325 mg Tablet PO PRN ×3 (02:29→21:10)
[2020-09-18 03:59] LABS: #Basophils 0.1 thou/uL (0.0-0.2); #Eosinphils 0.5 thou/uL (0.0-0.7); #Lymphocytes 2.6 thou/uL (1.20-3.40); #Neutrophils 5.2 thou/uL (1.40-6.50); %Eosinophils 4.9 % (0.0-10.0); %Lymphocytes 27.6 % (21.0-51.0); %Monocytes 10.5 % (0.0-10.0); Hemoglobin 9.2 g/dL (14.0-18.0); Mean Corpuscular HGB CONC 32.5 g/dL (32.0-36.0); Mean Corpuscular Hemoglobin 30.5 pg (27.0-31.0); Mean Corpuscular Volume 93.9 fL (78.0-98.0); Mean Platelet Volume 6.7 fL (7.4-10.4); Platelet Count 274 thou/uL (130-400); RBC Distribution Width 12.9 % (11.5-14.5); Red Blood Cell (RBC) Count 3.01 mill/uL (4.70-6.10); White Blood Cell (WBC) Count 9.3 thou/uL (4.8-10.8)
[2020-09-18] MEDS: Vancomycin 1.5 GRAM/300 ML BAG 1.5 GM in Premix Bag 1 BAG IVPB SCH ×3 (04:13→17:30)
[2020-09-18 04:18] LABS: ALT (SGPT) 29 U/L (8-55); AST (SGOT) 62 U/L (5-34); Albumin 2.1 g/dL (3.5-5.0); Alkaline Phosphatase 84 U/L (40-110); Anion Gap 14 mmol/L (10-20); BUN (Urea Nitrogen) 33 mg/dL (8.9-20.6); Bilirubin, Total 0.8 mg/dL (0.2-1.2); Calc. Creatinine Clearance 77 mL/min (70-130); Calcium 7.8 mg/dL (7.8-10.44); Carbon Dioxide 19 mmol/L (22-29); Chloride 112 mmol/L (98-107); Globulin 4.9 g/dL (2.4-3.5); Glucose 98 mg/dL (70-105); Potassium 4.1 mmol/L (3.5-5.1); Sodium 141 mmol/L (136-145)
[2020-09-18] MEDS: Cefepime 1 GM in Sodium Chloride 0.9% 100 ML IVPB SCH ×2 (04:50→17:16)
[2020-09-18] MEDS: Sodium Bicarbonate 150 MEQ in Dextrose 5% in Water 1,000 ML IV SCH (07:05)
[2020-09-18] MEDS: Famotidine/PF 20 mg/2ml Vial SLOW IVP SCH ×2 (08:41→21:08)
[2020-09-18] MEDS ORDERED: Prevnar 13-Val Conj/PF 0.5 ML SYRINGE IM ONE (09:00)
[2020-09-18 17:29] LABS: Vancomycin, Trough 39.4 ug/mL
[2020-09-18] MEDS: Promethazine HCl 12.5 MG in Sodium Chloride 0.9% 50 ML IVPB PRN (23:30)
[2020-09-19] MEDS: HYDROcodone/Acetaminophen 10/325 mg Tablet PO PRN ×3 (02:22→19:50)
[2020-09-19] MEDS ORDERED: Vancomycin 1.5 GRAM/300 ML BAG 1.5 GM in Premix Bag 1 BAG IVPB SCH (05:00)
[2020-09-19] MEDS: Cefepime 1 GM in Sodium Chloride 0.9% 100 ML IVPB SCH ×2 (05:25→16:29)
[2020-09-19 07:26] LABS: Anion Gap 13 mmol/L (10-20); BUN (Urea Nitrogen) 27 mg/dL (8.9-20.6); Calc. Creatinine Clearance 93 mL/min (70-130); Calcium 7.6 mg/dL (7.8-10.44); Carbon Dioxide 21 mmol/L (22-29); Chloride 106 mmol/L (98-107); Glucose 95 mg/dL (70-105); Phosphorus 2.6 mg/dL (2.3-4.7); Potassium 3.7 mmol/L (3.5-5.1); Sodium 136 mmol/L (136-145)
[2020-09-19] MEDS: Gabapentin 300 MG CAP PO SCH ×3 (09:31→21:36)
[2020-09-19] MEDS: clonazePAM 0.5 MG TAB PO SCH ×3 (09:31→21:36)
[2020-09-19] MEDS: Famotidine/PF 20 mg/2ml Vial SLOW IVP SCH ×2 (09:33→21:37)
[2020-09-19] MEDS: Baclofen 10 MG TAB PO SCH ×3 (09:41→21:36)
[2020-09-19] MEDS: Dexamethasone 4 MG TAB PO SCH (09:41)
[2020-09-19] MEDS: Sodium Bicarbonate 150 MEQ in Dextrose 5% in Water 1,000 ML IV SCH (14:09)
[2020-09-19] MEDS: HYDROcodone/Acetaminophen 10/325 mg Tablet PO SCH ×2 (14:13→21:44)
[2020-09-19] MEDS: Promethazine HCl 12.5 MG in Sodium Chloride 0.9% 50 ML IVPB PRN (22:28)
[2020-09-20 04:10] LABS: Albumin 2.1 g/dL (3.5-5.0); Anion Gap 12 mmol/L (10-20); BUN (Urea Nitrogen) 23 mg/dL (8.9-20.6); BUN/Creatinine Ratio 15.75; Calc. Creatinine Clearance 96 mL/min (70-130); Calcium 7.3 mg/dL (7.8-10.44); Carbon Dioxide 24 mmol/L (22-29); Chloride 102 mmol/L (98-107); Glucose 172 mg/dL (70-105); Phosphorus 2.2 mg/dL (2.3-4.7); Potassium 4.1 mmol/L (3.5-5.1); Sodium 134 mmol/L (136-145)
[2020-09-20] MEDS: Cefepime 1 GM in Sodium Chloride 0.9% 100 ML IVPB SCH (05:10)
[2020-09-20] MEDS: HYDROcodone/Acetaminophen 10/325 mg Tablet PO SCH ×3 (05:11→20:44)
[2020-09-20] MEDS: Promethazine HCl 12.5 MG in Sodium Chloride 0.9% 50 ML IVPB PRN ×2 (06:11→13:52)
[2020-09-20] MEDS: Dexamethasone 4 MG TAB PO SCH (09:37)
[2020-09-20] MEDS: Baclofen 10 MG TAB PO SCH ×3 (09:37→20:43)
[2020-09-20] MEDS: Famotidine/PF 20 mg/2ml Vial SLOW IVP SCH ×2 (09:38→20:43)
[2020-09-20] MEDS: clonazePAM 0.5 MG TAB PO SCH ×3 (09:38→20:43)
[2020-09-20] MEDS: Gabapentin 300 MG CAP PO SCH ×3 (09:38→20:43)
[2020-09-20] MEDS: Sodium Bicarbonate Tab 325 MG TAB PO SCH ×2 (09:40→20:43)
[2020-09-20] MEDS: HYDROcodone/Acetaminophen 10/325 mg Tablet PO PRN (09:41)
[2020-09-21 04:14] LABS: Anion Gap 11 mmol/L (10-20); BUN (Urea Nitrogen) 25 mg/dL (8.9-20.6); BUN/Creatinine Ratio 16.34; Calc. Creatinine Clearance 92 mL/min (70-130); Calcium 7.3 mg/dL (7.8-10.44); Carbon Dioxide 25 mmol/L (22-29); Chloride 106 mmol/L (98-107); Glucose 203 mg/dL (70-105); Phosphorus 2.6 mg/dL (2.3-4.7); Sodium 138 mmol/L (136-145)
[2020-09-21] MEDS: HYDROcodone/Acetaminophen 10/325 mg Tablet PO SCH ×4 (05:26→21:46)
[2020-09-21] MEDS ORDERED: Amlodipine 5 MG TAB PO SCH (09:00)
[2020-09-21] MEDS: Promethazine HCl 12.5 MG in Sodium Chloride 0.9% 50 ML IVPB PRN (09:27)
[2020-09-21] MEDS: HYDROcodone/Acetaminophen 10/325 mg Tablet PO PRN (09:27)
[2020-09-21] MEDS: clonazePAM 0.5 MG TAB PO SCH ×3 (09:28→20:21)
[2020-09-21] MEDS: Dexamethasone 4 MG TAB PO SCH (09:28)
[2020-09-21] MEDS: Baclofen 10 MG TAB PO SCH ×3 (09:29→20:22)
[2020-09-21] MEDS: Gabapentin 300 MG CAP PO SCH ×3 (09:29→20:21)
[2020-09-21] MEDS: Famotidine/PF 20 mg/2ml Vial SLOW IVP SCH ×2 (09:29→20:20)
[2020-09-21] MEDS: Sodium Bicarbonate Tab 325 MG TAB PO SCH ×2 (09:29→20:20)
[2020-09-21] MEDS: Albumin 25% 25 GM/100 ML BOT IVPB SCH ×3 (11:35→23:34)
[2020-09-21] MEDS ORDERED: Artificial Tear Sol 15 ML BOT EA EYE PRN (20:12)
[2020-09-21] MEDS ORDERED: Zolpidem Tartrate 5 MG TAB PO SCH (21:00)
[2020-09-22 04:26] LABS: Anion Gap 13 mmol/L (10-20); BUN (Urea Nitrogen) 26 mg/dL (8.9-20.6); BUN/Creatinine Ratio 18.57; CK (CPK) 36 U/L (30-200); Calc. Creatinine Clearance 100 mL/min (70-130); Calcium 7.5 mg/dL (7.8-10.44); Carbon Dioxide 26 mmol/L (22-29); Chloride 107 mmol/L (98-107); Glucose 167 mg/dL (70-105); Phosphorus 2.3 mg/dL (2.3-4.7); Potassium 3.9 mmol/L (3.5-5.1); Sodium 142 mmol/L (136-145)
[2020-09-22] MEDS: HYDROcodone/Acetaminophen 10/325 mg Tablet PO SCH ×3 (06:17→21:59)
[2020-09-22] MEDS: Dexamethasone 4 MG TAB PO SCH (08:44)
[2020-09-22] MEDS: Baclofen 10 MG TAB PO SCH ×3 (08:45→22:01)
[2020-09-22] MEDS: clonazePAM 0.5 MG TAB PO SCH ×3 (08:45→22:02)
[2020-09-22] MEDS: Amlodipine 5 MG TAB PO SCH (08:46)
[2020-09-22] MEDS: Sodium Bicarbonate Tab 325 MG TAB PO SCH ×2 (08:46→21:57)
[2020-09-22] MEDS: Gabapentin 300 MG CAP PO SCH ×3 (08:47→21:57)
[2020-09-22] MEDS: Famotidine/PF 20 mg/2ml Vial SLOW IVP SCH ×2 (08:47→21:55)
[2020-09-23] MEDS: HYDROcodone/Acetaminophen 10/325 mg Tablet PO SCH ×3 (05:08→20:56)
[2020-09-23] MEDS: Promethazine HCl 12.5 MG in Sodium Chloride 0.9% 50 ML IVPB PRN (05:11)
[2020-09-23 06:15] LABS: Albumin 2.7 g/dL (3.5-5.0); Anion Gap 12 mmol/L (10-20); BUN (Urea Nitrogen) 39 mg/dL (8.9-20.6); BUN/Creatinine Ratio 27.08; Calc. Creatinine Clearance 97 mL/min (70-130); Calcium 7.2 mg/dL (7.8-10.44); Carbon Dioxide 27 mmol/L (22-29); Chloride 109 mmol/L (98-107); Glucose 156 mg/dL (70-105); Potassium 3.7 mmol/L (3.5-5.1); Sodium 144 mmol/L (136-145)
[2020-09-23] MEDS: Amlodipine 5 MG TAB PO SCH (10:24)
[2020-09-23] MEDS: clonazePAM 0.5 MG TAB PO SCH ×3 (10:24→20:56)
[2020-09-23] MEDS: Dexamethasone 4 MG TAB PO SCH (10:25)
[2020-09-23] MEDS: Sodium Bicarbonate Tab 325 MG TAB PO SCH ×2 (10:25→20:55)
[2020-09-23] MEDS: Baclofen 10 MG TAB PO SCH ×3 (10:26→20:56)
[2020-09-23] MEDS: Gabapentin 300 MG CAP PO SCH ×3 (10:26→20:55)
[2020-09-23] MEDS: Famotidine/PF 20 mg/2ml Vial SLOW IVP SCH ×2 (10:27→20:33)
[2020-09-23] MEDS ORDERED: Magnevist 469MG/ML 20 ML VIAL ONE (12:12)
[2020-09-23] MEDS ORDERED: Morphine 4 MG/ML VIAL SLOW IVP SCH (21:00)
[2020-09-24 05:00] LABS: #Lymphocytes 0.6 thou/uL (1.20-3.40); #Monocytes 0.4 thou/uL (0.11-0.59); #Neutrophils 5.7 thou/uL (1.40-6.50); %Eosinophils 0.1 % (0.0-10.0); %Lymphocytes 8.5 % (21.0-51.0); %Monocytes 5.3 % (0.0-10.0); %Neutrophils 86.2 % (42.0-75.0); Hemoglobin 8.5 g/dL (14.0-18.0); Mean Corpuscular HGB CONC 31.9 g/dL (32.0-36.0); Mean Corpuscular Hemoglobin 30.2 pg (27.0-31.0); Mean Corpuscular Volume 94.5 fL (78.0-98.0); Mean Platelet Volume 7.4 fL (7.4-10.4); Platelet Count 277 thou/uL (130-400); RBC Distribution Width 13.3 % (11.5-14.5); White Blood Cell (WBC) Count 6.7 thou/uL (4.8-10.8)
[2020-09-24 05:19] LABS: Anion Gap 14 mmol/L (10-20); BUN (Urea Nitrogen) 45 mg/dL (8.9-20.6); Calc. Creatinine Clearance 88 mL/min (70-130); Calcium 7.3 mg/dL (7.8-10.44); Carbon Dioxide 25 mmol/L (22-29); Chloride 106 mmol/L (98-107); Glucose 177 mg/dL (70-105); Potassium 3.7 mmol/L (3.5-5.1); Sodium 141 mmol/L (136-145)
[2020-09-24] MEDS: HYDROcodone/Acetaminophen 10/325 mg Tablet PO SCH ×3 (05:51→21:57)
[2020-09-24 07:31] LABS: Albumin 2.6 g/dL (3.5-5.0)
[2020-09-24] MEDS: Baclofen 10 MG TAB PO SCH (08:38)
[2020-09-24] MEDS: clonazePAM 0.5 MG TAB PO SCH ×3 (08:39→20:42)
[2020-09-24] MEDS: Dexamethasone 4 MG TAB PO SCH (08:39)
[2020-09-24] MEDS: Sodium Bicarbonate Tab 325 MG TAB PO SCH ×2 (08:39→20:40)
[2020-09-24] MEDS: Gabapentin 300 MG CAP PO SCH ×3 (08:40→20:40)
[2020-09-24] MEDS: Amlodipine 5 MG TAB PO SCH (08:40)
[2020-09-24] MEDS: Famotidine/PF 20 mg/2ml Vial SLOW IVP SCH ×2 (08:41→20:41)
[2020-09-24] MEDS: Lactated Ringer's 1,000 ML IV SCH ×3 (08:41→22:18)
[2020-09-24] MEDS ORDERED: Baclofen 10 MG TAB PO PRN (09:15)
[2020-09-24] MEDS: Albumin 25% 25 GM/100 ML BOT IVPB SCH ×2 (12:58→22:01)
[2020-09-24] MEDS ORDERED: Senokot S 8.6-50 MG TAB PO PRN (17:46)
[2020-09-24] MEDS: Zolpidem Tartrate 5 MG TAB PO SCH (20:42)
[2020-09-25] MEDS: HYDROcodone/Acetaminophen 10/325 mg Tablet PO SCH ×3 (05:36→21:58)
[2020-09-25] MEDS: Albumin 25% 25 GM/100 ML BOT IVPB SCH (05:37)
[2020-09-25 06:20] LABS: Anion Gap 15 mmol/L (10-20); BUN (Urea Nitrogen) 47 mg/dL (8.9-20.6); Calc. Creatinine Clearance 91 mL/min (70-130); Calcium 7.9 mg/dL (7.8-10.44); Carbon Dioxide 25 mmol/L (22-29); Chloride 106 mmol/L (98-107); Glucose 126 mg/dL (70-105); Potassium 3.6 mmol/L (3.5-5.1); Sodium 142 mmol/L (136-145)
[2020-09-25] MEDS: Sodium Bicarbonate Tab 325 MG TAB PO SCH ×2 (08:48→21:06)
[2020-09-25] MEDS: clonazePAM 0.5 MG TAB PO SCH ×3 (08:48→21:07)
[2020-09-25] MEDS: Famotidine/PF 20 mg/2ml Vial SLOW IVP SCH ×2 (08:48→21:06)
[2020-09-25] MEDS: Gabapentin 100 MG CAP PO SCH ×3 (08:49→21:07)
[2020-09-25] MEDS: Dexamethasone 4 MG TAB PO SCH (08:49)
[2020-09-25] MEDS: Amlodipine 5 MG TAB PO SCH (08:49)
[2020-09-25 09:00] LABS: Complement-C4 5.9 mg/dL (15-53)
[2020-09-25] MEDS: Lactated Ringer's 1,000 ML IV SCH ×2 (09:37→18:36)
[2020-09-25] MEDS ORDERED: Morphine 4 MG/ML VIAL SLOW IVP SCH (11:15)
[2020-09-25 11:19] LABS: Bilirubin Negative (Negative); Blood, Urine Negative (Negative); Clarity Clear (Clear); Glucose, Urine (Dipstick) Normal (Negative); Ketone, Urine Negative (Negative); Leukocyte 75 Leu/uL (Negative); Nitrite Negative (Negative); Protein, Urine (Dipstick) 10 mg/dL (Neg-Trace); Specific Gravity, Urine 1.013 (1.002-1.036); Squamous Epithelial None Seen HPF (0-3); Urobilinogen Normal mg/dL (Less than 2); pH, Urine 6.5 (5.0-9.0)
[2020-09-25 11:39] LABS: RBC/HPF 0-3 HPF (0-3)
[2020-09-25 11:40] LABS: Bacteria/HPF Rare-Few HPF (None Seen); Yeast-Budding 1+ HPF (None Seen); Yeast-Hyphae 2+ HPF (None Seen)
[2020-09-25 12:39] LABS: Reflex for Review? - EOS YES
[2020-09-25] MEDS: Morphine 4 MG/ML VIAL SLOW IVP PRN (18:58)
[2020-09-25] MEDS: Zolpidem Tartrate 5 MG TAB PO SCH (21:07)
[2020-09-26] MEDS: Morphine 4 MG/ML VIAL SLOW IVP PRN (02:31)
[2020-09-26] MEDS: HYDROcodone/Acetaminophen 10/325 mg Tablet PO SCH (06:10)
[2020-09-26 06:16] LABS: Anion Gap 13 mmol/L (10-20); BUN (Urea Nitrogen) 60 mg/dL (8.9-20.6); Calc. Creatinine Clearance 73 mL/min (70-130); Calcium 7.8 mg/dL (7.8-10.44); Carbon Dioxide 27 mmol/L (22-29); Chloride 111 mmol/L (98-107); Glucose 146 mg/dL (70-105); Potassium 3.8 mmol/L (3.5-5.1); Sodium 147 mmol/L (136-145)
[2020-09-26 09:20] LABS: Troponin I 0.032 ng/mL (< 0.028)
[2020-09-26] MEDS: Sodium Bicarbonate Tab 325 MG TAB PO SCH ×2 (09:35→20:54)
[2020-09-26] MEDS: Dexamethasone 4 MG TAB PO SCH (09:36)
[2020-09-26] MEDS: Fluconazole 100 MG TAB PO SCH (09:37)
[2020-09-26] MEDS: Gabapentin 100 MG CAP PO SCH ×3 (09:37→20:53)
[2020-09-26] MEDS: Amlodipine 5 MG TAB PO SCH (09:37)
[2020-09-26] MEDS: Famotidine/PF 20 mg/2ml Vial SLOW IVP SCH ×2 (09:38→20:54)
[2020-09-26] MEDS: clonazePAM 0.5 MG TAB PO SCH ×3 (09:39→20:53)
[2020-09-26] MEDS: HYDROcodone/Acetaminophen 10/325 mg Tablet PO PRN (20:54)
[2020-09-26] MEDS: Zolpidem Tartrate 5 MG TAB PO SCH (20:54)
[2020-09-27] MEDS: hydrALAZINE 20 MG/ML VIAL SLOW IVP PRN ×2 (02:07→23:55)
[2020-09-27] MEDS: HYDROcodone/Acetaminophen 10/325 mg Tablet PO PRN (06:33)
[2020-09-27] MEDS: Promethazine HCl 12.5 MG in Sodium Chloride 0.9% 50 ML IVPB PRN (07:11)
[2020-09-27] MEDS: Famotidine/PF 20 mg/2ml Vial SLOW IVP SCH ×2 (08:22→21:29)
[2020-09-27] MEDS: clonazePAM 0.5 MG TAB PO SCH ×4 (09:00→21:30)
[2020-09-27 09:35] LABS: Albumin 3.1 g/dL (3.5-5.0); Anion Gap 15 mmol/L (10-20); BUN (Urea Nitrogen) 80 mg/dL (8.9-20.6); BUN/Creatinine Ratio 37.91; Calc. Creatinine Clearance 66 mL/min (70-130); Calcium 8.2 mg/dL (7.8-10.44); Carbon Dioxide 25 mmol/L (22-29); Chloride 110 mmol/L (98-107); Glucose 149 mg/dL (70-105); Phosphorus 4.3 mg/dL (2.3-4.7); Potassium 3.6 mmol/L (3.5-5.1); Sodium 146 mmol/L (136-145)
[2020-09-27] MEDS: Dexamethasone 4 MG TAB PO SCH (10:35)
[2020-09-27] MEDS: Fluconazole 100 MG TAB PO SCH (10:35)
[2020-09-27] MEDS: Sodium Bicarbonate Tab 325 MG TAB PO SCH (10:35)
[2020-09-27] MEDS: Amlodipine 5 MG TAB PO SCH (10:37)
[2020-09-27] MEDS: Gabapentin 100 MG CAP PO SCH ×3 (10:39→22:01)
[2020-09-27] MEDS: Morphine 4 MG/ML VIAL SLOW IVP PRN (10:56)
[2020-09-27] MEDS: Sodium Bicarbonate 50 MEQ in Sodium Chloride 0.45% 1,000 ML IV SCH ×3 (11:35→22:02)
[2020-09-27] MEDS ORDERED: Oxybutynin ER 5 MG TAB PO SCH (12:30)
[2020-09-27] MEDS: HYDROcodone/Acetaminophen 10/325 mg Tablet PO SCH ×2 (16:13→21:30)
[2020-09-27] MEDS: Zolpidem Tartrate 5 MG TAB PO SCH (21:30)
[2020-09-28] MEDS: Promethazine HCl 12.5 MG in Sodium Chloride 0.9% 50 ML IVPB PRN ×2 (00:49→09:34)
[2020-09-28] MEDS: HYDROcodone/Acetaminophen 10/325 mg Tablet PO SCH ×3 (05:25→17:19)
[2020-09-28 06:30] LABS: Albumin 2.8 g/dL (3.5-5.0); Anion Gap 15 mmol/L (10-20); BUN (Urea Nitrogen) 96 mg/dL (8.9-20.6); BUN/Creatinine Ratio 40.51; Calc. Creatinine Clearance 59 mL/min (70-130); Calcium 7.9 mg/dL (7.8-10.44); Carbon Dioxide 26 mmol/L (22-29); Glucose 155 mg/dL (70-105); Phosphorus 4.9 mg/dL (2.3-4.7)
[2020-09-28 06:57] LABS: Chloride 107 mmol/L (98-107); Potassium 3.9 mmol/L (3.5-5.1); Sodium 144 mmol/L (136-145)
[2020-09-28] MEDS: Sodium Bicarbonate 50 MEQ in Sodium Chloride 0.45% 1,000 ML IV SCH (09:13)
[2020-09-28] MEDS: Famotidine/PF 20 mg/2ml Vial SLOW IVP SCH ×2 (09:14→21:38)
[2020-09-28] MEDS: clonazePAM 0.5 MG TAB PO SCH ×4 (09:14→21:37)
[2020-09-28] MEDS ORDERED: Lorazepam 2 MG/ML VIAL ONE (10:12)
[2020-09-28] MEDS ORDERED: Lorazepam 2 MG/ML VIAL SLOW IVP SCH (10:45)
[2020-09-28] MEDS ORDERED: Ketamine 50 MG/ML (10ML VIAL) ONE (13:24)
[2020-09-28 16:00] LABS: ANA Symphony (Qualitative) Negative (Negative); ANA Symphony (Quantitative) 0.5 Ratio (< 0.7 Negative); dsDNA IgG Antibody 2.6 IU/mL (<10 Negative)
[2020-09-28] MEDS ORDERED: Sodium Chloride 0.9% 1,000 ML IV SCH (16:45)
[2020-09-28] MEDS ORDERED: Morphine 4 MG/ML VIAL SLOW IVP PRN (16:56)
[2020-09-28] MEDS: Dexamethasone 4 MG TAB PO SCH (17:06)
[2020-09-28] MEDS: Amlodipine 5 MG TAB PO SCH (17:08)
[2020-09-28 17:13] LABS: CSF, Glucose 102 mg/dl (40-70)
[2020-09-28] MEDS: Gabapentin 100 MG CAP PO SCH ×3 (17:18→21:38)
[2020-09-28] MEDS: Oxybutynin ER 5 MG TAB PO SCH (17:19)
[2020-09-28] MEDS: Fluconazole 100 MG TAB PO SCH (17:20)
[2020-09-28] MEDS: Cefepime 2 GM in Sodium Chloride 0.9% 100 ML IVPB SCH (17:45)
[2020-09-28] MEDS: Micafungin 100 MG in Sodium Chloride 0.9% 100 ML IVPB SCH (17:48)
[2020-09-28] MEDS: Vancomycin 1.5 GRAM/300 ML BAG 1.5 GM in Premix Bag 1 BAG IVPB SCH (19:01)
[2020-09-28 19:12] LABS: CSF, Protein Greater than 2000 mg/dL (15-40)
[2020-09-28 19:30] LABS: Band 5 % (5-11); Hemoglobin 7.1 g/dL (14.0-18.0); Lymphocytes 48 % (21-51); MDiff Complete? YES; Mean Corpuscular HGB CONC 33.9 g/dL (32.0-36.0); Mean Corpuscular Hemoglobin 31.1 pg (27.0-31.0); Mean Corpuscular Volume 91.9 fL (78.0-98.0); Mean Platelet Volume 8.7 fL (7.4-10.4); Neutrophil 47 % (42-75); Platelet Count 137 thou/uL (130-400); RBC Distribution Width 13.6 % (11.5-14.5); Red Blood Cell (RBC) Count 2.29 mill/uL (4.70-6.10); Rouleaux Formation SLIGHT = 1-5 cells (100X) (None Seen); White Blood Cell (WBC) Count 0.6 thou/uL (4.8-10.8)
[2020-09-28 20:38] LABS: Lactic Acid 2.7 mmol/L (0.5-2.2)
[2020-09-28 22:17] LABS: CSF Source CSF; Tube # 2
[2020-09-28 22:18] LABS: Clarity Hazy (Clear)
[2020-09-29] MEDS: Sodium Bicarbonate 50 MEQ in Sodium Chloride 0.45% 1,000 ML IV SCH (02:32)
[2020-09-29 03:05] LABS: White Blood Cell (WBC) Count 0.3 thou/uL (4.8-10.8)
[2020-09-29 03:16] LABS: Hemoglobin 7.2 g/dL (14.0-18.0); Mean Corpuscular HGB CONC 33.2 g/dL (32.0-36.0); Mean Corpuscular Hemoglobin 30.7 pg (27.0-31.0); Mean Corpuscular Volume 92.7 fL (78.0-98.0); Mean Platelet Volume 9.1 fL (7.4-10.4); Platelet Count 145 thou/uL (130-400); Platelet Morphology Comment Appears Adequate; RBC Distribution Width 13.3 % (11.5-14.5); RBC Morphology Normal; Red Blood Cell (RBC) Count 2.36 mill/uL (4.70-6.10)
[2020-09-29 03:46] LABS: Albumin 2.5 g/dL (3.5-5.0); Anion Gap 18 mmol/L (10-20); BUN (Urea Nitrogen) 116 mg/dL (8.9-20.6); BUN/Creatinine Ratio 39.59; Calc. Creatinine Clearance 48 mL/min (70-130); Calcium 7.8 mg/dL (7.8-10.44); Carbon Dioxide 22 mmol/L (22-29); Chloride 109 mmol/L (98-107); Glucose 128 mg/dL (70-105); Phosphorus 5.9 mg/dL (2.3-4.7); Sodium 145 mmol/L (136-145)
[2020-09-29] MEDS ORDERED: Dexamethasone 1 MG TAB PO SCH (08:00)
[2020-09-29] MEDS: clonazePAM 0.5 MG TAB PO SCH ×3 (08:57→20:22)
[2020-09-29] MEDS: Amlodipine 5 MG TAB PO SCH ×2 (08:57→11:19)
[2020-09-29] MEDS: Gabapentin 100 MG CAP PO SCH ×3 (08:58→20:22)
[2020-09-29] MEDS: Oxybutynin ER 5 MG TAB PO SCH (09:00)
[2020-09-29 11:18] LABS: Lactic Acid 12.9 mmol/L (0.5-2.2)
[2020-09-29] MEDS: Famotidine/PF 20 mg/2ml Vial SLOW IVP SCH ×2 (11:19→22:17)
[2020-09-29 11:39] VITALS: BMI 37.2
[2020-09-29] MEDS ORDERED: levETIRAcetam in NS 100 ML IVPB SCH (13:15)
[2020-09-29] MEDS ORDERED: levETIRAcetam in NS 1,000 MG in Premix Bag 1 BAG IVPB SCH (13:45)
[2020-09-29] MEDS: Cefepime 2 GM in Sodium Chloride 0.9% 100 ML IVPB SCH (13:58)
[2020-09-29] MEDS ORDERED: Norepinephrine 4 MG/4 ML VIAL ONE (15:07)
[2020-09-29] MEDS ORDERED: PROPOFOL 200 MG/20 ML VIAL ONE (15:07)
[2020-09-29] MEDS ORDERED: Rocuronium Bromide 10 MG/ML (10ML VIAL) ONE (15:07)
[2020-09-29] MEDS ORDERED: DOPamine 400 MG/D5W 250 ML 250 ML ONE (15:10)
[2020-09-29] MEDS ORDERED: Norepinephrine 8 MG/0.9% NS 250 ML ONE ×2 (15:55→18:48)
[2020-09-29 16:42] LABS: Actual Bicarbonate (HCO3a) 13.1 mEq/L (22-28); Base Excess (BEa) -14.1 mEq/L (-2.0 to +3.0); CO2 Tension 36.5 mmHg (35.0-45.0); Calcium, Ionized (arterial) 1.05 mmol/L (1.12-1.30); Carboxyhemoglobin (COHb) 1.3 gm% (0.0-3.0); Hemoglobin (Hb) 6.5 g/dL (14.0-18.0); Potassium - ABG Lab 4.37 mmol/L (3.70-5.30)
[2020-09-29 16:43] LABS: O2 Tension (PaO2), arterial 30.9 mmHg (80.0-100.0); pH, Arterial 7.17 (7.35-7.45)
[2020-09-29 16:44] LABS: ALV-art Gradient 636.475 mmHg (0-20)
[2020-09-29 17:48] LABS: Actual Bicarbonate (HCO3a) 12.9 mEq/L (22-28); Base Excess (BEa) -12.7 mEq/L (-2.0 to +3.0); Calcium, Ionized (arterial) 0.99 mmol/L (1.12-1.30); Carboxyhemoglobin (COHb) 1.4 gm% (0.0-3.0); Hemoglobin (Hb) 6.7 g/dL (14.0-18.0); O2 Tension (PaO2), arterial 87.7 mmHg (80.0-100.0); Potassium - ABG Lab 4.25 mmol/L (3.70-5.30); pH, Arterial 7.28 (7.35-7.45)
[2020-09-29 17:49] LABS: Puncture Site Arterial Line
[2020-09-29] MEDS ORDERED: Enoxaparin Sodium 30 MG/0.3 ML SYRINGE SC SCH (18:00)
[2020-09-29] MEDS ORDERED: Lactated Ringer's 1,000 ML IV SCH (18:30)
[2020-09-29] MEDS: Vancomycin 1.5 GRAM/300 ML BAG 1.5 GM in Premix Bag 1 BAG IVPB SCH (18:33)
[2020-09-29] MEDS: Piperacillin/Tazobactam 2.25 GM in Sodium Chloride 0.9% 100 ML IVPB SCH ×2 (18:36→23:28)
[2020-09-29] MEDS: Albumin 25% 25 GM/100 ML BOT IVPB SCH ×2 (18:36→23:28)
[2020-09-29] MEDS: Micafungin 100 MG in Sodium Chloride 0.9% 100 ML IVPB SCH (18:42)
[2020-09-29 19:07] LABS: Lactic Acid 12.4 mmol/L (0.5-2.2)
[2020-09-29] MEDS ORDERED: Sodium Chloride 0.9% 1,000 ML IV SCH (19:15)
[2020-09-29 20:09] LABS: INR-International Normal Ratio 2.9; Prothrombin Time 30.9 sec (12.0-14.7)
[2020-09-29 21:49] LABS: Actual Bicarbonate (HCO3a) 11.5 mEq/L (22-28); Calcium, Ionized (arterial) 0.95 mmol/L (1.12-1.30); Carboxyhemoglobin (COHb) 1.5 gm% (0.0-3.0); Hemoglobin (Hb) 6.7 g/dL (14.0-18.0); O2 Tension (PaO2), arterial 161.9 mmHg (80.0-100.0); Potassium - ABG Lab 4.05 mmol/L (3.70-5.30); pH, Arterial 7.34 (7.35-7.45)
[2020-09-29 21:51] LABS: CO2 Tension 21.9 mmHg (35.0-45.0)
[2020-09-29 21:52] LABS: Puncture Site Arterial Line
[2020-09-29 21:53] LABS: ALV-art Gradient 523.725 mmHg (0-20)
[2020-09-29] MEDS: levETIRAcetam in NS 500 MG in Premix Bag 1 BAG IVPB SCH (22:12)
[2020-09-29] MEDS: Norepinephrine 8 MG/0.9% NS 250 ML IVPB SCH (22:25)
[2020-09-29 22:38] LABS: Critical Call Chem-Lactate DECREASING; Lactic Acid 11.2 mmol/L (0.5-2.2)
[2020-09-30] MEDS ORDERED: Lorazepam 2 MG/ML VIAL SLOW IVP PRN (01:17)
[2020-09-30] MEDS: EPINEPHrine 4 MG in Dextrose 5% in Water 250 ML IV SCH ×4 (01:42→12:18)
[2020-09-30] MEDS: Norepinephrine 8 MG/0.9% NS 250 ML IVPB SCH ×3 (01:50→09:50)
[2020-09-30 02:08] LABS: Lactic Acid 9.1 mmol/L (0.5-2.2)
[2020-09-30] MEDS ORDERED: Dextrose 50% Abboject 50 ML SYRINGE ONE ×6 (02:35→12:13)
[2020-09-30 03:10] LABS: Glucose Less than 7 mg/dL (70-105)
[2020-09-30 03:17] LABS: Hemoglobin 7.1 g/dL (14.0-18.0); Mean Corpuscular HGB CONC 34.9 g/dL (32.0-36.0); Mean Corpuscular Hemoglobin 31.8 pg (27.0-31.0); RBC Distribution Width 13.6 % (11.5-14.5); Red Blood Cell (RBC) Count 2.23 mill/uL (4.70-6.10); White Blood Cell (WBC) Count 0.3 thou/uL (4.8-10.8)
[2020-09-30 03:41] LABS: Albumin 2.3 g/dL (3.5-5.0); Anion Gap 24 mmol/L (10-20); BUN (Urea Nitrogen) 109 mg/dL (8.9-20.6); BUN/Creatinine Ratio 30.79; Calc. Creatinine Clearance 42 mL/min (70-130); Calcium 7.2 mg/dL (7.8-10.44); Carbon Dioxide 13 mmol/L (22-29); Chloride 113 mmol/L (98-107); Phosphorus 6.9 mg/dL (2.3-4.7); Potassium 4.8 mmol/L (3.5-5.1); Sodium 145 mmol/L (136-145)
[2020-09-30 03:44] LABS: Glucose 46 mg/dL (70-105); Lactic Acid 9.6 mmol/L (0.5-2.2)
[2020-09-30] MEDS ORDERED: Dextrose 5% in Water 1,000 ML IV SCH (03:45)
[2020-09-30 04:04] LABS: Mean Platelet Volume 9.7 fL (7.4-10.4); Platelet Count 24 thou/uL (130-400); Platelet Morphology Comment Appears Decreased
[2020-09-30 04:05] LABS: ALT (SGPT) 1104 U/L (8-55); AST (SGOT) 2791 U/L (5-34); Albumin 2.3 g/dL (3.5-5.0); Alkaline Phosphatase 41 U/L (40-110); Anion Gap 24 mmol/L (10-20); BUN (Urea Nitrogen) 109 mg/dL (8.9-20.6); Bilirubin, Total 2.7 mg/dL (0.2-1.2); Calc. Creatinine Clearance 42 mL/min (70-130); Calcium 7.2 mg/dL (7.8-10.44); Carbon Dioxide 12 mmol/L (22-29); Chloride 113 mmol/L (98-107); Globulin 1.7 g/dL (2.4-3.5); Potassium 4.8 mmol/L (3.5-5.1); Sodium 144 mmol/L (136-145)
[2020-09-30 04:24] LABS: Glucose 46 mg/dL (70-105)
[2020-09-30] MEDS: Piperacillin/Tazobactam 2.25 GM in Sodium Chloride 0.9% 100 ML IVPB SCH ×2 (05:45→11:49)
[2020-09-30] MEDS: Albumin 25% 25 GM/100 ML BOT IVPB SCH ×2 (05:45→11:49)
[2020-09-30 07:13] LABS: Base Excess (BEa) -18.3 mEq/L (-2.0 to +3.0); Calcium, Ionized (arterial) 0.94 mmol/L (1.12-1.30); Carboxyhemoglobin (COHb) 1.7 gm% (0.0-3.0); Potassium - ABG Lab 4.76 mmol/L (3.70-5.30)
[2020-09-30 07:30] LABS: Hemoglobin (Hb) 5.9 g/dL (14.0-18.0); Puncture Site Arterial Line; pH, Arterial 7.14 (7.35-7.45)
[2020-09-30] MEDS ORDERED: Dextrose 5 %-0.45 % NaCl 1,000 ML IV SCH (07:30)
[2020-09-30 08:03] LABS: Bacteria/HPF None Seen HPF (None Seen); Bilirubin Negative (Negative); Blood, Urine 3+ (Negative); Clarity Turbid (Clear); Glucose, Urine (Dipstick) Normal (Negative); Ketone, Urine Negative (Negative); Leukocyte 75 Leu/uL (Negative); Nitrite Negative (Negative); Protein, Urine (Dipstick) 100 mg/dL (Neg-Trace); RBC/HPF Greater than 50 HPF (0-3); Specific Gravity, Urine 1.025 (1.002-1.036); Squamous Epithelial 0-3 HPF (0-3); Urobilinogen Normal mg/dL (Less than 2); WBC/HPF 21-50 HPF (0-3)
[2020-09-30] MEDS ORDERED: Pantoprazole 80 MG in Sodium Chloride 0.9% 100 ML IVPB SCH (08:03)
[2020-09-30] MEDS ORDERED: Enoxaparin Sodium 30 MG/0.3 ML SYRINGE SC SCH (09:00)
[2020-09-30] MEDS ORDERED: Phytonadione 10 MG in Sodium Chloride 0.9% 50 ML IVPB SCH (09:45)
[2020-09-30] MEDS ORDERED: Dextrose 10% in Water 1,000 ML IV SCH (09:45)
[2020-09-30] MEDS ORDERED: Furosemide 100 MG/10 ML VIAL SLOW IVP SCH (09:45)
[2020-09-30] MEDS: Amlodipine 5 MG TAB PO SCH (10:06)
[2020-09-30] MEDS: Gabapentin 100 MG CAP PO SCH (10:07)
[2020-09-30] MEDS: clonazePAM 0.5 MG TAB PO SCH (10:07)
[2020-09-30 10:08] LABS: Lactic Acid Greater than 13.4 mmol/L (0.5-2.2)
[2020-09-30 10:53] VITALS: BP 97/47
[2020-09-30] MEDS: Oxybutynin ER 5 MG TAB PO SCH (11:35)
[2020-09-30] MEDS: levETIRAcetam in NS 500 MG in Premix Bag 1 BAG IVPB SCH (11:49)
[2020-09-30] MEDS ORDERED: Hydrocortisone Sod Succ/PF 100 mg/2 ml Vial IVP SCH (12:00)
[2020-09-30 13:42] LABS: Lactic Acid 16.8 mmol/L (0.5-2.2)
[2020-09-30 17:47] VITALS: TEMP 97.9
[2020-10-02 11:40] LABS: HCV log10 4.164 (.); Hep C PCR-Quant 14600 IU/mL (.)
== END 2020-09-30 13:09 | disposition expired | DRG 698 ==
LOC: ERS 02:59 → ERHOLD 05:29 → IMCU/EMU 05:29 → ONC 09-21 12:24 → IMCU/EMU 09-28 20:32 → CCU 09-29 15:20
PROVIDERS: ADMIT Internal Medicine; ATTEND Internal Medicine
PROC: 02H633Z Insertion of Infusion Device into Right Atrium, Percutaneous Approach (ICD-10-PCS; principal; 2020-09-17)
PROC: 05HB33Z Insertion of Infusion Device into Right Basilic Vein, Percutaneous Approach (ICD-10-PCS; 2020-09-18)
PROC: 0T2BX0Z Change Drainage Device in Bladder, External Approach (ICD-10-PCS; 2020-09-19)
PROC: 009U3ZX Drainage of Spinal Canal, Percutaneous Approach, Diagnostic (ICD-10-PCS; 2020-09-28)
PROC: B01B1ZZ Fluoroscopy of Spinal Cord using Low Osmolar Contrast (ICD-10-PCS; 2020-09-28)
PROC: 30233N1 Transfusion of Nonautologous Red Blood Cells into Peripheral Vein, Percutaneous Approach (ICD-10-PCS; 2020-09-29)
PROC: 3E033XZ Introduction of Vasopressor into Peripheral Vein, Percutaneous Approach (ICD-10-PCS; 2020-09-29)
PROC: 04HY32Z Insertion of Monitoring Device into Lower Artery, Percutaneous Approach (ICD-10-PCS; 2020-09-29)
PROC: 0BH18EZ Insertion of Endotracheal Airway into Trachea, Via Natural or Artificial Opening Endoscopic (ICD-10-PCS; 2020-09-29)
PROC: 5A1935Z Respiratory Ventilation, Less than 24 Consecutive Hours (ICD-10-PCS; 2020-09-29)
PROC: 30233R1 Transfusion of Nonautologous Platelets into Peripheral Vein, Percutaneous Approach (ICD-10-PCS; 2020-09-30)
PROC: 02HV33Z Insertion of Infusion Device into Superior Vena Cava, Percutaneous Approach (ICD-10-PCS; 2020-09-30)
PROC: B548ZZA Ultrasonography of Superior Vena Cava, Guidance (ICD-10-PCS; 2020-09-30)
DX: T83.511A Infection and inflammatory reaction due to indwelling urethral catheter, initial encounter (principal); A41.81 Sepsis due to Enterococcus; I61.9 Nontraumatic intracerebral hemorrhage, unspecified; G93.6 Cerebral edema; G92 Toxic encephalopathy; R65.21 Severe sepsis with septic shock; J96.01 Acute respiratory failure with hypoxia; I81 Portal vein thrombosis; D65 Disseminated intravascular coagulation [defibrination syndrome]; B69.0 Cysticercosis of central nervous system; N17.9 Acute kidney failure, unspecified; G82.20 Paraplegia, unspecified; M86.9 Osteomyelitis, unspecified; E87.2 Acidosis; R47.01 Aphasia; K92.2 Gastrointestinal hemorrhage, unspecified; D61.818 Other pancytopenia; D68.8 Other specified coagulation defects; Z66 Do not resuscitate; N39.0 Urinary tract infection, site not specified; B18.2 Chronic viral hepatitis C; G89.4 Chronic pain syndrome; E66.9 Obesity, unspecified; N31.9 Neuromuscular dysfunction of bladder, unspecified; G93.0 Cerebral cysts; D64.9 Anemia, unspecified; E86.9 Volume depletion, unspecified; T83.091A Other mechanical complication of indwelling urethral catheter, initial encounter; N18.9 Chronic kidney disease, unspecified; I12.9 Hypertensive chronic kidney disease with stage 1 through stage 4 chronic kidney disease, or unspecified chronic kidney disease; K72.90 Hepatic failure, unspecified without coma; K74.60 Unspecified cirrhosis of liver; Z20.822 Contact with and (suspected) exposure to COVID-19; N14.1 Nephropathy induced by other drugs, medicaments and biological substances; Y84.6 Urinary catheterization as the cause of abnormal reaction of the patient, or of later complication, without mention of misadventure at the time of the procedure; E83.51 Hypocalcemia; E83.39 Other disorders of phosphorus metabolism; E16.2 Hypoglycemia, unspecified; R56.9 Unspecified convulsions; I46.9 Cardiac arrest, cause unspecified; E88.09 Other disorders of plasma-protein metabolism, not elsewhere classified; Z87.440 Personal history of urinary (tract) infections; Z68.39 Body mass index [BMI] 39.0-39.9, adult; Z88.1 Allergy status to other antibiotic agents; Z88.8 Allergy status to other drugs, medicaments and biological substances; Z90.5 Acquired absence of kidney; Z90.81 Acquired absence of spleen; Z98.890 Other specified postprocedural states; Z87.891 Personal history of nicotine dependence
CPT/HCPCS: 36415; 36416; 36430; 36556; 51702; 62270; 70450; 70553; 71045; 72100; 72197; 76705; 76770; 80048; 80053; 80069; 80202; 80306; 81001; 81003; 81015; 82040; 82140; 82306; 82550; 82553; 82570; 82805; 82945; 83605; 84156; 84157; 84300; 84484; 84540; 85025; 85060; 85610; 85652; 85730; 86038; 86140; 86160; 86225; 86850; 86900; 86901; 87040; 87070; 87077; 87086; 87149; 87186; 87205; 87522; 87899; 89051; 89190; 93005; 93010; 93926; 94002; 94003; 95712; 95816; 95819; 95957; 96365; 96367; A9579; C9113; J0171; J0360; J0692; J1720; J1940; J1953; J2060; J2248; J2270; J2543; J2550; J2597; J2704; J3370; J3430; J3490; J7050; J7070; J8540; P9016; P9035; P9047; P9059; S0028; U0002